=== PATIENT | male | born 1980 | race Caucasian/White ===

== ENCOUNTER 2019-05-03 17:52 | Inpatient (IN) | payer MEDICAID, SELFPAY ==
[2019-05-03 17:54] VITALS: BP 134/101; PULSE 107; RESP 18; TEMP 36.4; O2SAT 100; BMI 22.7
--- NOTE | 2019-05-03 17:55 | NURSING ---
NO OLD EKGS
[2019-05-03 18:05] LABS: Bedside Glucose > 500 mg/dL (70-110)
--- NOTE | 2019-05-03 18:16 | RAD_ITS ---
STUDY: X-RAY CHEST REASON FOR EXAM: Male, 38 years old. Nausea and vomiting TECHNIQUE: Frontal view COMPARISON: None. FINDINGS: The lungs are clear and expanded. There is no demonstrated pleural abnormality. Normal size heart. Normal mediastinum and pranav. Normal visualized pulmonary arteries. Normal visualized aortic arch and descending thoracic aorta. Normal visualized thoracic spine. Normal visualized ribs, clavicles, and shoulders. There is no demonstrated abnormality of the visualized soft tissue structures of the upper abdomen. RAD/Chest 1 View (Portable) IMPRESSION: Normal x-ray examination of the chest. Electronically Signed: Aaron Adame MD at 18:35 EDT , Service support ,
--- NOTE | 2019-05-03 18:17 | EKG12_ITS ---
Test Reason : Blood Pressure : / mmHG Vent. Rate : 104 BPM Atrial Rate : 104 BPM P-R Int : 130 ms QRS Dur : 068 ms QT Int : 354 ms P-R-T Axes : 074 077 069 degrees QTc Int : 465 ms Sinus tachycardia Otherwise normal ECG Confirmed by KOBY PACHECO, CHAVO ([id number]), assistant editor RADU ELLSWORTH ([id number]) on 05/06/2019 10:20:32 AM Referred By: Luis Enrique Cevallos Confirmed By:CHAVO WHALEN MD
[2019-05-03 18:32] LABS: Prothrombin Time (Protime)PT. 12.9 SECONDS (11.7-14.9)
[2019-05-03] MEDS: 0.9% Normal Saline 1,000 ML 1000 ML IV ×2 (18:32)
[2019-05-03] MEDS: Ondansetron 4 MG/2 ML Vial IV ×2 (18:32→20:27)
[2019-05-03] MEDS: Morphine 4 MG/ML Syringe IV ×2 (18:32→20:27)
[2019-05-03 18:33] LABS: Partial Thromboplast Time 22.7 Seconds (24.1-36.2)
[2019-05-03 18:50] LABS: Blood Gas Specimen Type VEN; O2 Delivery Device Room Air; Time Given 1842; VBG BASE EXCESS 0 mmol/L (-1.0-3.5); VBG Bicarbonate 25 mmol/L (22-26); VBG Oxygen Content 26 mmol/L (23-33); VBG PO2 43 mmHg (25-40); VBG SO2 80 % (50-70); VBG pCO2 38.1 mmHg (41-51); VBG pH 7.42 (7.32-7.42)
[2019-05-03 18:56] LABS: Lactic Acid 2.3 mmol/L (0.4-2.0)
[2019-05-03 19:02] VITALS: BP 143/108; PULSE 97; RESP 14; O2SAT 98
[2019-05-03 19:05] LABS: ALB/GLOB Ratio 0.7 RATIO (0.9-2.4); AST(SGOT) 19 U/L (15-37); Alanine Aminotransfer ALT/SGPT 31 U/L (16-61); Albumin, Serum 2.7 g/dL (3.2-5.0); Alkaline Phosphatase 83 U/L (45-117); Anion Gap 11 (5-15); BUN 34 mg/dL (7-18); BUN/Creat Ratio 32.7 RATIO (10-20); Chloride 87 mmol/L (98-107); Creatinine, Serum 1.04 mg/dL (0.70-1.30); EST Glomerular Filtration Rate 85 mL/min (>60); Est Glom Filt Rate - Afr Amer 102 mL/min (>60); Globulin 3.9 g/dL (2.2-4.2); Glucose 624 mg/dL (74-106); Lipase 289 U/L (73-393); Protein, Total 6.6 g/dL (6.4-8.2); Sodium Level 125 mmol/L (136-145)
[2019-05-03 19:10] LABS: Bedside Glucose > 500 mg/dL (70-110)
[2019-05-03 19:15] VITALS: BP 148/105; PULSE 89; RESP 17; TEMP 36.6; O2SAT 100
[2019-05-03 19:15] LABS: Absolute Lymphocyte Count 1.82 X10^3/uL (0.83-4.51); Absolute Neutrophil Count 9.9 X10^3/uL (2.0-7.7); Basophil# 0.03 X10^3/uL; Basophil% 0.2 % (0-1); Hematocrit 44.2 % (40-54); Hemoglobin 16.5 g/dL (13.0-16.5); Lymphocyte # 1.82 X10^3/ul (4.0); Lymphocyte % 13.9 % (19-41); Mean Corp Hgb Conc 37.3 g/dL (32-36); Mean Corpuscular Hgb 33.6 pg (27.0-32.0); Mean Platelet Vol. 10.8 fl (6.2-12.0); Monocyte# 1.38 X10^3/uL; Monocyte% 10.5 % (0-10); NRBC Flagged by Analyzer 0 % (0-5); Neutrophil # 9.87 X10^3/uL (2.7-7.7); Neutrophil % 75.1 % (47-70); POSITIVE MORPHOLOGY YES; Platelet Count 283 K/mm3 (150-450); RBC Distribution Width CV 11.1 % (11.6-14.6); RBC Distribution Width SD 36.3 fl (35.1-43.9); Red Blood Count 4.91 M/mm3 (4.6-6.2); White Blood Count 13.1 K/mm3 (4.4-11.0)
[2019-05-03 19:19] LABS: Differential Indicated SCAN CRITERIA MET
[2019-05-03 19:22] LABS: Anisocytosis RARE; Platelet Estimate ADEQUATE (ADEQ)
[2019-05-03 20:00] VITALS: BP 145/104; PULSE 103; PULSE 104; RESP 15; RESP 17; TEMP 36.9; O2SAT 98
--- NOTE | 2019-05-03 20:06 | ED.DCSUM_ITS ---
- ER Visit Summary Date of Service: 05/03/19 Chief Complaint: Not feeling well History of Present Illness: The patient is a 38 M who is not feeling well for 3 days. He feels weak, he is having chest pain. He is having high blood sugars. He has a history of diabetes and is not taking his insulin because he feels unwell. He denies any history of heart disease, PE, or aortic disease. Denies fevers, cough, or sputum. Denies any other associated symptoms. Physical Examination: Afebrile and vital signs unremarkable except for heart rate of 107. Patient appears dry. Skin otherwise unremarkable. Alert and oriented. Heart tachycardic regular. Lungs clear. Abdomen soft and nontender. Extremities nontender. Test Results: EKG showed sinus rhythm at a rate of 104. No sign of acute ischemia or infarction pattern. Chest x-ray was normal. Troponin was normal. White count 13.1 otherwise CBC normal. Sodium 125 and glucose 624. Anion gap and CO2 unremarkable. Lipase and coags unremarkable. Lactate 2.3. Small ketones. Troponin normal. Urinalysis pending. Emergency Department Course and Treatment: Patient treated with IV fluids, morphine, and Zofran while awaiting results. He was monitored. Patient is hyperglycemic without evidence of DKA. He was treated with IV fluids. After discussion with the hospitalist. He was treated with 10 units of insulin subcutaneous and 10 units IV. He does have chest pain however his work-up is unremarkable. He does have a white count of 13.1 and is tachycardic. I did order a lactate and it was 2.3. Thus far he has no signs of or symptoms of infection. I am waiting for his urinalysis. Hospitalist was contacted for further care. Treatment Plan: As above Disposition: Admission Impression: 1. Hyperglycemia 2. Chest pain This note was generated with [employer] dictation software. It may contain incorrect words, spelling, and punctuation that were not noted in review of the chart p rior to signing ED Disposition - Plan for ED Patient: Referrals: Care Physician,No Primary [Primary Care Provider] -
[2019-05-03 20:27] LABS: Bacteria 0 SEEN /hpf (None Seen); Mucous, Urine 0 SEEN /hpf (<or=2+); Squamous Epithelial Cells - UA 0 SEEN /hpf (0-5)
[2019-05-03] MEDS: Insulin Lispro 100 UNIT/ML INSULN.PEN 10 UNIT SC (20:27)
[2019-05-03 20:28] LABS: Color, Urine Straw (Yellow); Glucose, Dipstick 1000 mg/dl (Normal); Ketone-Dipstick 50 mg/dl (Negative); Leukocyte Esterase-Dipstick Negative /ul (Negative); Nitrite-Dipstick Negative (Negative); Occult Blood-Urine 25 /ul (Negative); Protein-Dipstick 30 mg/dl (Negative); Urine Bilirubin Dipstick Negative (Negative); Urine Clarity Clear (Clear); Urine Urobilinogen Normal (Normal)
[2019-05-03 20:36] LABS: Red Blood Cells-Urine 0-5 SEEN /hpf (0-5); White Blood Cells 0-5 SEEN /hpf (0-5)
[2019-05-03 21:16] VITALS: PULSE 100
[2019-05-03 21:17] VITALS: BMI 22.0
--- NOTE | 2019-05-03 21:18 | HP.PCM_ITS ---
Problem List (1) Severe hyperglycemia due to diabetes mellitus Status: Acute (2) Chest pain Status: Acute History of Present Illness Date of Admission: 05/03/19 Chief Complaint: Weakness and fatigue and malaise The patient is a 38 year old M with type 1 diabetes. Three Days ago ingested 3 caffeine energy pills and since then has been feeling unwell with chest pain, heartburn and nausea and some vomiting and has been unable to eat or drink fluids. As a result has not been taking his insulin. Presented to the emergency room due to severe fatigue and malaise and blood sugar noted to be markedly elevated at greater than 600 mg per DL. Still complaining of chest pain. Denies any fever or chills. [] Past Medical History Allergies No Known Allergies Allergy (Verified 05/03/19 17:57) Home Medications: Ambulatory Orders Medication Instructions Recorded Insulin NPH/Reg 70/30 [Novolin 25 units SUBCUT BIDAC 05/03/19 70/30] Lisinopril [Zestril] 10 mg PO DAILY 05/03/19 Omeprazole [Prilosec] 30 mg PO BID 05/03/19 Smoking Status: Current every day smoker Review of Systems Constitutional: Reports: Anorexia, Malaise, Weakness, Fatigue Cardiovascular: Reports: Chest Pain Comment: All other systems reviewed and essentially negative. VTE Information - Inpt Only VTE Present on Admission: Yes VTE Mechan Device Prophylaxis: None VTE Pharm Prophylaxis ordered?: Yes Patient Problems: Active and Suspected Problems Severe hyperglycemia due to diabetes mellitus (Acute) Chest pain (Acute) - Physical Exam General: Alert, Oriented x3, Cooperative, - - In distress and restless HEENT: Atraumatic, PERRLA Oral: Dry Mucosa Neck: Supple, No JVD Lungs: Clear to auscultation, Normal air movement, No rhonchi, No wheeze Cardiovascular: Regular rate, Regular Rhythm, Normal S1, Normal S2 Abdomen: Bowel Sounds Present, Soft, Non Tender Extremities: No clubbing, No cyanosis Skin: No rashes Musculoskeletal: No Tenderness to Palpation of Joints or Extremities Lymphatic: No Cervical, Supraclavicular, or Inguinal Adenopathy Neurological: Cranial nerves II-XII grossly intact, Neuro grossly intact Psych/Mental Status: Normal Affect, Appropriate, Agitated Vital Signs Temp Pulse Resp BP Pulse Ox 98.4 F 104 H 17 145/104 H 98 05/03/19 20:00 05/03/19 20:00 05/03/19 20:00 05/03/19 20:00 05/03/19 20:00 Oxygen Delivery Method Room Air Weight: 71.8 kg Body Mass Index (BMI) 22.7 Finger Stick Blood Glucose 522 Laboratory Tests Past 24 Hrs 05/03/19 05/03/19 05/03/19 18:10 18:10 18:10 WBC 13.1 H RBC 4.91 Hgb 16.5 Hct 44.2 MCV 90.0 MCH 33.6 H MCHC 37.3 H RDW Std Deviation 36.3 RDW Coeff of Gentry 11.1 L Plt Count 283 MPV 10.8 Immature Gran % (Auto) 0.300 Neut % (Auto) 75.1 H Lymph % (Auto) 13.9 L [place] % (Auto) 10.5 H Eos % (Auto) 0.0 Baso % (Auto) 0.2 Absolute Neuts (auto) 9.9 H Absolute Lymphs (auto) 1.82 Nucleated RBC % 0 Platelet Estimate ADEQUATE Anisocytosis RARE PT 12.9 INR 1.0 APTT 22.7 L Specimen Type VBG pH VBG pO2 VBG O2 Sat (Calc) VBG O2 Content VBG Base Excess POC Mix VBG pCO2 Pt Tmp O2 Delivery Device Blood Gas Notified Whom Blood Gas Notified Time Sodium 125 L Potassium 5.0 Chloride 87 L Carbon Dioxide 27.0 Anion Gap 11 BUN 34 H Creatinine 1.04 Estim Creat Clear Calc 97.80 Est GFR (MDRD) Af Amer 102 Est GFR (MDRD) Non-Af 85 BUN/Creatinine Ratio 32.7 H Glucose 624 H* Hemoglobin A1c Lactic Acid Calcium 8.0 L Total Bilirubin 0.50 AST 19 ALT 31 Alkaline Phosphatase 83 Troponin I < 0.015 Total Protein 6.6 Albumin 2.7 L Globulin 3.9 Albumin/Globulin Ratio 0.7 L Lipase 289 Urine Color Urine Clarity Urine pH Ur Specific [place] Urine Protein Urine Glucose (UA) Urine Ketones Urine Occult Blood Urine Nitrite Urine Bilirubin Urine Urobilinogen Ur Leukocyte Esterase Urine RBC Urine WBC Ur Squamous Epith Cells Urine Bacteria Urine Mucus Acetone Level 05/03/19 05/03/19 05/03/19 18:10 18:10 18:10 WBC RBC Hgb Hct MCV MCH MCHC RDW Std Deviation RDW Coeff of G[place] Plt Count MPV Immature Gran % (Auto) Neut % (Auto) Lymph % (Auto) [place] % (Auto) Eos % (Auto) Baso % (Auto) Absolute Neuts (auto) Absolute Lymphs (auto) Nucleated RBC % Platelet Estimate Anisocytosis PT INR APTT Specimen Type VBG pH VBG pO2 VBG O2 Sat (Calc) VBG O2 Content VBG Base Excess POC Mix VBG pCO2 Pt Tmp O2 Delivery Device Blood Gas Notified Whom Blood Gas Notified Time Sodium Potassium Chloride Carbon Dioxide Anion Gap BUN Creatinine Estim Creat Clear Calc Est GFR (MDRD) Af Amer Est GFR (MDRD) Non-Af BUN/Creatinine Ratio Glucose Hemoglobin A1c Pending Lactic Acid 2.3 H Calcium Total Bilirubin AST ALT Alkaline Phosphatase Troponin I Total Protein Albumin Globulin Albumin/Globulin Ratio Lipase Urine Color Urine Clarity Urine pH Ur Specific [place] Urine Protein Urine Glucose (UA) Urine Ketones Urine Occult Blood Urine Nitrite Urine Bilirubin Urine Urobilinogen Ur Leukocyte Esterase Urine RBC Urine WBC Ur Squamous Epith Cells Urine Bacteria Urine Mucus Acetone Level SMALL H 05/03/19 05/03/19 18:43 20:21 WBC RBC Hgb Hct MCV MCH MCHC RDW Std Deviation RDW Coeff of [place]entry Plt Count MPV Immature Gran % (Auto) Neut % (Auto) Lymph % (Auto) [place] % (Auto) Eos % (Auto) Baso % (Auto) Absolute Neuts (auto) Absolute Lymphs (auto) Nucleated RBC % Platelet Estimate Anisocytosis PT INR APTT Specimen Type JENNIFER VBG pH 7.42 VBG pO2 43 H VBG O2 Sat (Calc) 80 H VBG O2 Content 26 VBG Base Excess 0 POC Mix VBG pCO2 Pt Tmp 38.1 L O2 Delivery Device Room Air Blood Gas Notified Whom ED Blood Gas Notified Time 184 Sodium Potassium Chloride Carbon Dioxide Anion Gap BUN Creatinine Estim Creat Clear Calc Est GFR (MDRD) Af Amer Est GFR (MDRD) Non-Af BUN/Creatinine Ratio Glucose Hemoglobin A1c Lactic Acid Calcium Total Bilirubin AST ALT Alkaline Phosphatase Troponin I Total Protein Albumin Globulin Albumin/Globulin Ratio Lipase Urine Color Straw Urine Clarity Clear Urine pH 7.0 Ur Specific [place] 1.010 Urine Protein 30 H Urine Glucose (UA) 1000 H Urine Ketones 50 H Urine Occult Blood 25 H Urine Nitrite Negative Urine Bilirubin Negative Urine Urobilinogen Normal Ur Leukocyte Esterase Negative Urine RBC 0-5 SEEN Urine WBC 0-5 SEEN Ur Squamous Epith Cells 0 SEEN Urine Bacteria 0 SEEN Urine Mucus 0 SEEN Acetone Level POC Glucose 05/03/19 05/03/19 19:06 18:03 POC Glucose > 500 H* > 500 H* Assessment/Plan All Active Problems Severe hyperglycemia due to diabetes mellitus (Acute) Chest pain (Acute) 1. Severe Hyperglycemia. Secondary to inability to use insulin in the setting of acute illness and nausea. Patient not in DKA. Will start on NPH and mealtime insulin. Accu-Cheks before meals and at bedtime. Monitor electrolytes. Next 2. Chest Pain. Appears to be noncardiac. No significant risk factors. Symptomatically with analgesics. May be related to caffeine energy pills. Code Visit Inpatient E&M: 21942 Init Hosp L3
[2019-05-03 21:26] VITALS: BMI 22.0
[2019-05-03 21:40] VITALS: BP 177/110; PULSE 98; RESP 16; TEMP 36.8; O2SAT 92
[2019-05-03] MEDS: Morphine 2 MG/ML Syringe IV (21:58)
[2019-05-03] MEDS: Insulin Lispro 100 UNIT/ML INSULN.PEN 10 UNIT IV (21:59)
[2019-05-03] MEDS: Insulin NPH Human 100 UNITS/ML PEN 20 UNITS SC (22:04)
[2019-05-03] MEDS: Ondansetron 4 MG/2 ML Vial 8 MG IV (22:10)
[2019-05-03 22:21] LABS: Hemoglobin A1c 11.9 % (4.2-6.3)
[2019-05-03 22:23] LABS: Reflex Lactate? Y
[2019-05-03 23:48] LABS: Anion Gap 6 (5-15); BUN 26 mg/dL (7-18); BUN/Creat Ratio 38.5 RATIO (10-20); Calcium,Total 7.5 mg/dL (8.5-10.1); Chloride 100 mmol/L (98-107); Creatinine, Serum 0.68 mg/dL (0.70-1.30); EST Glomerular Filtration Rate 139 mL/min (>60); Est Glom Filt Rate - Afr Amer 169 mL/min (>60); Estimated Creatinine Clearance 145.21 ml/min; Glucose 319 mg/dL (74-106); Lactic Acid 1.2 mmol/L (0.4-2.0); Potassium 4.5 mmol/L (3.5-5.1); Sodium Level 132 mmol/L (136-145)
[2019-05-04] VITALS (11 sets, daily range): BP systolic 135–161; BP diastolic 87–110; PULSE 86–102; RESP 16–20; TEMP 36.4–37; O2SAT 96–100
[2019-05-04 00:01] LABS: Magnesium 1.9 mg/dL (1.6-2.6)
[2019-05-04 00:10] LABS: Bedside Glucose 343 mg/dL (70-110)
[2019-05-04] MEDS: Insulin Lispro 100 UNIT/ML INSULN.PEN SC ×2 (00:14→21:25)
[2019-05-04 00:21] LABS: Bedside Glucose 261 mg/dL (70-110)
[2019-05-04] MEDS: Pantoprazole Sodium 40 MG Tablet PO ×2 (00:32→09:37)
[2019-05-04] MEDS: hydrALAZINE 20 MG/ML Vial 10 MG IV (00:42)
[2019-05-04] MEDS: Morphine 2 MG/ML Syringe IV ×3 (02:40→12:53)
[2019-05-04] MEDS: Mag Hydrox/Al Hydrox/Simeth 30 ML UDC PO ×4 (02:42→21:46)
[2019-05-04 04:19] LABS: Anion Gap 7 (5-15); BUN 26 mg/dL (7-18); BUN/Creat Ratio 28.8 RATIO (10-20); Calcium,Total 7.7 mg/dL (8.5-10.1); Chloride 105 mmol/L (98-107); EST Glomerular Filtration Rate 100 mL/min (>60); Est Glom Filt Rate - Afr Amer 121 mL/min (>60); Estimated Creatinine Clearance 109.71 ml/min; Glucose 321 mg/dL (74-106); Magnesium 1.8 mg/dL (1.6-2.6); Potassium 4.7 mmol/L (3.5-5.1); Sodium Level 134 mmol/L (136-145)
[2019-05-04] MEDS: Ondansetron 4 MG/2 ML Vial 8 MG IV ×3 (05:12→21:37)
[2019-05-04 05:20] LABS: Absolute Lymphocyte Count 4.61 X10^3/uL (0.83-4.51); Absolute Neutrophil Count 10.1 X10^3/uL (2.0-7.7); Basophil# 0.06 X10^3/uL; Basophil% 0.4 % (0-1); Eosinophil# 0.05 X10^3/uL; Eosinophils% 0.3 % (0-5); Hematocrit 41.8 % (40-54); Hemoglobin 15.2 g/dL (13.0-16.5); Lymphocyte # 4.61 X10^3/ul (4.0); Lymphocyte % 27.3 % (19-41); Mean Corp Hgb Conc 36.4 g/dL (32-36); Mean Corpuscular Hgb 33.3 pg (27.0-32.0); Mean Corpuscular Volume 91.5 fL (80-94); Mean Platelet Vol. 10.9 fl (6.2-12.0); Monocyte# 1.98 X10^3/uL; Monocyte% 11.7 % (0-10); NRBC Flagged by Analyzer 0 % (0-5); Neutrophil # 10.14 X10^3/uL (2.7-7.7); Neutrophil % 59.9 % (47-70); POSITIVE COUNT YES; POSITIVE DIFFERENTIAL YES; Platelet Count 125 K/mm3 (150-450); RBC Distribution Width CV 11.2 % (11.6-14.6); RBC Distribution Width SD 37.7 fl (35.1-43.9); Red Blood Count 4.57 M/mm3 (4.6-6.2); White Blood Count 16.9 K/mm3 (4.4-11.0)
[2019-05-04 05:22] LABS: Differential Indicated SCAN CRITERIA MET
[2019-05-04 07:13] LABS: Differential Comment SCANNED
[2019-05-04 09:24] LABS: Anion Gap 5 (5-15); BUN 21 mg/dL (7-18); BUN/Creat Ratio 31.6 RATIO (10-20); Calcium,Total 7.4 mg/dL (8.5-10.1); Chloride 105 mmol/L (98-107); Creatinine, Serum 0.66 mg/dL (0.70-1.30); EST Glomerular Filtration Rate 142 mL/min (>60); Est Glom Filt Rate - Afr Amer 172 mL/min (>60); Estimated Creatinine Clearance 152.83 ml/min; Glucose 252 mg/dL (74-106); Potassium 4.8 mmol/L (3.5-5.1); Sodium Level 137 mmol/L (136-145)
--- NOTE | 2019-05-04 09:25 | NURSING ---
Attempted to restart IV without success. MARILEE Enrique charge nurse and Dr. Rome attempted IV start as well without success.
[2019-05-04] MEDS: Lisinopril 10 MG Tablet PO (09:37)
[2019-05-04] MEDS: Enoxaparin 40 MG/0.4 ML Syringe SC (09:39)
--- NOTE | 2019-05-04 09:54 | CASEMGMT ---
RN CM Assessment: attempted x 2 to see pt, sleeping and not feeling well. Alessandro RAMIREZN RN ACM
[2019-05-04 10:35] LABS: Bedside Glucose 261 mg/dL (70-110)
--- NOTE | 2019-05-04 11:04 | CASEMGMT ---
RN CM Assessment Presentation: Hyperglycemia, Type 1 Diabetes. BS 624 Intro role of CM and purpose of RN CM assessment to patient in room. Pt is withdrawn, not forthcoming with information. Not consistent with answers. Demographics, PCP and Pharmacy verified. Pt states he goes to Emergency room when I need medicine and does not have PCP or stream control officer. -[employer] consult ordered. PCP: none. List given and benefits of establishing with PCP discussed. Pt may benefit from going to [facility] as he would not need appt to see physician there. Specialists: none. RN CM discussed seeing stream control officer for diabetes management and pt states I probably won't go. [facility] [place] Insurance: [employer]. Prescription Benefit: yes LNOK: Dutch Holman Living Arrangements: Pt lives independently. States no care needs. Transportation: states he drives DME: none. States he checks his blood sugar at times, but then stated he does not have machine. States he uses his friends. Update physician that pt would need script for blood glucose monitoring machine, equipment and medications on dc. Would be covered under [employer]. HHC: none Patient DC goals: Home DC PLAN: Home, diabetic teaching, script for BS monitoring machine and supplies. Alessandro SCHULTE RN ACM
[2019-05-04] MEDS: Ondansetron ODT 4 MG Tablet 6 MG PO (11:21)
[2019-05-04 11:29] LABS: Pathologist Review Reviewed
[2019-05-04] MEDS: 0.9% NaCl Peripheral Flush Adult/Peds IV ×2 (12:53→21:38)
--- NOTE | 2019-05-04 13:36 | PCM.PROGNOTE ---
<Leyda Munroe - Last Filed: 05/04/19 13:45> Patient Problems: Active and Suspected Problems Severe hyperglycemia due to diabetes mellitus (Acute) Chest pain (Acute) Subjective: Patient seen and examined. Reports he feels unwell. Continues to have nausea. States antiemetic regimen is helping. Denies diarrhea. - Physical Exam General: Alert, Oriented x3, Cooperative HEENT: Atraumatic, PERRLA, EOMI, Normocephalic Neck: Supple, No JVD, Negative Carotid Bruits Lungs: Clear to auscultation, Normal air movement Cardiovascular: Regular rate, Regular Rhythm, Normal S1, Normal S2, No murmurs Abdomen: Bowel Sounds Present, Soft, Non Tender, Non-Distended Extremities: No clubbing, No cyanosis, No edema Skin: No rashes, No breakdown Musculoskeletal: No Tenderness to Palpation of Joints or Extremities Neurological: Cranial nerves II-XII grossly intact, Neuro grossly intact Psych/Mental Status: Flat Affect Vital Signs Temp Pulse Resp BP Pulse Ox 98.6 F 92 20 H 161/110 H 100 05/04/19 08:54 05/04/19 08:54 05/04/19 08:54 05/04/19 08:54 05/04/19 08:54 Oxygen Delivery Method Room Air Weight: 156 lb 15.506 oz Body Mass Index (BMI) 22.0 Finger Stick Blood Glucose 522 Intake and Output for Last 24 Hours 05/02/19 05/03/19 05/04/19 23:59 23:59 23:59 Intake Total 2391 / 2391 Output Total 500 / 500 Balance 1891 / 1891 Laboratory Tests Past 24 Hrs 05/03/19 05/03/19 05/03/19 18:10 18:10 18:10 WBC 13.1 H RBC 4.91 Hgb 16.5 Hct 44.2 MCV 90.0 MCH 33.6 H MCHC 37.3 H RDW Std Deviation 36.3 RDW Coeff of Gentry 11.1 L Plt Count 283 MPV 10.8 Immature Gran % (Auto) 0.300 Neut % (Auto) 75.1 H Lymph % (Auto) 13.9 L [place] % (Auto) 10.5 H Eos % (Auto) 0.0 Baso % (Auto) 0.2 Absolute Neuts (auto) 9.9 H Absolute Lymphs (auto) 1.82 Nucleated RBC % 0 Differential Comment Diff Path Review Platelet Estimate ADEQUATE Anisocytosis RARE PT 12.9 INR 1.0 APTT 22.7 L Specimen Type VBG pH VBG pO2 VBG O2 Sat (Calc) VBG O2 Content VBG Base Excess POC Mix VBG pCO2 Pt Tmp O2 Delivery Device Blood Gas Notified Whom Blood Gas Notified Time Sodium 125 L Potassium 5.0 Chloride 87 L Carbon Dioxide 27.0 Anion Gap 11 BUN 34 H Creatinine 1.04 Estim Creat Clear Calc 97.80 Est GFR (MDRD) Af Amer 102 Est GFR (MDRD) Non-Af 85 BUN/Creatinine Ratio 32.7 H Glucose 624 H* Hemoglobin A1c Lactic Acid Calcium 8.0 L Magnesium Total Bilirubin 0.50 AST 19 ALT 31 Alkaline Phosphatase 83 Troponin I < 0.015 Total Protein 6.6 Albumin 2.7 L Globulin 3.9 Albumin/Globulin Ratio 0.7 L Lipase 289 Urine Color Urine Clarity Urine pH Ur Specific [place] Urine Protein Urine Glucose (UA) Urine Ketones Urine Occult Blood Urine Nitrite Urine Bilirubin Urine Urobilinogen Ur Leukocyte Esterase Urine RBC Urine WBC Ur Squamous Epith Cells Urine Bacteria Urine Mucus Acetone Level 05/03/19 05/03/19 05/03/19 18:10 18:10 18:10 WBC RBC Hgb Hct MCV MCH MCHC RDW Std Deviation RDW Coeff of Gentry Plt Count MPV Immature Gran % (Auto) Neut % (Auto) Lymph % (Auto) [place] % (Auto) Eos % (Auto) Baso % (Auto) Absolute Neuts (auto) Absolute Lymphs (auto) Nucleated RBC % Differential Comment Diff Path Review Platelet Estimate Anisocytosis PT INR APTT Specimen Type VBG pH VBG pO2 VBG O2 Sat (Calc) VBG O2 Content VBG Base Excess POC Mix VBG pCO2 Pt Tmp O2 Delivery Device Blood Gas Notified Whom Blood Gas Notified Time Sodium Potassium Chloride Carbon Dioxide Anion Gap BUN Creatinine Estim Creat Clear Calc Est GFR (MDRD) Af Amer Est GFR (MDRD) Non-Af BUN/Creatinine Ratio Glucose Hemoglobin A1c 11.9 H Lactic Acid 2.3 H Calcium Magnesium Total Bilirubin AST ALT Alkaline Phosphatase Troponin I Total Protein Albumin Globulin Albumin/Globulin Ratio Lipase Urine Color Urine Clarity Urine pH Ur Specific [place] Urine Protein Urine Glucose (UA) Urine Ketones Urine Occult Blood Urine Nitrite Urine Bilirubin Urine Urobilinogen Ur Leukocyte Esterase Urine RBC Urine WBC Ur Squamous Epith Cells Urine Bacteria Urine Mucus Acetone Level SMALL H 05/03/19 05/03/19 05/03/19 18:43 20:21 23:15 WBC RBC Hgb Hct MCV MCH MCHC RDW Std Deviation RDW Coeff of Gentry Plt Count MPV Immature Gran % (Auto) Neut % (Auto) Lymph % (Auto) [place] % (Auto) Eos % (Auto) Baso % (Auto) Absolute Neuts (auto) Absolute Lymphs (auto) Nucleated RBC % Differential Comment Diff Path Review Platelet Estimate Anisocytosis PT INR APTT Specimen Type JENNIFER VBG pH 7.42 VBG pO2 43 H VBG O2 Sat (Calc) 80 H VBG O2 Content 26 VBG Base Excess 0 POC Mix VBG pCO2 Pt Tmp 38.1 L O2 Delivery Device Room Air Blood Gas Notified Whom ED Blood Gas Notified Time 1842 Sodium 132 L Potassium 4.5 Chloride 100 Carbon Dioxide 26.0 Anion Gap 6 BUN 26 H Creatinine 0.68 L Estim Creat Clear Calc 145.21 Est GFR (MDRD) Af Amer 169 Est GFR (MDRD) Non-Af 139 BUN/Creatinine Ratio 38.5 H Glucose 319 H Hemoglobin A1c Lactic Acid Calcium 7.5 L Magnesium Total Bilirubin AST ALT Alkaline Phosphatase Troponin I Total Protein Albumin Globulin Albumin/Globulin Ratio Lipase Urine Color Straw Urine Clarity Clear Urine pH 7.0 Ur Specific [place] 1.010 Urine Protein 30 H Urine Glucose (UA) 1000 H Urine Ketones 50 H Urine Occult Blood 25 H Urine Nitrite Negative Urine Bilirubin Negative Urine Urobilinogen Normal Ur Leukocyte Esterase Negative Urine RBC 0-5 SEEN Urine WBC 0-5 SEEN Ur Squamous Epith Cells 0 SEEN Urine Bacteria 0 SEEN Urine Mucus 0 SEEN Acetone Level 05/03/19 05/03/19 05/04/19 23:15 23:15 03:24 WBC RBC Hgb Hct MCV MCH MCHC RDW Std Deviation RDW Coeff of Gentry Plt Count MPV Immature Gran % (Auto) Neut % (Auto) Lymph % (Auto) [place] % (Auto) Eos % (Auto) Baso % (Auto) Absolute Neuts (auto) Absolute Lymphs (auto) Nucleated RBC % Differential Comment Diff Path Review Platelet Estimate Anisocytosis PT INR APTT Specimen Type VBG pH VBG pO2 VBG O2 Sat (Calc) VBG O2 Content VBG Base Excess POC Mix VBG pCO2 Pt Tmp O2 Delivery Device Blood Gas Notified Whom Blood Gas Notified Time Sodium 134 L Potassium 4.7 Chloride 105 Carbon Dioxide 22.0 Anion Gap 7 BUN 26 H Creatinine 0.90 Estim Creat Clear Calc 109.71 Est GFR (MDRD) Af Amer 121 Est GFR (MDRD) Non-Af 100 BUN/Creatinine Ratio 28.8 H Glucose 321 H Hemoglobin A1c Lactic Acid 1.2 Calcium 7.7 L Magnesium 1.9 1.8 Total Bilirubin AST ALT Alkaline Phosphatase Troponin I Total Protein Albumin Globulin Albumin/Globulin Ratio Lipase Urine Color Urine Clarity Urine pH Ur Specific [place] Urine Protein Urine Glucose (UA) Urine Ketones Urine Occult Blood Urine Nitrite Urine Bilirubin Urine Urobilinogen Ur Leukocyte Esterase Urine RBC Urine WBC Ur Squamous Epith Cells Urine Bacteria Urine Mucus Acetone Level 05/04/19 05/04/19 03:24 09:00 WBC 16.9 H RBC 4.57 L Hgb 15.2 Hct 41.8 MCV 91.5 MCH 33.3 H MCHC 36.4 H RDW Std Deviation 37.7 RDW Coeff of Gentry 11.2 L Plt Count 125 L MPV 10.9 Immature Gran % (Auto) 0.400 Neut % (Auto) 59.9 Lymph % (Auto) 27.3 [place] % (Auto) 11.7 H Eos % (Auto) 0.3 Baso % (Auto) 0.4 Absolute Neuts (auto) 10.1 H Absolute Lymphs (auto) 4.61 H Nucleated RBC % 0 Differential Comment SCANNED Diff Path Review Reviewed Platelet Estimate Anisocytosis PT INR APTT Specimen Type VBG pH VBG pO2 VBG O2 Sat (Calc) VBG O2 Content VBG Base Excess POC Mix VBG pCO2 Pt Tmp O2 Delivery Device Blood Gas Notified Whom Blood Gas Notified Time Sodium 137 Potassium 4.8 Chloride 105 Carbon Dioxide 27.0 Anion Gap 5 BUN 21 H Creatinine 0.66 L Estim Creat Clear Calc 152.83 Est GFR (MDRD) Af Amer 172 Est GFR (MDRD) Non-Af 142 BUN/Creatinine Ratio 31.6 H Glucose 252 H Hemoglobin A1c Lactic Acid Calcium 7.4 L Magnesium Total Bilirubin AST ALT Alkaline Phosphatase Troponin I Total Protein Albumin Globulin Albumin/Globulin Ratio Lipase Urine Color Urine Clarity Urine pH Ur Specific [place] Urine Protein Urine Glucose (UA) Urine Ketones Urine Occult Blood Urine Nitrite Urine Bilirubin Urine Urobilinogen Ur Leukocyte Esterase Urine RBC Urine WBC Ur Squamous Epith Cells Urine Bacteria Urine Mucus Acetone Level POC Glucose 05/04/19 05/04/19 05/03/19 08:33 00:11 22:03 POC Glucose 261 H 261 H 343 H 05/03/19 05/03/19 19:06 18:03 POC Glucose > 500 H* > 500 H* Medical Necessity - Tobacco Use Smoking Status: Current every day smoker Assessment/Plan All Active Problems Severe hyperglycemia due to diabetes mellitus (Acute) Chest pain (Acute) 1. Severe hyperglycemia in the context of type 1 diabetes mellitus- No DKA. Patient reports he does not check his blood sugar at home. Hemoglobin A1c 11.9%. Accu-Cheks before meals at bedtime with sliding scale insulin. Continue NPH 25 units subcu twice daily. Sliding scale insulin. Nutrition consult. Patient will need glucose monitor and testing supplies prescription at discharge. Recommend follow-up with endocrinology as well. 2. Nausea, vomiting-suspect viral gastroenteritis. Patient continues to have nausea. PRN antiemetic regimen. IV fluids. 3. Hypertension-stable, continue home lisinopril regimen. Intermittently elevated, PRN hydralazine for systolic blood pressure is 160. 4. GERD-continue PPI regimen. 5. Leukocytosis-suspect reactive. 6. Hyponatremia-secondary to #1. Resolved. DVT prophylaxis- Lovenox sc This patient was seen by MAGDI Bird under the supervision of Dr. Rome. <Jessica Rome - Last Filed: 05/04/19 14:55> - Physical Exam Vital Signs Temp Pulse Resp BP Pulse Ox 98.6 F 92 20 H 161/110 H 100 05/04/19 08:54 05/04/19 08:54 05/04/19 08:54 05/04/19 08:54 05/04/19 08:54 Oxygen Delivery Method Room Air Weight: 71.2 kg Body Mass Index (BMI) 22.0 Finger Stick Blood Glucose 522 Intake and Output for Last 24 Hours 05/02/19 05/03/19 05/04/19 23:59 23:59 23:59 Intake Total 2391 / 2391 Output Total 500 / 500 Balance 1891 / 1891 Laboratory Tests Past 24 Hrs 05/03/19 05/03/19 05/03/19 18:10 18:10 18:10 WBC 13.1 H RBC 4.91 Hgb 16.5 Hct 44.2 MCV 90.0 MCH 33.6 H MCHC 37.3 H RDW Std Deviation 36.3 RDW Coeff of Gentry 11.1 L Plt Count 283 MPV 10.8 Immature Gran % (Auto) 0.300 Neut % (Auto) 75.1 H Lymph % (Auto) 13.9 L [place] % (Auto) 10.5 H Eos % (Auto) 0.0 Baso % (Auto) 0.2 Absolute Neuts (auto) 9.9 H Absolute Lymphs (auto) 1.82 Nucleated RBC % 0 Differential Comment Diff Path Review Platelet Estimate ADEQUATE Anisocytosis RARE PT 12.9 INR 1.0 APTT 22.7 L Specimen Type VBG pH VBG pO2 VBG O2 Sat (Calc) VBG O2 Content VBG Base Excess POC Mix VBG pCO2 Pt Tmp O2 Delivery Device Blood Gas Notified Whom Blood Gas Notified Time Sodium 125 L Potassium 5.0 Chloride 87 L Carbon Dioxide 27.0 Anion Gap 11 BUN 34 H Creatinine 1.04 Estim Creat Clear Calc 97.80 Est GFR (MDRD) Af Amer 102 Est GFR (MDRD) Non-Af 85 BUN/Creatinine Ratio 32.7 H Glucose 624 H* Hemoglobin A1c Lactic Acid Calcium 8.0 L Magnesium Total Bilirubin 0.50 AST 19 ALT 31 Alkaline Phosphatase 83 Troponin I < 0.015 Total Protein 6.6 Albumin 2.7 L Globulin 3.9 Albumin/Globulin Ratio 0.7 L Lipase 289 Urine Color Urine Clarity Urine pH Ur Specific [place] Urine Protein Urine Glucose (UA) Urine Ketones Urine Occult Blood Urine Nitrite Urine Bilirubin Urine Urobilinogen Ur Leukocyte Esterase Urine RBC Urine WBC Ur Squamous Epith Cells Urine Bacteria Urine Mucus Acetone Level 05/03/19 05/03/19 05/03/19 18:10 18:10 18:10 WBC RBC Hgb Hct MCV MCH MCHC RDW Std Deviation RDW Coeff of Gentry Plt Count MPV Immature Gran % (Auto) Neut % (Auto) Lymph % (Auto) [place] % (Auto) Eos % (Auto) Baso % (Auto) Absolute Neuts (auto) Absolute Lymphs (auto) Nucleated RBC % Differential Comment Diff Path Review Platelet Estimate Anisocytosis PT INR APTT Specimen Type VBG pH VBG pO2 VBG O2 Sat (Calc) VBG O2 Content VBG Base Excess POC Mix VBG pCO2 Pt Tmp O2 Delivery Device Blood Gas Notified Whom Blood Gas Notified Time Sodium Potassium Chloride Carbon Dioxide Anion Gap BUN Creatinine Estim Creat Clear Calc Est GFR (MDRD) Af Amer Est GFR (MDRD) Non-Af BUN/Creatinine Ratio Glucose Hemoglobin A1c 11.9 H Lactic Acid 2.3 H Calcium Magnesium Total Bilirubin AST ALT Alkaline Phosphatase Troponin I Total Protein Albumin Globulin Albumin/Globulin Ratio Lipase Urine Color Urine Clarity Urine pH Ur Specific [place] Urine Protein Urine Glucose (UA) Urine Ketones Urine Occult Blood Urine Nitrite Urine Bilirubin Urine Urobilinogen Ur Leukocyte Esterase Urine RBC Urine WBC Ur Squamous Epith Cells Urine Bacteria Urine Mucus Acetone Level SMALL H 05/03/19 05/03/19 05/03/19 18:43 20:21 23:15 WBC RBC Hgb Hct MCV MCH MCHC RDW Std Deviation RDW Coeff of Gentry Plt Count MPV Immature Gran % (Auto) Neut % (Auto) Lymph % (Auto) [place] % (Auto) Eos % (Auto) Baso % (Auto) Absolute Neuts (auto) Absolute Lymphs (auto) Nucleated RBC % Differential Comment Diff Path Review Platelet Estimate Anisocytosis PT INR APTT Specimen Type JENNIFER VBG pH 7.42 VBG pO2 43 H VBG O2 Sat (Calc) 80 H VBG O2 Content 26 VBG Base Excess 0 POC Mix VBG pCO2 Pt Tmp 38.1 L O2 Delivery Device Room Air Blood Gas Notified Whom ED Blood Gas Notified Time 1842 Sodium 132 L Potassium 4.5 Chloride 100 Carbon Dioxide 26.0 Anion Gap 6 BUN 26 H Creatinine 0.68 L Estim Creat Clear Calc 145.21 Est GFR (MDRD) Af Amer 169 Est GFR (MDRD) Non-Af 139 BUN/Creatinine Ratio 38.5 H Glucose 319 H Hemoglobin A1c Lactic Acid Calcium 7.5 L Magnesium Total Bilirubin AST ALT Alkaline Phosphatase Troponin I Total Protein Albumin Globulin Albumin/Globulin Ratio Lipase Urine Color Straw Urine Clarity Clear Urine pH 7.0 Ur Specific [place] 1.010 Urine Protein 30 H Urine Glucose (UA) 1000 H Urine Ketones 50 H Urine Occult Blood 25 H Urine Nitrite Negative Urine Bilirubin Negative Urine Urobilinogen Normal Ur Leukocyte Esterase Negative Urine RBC 0-5 SEEN Urine WBC 0-5 SEEN Ur Squamous Epith Cells 0 SEEN Urine Bacteria 0 SEEN Urine Mucus 0 SEEN Acetone Level 05/03/19 05/03/19 05/04/19 23:15 23:15 03:24 WBC RBC Hgb Hct MCV MCH MCHC RDW Std Deviation RDW Coeff of Gentry Plt Count MPV Immature Gran % (Auto) Neut % (Auto) Lymph % (Auto) [place] % (Auto) Eos % (Auto) Baso % (Auto) Absolute Neuts (auto) Absolute Lymphs (auto) Nucleated RBC % Differential Comment Diff Path Review Platelet Estimate Anisocytosis PT INR APTT Specimen Type VBG pH VBG pO2 VBG O2 Sat (Calc) VBG O2 Content VBG Base Excess POC Mix VBG pCO2 Pt Tmp O2 Delivery Device Blood Gas Notified Whom Blood Gas Notified Time Sodium 134 L Potassium 4.7 Chloride 105 Carbon Dioxide 22.0 Anion Gap 7 BUN 26 H Creatinine 0.90 Estim Creat Clear Calc 109.71 Est GFR (MDRD) Af Amer 121 Est GFR (MDRD) Non-Af 100 BUN/Creatinine Ratio 28.8 H Glucose 321 H Hemoglobin A1c Lactic Acid 1.2 Calcium 7.7 L Magnesium 1.9 1.8 Total Bilirubin AST ALT Alkaline Phosphatase Troponin I Total Protein Albumin Globulin Albumin/Globulin Ratio Lipase Urine Color Urine Clarity Urine pH Ur Specific [place] Urine Protein Urine Glucose (UA) Urine Ketones Urine Occult Blood Urine Nitrite Urine Bilirubin Urine Urobilinogen Ur Leukocyte Esterase Urine RBC Urine WBC Ur Squamous Epith Cells Urine Bacteria Urine Mucus Acetone Level 05/04/19 05/04/19 03:24 09:00 WBC 16.9 H RBC 4.57 L Hgb 15.2 Hct 41.8 MCV 91.5 MCH 33.3 H MCHC 36.4 H RDW Std Deviation 37.7 RDW Coeff of G[place] 11.2 L Plt Count 125 L MPV 10.9 Immature Gran % (Auto) 0.400 Neut % (Auto) 59.9 Lymph % (Auto) 27.3 [place] % (Auto) 11.7 H Eos % (Auto) 0.3 Baso % (Auto) 0.4 Absolute Neuts (auto) 10.1 H Absolute Lymphs (auto) 4.61 H Nucleated RBC % 0 Differential Comment SCANNED Diff Path Review Reviewed Platelet Estimate Anisocytosis PT INR APTT Specimen Type VBG pH VBG pO2 VBG O2 Sat (Calc) VBG O2 Content VBG Base Excess POC Mix VBG pCO2 Pt Tmp O2 Delivery Device Blood Gas Notified Whom Blood Gas Notified Time Sodium 137 Potassium 4.8 Chloride 105 Carbon Dioxide 27.0 Anion Gap 5 BUN 21 H Creatinine 0.66 L Estim Creat Clear Calc 152.83 Est GFR (MDRD) Af Amer 172 Est GFR (MDRD) Non-Af 142 BUN/Creatinine Ratio 31.6 H Glucose 252 H Hemoglobin A1c Lactic Acid Calcium 7.4 L Magnesium Total Bilirubin AST ALT Alkaline Phosphatase Troponin I Total Protein Albumin Globulin Albumin/Globulin Ratio Lipase Urine Color Urine Clarity Urine pH Ur Specific [place] Urine Protein Urine Glucose (UA) Urine Ketones Urine Occult Blood Urine Nitrite Urine Bilirubin Urine Urobilinogen Ur Leukocyte Esterase Urine RBC Urine WBC Ur Squamous Epith Cells Urine Bacteria Urine Mucus Acetone Level POC Glucose 05/04/19 05/04/19 05/04/19 12:41 08:33 00:11 POC Glucose 241 H 261 H 261 H 05/03/19 05/03/19 05/03/19 22:03 19:06 18:03 POC Glucose 343 H > 500 H* > 500 H* Assessment/Plan This patient was seen in conjunction with Leyda Munroe NP. I have independently interviewed and examined the patient and reviewed pertinent historical, laboratory, and other data. Please refer to her note for patient's presentation, findings, and recommendations. Patient was seen and examined. No acute events overnight. He complains of feeling nauseous and having severe upper chest pain. Denies any fever or chills. Vitals were reviewed -stable Physical Exam General: Alert, Oriented x3, Cooperative HEENT: Atraumatic, PERRLA, EOMI, Normocephalic Neck: Supple, No JVD, Negative Carotid Bruits Lungs: Clear to auscultation, Normal air movement Cardiovascular: Regular rate, Regular Rhythm, Normal S1, Normal S2, No murmurs Abdomen: Bowel Sounds Present, Soft, Non Tender, Non-Distended Extremities: No clubbing, No cyanosis, No edema Skin: No rashes, No breakdown Musculoskeletal: No Tenderness to Palpation of Joints or Extremities Neurological: Cranial nerves II-XII grossly intact, Neuro grossly intact Psych/Mental Status: Flat Affect Labs reviewed. ASSESSMENT: 1. Severe hyperglycemia due to missed medications 2. Type I DM 3. Hypertension 4. GERD 5. FROYLAN secondary to dehydration 6. Hyponatremia secondary to #1 Meds reviewed Plan: Continue on IV fluids, continue to monitor blood sugars, resume home NPH doses, monitor, repeat blood work in a.m. Code Visit Inpatient E&M: 54022 Subs Hosp L2
[2019-05-04 13:45] LABS: Bedside Glucose 241 mg/dL (70-110)
[2019-05-04] MEDS: Ensure Clear 120 ML Liquid PO ×2 (14:53→21:37)
[2019-05-04] MEDS: 0.9% Normal Saline 1,000 ML 150 ML IV ×2 (15:11→21:38)
[2019-05-04 15:56] LABS: Anion Gap 8 (5-15); BUN 17 mg/dL (7-18); BUN/Creat Ratio 29.8 RATIO (10-20); Calcium,Total 7.5 mg/dL (8.5-10.1); Chloride 104 mmol/L (98-107); Creatinine, Serum 0.57 mg/dL (0.70-1.30); EST Glomerular Filtration Rate 169 mL/min (>60); Est Glom Filt Rate - Afr Amer 205 mL/min (>60); Estimated Creatinine Clearance 176.96 ml/min; Glucose 264 mg/dL (74-106); Potassium 4.8 mmol/L (3.5-5.1); Sodium Level 132 mmol/L (136-145)
[2019-05-04 16:31] LABS: Bedside Glucose 337 mg/dL (70-110)
[2019-05-04] MEDS: Acetaminophen 325 MG Tablet 650 MG PO (18:48)
[2019-05-04] MEDS: Insulin NPH Human 100 UNITS/ML PEN 25 UNITS SC (21:25)
[2019-05-04 22:45] LABS: Bedside Glucose 309 mg/dL (70-110)
[2019-05-05] VITALS (7 sets, daily range): BP systolic 129–133; BP diastolic 86–93; PULSE 83–89; RESP 14–18; TEMP 36.7–37.2; O2SAT 97–99
--- NOTE | 2019-05-05 02:30 | NURSING ---
Handed over care to Lucero HUNT at this time, report given.
[2019-05-05] MEDS: Mag Hydrox/Al Hydrox/Simeth 30 ML UDC PO ×2 (03:06→08:04)
[2019-05-05] MEDS: 0.9% Normal Saline 1,000 ML 150 ML IV ×2 (04:30→10:29)
[2019-05-05] MEDS: 0.9% NaCl Midline IV Flush IV ×2 (04:47→13:06)
[2019-05-05 05:05] LABS: Hematocrit 37.1 % (40-54); Hemoglobin 13.5 g/dL (13.0-16.5); Mean Corp Hgb Conc 36.4 g/dL (32-36); Mean Corpuscular Hgb 33.6 pg (27.0-32.0); Mean Corpuscular Volume 92.3 fL (80-94); Platelet Count 220 K/mm3 (150-450); RBC Distribution Width CV 11.1 % (11.6-14.6); RBC Distribution Width SD 37.8 fl (35.1-43.9); Red Blood Count 4.02 M/mm3 (4.6-6.2)
[2019-05-05] MEDS: Ondansetron 4 MG/2 ML Vial 8 MG IV ×2 (06:29→13:06)
[2019-05-05 08:01] LABS: Bedside Glucose 174 mg/dL (70-110)
[2019-05-05] MEDS: Insulin Lispro 100 UNIT/ML INSULN.PEN SC ×3 (08:15→16:22)
[2019-05-05] MEDS: Acetaminophen 325 MG Tablet 650 MG PO (08:18)
[2019-05-05 08:22] LABS: Anion Gap 6 (5-15); BUN 13 mg/dL (7-18); BUN/Creat Ratio 20.9 RATIO (10-20); Calcium,Total 7.4 mg/dL (8.5-10.1); Chloride 107 mmol/L (98-107); Creatinine, Serum 0.62 mg/dL (0.70-1.30); EST Glomerular Filtration Rate 153 mL/min (>60); Est Glom Filt Rate - Afr Amer 186 mL/min (>60); Estimated Creatinine Clearance 165.89 ml/min; Glucose 236 mg/dL (74-106); Magnesium 2.2 mg/dL (1.6-2.6); Potassium 4.1 mmol/L (3.5-5.1); Sodium Level 140 mmol/L (136-145)
[2019-05-05] MEDS: Enoxaparin 40 MG/0.4 ML Syringe SC (08:52)
[2019-05-05] MEDS: Lisinopril 10 MG Tablet PO (08:52)
[2019-05-05] MEDS: Pantoprazole Sodium 40 MG Tablet PO (08:52)
[2019-05-05] MEDS: Insulin NPH Human 100 UNITS/ML PEN 25 UNITS SC (08:53)
--- NOTE | 2019-05-05 10:55 | DCINST_ITS ---
- Discharge Diagnoses Current Active Problems: Current Active and Chronic Problems Severe hyperglycemia due to diabetes mellitus (Acute) Chest pain (Acute) You will use the following diet at home:: Other - Carb control Discharge Activity: Return to Normal Activity Call your doctor if you observe: Shortness of breath, Dizziness, Fainting spells, Chest pain Additional Instructions: You will need to establish with PCP as soon as possible. Once established, recommend referral to packing machine feeder for further diabetes management. Check your blood glucose levels at least twice daily, morning and night. Allergies/Adverse Reactions: Allergies No Known Allergies Allergy (Verified 05/03/19 17:57) Medications to take at Discharge Lisinopril [Zestril] 10 mg PO DAILY 05/03/19 Insulin NPH/Reg 70/30 [Novolin 70/30] 25 units SUBCUT BIDAC #5 vial 05/05/19 Ondansetron HCl [Zofran] 4 mg PO Q8H PRN PRN #20 tab 05/05/19 Pantoprazole Sodium [Protonix] 40 mg PO BID #90 tab 05/05/19 The following prescriptions were given: Insulin NPH/Reg 70/30 [Novolin 70/30] 25 units SUBCUT BIDAC #5 vial Transmission Status: Pending to [facility] [address] Pantoprazole Sodium [Protonix] 40 mg PO BID #90 tab Transmission Status: Received by [facility] Ondansetron HCl [Zofran] 4 mg PO Q8H PRN PRN #20 tab PRN Reason: Nausea Transmission Status: Pending to [facility] Orders to be completed after discharge: Glucometer Location: None Selected Primary Care Physician: Care Physician,No Primary [Primary Care Provider] - Please follow up with your Primary Care Physician in: 1 Week Test Results: Test results from this visit will be discussed in further detail at your follow- up appointment, if applicable. Proposed Discharge Date: 05/05/19
--- NOTE | 2019-05-05 10:57 | PCM.DC.SUM ---
<Leyda Munroe - Last Filed: 05/05/19 11:04> Discharge Date and Diagnosis Date of Admission: 05/03/19 Date of Discharge: 05/05/19 - Primary Discharge Diagnosis Active and Suspected Problems 1. Severe hyperglycemia in the context of type 1 diabetes mellitus, secondary to missed medications 2. Nausea, vomiting-suspect viral gastroenteritis. 3. Hypertension 4. GERD 5. Leukocytosis-suspect reactive. Resolved. 6. Hyponatremia-secondary to #1. Resolved. Hospital Course and Treatment Imaging Results: Diagnostic Data Chest X-Ray 05/03/19 18:16 IMPRESSION: Normal x-ray examination of the chest. Electronically Signed: Aaron Adame MD at 18:35 EDT , Service support , Operations: None Procedures: None Summary of Care Provided: The patient is a 38 year old M admitted 05/03/2019 due to weakness, fatigue and malaise. 1. Severe hyperglycemia in the context of type 1 diabetes mellitus- No DKA. Patient reports he does not check his blood sugar at home. Hemoglobin A1c 11.9%. Continue NPH 25 units subcu twice daily. Blood sugar improved. Given prescription for glucometer and testing supplies at home and instructed to check blood sugar at least twice daily. Home insulin regimen continued and patient will need further follow-up with PCP for adjustment of medications as necessary. Recommend referral to endocrinology for routine follow-up as well. 2. Nausea, vomiting-suspect viral gastroenteritis. Improved. No further emesis. PRN Zofran at discharge. 3. Hypertension-stable, continue home lisinopril regimen. 4. GERD-continue PPI regimen. 5. Leukocytosis-suspect reactive. Resolved. 6. Hyponatremia-secondary to #1. Resolved. General: Alert, Oriented x3, Cooperative HEENT: Atraumatic, PERRLA, EOMI, Normocephalic Neck: Supple, No JVD, Negative Carotid Bruits Lungs: Clear to auscultation, Normal air movement Cardiovascular: Regular rate, Regular Rhythm, Normal S1, Normal S2, No murmurs Abdomen: Bowel Sounds Present, Soft, Non Tender, Non-Distended Extremities: No clubbing, No cyanosis, No edema Skin: No rashes, No breakdown Musculoskeletal: No Tenderness to Palpation of Joints or Extremities Neurological: Cranial nerves II-XII grossly intact, Neuro grossly intact Psych/Mental Status: Flat Affect Patient seen and examined prior to discharge. Physical assessment as noted above. Patient is stable for discharge with follow up recommendations as noted above. This patient was seen by MAGDI Bird under the supervision of Dr. Rome. - Physical Exam Vital Signs Temp Pulse Resp BP Pulse Ox 98.9 F 89 14 133/93 H 98 05/05/19 08:39 05/05/19 10:46 05/05/19 09:40 05/05/19 08:39 05/05/19 09:40 Oxygen Delivery Method Room Air Weight: 160 lb 0.889 oz Body Mass Index (BMI) 22.0 Finger Stick Blood Glucose 522 Intake and Output for Last 24 Hours 05/03/19 05/04/19 05/05/19 23:59 23:59 23:59 Intake Total 2391 / 2391 3152 / 3152 Output Total 500 / 500 2300 / 2300 Balance 1891 / 1891 852 / 852 Laboratory Tests Past 24 Hrs 05/04/19 05/04/19 05/05/19 03:24 14:53 04:45 WBC 10.0 RBC 4.02 L Hgb 13.5 Hct 37.1 L MCV 92.3 MCH 33.6 H MCHC 36.4 H RDW Std Deviation 37.8 RDW Coeff of Gentry 11.1 L Plt Count 220 MPV 10.0 Diff Path Review Reviewed Sodium 132 L Potassium 4.8 Chloride 104 Carbon Dioxide 20.0 L Anion Gap 8 BUN 17 Creatinine 0.57 L Estim Creat Clear Calc 176.96 Est GFR (MDRD) Af Amer 205 Est GFR (MDRD) Non-Af 169 BUN/Creatinine Ratio 29.8 H Glucose 264 H Calcium 7.5 L Magnesium 05/05/19 04:45 WBC RBC Hgb Hct MCV MCH MCHC RDW Std Deviation RDW Coeff of Gentry Plt Count MPV Diff Path Review Sodium 140 Potassium 4.1 Chloride 107 Carbon Dioxide 27.0 Anion Gap 6 BUN 13 Creatinine 0.62 L Estim Creat Clear Calc 165.89 Est GFR (MDRD) Af Amer 186 Est GFR (MDRD) Non-Af 153 BUN/Creatinine Ratio 20.9 H Glucose 236 H Calcium 7.4 L Magnesium 2.2 POC Glucose 05/05/19 05/04/19 05/04/19 07:55 21:18 16:23 POC Glucose 174 H 309 H 337 H 05/04/19 12:41 POC Glucose 241 H Discharge Diet: Carb Control Diet Discharge Activity: Return to Normal Activity Call your doctor if you observe: Shortness of breath, Dizziness, Fainting spells, Chest pain Home Medications: Medications to take at Discharge Lisinopril [Zestril] 10 mg PO DAILY 05/03/19 Insulin NPH/Reg 70/30 [Novolin 70/30] 25 units SUBCUT BIDAC #5 vial 05/05/19 Ondansetron HCl [Zofran] 4 mg PO Q8H PRN PRN #20 tab 05/05/19 Pantoprazole Sodium [Protonix] 40 mg PO BID #90 tab 05/05/19 Following Prescrptions Were Given to Patient: Insulin NPH/Reg 70/30 [Novolin 70/30] 25 units SUBCUT BIDAC #5 vial Transmission Status: Received by VICTORIA CHOUDHURY RD Pantoprazole Sodium [Protonix] 40 mg PO BID #90 tab Transmission Status: Received by VICTORIA CHOUDHURY RD Ondansetron HCl [Zofran] 4 mg PO Q8H PRN PRN #20 tab PRN Reason: Nausea Transmission Status: Received by VICTORIA CHOUDHURY RD Other Amb Orders: Glucometer Location: None Selected Primary Care Physician: Care Physician,No Primary [Primary Care Provider] - Please follow up with your Primary Care Physician in: 1 Week Disposition: Home Minutes spent on discharge:: 35 Patient Condition:: Stable Medical Necessity - Tobacco Use Smoking Status: Current every day smoker Meaningful Use Info Meaningful Use Diagnoses (Choose all that apply): None applicable <Paintsil,Dubberly - Last Filed: 05/05/19 13:36> Hospital Course and Treatment Summary of Care Provided: This patient was seen in conjunction with Leyda Munroe NP. I have independently interviewed and examined the patient and reviewed pertinent historical, laboratory, and other data. Please refer to her note for patient's presentation, findings, and recommendations. 38 y/o male with Type 1 DM, on insulin who comes in feeling unwell and having chest pain. His admitting blood sugar was 624. He reports taking high energy pills and felt nauseous and was not able to take his insulin. Patient was found not to be in DKA. His admitting chest x-ray was normal. Troponins were normal. EKG showed no acute ST-T changes. He was managed on IV fluids with improvement in his blood sugars. He was resumed on his home insulins. On the day of discharge, patient was seen and examined. No acute events overnight. He felt better and was able to tolerate his diabetic diet. Denies any fever or chills. Vitals were reviewed -stable Physical Exam General: Alert, Oriented x3, Cooperative HEENT: Atraumatic, PERRLA, EOMI, Normocephalic Neck: Supple, No JVD, Negative Carotid Bruits Lungs: Clear to auscultation, Normal air movement Cardiovascular: Regular rate, Regular Rhythm, Normal S1, Normal S2, No murmurs Abdomen: Bowel Sounds Present, Soft, Non Tender, Non-Distended Extremities: No clubbing, No cyanosis, No edema Skin: No rashes, No breakdown Musculoskeletal: No Tenderness to Palpation of Joints or Extremities Neurological: Cranial nerves II-XII grossly intact, Neuro grossly intact Psych/Mental Status: Flat Affect Labs reviewed. ASSESSMENT: 1. Severe hyperglycemia due to missed medications 2. Type I DM 3. Hypertension 4. GERD 5. FROYLAN secondary to dehydration 6. Hyponatremia secondary to #1 - Physical Exam Vital Signs Temp Pulse Resp BP Pulse Ox 98.9 F 89 14 133/93 H 98 05/05/19 08:39 05/05/19 10:46 05/05/19 09:40 05/05/19 08:39 05/05/19 09:40 Oxygen Delivery Method Room Air Weight: 72.6 kg Body Mass Index (BMI) 22.0 Finger Stick Blood Glucose 522 Intake and Output for Last 24 Hours 05/03/19 05/04/19 05/05/19 23:59 23:59 23:59 Intake Total 2391 / 2391 3752 / 3752 Output Total 500 / 500 2850 / 2850 Balance 1891 / 1891 902 / 902 Laboratory Tests Past 24 Hrs 05/04/19 05/05/19 05/05/19 14:53 04:45 04:45 WBC 10.0 RBC 4.02 L Hgb 13.5 Hct 37.1 L MCV 92.3 MCH 33.6 H MCHC 36.4 H RDW Std Deviation 37.8 RDW Coeff of Gentry 11.1 L Plt Count 220 MPV 10.0 Sodium 132 L 140 Potassium 4.8 4.1 Chloride 104 107 Carbon Dioxide 20.0 L 27.0 Anion Gap 8 6 BUN 17 13 Creatinine 0.57 L 0.62 L Estim Creat Clear Calc 176.96 165.89 Est GFR (MDRD) Af Amer 205 186 Est GFR (MDRD) Non-Af 169 153 BUN/Creatinine Ratio 29.8 H 20.9 H Glucose 264 H 236 H Calcium 7.5 L 7.4 L Magnesium 2.2 POC Glucose 05/05/19 05/05/19 05/04/19 11:05 07:55 21:18 POC Glucose 276 H 174 H 309 H 05/04/19 05/04/19 16:23 12:41 POC Glucose 337 H 241 H
[2019-05-05 11:21] LABS: Bedside Glucose 276 mg/dL (70-110)
--- NOTE | 2019-05-05 11:24 | CASEMGMT ---
Script for glucometer faxed to [facility] at this time and pt provided with information regarding [facility] and in-network PCP's at this time, voices understanding. Pt states should have no concerns getting glucometer and all DM meds/supplies. Pt states that he will work on getting PCP and this MARILEE SLAUGHTER did make him aware that there is an endocrinology physician who will be joining [facility] in the fall, voices understanding. Pt voices no further questions/concerns/needs at this time. [place] MARILEE SLAUGHTER
--- NOTE | 2019-05-05 12:30 | PHA.DC.MC ---
Pharmacy Service has performed discharge medication reconciliation and counseling for this patient. The patient's discharge medication list was reviewed for discrepancies and discrepancies were resolved. The patient was counseled on the following discharge medications and changes in medications for homegoing were reviewed. 1. Pantoprazole 40mT PO BID 2. Zofran 4mT PO Q8H PRN 3. Novolin 70/30: 25 units SC BIDAC The Reason for Use, instructions for use, and potential side effects were reviewed for all new medications. The patient's questions regarding all of their medications were answered. The patient demonstrated some understanding but would benefit from further education and reinforcement. Home Medications Lisinopril [Zestril] 10 mg PO DAILY 05/03/19 Insulin NPH/Reg 70/30 [Novolin 70/30] 25 units SUBCUT BIDAC #5 vial 05/05/19 Ondansetron HCl [Zofran] 4 mg PO Q8H PRN PRN #20 tab 05/05/19 Pantoprazole Sodium [Protonix] 40 mg PO BID #90 tab 05/05/19
[2019-05-05 17:05] LABS: Bedside Glucose 292 mg/dL (70-110)
== END 2019-05-05 18:05 | disposition home or self-care (01) | DRG 420 ==
LOC: ED 18:39 → PCU 21:35
PROVIDERS: Nurse Practitioner Family; Admitting Provider Internal Medicine; Emergency Provider Emergency Medicine; Referring Provider Internal Medicine; Visit Provider Internal Medicine
DX: E10.65 Type 1 diabetes mellitus with hyperglycemia (principal); R11.2 Nausea with vomiting, unspecified; I10 Essential (primary) hypertension; K21.9 Gastro-esophageal reflux disease without esophagitis; D72.829 Elevated white blood cell count, unspecified; E87.1 Hypo-osmolality and hyponatremia; F17.200 Nicotine dependence, unspecified, uncomplicated; R07.89 Other chest pain; N17.9 Acute kidney failure, unspecified; E86.0 Dehydration; Z79.4 Long term (current) use of insulin; Z79.899 Other long term (current) drug therapy
CPT/HCPCS: 36415; 71045; 80048; 80053; 81001; 82009; 82803; 82962; 83036; 83605; 83690; 83735; 84484; 85025; 85027; 85610; 85730; 93005; 97802; 97803; 99285; 99406; J7030; A4216; J2405

== ENCOUNTER 2019-05-22 02:29 | Emergency (ER) | payer MEDICAID, SELFPAY ==
[2019-05-22 02:31] VITALS: PULSE 85; RESP 15; TEMP 36.8; O2SAT 100; BMI 23.1
--- NOTE | 2019-05-22 02:38 | EKG12_ITS ---
Test Reason : CP Blood Pressure : / mmHG Vent. Rate : 097 BPM Atrial Rate : 097 BPM P-R Int : 144 ms QRS Dur : 070 ms QT Int : 372 ms P-R-T Axes : 076 084 075 degrees QTc Int : 472 ms Normal sinus rhythm with sinus arrhythmia Normal ECG Confirmed by MARIANO PACHECO, RIGO ([id number]), school photograph editor [employer] ELLSWORTH ([id number]) on 05/25/2019 11:50:40 AM Referred By: LAITH Confirmed By:RIGO QUINTANA MD
--- NOTE | 2019-05-22 02:39 | ED.DCSUM_ITS ---
History of Present Illness Chief Complaint: Nausea/Vomiting Informant: Patient Narrative: Presents with nausea and vomiting. He woke up yesterday morning felt nauseous. He had multiple episodes of emesis. No diarrhea. He is having acid burning. He is using Protonix. He feels some discomfort in his chest from the vomiting. He has some abdominal cramping as well. He does have diabetes mellitus. He takes NPH. He was recently admitted to the hospital for similar complaints 3 weeks ago. His blood sugars were much higher at this time. Blood sugar was just over 300 for paramedics tonight. Patient stated they have been that throughout the day today on his fingersticks. No sick contacts. He was unable to get his Zofran filled secondary to prescription coverage causing too much. - Past Medical History (1) Chest pain Status: Acute (2) Severe hyperglycemia due to diabetes mellitus Status: Acute Past Medical History - Allergies and Home Meds Allergies/Adverse Reactions: Allergies No Known Allergies Allergy (Verified 05/22/19 02:36) Primary Care Physician: Care Physician,No Primary [Primary Care Provider] - Prior records reviewed: Yes Past Medical History: - - See problem list Surgical History: noncontributory Smoking Status: Current every day smoker Alcohol: None Drugs: None Review of Systems General: Denies: Chills, Fever, Sweats Eyes: Denies: Visual changes - bilaterally, Diplopia ENT: Denies: Rhinorrhea, Sore throat Cardiovascular: Reports: Chest pain. Denies: Palpitations Respiratory: Denies: Dyspnea, Cough, Dyspnea on exertion Gastrointestinal: Reports: Abdominal pain, Nausea, Vomiting. Denies: Diarrhea, Melena, Hematochezia Genitourinary: Denies: Dysuria, Hematuria, Frequency Musculoskeletal: Denies: Back pain, Extremity Pain Skin: Denies: Rash, Wounds Neurological: Denies: Headache, Weakness, Numbness Physical Exam Vital Signs/Narrative: Vital Signs Temp Pulse Resp Pulse Ox 05/22/19 02:31 98.3 F 85 15 100 General: Well nourished, Well developed, No Acute Distress Head: Normocephalic, Atraumatic Eyes: Perrl, EOMI ENT: Moist mucous membranes, No rhinorrhea Neck: Supple, Nontender Cardiovascular: Regular rate, Regular rhythm, No murmurs Respiratory: No distress, CTA bilaterally, Chest nontender Abdomen: Soft, Nondistended, Normal bowel sounds, Tender - Mild diffuse tenderness. Negative for: Nontender Back: Nontender, Normal Inspection Extremities: Nontender, No edema Skin: Normal color, No rash Neurological: Alert, Oriented x3, Cranial nerves II-XII grossly intact, Normal Strength, Normal Sensation Psychological: Normal affect, Normal Mood Diagnostic/Tx/Re-eval - Medical Decision Making Patient given IV fluids Zofran and pain medicine. Lab work obtained lab work shows a mild leukocytosis which I suspect this from nausea vomiting and dehydration at 12.2. Glucose 397. Patient given a dose of short acting insulin 25 units. He felt much better after treatment. Given a second dose of Zofran. At this time I think he likely had nausea vomiting from uncontrolled hyperglyce bebe and dehydration. He will be discharged with Phenergan. This is much cheaper than Zofran option. Do not feel he needs to be admitted. As an outpatient return if he worsens. Lipase was negative. ED Disposition - Plan for ED Patient: Diagnosis: Diabetes mellitus with hyperglycemia, Vomiting Instructions: Resources for People with Diabetes Prescriptions: proMETHazine tablet [Phenergan] 25 mg PO Q6H PRN PRN #10 tab PRN Reason: Nausea Prescription Printed Referrals: Brandan Mckeon DO [NON CLINICAL AFFILIATE] -
[2019-05-22] MEDS: Morphine 4 MG/ML Syringe IV (02:56)
[2019-05-22] MEDS: Ondansetron 4 MG/2 ML Vial IV ×2 (02:57→03:38)
[2019-05-22] MEDS: 0.9% Normal Saline 1,000 ML 1000 ML IV ×2 (02:57→04:43)
[2019-05-22 03:16] LABS: Absolute Lymphocyte Count 1.33 X10^3/uL (0.83-4.51); Basophil# 0.04 X10^3/uL; Basophil% 0.3 % (0-1); Hematocrit 43.5 % (40-54); Hemoglobin 15.6 g/dL (13.0-16.5); Lymphocyte # 1.33 X10^3/ul (4.0); Lymphocyte % 10.9 % (19-41); Mean Corp Hgb Conc 35.9 g/dL (32-36); Mean Corpuscular Hgb 34.2 pg (27.0-32.0); Mean Corpuscular Volume 95.4 fL (80-94); Mean Platelet Vol. 9.8 fl (6.2-12.0); Monocyte# 0.81 X10^3/uL; Monocyte% 6.6 % (0-10); NRBC Flagged by Analyzer 0 % (0-5); Neutrophil % 81.7 % (47-70); Platelet Count 247 K/mm3 (150-450); RBC Distribution Width CV 12.4 % (11.6-14.6); RBC Distribution Width SD 43.8 fl (35.1-43.9); Red Blood Count 4.56 M/mm3 (4.6-6.2); White Blood Count 12.2 K/mm3 (4.4-11.0)
[2019-05-22 03:24] LABS: Anion Gap 8 (5-15); BUN 10 mg/dL (7-18); BUN/Creat Ratio 13.9 RATIO (10-20); Calcium,Total 8.5 mg/dL (8.5-10.1); Chloride 105 mmol/L (98-107); Creatinine, Serum 0.72 mg/dL (0.70-1.30); EST Glomerular Filtration Rate 130 mL/min (>60); Est Glom Filt Rate - Afr Amer 157 mL/min (>60); Estimated Creatinine Clearance 143.63 ml/min; Glucose 397 mg/dL (74-106); Lipase 115 U/L (73-393); Potassium 4.2 mmol/L (3.5-5.1); Sodium Level 139 mmol/L (136-145)
[2019-05-22] MEDS: Insulin Lispro 100 UNIT/ML INSULN.PEN 25 UNIT SC (03:34)
[2019-05-22 04:26] LABS: Bedside Glucose 326 mg/dL (70-110)
[2019-05-22 04:30] VITALS: BP 166/120; PULSE 97; RESP 15; O2SAT 100
[2019-05-22] MEDS: proMETHazine 25 MG/ML Syringe 12.5 MG IV (04:46)
--- NOTE | 2019-05-22 04:46 | ED.RN ---
pt requested pain and nausea medicine, made aware, ordered phenergan.
--- NOTE | 2019-05-22 04:51 | ED.RN ---
PT BP IS RUNNING HIGH 180'S OVER 120'S FROM ARRIVAL, DR. OZUNA MADE AWARE. PT HAS NO FURTHER NEEDS AT THIS TIME. WILL CONTINUE TO MONITOR THE PT.
[2019-05-22] MEDS: Ketorolac 15 MG/ML Vial IV (04:54)
[2019-05-22 04:57] VITALS: BP 166/120; PULSE 95; RESP 17; O2SAT 100
[2019-05-22 06:00] VITALS: RESP 15
== END 2019-05-22 07:10 | disposition home or self-care (01) ==
PROVIDERS: Emergency Provider Emergency Medicine
DX: E11.65 Type 2 diabetes mellitus with hyperglycemia (principal); R11.2 Nausea with vomiting, unspecified; Z79.4 Long term (current) use of insulin; F17.200 Nicotine dependence, unspecified, uncomplicated
CPT/HCPCS: 36415; 80048; 82962; 83690; 85025; 93005; 96361; 96374; 96375; 96376; 99285; J7030; A4216; J2405

== ENCOUNTER 2020-11-23 08:30 | Inpatient (IN) | payer MEDICAID, SELFPAY ==
[2020-11-23] VITALS (9 sets, daily range): BP systolic 146–178; BP diastolic 97–123; PULSE 100–117; RESP 16–18; TEMP 36.6–36.9; O2SAT 96–100; BMI 22.4
--- NOTE | 2020-11-23 08:36 | ED.RN ---
PT STATES THAT HE HAS NOT TAKEN INSULIN IN 2 DAYS. NORMALLY PT STATES BGL ARE IN THE 200-300'S.
[2020-11-23 08:41] LABS: Bedside Glucose 440 mg/dL (70-110)
--- NOTE | 2020-11-23 08:47 | EKG12_ITS ---
Test Reason : CP Blood Pressure : / mmHG Vent. Rate : 104 BPM Atrial Rate : 104 BPM P-R Int : 138 ms QRS Dur : 068 ms QT Int : 362 ms P-R-T Axes : 076 082 073 degrees QTc Int : 476 ms Sinus tachycardia Otherwise normal ECG Confirmed by MELISSA PACHECO, BAKARI ([id number]), manager editorial [employer] ELLSWORTH ([id number]) on 11/28/2020 7:55:01 AM Referred By: SAUL Confirmed By:BIJU TORRES MD
--- NOTE | 2020-11-23 08:50 | ED.VIS.GEN ---
History of Present Illness Chief Complaint: Chest Pain Informant: Patient Narrative: This is a 40-year-old male presenting with chest pain and vomiting. Patient states that 2 days ago he began to have sharp chest pains in the front of his chest. He states it is worse with touch and with movement. He has been using a pillow to hold against his chest. Because he has had this pain he has been trying to sleep it off. He tells me that therefore he was not taking his insulin. He states that last night he developed nausea and vomiting. He does not know if he is a type I or type II diabetic. He is not know if he has ever had DKA. He does not know who prescribes his insulin. He does states that he saw 3 months ago in [place] and that is who wrote the insulin. No fevers. No diarrhea. No cough. When asked if he is able to open his eyes and converse with me tells me that he just wants to sleep here. I informed him that since he is in the emergency department it might be good to speak with the doctor that is going to be caring for him. He then is able to sit up in bed open his eyes and converse. Past Medical History - Allergies and Home Meds Allergies/Adverse Reactions: Allergies No Known Allergies Allergy (Verified 11/23/20 08:31) Primary Care Physician: Care Physician,No Primary [Primary Care Provider] - Past Medical History: - - Diabetes mellitus Surgical History: noncontributory Smoking Status: Current every day smoker Drugs: None Review of Systems General: Reports: Malaise. Denies: Chills, Fever, Sweats Eyes: Denies: Visual changes - bilaterally, Diplopia ENT: Denies: Rhinorrhea, Sore throat Cardiovascular: Reports: Chest pain. Denies: Palpitations Respiratory: Denies: Dyspnea, Cough, Dyspnea on exertion Gastrointestinal: Reports: Abdominal pain, Nausea, Vomiting. Denies: Diarrhea, Melena, Hematochezia Genitourinary: Denies: Dysuria, Hematuria, Frequency Musculoskeletal: Denies: Back pain, Extremity Pain Skin: Denies: Rash, Wounds Neurological: Denies: Headache, Weakness, Numbness Physical Exam Vital Signs/Narrative: Vital Signs Temp Pulse Resp BP Pulse Ox 11/23/20 08:38 100 11/23/20 08:32 98 F 108 H 17 159/123 H Inital Vital Signs reviewed: Yes General: Well nourished, Well developed, No Acute Distress Head: Normocephalic, Atraumatic Eyes: Perrl, EOMI ENT: Moist mucous membranes, No rhinorrhea Neck: Supple, Nontender Cardiovascular: Regular rate, No murmurs, Tachycardia Respiratory: No distress, CTA bilaterally, Chest tenderness - Chest tenderness to palpation worse with movement. Reproducible on exam. Abdomen: Soft, Nondistended, Normal bowel sounds, Tender. Negative for: Guarding, Rebound tenderness Back: Nontender, Normal Inspection Extremities: Nontender, No edema Skin: Normal color, No rash Neurological: Alert, Oriented x3, Cranial nerves II-XII grossly intact, Normal Strength, Normal Sensation Psychological: Normal affect, Normal Mood Diagnostic/Tx/Re-eval Laboratory Last Values WBC 17.4 K/mm3 (4.4-11.0) H 11/23/20 10:20 Corrected WBC Cancelled 11/23/20 09:05 RBC 5.22 M/mm3 (4.6-6.2) 11/23/20 10:20 Hgb 17.9 g/dL (13.0-16.5) H 11/23/20 10:20 Hct 49.6 % (40-54) 11/23/20 10:20 MCV 95.0 fL (80-94) H 11/23/20 10:20 MCH 34.3 pg (27.0-32.0) H 11/23/20 10:20 MCHC 36.1 g/dL (32-36) H 11/23/20 10:20 RDW Std Deviation 38.7 fl (35.1-43.9) 11/23/20 10:20 RDW Coeff of Gentry 11.1 % (11.6-14.6) L 11/23/20 10:20 Plt Count 225 K/mm3 (150-450) 11/23/20 10:20 MPV 10.2 fl (6.2-12.0) 11/23/20 10:20 Immature Gran % (Auto) 0.700 % (0.0-0.9) 11/23/20 10:20 Neut % (Auto) 88.0 % (47-70) H 11/23/20 10:20 Lymph % (Auto) 8.4 % (19-41) L 11/23/20 10:20 [place] % (Auto) 2.3 % (0-10) 11/23/20 10:20 Eos % (Auto) 0.1 % (0-5) 11/23/20 10:20 Baso % (Auto) 0.5 % (0-1) 11/23/20 10:20 Absolute Neuts (auto) 15.3 X10^3/uL (2.0-7.7) H 11/23/20 10:20 Absolute Lymphs (auto) 1.46 X10^3/uL (0.83-4.51) 11/23/20 10:20 Total Counted Cancelled 11/23/20 09:05 Neutrophils % (Manual) Cancelled 11/23/20 09:05 Band Neutrophils % Cancelled 11/23/20 09:05 Lymphocytes % (Manual) Cancelled 11/23/20 09:05 Monocytes % (Manual) Cancelled 11/23/20 09:05 Eosinophils % (Manual) Cancelled 11/23/20 09:05 Basophils % (Manual) Cancelled 11/23/20 09:05 Metamyelocytes % Cancelled 11/23/20 09:05 Myelocytes % Cancelled 11/23/20 09:05 Promyelocytes % Cancelled 11/23/20 09:05 Blast Cells % Cancelled 11/23/20 09:05 Plasma Cell % (Manual) Cancelled 11/23/20 09:05 Other Cells % Cancelled 11/23/20 09:05 Nucleated RBC % 0 % (0-5) 11/23/20 10:20 Nucleated RBCs/100 WBC Cancelled 11/23/20 09:05 Differential Comment Cancelled 11/23/20 09:05 Diff Path Review Cancelled 11/23/20 09:05 Hypersegmented Neuts Cancelled 11/23/20 09:05 Atypical Lymphocytes Cancelled 11/23/20 09:05 Reactive Lymphocytes Cancelled 11/23/20 09:05 Smudge Cells Cancelled 11/23/20 09:05 Toxic Granulation Cancelled 11/23/20 09:05 Toxic Vacuolation Cancelled 11/23/20 09:05 Dohle Bodies Cancelled 11/23/20 09:05 Leticia Rods Cancelled 11/23/20 09:05 Platelet Estimate Cancelled 11/23/20 09:05 Plt Morphology Comment Cancelled 11/23/20 09:05 RBC Morphology Cancelled 11/23/20 09:05 RBC Morphology Cancelled 11/23/20 09:05 Polychromasia Cancelled 11/23/20 09:05 Hypochromasia Cancelled 11/23/20 09:05 Poikilocytosis Cancelled 11/23/20 09:05 Basophilic Stippling Cancelled 11/23/20 09:05 Anisocytosis Cancelled 11/23/20 09:05 Microcytosis Cancelled 11/23/20 09:05 Macrocytosis Cancelled 11/23/20 09:05 Spherocytes Cancelled 11/23/20 09:05 Sickle Cells Cancelled 11/23/20 09:05 Target Cells Cancelled 11/23/20 09:05 Tear Drop Cells Cancelled 11/23/20 09:05 Ovalocytes Cancelled 11/23/20 09:05 Stomatocytes Cancelled 11/23/20 09:05 [employer] Bodies Cancelled 11/23/20 09:05 Andres Cells Cancelled 11/23/20 09:05 Bite Cells Cancelled 11/23/20 09:05 Crenated Cell Cancelled 11/23/20 09:05 Acanthocytes (Spur) Cancelled 11/23/20 09:05 Rouleaux Cancelled 11/23/20 09:05 Schistocytes Cancelled 11/23/20 09:05 PT 12.5 SECONDS (11.7-14.9) 11/23/20 10:20 INR 1.0 11/23/20 10:20 APTT 23.6 Seconds (24.1-36.2) L 11/23/20 10:20 Sodium 134 mmol/L (136-145) L 11/23/20 10:20 Potassium 5.5 mmol/L (3.5-5.1) H 11/23/20 10:20 Chloride 98 mmol/L (98-107) 11/23/20 10:20 Carbon Dioxide 24.0 mmol/L (21.0-32.0) 11/23/20 10:20 Anion Gap 12 (5-15) 11/23/20 10:20 BUN 20 mg/dL (7-18) H 11/23/20 10:20 Creatinine 0.96 mg/dL (0.70-1.30) 11/23/20 10:20 Estim Creat Clear Calc 105.61 ml/min 11/23/20 10:20 Est GFR (MDRD) Af Amer 111 mL/min (>60) 11/23/20 10:20 Est GFR (MDRD) Non-Af 92 mL/min (>60) 11/23/20 10:20 BUN/Creatinine Ratio 20.8 RATIO (10-20) H 11/23/20 10:20 Glucose 461 mg/dL (74-106) H* 11/23/20 10:20 Hemoglobin A1c 11.2 % (3.8-5.6) H 11/23/20 10:20 Lactic Acid Cancelled 11/23/20 09:10 Calcium 8.4 mg/dL (8.5-10.1) L 11/23/20 10:20 Total Bilirubin 0.80 mg/dL (0.20-1.00) 11/23/20 10:20 AST 38 U/L (15-37) H 11/23/20 10:20 ALT 70 U/L (16-61) H 11/23/20 10:20 Alkaline Phosphatase 128 U/L (45-117) H 11/23/20 10:20 Troponin I < 0.015 ng/mL (<0.045) 11/23/20 10:20 Total Protein 6.5 g/dL (6.4-8.2) 11/23/20 10:20 Albumin 3.0 g/dL (3.2-5.0) L 11/23/20 10:20 Globulin 3.5 g/dL (2.2-4.2) 11/23/20 10:20 Albumin/Globulin Ratio 0.9 RATIO (0.9-2.4) 11/23/20 10:20 Amylase 30 U/L (25-115) 11/23/20 10:20 Lipase 89 U/L (73-393) 11/23/20 10:20 Acetone Level SMALL (NEG) H 11/23/20 10:20 POC Glucose 440 mg/dL (70-110) H 11/23/20 08:34 - EKG Initial EKG Interpretation: Sinus Tachycardia - EKG demonstrates a sinus tachycardia at a rate of 104. No concerning features of ACS or ectopy. - Medical Decision Making Interpretation of the single view portable chest x-ray is no acute disease. Patient received IV fluids Toradol and Zofran. He also received IV insulin. He has some mild ketones in the blood. There is no significant elevation in his gap or decreased CO2 level. Given his tachycardia and his elevated hemoglobin this most likely represents presents a degree of dehydration. Chest pain is sharp and reproducible with movement and touch. This is most likely chest wall related. Troponin negative. ED Disposition - Plan for ED Patient: Disposition: Acute Care [facility] Diagnosis: DKA (diabetic ketoacidoses), Vomiting, Chest wall pain, Dehydration Referrals: Care Physician,No Primary [Primary Care Provider] -
[2020-11-23] MEDS: Ondansetron 4 MG/2 ML Vial IV ×2 (09:14→14:07)
[2020-11-23] MEDS: 0.9% Normal Saline 1,000 ML 1000 ML IV ×2 (09:14→10:33)
[2020-11-23] MEDS: Ketorolac 30 MG/ML Syringe IV (09:14)
[2020-11-23 10:31] LABS: Absolute Lymphocyte Count 1.46 X10^3/uL (0.83-4.51); Absolute Neutrophil Count 15.3 X10^3/uL (2.0-7.7); Basophil# 0.08 X10^3/uL; Basophil% 0.5 % (0-1); Eosinophil# 0.02 X10^3/uL; Eosinophils% 0.1 % (0-5); Hematocrit 49.6 % (40-54); Hemoglobin 17.9 g/dL (13.0-16.5); Lymphocyte # 1.46 X10^3/ul (4.0); Lymphocyte % 8.4 % (19-41); Mean Corp Hgb Conc 36.1 g/dL (32-36); Mean Corpuscular Hgb 34.3 pg (27.0-32.0); Mean Platelet Vol. 10.2 fl (6.2-12.0); Monocyte% 2.3 % (0-10); NRBC Flagged by Analyzer 0 % (0-5); Neutrophil # 15.33 X10^3/uL (2.7-7.7); Platelet Count 225 K/mm3 (150-450); RBC Distribution Width CV 11.1 % (11.6-14.6); RBC Distribution Width SD 38.7 fl (35.1-43.9); Red Blood Count 5.22 M/mm3 (4.6-6.2); White Blood Count 17.4 K/mm3 (4.4-11.0)
[2020-11-23 10:48] LABS: Hemoglobin A1c 11.2 % (3.8-5.6)
[2020-11-23 10:53] LABS: Partial Thromboplast Time 23.6 Seconds (24.1-36.2); Prothrombin Time (Protime)PT. 12.5 SECONDS (11.7-14.9)
[2020-11-23 10:58] LABS: ALB/GLOB Ratio 0.9 RATIO (0.9-2.4); AST(SGOT) 38 U/L (15-37); Alanine Aminotransfer ALT/SGPT 70 U/L (16-61); Alkaline Phosphatase 128 U/L (45-117); Amylase 30 U/L (25-115); Anion Gap 12 (5-15); BUN 20 mg/dL (7-18); BUN/Creat Ratio 20.8 RATIO (10-20); Calcium,Total 8.4 mg/dL (8.5-10.1); Chloride 98 mmol/L (98-107); Creatinine, Serum 0.96 mg/dL (0.70-1.30); EST Glomerular Filtration Rate 92 mL/min (>60); Est Glom Filt Rate - Afr Amer 111 mL/min (>60); Estimated Creatinine Clearance 105.61 ml/min; Globulin 3.5 g/dL (2.2-4.2); Glucose 461 mg/dL (74-106); Lipase 89 U/L (73-393); Potassium 5.5 mmol/L (3.5-5.1); Protein, Total 6.5 g/dL (6.4-8.2); Sodium Level 134 mmol/L (136-145)
--- NOTE | 2020-11-23 11:09 | NURSING ---
DR YOLIS HUGHES
--- NOTE | 2020-11-23 11:14 | HP.PCM_ITS ---
History of Present Illness Date of Admission: 11/23/20 Chief Complaint: chest pain, vomiting The patient is a 40 year old M with a past medical history of diabetes mellitus and nicotine dependence. He was admitted through the ED on 11/23/2020 with a complaint of chest pain was started 2 days ago as well as nausea vomiting started 1 day ago. He says chest pain started 2 days ago and was pressure-like, relieved by sitting up and forwards. There were no aggravating factors he denied any lightheadedness or dizziness, palpitations or any shortness of breath. The next day, he started having nausea and vomiting. He states he vomited about 6 times. Patient had not been taking his insulin since his chest pain started as he was not feeling well. His symptoms persisted so he decided to come into the ED today. Patient states he has been a diabetic for about 13 to 14 years but does not know whether he is type I or type II. He claims compliance with his insulin. In the ED, temperature was 98 Fahrenheit with pulse rate of 104, respiratory rate of 17 and blood pressure of 178/120. He was saturating 100% on room air. Chemistry showed sodium of 134 with potassium of 5.5 and BUN of 20. Creatinine was 0.96. Glucose was 461 and A1c was 11.2. Initial troponin was less than 0.015. CBC showed hemoglobin of 17.9 with WBC of 17.4 and platelets of 225. Bicarb was 24 and anion gap was 12. Acetone level was small. He has been admitted to be managed for chest pain rule out ACS as well as elevated blood sugar due to noncompliance with insulin. No evidence of DKA. [] Past Medical History Allergies No Known Allergies Allergy (Verified 11/23/20 08:31) Home Medications: Ambulatory Orders Medication Instructions Recorded Insulin NPH/Reg 70/30 [Novolin 35 units SC BIDAC 11/23/20 70/30] Surgical History: noncontributory Lives: Alone Smoking Status: Heavy Smoker (>10/day) Alcohol: Occasional Drugs: None Review of Systems Constitutional: Reports: Malaise, Weakness, Fatigue. Denies: Anorexia, Chills, Fever Eyes: Denies: Blurred vision HEENT: Denies: Head Aches, Sinus Congestion, Sinus Drainage Cardiovascular: Reports: Chest Pain, Chest Pressure. Denies: Chest Tightness, Heaviness, Light Headedness, Orthopnea, Palpitations, Paroxysmal Noc. Dyspnea Respiratory: Denies: Cough, Shortness of breath at rest, Sputum production Gastrointestinal: Reports: Nausea, Vomiting. Denies: Abdominal Pain, Diarrhea Genitourinary: Denies: Dysuria Musculoskeletal: Denies: Joint Pain, Joint Tenderness Skin: Denies: Rash, Wounds Neurological: Denies: Numbness, Tingling, Focal weakness Psychiatric: Denies: Anxiety, Depression, Homicidal Ideations, Suicidal Ideations Hematologic/ Lymphatic: Denies: Easy Bruising, Easy Bleeding VTE Information - Inpt Only VTE Present on Admission: No VTE Pharm Prophylaxis ordered?: Yes Patient Problems: Active and Suspected Problems DKA (diabetic ketoacidoses) (Acute) Vomiting (Acute) Chest wall pain (Acute) Dehydration (Acute) - Physical Exam Vitals/I&O's: Vital Signs Temp Pulse Resp BP Pulse Ox 98 F 104 H 17 178/120 H 100 11/23/20 08:32 11/23/20 10:31 11/23/20 10:31 11/23/20 10:31 11/23/20 08:38 Oxygen Delivery Method Room Air Weight: 160 lb 14.999 oz Body Mass Index (BMI) 22.4 Finger Stick Blood Glucose 461 Intake and Output for Last 24 Hours 11/21/20 11/22/20 11/23/20 23:59 23:59 23:59 Intake Total 1000 / 1000 Balance 1000 / 1000 General: Alert, Oriented x3, Cooperative, Lethargic HEENT: Atraumatic, PERRLA, EOMI, Normocephalic Oral: Dry Mucosa Neck: Supple, No JVD, Negative Carotid Bruits Lungs: Clear to auscultation, Normal air movement Cardiovascular: Regular rate, Regular Rhythm, Normal S1, Normal S2, No murmurs Abdomen: Bowel Sounds Present, Soft, Non Tender Extremities: No edema, Capillary Refill Less than 3 Seconds Skin: No rashes, No breakdown Musculoskeletal: No Tenderness to Palpation of Joints or Extremities Neurological: Cranial nerves II-XII grossly intact, Neuro grossly intact, Motor Exam 5/5 strength throughout Psych/Mental Status: Normal Affect, Appropriate, Alert and oriented to time, place, person, mood and affect Laboratory Results 11/23/20 08:34: POC Glucose 440 H 11/23/20 09:05: WBC Cancelled, Corrected WBC Cancelled, RBC Cancelled, Hgb Cancelled, Hct Cancelled, MCV Cancelled, MCH Cancelled, MCHC Cancelled, RDW Std Deviation Cancelled, RDW Coeff of Gentry Cancelled, Plt Count Cancelled, MPV Cancelled, Immature Gran % (Auto) Cancelled, Neut % (Auto) Cancelled, Lymph % (Auto) Cancelled, [place] % (Auto) Cancelled, Eos % (Auto) Cancelled, Baso % (Auto) Cancelled, Absolute Neuts (auto) Cancelled, Absolute Lymphs (auto) Cancelled, Total Counted Cancelled, Neutrophils % (Manual) Cancelled, Band Neutrophils % Cancelled, Lymphocytes % (Manual) Cancelled, Monocytes % (Manual) Cancelled, Eosinophils % (Manual) Cancelled, Basophils % (Manual) Cancelled, Metamyelocytes % Cancelled, Myelocytes % Cancelled, Promyelocytes % Cancelled, Blast Cells % Cancelled, Plasma Cell % (Manual) Cancelled, Other Cells % Cancelled, Nucleated RBC % Cancelled, Nucleated RBCs/100 WBC Cancelled, Differential Comment Cancelled, Diff Path Review Cancelled, Hypersegmented Neuts Cancelled, Atypical Lymphocytes Cancelled, Reactive Lymphocytes Cancelled, Smudge Cells Cancelled, Toxic Granulation Cancelled, Toxic Vacuolation Cancelled, Dohle Bodies Cancelled, Leticia Rods Cancelled, Platelet Estimate Cancelled, Plt Morphology Comment Cancelled, RBC Morphology Cancelled, Polychromasia Cancelled, Hypochromasia Cancelled, Poikilocytosis Cancelled, Basophilic Stippling Cancelled, Anisocytosis Cancelled, Microcytosis Cancelled, Macrocytosis Cancelled, Spherocytes Cancelled, Sickle Cells Cancelled, Target Cells Cancelled, Tear Drop Cells Cancelled, Ovalocytes Cancelled, Stomatocytes Cancelled, [place] Bodies Cancelled, Andres Cells Cancelled, Bite Cells Cancelled, Crenated Cell Cancelled, Acanthocytes (Spur) Cancelled, Rouleaux Cancelled, Schistocytes Cancelled 11/23/20 09:05: PT Cancelled, INR Cancelled, APTT Cancelled 11/23/20 09:05: Sodium Cancelled, Potassium Cancelled, Chloride Cancelled, Carbon Dioxide Cancelled, Anion Gap Cancelled, BUN Cancelled, Creatinine Cancelled, Estim Creat Clear Calc Cancelled, Est GFR (MDRD) Af Amer Cancelled, Est GFR (MDRD) Non-Af Cancelled, BUN/Creatinine Ratio Cancelled, Glucose Cancelled, Calcium Cancelled, Total Bilirubin Cancelled, AST Cancelled, ALT Cancelled, Alkaline Phosphatase Cancelled, Troponin I Cancelled, Total Protein Cancelled, Albumin Cancelled, Globulin Cancelled, Albumin/Globulin Ratio Cancelled, Amylase Cancelled, Lipase Cancelled 11/23/20 09:05: Acetone Level Cancelled 11/23/20 09:10: Lactic Acid Cancelled 11/23/20 10:20: Hemoglobin A1c 11.2 H 11/23/20 10:20: Acetone Level SMALL H 11/23/20 10:20: PT 12.5, INR 1.0, APTT 23.6 L 11/23/20 10:20: WBC 17.4 H, RBC 5.22, Hgb 17.9 H, Hct 49.6, MCV 95.0 H, MCH 34.3 H, MCHC 36.1 H, RDW Std Deviation 38.7, RDW Coeff of Gentry 11.1 L, Plt Count 225, MPV 10.2, Immature Gran % (Auto) 0.700, Neut % (Auto) 88.0 H, Lymph % (Auto) 8.4 L, [place] % (Auto) 2.3, Eos % (Auto) 0.1, Baso % (Auto) 0.5, Absolute Neuts (auto) 15.3 H, Absolute Lymphs (auto) 1.46, Nucleated RBC % 0 11/23/20 10:20: Sodium 134 L, Potassium 5.5 H, Chloride 98, Carbon Dioxide 24.0, Anion Gap 12, BUN 20 H, Creatinine 0.96, Estim Creat Clear Calc 105.61, Est GFR (MDRD) Af Amer 111, Est GFR (MDRD) Non-Af 92, BUN/Creatinine Ratio 20.8 H, Glucose 461 H*, Calcium 8.4 L, Total Bilirubin 0.80, AST 38 H, ALT 70 H, Alkaline Phosphatase 128 H, Troponin I < 0.015, Total Protein 6.5, Albumin 3.0 L , Globulin 3.5, Albumin/Globulin Ratio 0.9, Amylase 30, Lipase 89 Current Medications Sodium Chloride () 1,000 mls @ 250 mls/hr IV .Q4H HALLEY Last Admin: 11/23/20 10:52 Dose: Not Given Documented by: Assessment/Plan All Active Problems DKA (diabetic ketoacidoses) (Acute) Vomiting (Acute) Chest wall pain (Acute) Dehydration (Acute) Severe hyperglycemia due to diabetes mellitus (Acute) Chest pain (Acute) 40-year-old male admitted with a complaint of chest pain and nausea and vomiting and found to have elevated blood sugars but no anion gap or acidosis. #Chest pain to r/o ACS * admit to PCU with telemetry * Initial troponin is negative. We will cycle troponins. * Sublingual nitroglycerin as needed. P.o. aspirin 81 mg daily. Will get 2D echo. * If Troponins are negative, to a stress test. * #Elevated blood sugar due to noncompliance * blood sugar is 467; has not been compliant with his insulin * resume patient ;s insulin * hydrate with IVF * Elevated BP * no history of hypertension * give IV hydralazine prn. * start BP meds if BP remains elevated * DVT prophylaxis: lovenox Code status: DNRCCA no intubation * Patient counseled extensively about different types of CODE STATUS including full code, DNR CCA and DNR CCA. Patient elects to be DNRCCA no intubation. * Total [id number] time 17 minutes. Inpatient E&M: 73269 Init Hosp L3 Procedures: 87160 Advncd Care Plan 30 Min
--- NOTE | 2020-11-23 11:14 | RAD_ITS ---
STUDY: X-RAY CHEST REASON FOR EXAM: Male, 40 years old. CP X 2 DAYS, N/V STARTED YESTERDAY TECHNIQUE: Single AP portable view of the chest. COMPARISON: Comparison is made with prior study dated 05/03/2019. FINDINGS: EKG electrodes are seen. The lungs are clear and expanded. There is no demonstrated pleural abnormality. Normal size heart. Normal mediastinum and pranav. Normal visualized pulmonary arteries. Normal visualized aortic arch and descending thoracic aorta. Normal visualized thoracic spine. Normal visualized ribs, clavicles, and shoulders. There is no demonstrated abnormality of the visualized soft tissue structures of the upper abdomen. RAD/Chest 1 View (Portable) IMPRESSION: Normal x-ray examination of the chest. Electronically Signed: Artem Hernandez MD at 11:53 EST , Service support ,
--- NOTE | 2020-11-23 11:23 | NURSING ---
PCU KORAM HYPERGLYCEMIA, CP
[2020-11-23 12:35] LABS: Bacteria 0 SEEN /hpf (None Seen); Mucous, Urine 0 SEEN /hpf (<or=2+); Squamous Epithelial Cells - UA 0 SEEN /hpf (0-5); White Blood Cells 0 SEEN /hpf (0-5)
[2020-11-23 12:41] LABS: Color, Urine Yellow (Yellow); Glucose, Dipstick 1000 mg/dl (Normal); Leukocyte Esterase-Dipstick Negative /ul (Negative); Nitrite-Dipstick Negative (Negative); Occult Blood-Urine 150 /ul (Negative); Protein-Dipstick 500 mg/dl (Negative); Urine Bilirubin Dipstick Negative (Negative); Urine Clarity Clear (Clear); Urine Urobilinogen Normal (Normal)
[2020-11-23] MEDS: Mag Hydrox/Al Hydrox/Simeth 30 ML UDC PO ×3 (12:45→21:20)
[2020-11-23 12:46] LABS: Ketone-Dipstick 150 mg/dl (Negative)
[2020-11-23 12:52] LABS: Red Blood Cells-Urine 0-5 SEEN /hpf (0-5)
--- NOTE | 2020-11-23 13:33 | ECHOCS_ITS ---
Reason For Study: CP Procedure This was a 2D Doppler, Color Flow transthoracic echocardiogram. The study was technically difficult. Contrast injection was performed. Exam performed portable in patient room. Left Ventricle Normal LV size. The estimated ejection fraction is 60 %. No evidence for diastolic dysfunction. No regional wall motion abnormalities noted. Right Ventricle Normal RV size. Normal systolic function. Atria Normal left atrium. Normal right atrium. No doppler evidence for ASD. Mitral Valve There is no mitral valve stenosis. No mitral valve insufficiency. Tricuspid Valve There is no tricuspid stenosis. No tricuspid valve insufficiency. Unable to estimate RV systolic pressure due to insufficient tricuspid regurgitant envelope. Aortic Valve Trisinus/trileaflet aortic valve. There is no aortic stenosis. No aortic valve insufficiency. Pulmonic Valve There is no pulmonic valvular stenosis. No pulmonic valve insufficiency. Great Vessels Normal aortic root. Pericardium/Pleural No pericardial effusion. Medication Diluted definity 2ml given slow IV push to enhance endocardial definition. MMode/2D Measurements & Calculations LVIDd: 3.8 cm IVSd: 1.2 cm LA dimension: 3.5 cm LVIDs: 2.7 cm LVPWd: 1.3 cm FS: 29.1 % LAV(MOD-bp): 40.9 ml LA A4 area: 13.4 cm2 RA A4 area: 11.3 cm2 LAV(MOD-bp) Indexed: 21.3 ml/m2 LAV(MOD-sp2): 40.1 ml LAV(MOD-sp4): 34.7 ml Time Measurements MV dec time: 0.17 sec Doppler Measurements & Calculations MV E max josh: 61.0 cm/sec Lat Peak E' Josh: 10.6 cm/sec Med Peak E' Josh: 10.5 cm/sec MV A max josh: 103.9 cm/sec E/E' lat: 5.8 E/E' med: 5.8 MV E/A: 0.59 Ao V2 max: 109.1 cm/sec LV V1 max: 103.8 cm/sec PA V2 max: 101.7 cm/sec Ao max P.8 mmHg LV V1 max P.3 mmHg Interpretation Summary The estimated ejection fraction is 60 %. No evidence for diastolic dysfunction. The study was technically difficult. Contrast injection was performed. Ordering Physician: Hawa Poe Referring Physician: no PCP noted Performed By: Ariel Brock RCS
[2020-11-23 13:51] LABS: Bedside Glucose 394 mg/dL (70-110)
--- NOTE | 2020-11-23 14:08 | EKG12_ITS ---
Test Reason : CP ADMISSION Blood Pressure : / mmHG Vent. Rate : 113 BPM Atrial Rate : 113 BPM P-R Int : 144 ms QRS Dur : 066 ms QT Int : 358 ms P-R-T Axes : 067 076 068 degrees QTc Int : 491 ms Sinus tachycardia Otherwise normal ECG When compared with ECG of 23-NOV-2020 08:34, MANUAL COMPARISON REQUIRED, DATA IS UNCONFIRMED Confirmed by MARIANO PACHECO, RIGO ([id number]), research editor RADU ELLSWORTH ([id number]) on 11/29/2020 1:12:02 PM Referred By: YOLIS Confirmed By:RIGO QUINTANA MD
[2020-11-23] MEDS: Insulin Lispro 100 UNIT/ML INSULN.PEN SC ×2 (14:13→17:19)
[2020-11-23 14:43] LABS: Lactic Acid 2.8 mmol/L (0.4-1.9)
[2020-11-23] MEDS: 0.9% Normal Saline 1,000 ML 250 ML IV ×3 (15:30→22:51)
[2020-11-23] MEDS: Sodium Polystyrene Sulfonate 15 GM/60 ML UDC 30 GM PO (15:30)
[2020-11-23] MEDS: Insulin Human 75/25 Kwickpen 35 UNIT SC (17:20)
[2020-11-23 17:31] LABS: Bedside Glucose 361 mg/dL (70-110)
[2020-11-23 18:01] LABS: Reflex Lactate? Y
[2020-11-23 18:32] LABS: Lactic Acid 2.5 mmol/L (0.4-1.9)
[2020-11-23] MEDS: Pantoprazole Sodium 40 MG Tablet PO (21:22)
[2020-11-23 21:36] LABS: Bedside Glucose 134 mg/dL (70-110)
[2020-11-24] VITALS (8 sets, daily range): BP systolic 137–150; BP diastolic 87–112; PULSE 89–104; RESP 14–18; TEMP 36.8–37.2; O2SAT 96–100
[2020-11-24] MEDS: Ondansetron 4 MG/2 ML Vial IV ×3 (01:35→21:12)
[2020-11-24] MEDS: Acetaminophen 325 MG Tablet 650 MG PO ×2 (03:00→12:02)
[2020-11-24] MEDS: 0.9% Normal Saline 1,000 ML 250 ML IV ×2 (03:02→07:37)
[2020-11-24 06:10] LABS: Absolute Lymphocyte Count 3.61 X10^3/uL (0.83-4.51); Absolute Neutrophil Count 15.3 X10^3/uL (2.0-7.7); Basophil# 0.06 X10^3/uL; Basophil% 0.3 % (0-1); Differential Indicated SCAN CRITERIA MET; Eosinophil# 0.03 X10^3/uL; Eosinophils% 0.1 % (0-5); Hematocrit 38.3 % (40-54); Hemoglobin 13.7 g/dL (13.0-16.5); Lymphocyte # 3.61 X10^3/ul (4.0); Lymphocyte % 17.3 % (19-41); Mean Corp Hgb Conc 35.8 g/dL (32-36); Mean Corpuscular Hgb 33.9 pg (27.0-32.0); Mean Corpuscular Volume 94.8 fL (80-94); Mean Platelet Vol. 9.9 fl (6.2-12.0); Monocyte% 8.2 % (0-10); NRBC Flagged by Analyzer 0 % (0-5); Neutrophil # 15.31 X10^3/uL (2.7-7.7); Neutrophil % 73.5 % (47-70); POSITIVE DIFFERENTIAL YES; Platelet Count 206 K/mm3 (150-450); RBC Distribution Width CV 11.4 % (11.6-14.6); RBC Distribution Width SD 39.4 fl (35.1-43.9); Red Blood Count 4.04 M/mm3 (4.6-6.2); White Blood Count 20.8 K/mm3 (4.4-11.0)
[2020-11-24 06:46] LABS: Bedside Glucose 140 mg/dL (70-110)
[2020-11-24 06:48] LABS: Anion Gap 4 (5-15); BUN 18 mg/dL (7-18); BUN/Creat Ratio 27.9 RATIO (10-20); Chloride 110 mmol/L (98-107); Creatinine, Serum 0.64 mg/dL (0.70-1.30); EST Glomerular Filtration Rate 146 mL/min (>60); Est Glom Filt Rate - Afr Amer 176 mL/min (>60); Estimated Creatinine Clearance 158.38 ml/min; Glucose 159 mg/dL (74-106); Potassium 3.8 mmol/L (3.5-5.1); Sodium Level 140 mmol/L (136-145)
[2020-11-24 08:16] LABS: Bedside Glucose 164 mg/dL (70-110)
[2020-11-24] MEDS: Insulin Human 75/25 Kwickpen 35 UNIT SC ×2 (11:00→16:35)
[2020-11-24] MEDS: Pantoprazole Sodium 40 MG Tablet PO ×2 (11:02→21:07)
--- NOTE | 2020-11-24 11:24 | CASEMGMT ---
MARILEE SLAUGHTER assessment: Face to Face with patient for initial transition planning/care coordination assessment. MARILEE SLAUGHTER introduced self and role at [facility], pt voices understanding and consents to assessment. Pt is lying in bed in no distress at this time. Pt is A/Ox4 and answers all questions appropriately. Care providers, pharmacy, and demographics verified/updated. Presentation: CP x2 days, N/V started yesterday Admitting dx: Hyperglycemia, CP PCP: Pt states none currently and list of local PCP's/endocrinology provided. Specialists: Pt states current specialists. [facility]erred [facility]acy: [facility] Insurance: [employer] Prescription Benefit: [employer] Living Will/HPOA: Pt states does not have LW/HPOA and declines AD info at this time. LNOK: Pati Smith, mother; Dutch Holman, father Living Arrangements: Pt states is currently living with his mother in 1 story apartment with not steps and states no concerns at home. Pt states is independent with ADL's. Transportation: Pt states mother drives and states no transportation concerns. DME/HHC: Pt states no current DME but does need a glucometer at this time. Dr. Deepika newell, voices understanding. Pt states no hx of HHC or SNF in the past. Pt states no concerns with going home at time of discharge. 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 Pt states smokes 1/2pack cigarettes daily and does not drink ETOH or do recreational drugs. Pt states no further concerns/needs at this time. CM to follow for any further discharge planning/needs. Advised pt to ask for CM if any further questions/concerns/needs arise, voices understanding. Pt Goal: Home Plan: [place] MARILEE SLAUGHTER
[2020-11-24 11:31] LABS: Bedside Glucose 183 mg/dL (70-110)
[2020-11-24] MEDS: Insulin Lispro 100 UNIT/ML INSULN.PEN SC ×3 (12:10→21:07)
[2020-11-24] MEDS: Mag Hydrox/Al Hydrox/Simeth 30 ML UDC PO ×3 (12:25→21:07)
[2020-11-24 13:06] LABS: Pathologist Review Reviewed
--- NOTE | 2020-11-24 14:50 | STRESSREP ---
Stress Test Report Date: 11/24/2020 Procedure: Pharmacologic stress nuclear imaging study Indications: Chest pain Consent: Per the patient Procedure: The patient underwent pharmacologic (Regadenoson) evaluation with a peak heart rate of 110 beats per minute (61%predicted maximal heart rate) and a peak blood pressure of 144/110 mmHg. The baseline ECG demonstrated normal sinus rhythm. EKG during lexiscan infusion revealed no significant ischemic changes. EKG post infusion revealed no significant ischemic changes [There were no cardiac dysrhythmias pretest, during pharmacologic infusion, or recovery]. [There was no complaint of chest discomfort during pharmacologic infusion or recovery]. The examination was discontinued secondary to completion of protocol. Impression: 1. Lexiscan stress test test is negative for Lexiscan infusion induced EKG changes of ischemia. 2. Lexiscan stress test test is negative for Lexiscan infusion induced chest pain. 3. Results of the nuclear portion of the test is as below Myocardial perfusion imaging study: Technique: The patient was injected with 12 millicuries of technetium 99m Cardiolite and subsequently rest SPECT Cardiolite nuclear imaging was obtained in the horizontal long, vertical long, and short axis views. The patient underwent pharmacologic [Regadenoson 0.4mg] evaluation. Please see above for details. The patient was injected with 34.1 millicuries of technetium 99m Cardiolite and subsequently stress SPECT Cardiolite nuclear imaging was obtained in the horizontal long, vertical long, and short axis views. A gated Cardiolite study at peak stress was obtained. Interpretation: Rest and stress SPECT Cardiolite nuclear imaging status post realignment, normalization, and attenuation correction demonstrate no evidence of significant ischemia or infarction after attenuation correction. Gated images reveal significant regional wall motion abnormalities. The reported LVEF is 58%. Impression: 1. There is no evidence of significant ischemia or infarction. 2. Estimated ejection fraction is 58%. This note was generated with GOGETMi / ?.??ation software. It may contain incorrect words, spelling, and punctuation that were not noted in checking the note before signing.
--- NOTE | 2020-11-24 15:30 | PCM.PN.HOSP ---
Patient Problems: Active and Suspected Problems DKA (diabetic ketoacidoses) (Acute) Vomiting (Acute) Chest wall pain (Acute) Dehydration (Acute) Subjective: Patient seen and examined. He complained of headache which started this morning. He had assisted nausea and also complained of some photophobia. Blood sugars have trended down. Luis came down to 159. A1c was 11.2. Was also a bit tachycardic today. There is no clear focus of infection as urinalysis was negative.CXR also showed no acute cardiopulmonary process. Vitals/I&O's: Vital Signs Temp Pulse Resp BP Pulse Ox 98.2 F 104 H 14 149/112 H 99 11/24/20 13:34 11/24/20 14:57 11/24/20 13:34 11/24/20 13:34 11/24/20 13:34 Oxygen Delivery Method Room Air Weight: 160 lb 14.399 oz Body Mass Index (BMI) 22.4 Finger Stick Blood Glucose 461 Intake and Output for Last 24 Hours 11/22/20 11/23/20 11/24/20 23:59 23:59 23:59 Intake Total 4019.17 / 4379.17 2876.67 / 2876.67 Balance 4019.17 / 4379.17 2876.67 / 2876.67 General: Alert, Oriented x3, Cooperative, Lethargic HEENT: Atraumatic, PERRLA, EOMI, Normocephalic Oral: Dry Mucosa Neck: Supple, No JVD, Negative Carotid Bruits Lungs: Clear to auscultation, Normal air movement, No rhonchi, No wheeze, No rales Cardiovascular: Regular rate, Regular Rhythm, Normal S1, Normal S2, No murmurs Abdomen: Bowel Sounds Present, Soft, Non Tender, Non-Distended, No Hepato-splenomegaly Extremities: No clubbing, No cyanosis, No edema, Capillary Refill Less than 3 Seconds Skin: No rashes, No breakdown Musculoskeletal: No Tenderness to Palpation of Joints or Extremities Lymphatic: No Cervical, Supraclavicular, or Inguinal Adenopathy Neurological: Cranial nerves II-XII grossly intact, Neuro grossly intact, Motor Exam 5/5 strength throughout Psych/Mental Status: Normal Affect, Anxious, - - looks uncomfortable Laboratory Results 11/23/20 17:18: POC Glucose 361 H 11/23/20 17:50: Troponin I 0.016 11/23/20 17:50: Lactic Acid 2.5 H* 11/23/20 21:24: POC Glucose 134 H 11/24/20 05:38: WBC 20.8 H, RBC 4.04 L, Hgb 13.7, Hct 38.3 L, MCV 94.8 H, MCH 33.9 H, MCHC 35.8, RDW Std Deviation 39.4, RDW Coeff of Gentry 11.4 L, Plt Count 206, MPV 9.9, Immature Gran % (Auto) 0.600, Neut % (Auto) 73.5 H, Lymph % (Auto) 17.3 L, [place] % (Auto) 8.2, Eos % (Auto) 0.1, Baso % (Auto) 0.3, Absolute Neuts (auto) 15.3 H, Absolute Lymphs (auto) 3.61, Nucleated RBC % 0, Diff Path Review Reviewed 11/24/20 05:38: Sodium 140, Potassium 3.8, Chloride 110 H, Carbon Dioxide 26.0, Anion Gap 4 L, BUN 18, Creatinine 0.64 L, Estim Creat Clear Calc 158.38, Est GFR (MDRD) Af Amer 176, Est GFR (MDRD) Non-Af 146, BUN/Creatinine Ratio 27.9 H, Glucose 159 H, Calcium 7.0 L 11/24/20 06:29: POC Glucose 140 H 11/24/20 08:10: POC Glucose 164 H 11/24/20 10:58: POC Glucose 183 H Diagnostic Data Chest X-Ray 11/23/20 11:14 IMPRESSION: Normal x-ray examination of the chest. Electronically Signed: Artem Hernandez MD at 11:53 EST , Service support , Current Medications Acetaminophen/Butalbital/Caffeine (Acetaminophen/Butalbital/Caffe 1 Tablet) 1 tablet PO Q4H PRN PRN PRN Reason: HEADACHE Al Hydroxide/Mg Hydroxide (Mag Hydrox/Al Hydrox/Simeth 30 Ml Udc) 30 ml PO Q4H PRN PRN PRN Reason: DYSPEPSIA Last Admin: 11/24/20 12:25 Dose: 30 ml Documented by: Albuterol Sulfate (Albuterol 2.5 Mg/3 Ml Vial.Neb.) 2.5 mg INHALATION Q2H PRN PRN PRN Reason: SOB/Wheezing Enoxaparin Sodium (Enoxaparin 40 Mg/0.4 Ml Syringe) 40 mg SC DAILY [facility] Last Admin: 11/24/20 13:47 Dose: Not Given Documented by: Insulin Human Lispro (Insulin Lispro 100 Unit/Ml Insuln.Pen) 0 unit SC [facility]; Protocol Last Admin: 11/24/20 12:10 Dose: 3 units Documented by: Insulin Lispro Protam/Lispro Human (Insulin Human 75/25 [place]) [facility] Last Admin: 11/24/20 11:00 Dose: 35 u Documented by: Ondansetron HCl (Ondansetron 4 Mg/2 Ml Vial) 4 mg IV Q8H PRN PRN PRN Reason: NAUSEA/VOMITING Last Admin: 11/24/20 12:03 Dose: 4 mg Documented by: Pantoprazole Sodium (Pantoprazole Sodium 40 Mg Tablet) 40 mg PO BID [facility] Last Admin: 11/24/20 11:02 Dose: 40 mg Documented by: STROKE Vital Signs/Narrative: Vital Signs Temp Pulse Resp BP Pulse Ox 11/24/20 14:57 104 H 11/24/20 13:34 98.2 F 89 14 149/112 H 99 Medical Necessity - Tobacco Use Smoking Status: Heavy Smoker (>10/day) Assessment/Plan All Active Problems DKA (diabetic ketoacidoses) (Acute) Vomiting (Acute) Chest wall pain (Acute) Dehydration (Acute) Severe hyperglycemia due to diabetes mellitus (Acute) Chest pain (Acute) 40-year-old male admitted with a complaint of chest pain and nausea and vomiting and found to have elevated blood sugars but no anion gap or acidosis. #Chest pain to r/o ACS troponins x 3 were negative. stress test done today was negative 2D echo showed EF of 60%, with no evidence of diastolic dysfunction. #Elevated blood sugar due to noncompliance blood sugars have trended down. Not in DKA as he did not have an anion gap and only had small ketones. A1C is 11.2 resumed home insulin dose ISS. Accuchecks ACHS Elevated BP on IV hydralazine. BP has improved if it remains elevated, will start medication for hypertension #SIRS criteria He had elevated lactic acid which could have been explained by dehydration from the elevated blood sugar. He also has some tachycardia and white cell count was elevated. There is no clear focus of infection as urinalysis is negative and chest x-ray showed no acute cardiopulmonary process. He now complains of a headache. Will obtain blood cultures and get CT of the head with contrast to evaluate. will give an empiric dose of antibiotics #Headache: Mild photophobia in association. Will give Fioricet as well as one dose of sumatriptan and monitor. #Lactic acidosis: likely due to dehydration from hyperglycemia> will monitor. DVT prophylaxis: lovenox Code status: DNRCCA no intubation Inpatient E&M: 11248 Subs Hosp L2
--- NOTE | 2020-11-24 15:39 | CT_ITS ---
STUDY: CT BRAIN WITH AND WITHOUT CONTRAST REASON FOR EXAM: Male, 40 years old. Headache, leucocytosis RADIATION DOSAGE (If Supplied By Facility): CTDIvol = ( 44.99 ) mGy, DLP = ( 1614.72 ) mGycm TECHNIQUE: Transaxial CT imaging of the brain was performed pre and post contrast administration. The examination was performed with intravenous administration of IV 50mL Isovue-370. Individualized dose optimization techniques were used for this CT. COMPARISON: None. FINDINGS: Normal soft tissue structures. Normal calvarium. Normal size ventricles and extra-axial spaces for the patient''s age. Normal white matter tracts of the cerebral hemispheres. Normal basal ganglia and thalami. Normal brainstem. Normal cerebellum. No suspicious enhancing lesion There is no intracranial hemorrhage. There are no findings of an acute ischemic infarction. Normal visualized paranasal sinuses. CT/Brain/Head W/WO Contrast IMPRESSION: Normal unenhanced and enhanced CT scan of the brain. Electronically Signed: Dusty Mcdonald MD at 16:28 EST , Service support ,
[2020-11-24] MEDS: SUMAtriptan 6 MG/0.5 ML Vial SC (16:18)
[2020-11-24] MEDS: Acetaminophen/Butalbital/Caffe 1 Tablet PO (16:18)
[2020-11-24 16:41] LABS: Bedside Glucose 268 mg/dL (70-110)
[2020-11-24 22:20] LABS: Bedside Glucose 292 mg/dL (70-110)
[2020-11-25] VITALS (15 sets, daily range): BP systolic 121–144; BP diastolic 79–100; PULSE 78–91; RESP 16–20; TEMP 36.4–37; O2SAT 97–100; BMI 22.4
--- NOTE | 2020-11-25 | GASB_PTH ---
PATIENT: LORI PETER LOC: [facility] U#:[id number] AGE/SX: 40/M ROOM: [facility] RE11/23/[address]: Dr. Jessica Rome MD : 1980 BED: 1 DIS: 11/29/2020 SPEC #: [id number] RECD: 11/25/20 14:18 STATUS: HAYDER REGenaro #: [id number] CULLEN: 11/25/20 00:[address]: Lucero Dior DEPT: SURGICAL PATHOLOGY RECD BY: Stoney Olsen ENTERED: 11/28/20 08:25 SP TYPE: Gastric Bx OTHR DR: MD Dr. Lucero Turner MD Dr. Nana Yaa Koram, MD No Primary Care Phys Tissues: A - Gastric mucous membrane B - Gastric mucous membrane Procedures: Special Stain Group II Surgery Specimen Level IV Alcian Blue/PAS (control) Comments: @ Ordering doctor for SUIV edited from to DR.LWANG Helder KAM at 11/28/20 1500 @ Submitting doctor edited from to @ by EDDY at 11/28/20 1500 HEADER OPERATION: EGD ([facility]) PRE-OP DIAGNOSIS: Nausea and vomiting TISSUE SUBMITTED: A - Antrum of stomach for H. pylori and path, B - GE junction biopsy MICROSCOPIC DIAGNOSIS A. Antrum, biopsy: Mild gastritis. See microscopic description and comment. B. GE junction, biopsy: Fragments of gastroesophageal mucosa with acute and chronic inflammation. Intestinal metaplasia (goblet cell metaplasia) is not identified. See comment. SJ:rg 11/29/2020 COMMENT A. The results of immunohistochemistry for Helicobacter pylori will be reported separately ([id number]). B. Alcian blue/PAS stain with matched control is used in the evaluation of the specimen. MICROSCOPIC DESCRIPTION Slides are reviewed. A. The specimen shows fragments of gastric mucosa with chronic inflammatory cell infiltrates in the lamina propria consisting of lymphocytes and plasma cells, consistent with mild chronic gastritis. GROSS DESCRIPTION A - Received in fixative is one container labeled with the patient's name and designated antrum of stomach. The specimen consists of two irregular fragments of light maddox soft tissue that in aggregate measure 0.4 x 0.2 x 0.1 cm. The specimen is totally submitted in one cassette. B - Received in fixative is one container labeled with the patient's name and designated GE junction biopsy. The specimen consists of multiple irregular fragments of light maddox soft tissue that in aggregate measure 0.3 x 0.3 x 0.1 cm. The specimen is totally submitted in one cassette. / SJ:adriel 11/28/20 TC:3 CPT: 90191 x2, 39508
[2020-11-25] MEDS: Mag Hydrox/Al Hydrox/Simeth 30 ML UDC PO ×2 (03:00→07:48)
[2020-11-25 06:13] LABS: Absolute Lymphocyte Count 3.38 X10^3/uL (0.83-4.51); Basophil# 0.05 X10^3/uL; Basophil% 0.5 % (0-1); Eosinophil# 0.06 X10^3/uL; Eosinophils% 0.6 % (0-5); Hematocrit 37.9 % (40-54); Hemoglobin 13.5 g/dL (13.0-16.5); Lymphocyte # 3.38 X10^3/ul (4.0); Lymphocyte % 32.4 % (19-41); Mean Corp Hgb Conc 35.6 g/dL (32-36); Mean Corpuscular Volume 95.5 fL (80-94); Monocyte# 0.92 X10^3/uL; Monocyte% 8.8 % (0-10); NRBC Flagged by Analyzer 0 % (0-5); Neutrophil # 5.98 X10^3/uL (2.7-7.7); Neutrophil % 57.3 % (47-70); Platelet Count 186 K/mm3 (150-450); RBC Distribution Width CV 11.3 % (11.6-14.6); RBC Distribution Width SD 39.6 fl (35.1-43.9); Red Blood Count 3.97 M/mm3 (4.6-6.2); White Blood Count 10.4 K/mm3 (4.4-11.0)
[2020-11-25 06:43] LABS: Anion Gap 5 (5-15); BUN 12 mg/dL (7-18); BUN/Creat Ratio 20.3 RATIO (10-20); Calcium,Total 7.4 mg/dL (8.5-10.1); Chloride 106 mmol/L (98-107); Creatinine, Serum 0.59 mg/dL (0.70-1.30); EST Glomerular Filtration Rate 161 mL/min (>60); Est Glom Filt Rate - Afr Amer 195 mL/min (>60); Estimated Creatinine Clearance 171.81 ml/min; Glucose 230 mg/dL (74-106); Sodium Level 138 mmol/L (136-145)
[2020-11-25] MEDS: Pantoprazole Sodium 40 MG Tablet PO ×2 (07:47→21:04)
[2020-11-25] MEDS: Acetaminophen/Butalbital/Caffe 1 Tablet PO ×2 (07:47→15:08)
[2020-11-25] MEDS: Insulin Lispro 100 UNIT/ML INSULN.PEN SC ×3 (07:47→21:04)
[2020-11-25] MEDS: Enoxaparin 40 MG/0.4 ML Syringe SC (07:47)
[2020-11-25] MEDS: Insulin Human 75/25 Kwickpen 35 UNIT SC ×2 (07:48→16:32)
[2020-11-25 07:56] LABS: Bedside Glucose 217 mg/dL (70-110)
--- NOTE | 2020-11-25 08:17 | RAD_ITS ---
STUDY: X-RAY - RIGHT HAND REASON FOR EXAM: Male, 40 years old. Pain and swelling TECHNIQUE: 3 view(s) of the hand. COMPARISON: None. FINDINGS: Normal radiocarpal articulation. Normal distal radioulnar joint. Normal visualized carpal bones. Normal carpal articulations Normal carpometacarpal articulation of the thumb. Normal second through fifth carpometacarpal joints. Normal metacarpi. Normal metacarpophalangeal joint of the thumb. Normal interphalangeal joint of the thumb. Normal proximal and distal phalanges of the thumb. Normal metacarpophalangeal joints of the second through fifth fingers. Normal proximal and distal interphalangeal joints of the second through fifth fingers. Normal phalanges of the second through fifth fingers. There is nonspecific soft tissue swelling, but when compared to the left and there is less swelling in the right hand. RAD/Hand Min 3 Views IMPRESSION: No demonstrated fracture or suspicious osseous lesion Nonspecific soft tissue swelling, slightly less than noted on the left hand study Electronically Signed: Dusty Mcdonald MD at 8:47 EST , Service support ,
--- NOTE | 2020-11-25 08:22 | RAD_ITS ---
STUDY: X-RAY - LEFT HAND REASON FOR EXAM: Male, 40 years old. PAIN AND SWELLING TECHNIQUE: 3 view(s) of the hand. COMPARISON: None. FINDINGS: Normal radiocarpal articulation. Normal distal radioulnar joint. Normal visualized carpal bones. Normal carpal articulations Normal carpometacarpal articulation of the thumb. Normal second through fifth carpometacarpal joints. Normal metacarpi. Normal metacarpophalangeal joint of the thumb. Normal interphalangeal joint of the thumb. Normal proximal and distal phalanges of the thumb. Normal metacarpophalangeal joints of the second through fifth fingers. Normal proximal and distal interphalangeal joints of the second through fifth fingers. Normal phalanges of the second through fifth fingers. There is nonspecific soft tissue swelling, most notably in the dorsal aspect of the hand RAD/Hand Min 3 Views IMPRESSION: No demonstrated fracture or joint space abnormality Nonspecific soft tissue swelling Electronically Signed: Dusty Mcdonald MD at 8:46 EST , Service support ,
[2020-11-25 08:52] LABS: Erythrocyte Sedimentation Rate 16 mm/hr (0-20)
[2020-11-25 08:57] LABS: CRP 4.08 mg/L (0.0-3.0)
[2020-11-25 12:00] LABS: Bedside Glucose 133 mg/dL (70-110)
[2020-11-25] MEDS: 0.9% Saline Lock 10 ML Syringe IV ×2 (12:30→21:11)
--- NOTE | 2020-11-25 12:54 | PN_ITS ---
Patient Problems: Active and Suspected Problems DKA (diabetic ketoacidoses) (Acute) Vomiting (Acute) Chest wall pain (Acute) Dehydration (Acute) Subjective: Patient seen and examined. His headache has resolved. Patient has a myriad of complaints. He now complains of burning in his throat and esophagus when he eats. He states that he was previously told he may have an ulcer and was told he needed an EGD but that was never scheduled according to him. He also complains of swelling in both hands. He says he has pain with to make a fist in both hands. He denies any history of arthritis. NSAIDs he does not see a PCP or stull hewer for his diabetes and does not take his insulin for months at a time. He only gets insulin when he comes into the hospital when his sugars get out of control and says that he is not able to take care of himself well because he does not have a car and this has been going on since his partner 7 years ago. Vitals/I&O's: Vital Signs Temp Pulse Resp BP Pulse Ox 98.0 F 85 18 131/98 H 100 11/25/20 12:30 11/25/20 12:30 11/25/20 12:30 11/25/20 12:30 11/25/20 12:30 Oxygen Delivery Method Room Air Weight: 160 lb 14.399 oz Body Mass Index (BMI) 22.4 Finger Stick Blood Glucose 461 Intake and Output for Last 24 Hours 11/23/20 11/24/20 11/25/20 23:59 23:59 23:59 Intake Total 4019.17 / 4379.17 3236.67 / 3456.67 440 / 440 Balance 4019.17 / 4379.17 3236.67 / 3456.67 440 / 440 General: Alert, Oriented x3, Cooperative HEENT: Atraumatic, PERRLA, EOMI, Normocephalic Oral: Dry Mucosa Neck: Supple, No JVD, Negative Carotid Bruits Lungs: Clear to auscultation, Normal air movement, No rhonchi, No wheeze, No rales Cardiovascular: Regular rate, Regular Rhythm, Normal S1, Normal S2, No murmurs Abdomen: Bowel Sounds Present, Soft, Non Tender, Non-Distended, No Hepato- splenomegaly Extremities: No clubbing, No cyanosis, No edema, Capillary Refill Less than 3 Seconds Skin: No rashes, No breakdown Musculoskeletal: No Tenderness to Palpation of Joints or Extremities; both hands mildly diffusely swollen, minimal tenderness, mild erythema. has resolving superficial abrasion on lateral aspect of left middle finger which is healing. Lymphatic: No Cervical, Supraclavicular, or Inguinal Adenopathy Neurological: Cranial nerves II-XII grossly intact, Neuro grossly intact, Motor Exam 5/5 strength throughout Psych/Mental Status: flat affect Microbiology Past 72 Hours 11/25/20 10:25 Mucosa - Nose SARS-CoV-2 Antigen (Rapid) - Final Laboratory Results 11/24/20 05:38: Diff Path Review Reviewed 11/24/20 16:24: POC Glucose 268 H 11/24/20 21:06: POC Glucose 292 H 11/25/20 05:55: WBC 10.4, RBC 3.97 L, Hgb 13.5, Hct 37.9 L, MCV 95.5 H, MCH 34.0 H, MCHC 35.6, RDW Std Deviation 39.6, RDW Coeff of Gentry 11.3 L, Plt Count 186, MPV 10.0, Immature Gran % (Auto) 0.400, Neut % (Auto) 57.3, Lymph % (Auto) 32.4, [place] % (Auto) 8.8, Eos % (Auto) 0.6, Baso % (Auto) 0.5, Absolute Neuts (auto) 6. 0, Absolute Lymphs (auto) 3.38, Nucleated RBC % 0 11/25/20 05:55: Sodium 138, Potassium 4.0, Chloride 106, Carbon Dioxide 27.0, Anion Gap 5, BUN 12, Creatinine 0.59 L, Estim Creat Clear Calc 171.81, Est GFR (MDRD) Af Amer 195, Est GFR (MDRD) Non-Af 161, BUN/Creatinine Ratio 20.3 H, Glucose 230 H, Calcium 7.4 L 11/25/20 05:55: ESR 16 11/25/20 05:55: C-React Prot Ext Range 4.08 H 11/25/20 07:41: POC Glucose 217 H 11/25/20 11:29: POC Glucose 133 H Current Medications Acetaminophen/Butalbital/Caffeine (Acetaminophen/Butalbital/Caffe 1 Tablet) 1 tablet PO Q4H PRN PRN PRN Reason: HEADACHE Last Admin: 11/25/20 07:47 Dose: 1 tablet Documented by: Al Hydroxide/Mg Hydroxide (Mag Hydrox/Al Hydrox/Simeth 30 Ml Udc) 30 ml PO Q4H PRN PRN PRN Reason: DYSPEPSIA Last Admin: 11/25/20 07:48 Dose: 30 ml Documented by: Albuterol Sulfate (Albuterol 2.5 Mg/3 Ml Vial.Neb.) 2.5 mg INHALATION Q2H PRN PRN PRN Reason: SOB/Wheezing Enoxaparin Sodium (Enoxaparin 40 Mg/0.4 Ml Syringe) 40 mg SC DAILY [facility] Last Admin: 11/25/20 07:47 Dose: 40 mg Documented by: Insulin Human Lispro (Insulin Lispro 100 Unit/Ml Insuln.Pen) 0 unit SC [facility]; Protocol Last Admin: 11/25/20 11:41 Dose: Not Given Documented by: Insulin Lispro Protam/Lispro Human (Insulin Human 75/25 [place]) 35 unit SC BIDCM [facility] Last Admin: 11/25/20 07:48 Dose: 35 u Documented by: Ondansetron HCl (Ondansetron 4 Mg/2 Ml Vial) 4 mg IV Q8H PRN PRN PRN Reason: NAUSEA/VOMITING Last Admin: 11/24/20 21:12 Dose: 4 mg Documented by: Pantoprazole Sodium (Pantoprazole Sodium 40 Mg Tablet) 40 mg PO BID [facility] Last Admin: 11/25/20 07:47 Dose: 40 mg Documented by: STROKE Vital Signs/Narrative: Vital Signs Temp Pulse Resp BP Pulse Ox 11/25/20 12:30 98.0 F 85 18 131/98 H 100 Medical Necessity - Tobacco Use Smoking Status: Heavy Smoker (>10/day) Assessment/Plan All Active Problems DKA (diabetic ketoacidoses) (Acute) Vomiting (Acute) Chest wall pain (Acute) Dehydration (Acute) Severe hyperglycemia due to diabetes mellitus (Acute) Chest pain (Acute) 40-year-old male admitted with a complaint of chest pain and nausea and vomiting and found to have elevated blood sugars but no anion gap or acidosis. #Chest pain to r/o ACS * troponins x 3 were negative. * stress test done was negative * 2D echo showed EF of 60%, with no evidence of diastolic dysfunction. * #Poorly controlled diabetes mellitus * blood sugars have trended down. Not in DKA as he did not have an anion gap and only had small ketones. * A1C is 11.2 * Is not taking his insulin and does not follow-up with PCP or stull hewer and only gets insulin when he comes into the hospital when his blood sugars are out of control. * Patient admits to not been able to take care of himself and not want to go to a group home. * NPH insulin 70/30 35 units twice daily. * ISS. Accuchecks ACHS * Elevated BP * on IV hydralazine. BP still marginally elevated. Will start on PO lisinopril * IV hydralazine prn * #SIRS criteria: Resolved. White cell count is down to 10.4 and tachycardia and tachypnea resolved. * #Headache: reSolved. CT of the brain done was negative. #Bilateral hand pain and swelling: * has mild swelling of both hands. Xray done showed mild soft tissue swelling. * Will stop IVF and give pO tylenol. ESR not elevated and CRP only mildly elevated. #Dysphagia * Days of pain with swallowing. General surgery consulted as he states he has a history of probable peptic ulcer disease and GERD. For upper GI endoscopy today. * keep NPO for now * #Lactic acidosis: likely due to dehydration from hyperglycemia> will monitor. DVT prophylaxis: lovenox Code status: DNRCCA no intubation Disposition: * Patient now states he wants to go to a group home because he does not think he can take care of himself. * I did remind patient that he is a 40-year-old male with no debilitating problems that would preclude him from taking good care of himself and that I was not sure if insurance would approve group home stay. * Patient however insisted that he did not think he would be able to go home and he needed to figure out how he could take care of his diabetes and felt that it was in his best interest to go to the group home positive figure out how to take care of his diabetes. * Case management on board. Inpatient E&M: [id number] [facility] L3
--- NOTE | 2020-11-25 12:59 | NURSING ---
called report to AC
--- NOTE | 2020-11-25 13:45 | IMM_PTH ---
PATIENT: LORI PETER LOC: [facility] U#:[id number] AGE/SX: 40/M ROOM: [facility] RE11/23/[address]: Dr. Jessica Rome MD : 1980 BED: 1 DIS: 11/29/2020 SPEC #: [id number] RECD: 11/28/20 09:53 STATUS: SOUKory REQ #: [id number] CULLEN: 11/25/20 13:[address]: Lucero Dior DEPT: IMMUNOHISTOCHEMISTRY RECD BY: Lori Amos ENTERED: 11/28/20 09:53 SP TYPE: IMMUNO OTHR DR: MD Dr. Hawa Turner MD No Primary Care Phys Tissues: A - Stomach, NOS Procedures: H Pylori (initial) PHYSICIAN & INSTITUTION [place] [address] SPECIMEN INFORMATION: Tissue Source: A - Antrum of stomach Clinical Info: Nausea and vomiting Specimen Number: [id number] CPT code: 04821 METHODOLOGY: Deparaffinized sections of prefer/formalin-fixed tissue or PAP/DQ stained slides are incubated with monoclonal/polyclonal antibodies/oligonucleotide probes. Localization is made via biotin free immunoperoxidase method. Appropriate controls are performed and reacted as expected. Results on target cell population are indicated in the following table: RESULTS: ANTIBODY / CLONE RESULT Block A H Pylori (polyclonal) negative These tests were developed and their performance characteristics determined by [facility]. They may not have been cleared or approved by the [place]. Food and Drug Administration. The FDA has determined that such clearance or approval is not necessary. INTERPRETATION: A. Antrum of stomach, biopsy: Negative for Helicobacter pylori organisms. SJ:adriel 11/29/2020
--- NOTE | 2020-11-25 14:14 | OP.EGD_ITS ---
Patient Name: Asher Holman Procedure Date: 11/25/2020 1:40 PM Date of : 1980 Age: 40 Procedure: Upper GI endoscopy Indications: Heartburn, Nausea with vomiting Providers: Lucero Dior MD Medicines: See the Anesthesia note for documentation of the administered medications Patient Profile: Refer to note in patient chart for documentation of history and physical. Complications: No immediate complications. Procedure: Pre-Anesthesia Assessment: - see anesthesia note After obtaining informed consent, the endoscope was passed under direct vision. Throughout the procedure, the patient's blood pressure, pulse, and oxygen saturations were monitored continuously. The gastroscope was introduced through the mouth, and advanced to the second part of duodenum. The upper GI endoscopy was accomplished without difficulty. The patient tolerated the procedure well. Scope In: 1:55:13 PM Scope Out: 2:03:50 PM Total Procedure Duration Time 0 hours 8 minutes 37 seconds Findings: The first portion of the duodenum and second portion of the duodenum were normal. Striped radially mildly erythematous mucosa without bleeding was found in the gastric antrum. Biopsies were taken with a cold forceps for histology. Estimated blood loss was minimal. LA Grade A (one or more mucosal breaks less than 5 mm, not extending between tops of 2 mucosal folds) esophagitis with no bleeding was found. Biopsies were taken with a cold forceps for histology. Verification of patient identification for the specimen was done by the nurse. Estimated blood loss was minimal. No gastric ulcers seen. No masses noted Small to medium sized hiatal hernia noted Impression: - Normal first portion of the duodenum and second portion of the duodenum. - Erythematous mucosa in the antrum. Biopsied. - LA Grade A reflux esophagitis. Rule out Cast's esophagus. Biopsied. Recommendation: - Return patient to hospital [facility] for ongoing care. Continue protonix. - Resume regular diet. - Continue present medications. Procedure Code(s): --- Professional --- 39117, Esophagogastroduodenoscopy, flexible, transoral; with biopsy, single or multiple Diagnosis Code(s): --- Professional --- K31.89, Other diseases of stomach and duodenum K21.0, Gastro-esophageal reflux disease with esophagitis R12, Heartburn R11.2, Nausea with vomiting, unspecified CPT copyright 2017 [employer]. All rights reserved. The codes documented in this report are preliminary and upon wax coating machine tender review may be revised to meet current compliance requirements. MD Lucero Sun MD 11/25/2020 2:14:25 PM This report has been signed electronically. Number of Addenda: 0 Note Initiated On: 11/25/2020 1:40 PM
--- NOTE | 2020-11-25 14:14 | OP.CCLET_ITS ---
11/25/2020 No Primary Care Physician Re : Upper GI endoscopy procedure for Asher Holman Dear Care Physician This procedure was performed on Wednesday, November 25, 2020. My impressions and recommendations are as follows: Impressions : - Normal first portion of the duodenum and second portion of the duodenum. - Erythematous mucosa in the antrum. Biopsied. - LA Grade A reflux esophagitis. Rule out Cast's esophagus. Biopsied. Recommendations : - Return patient to hospital [facility] for ongoing care. Continue protonix. - Resume regular diet. - Continue present medications. My findings are described in the full procedure note, which is enclosed. If I can be of further assistance, please feel free to contact me at Doctor phone number(s): , Work: . Sincerely, MD Lucero Sun MD 11/25/2020 2:14:25 PM This report has been signed electronically.
--- NOTE | 2020-11-25 14:14 | PCM.PN.BLA ---
Progress Note Patient seen and evaluated. EGD with biopsies done. Findings of esophagitis probably due to reflux (patient with hiatal hernia) continue protonix, no ulcers/masses seen Regular diet. STROKE Vital Signs/Narrative: Vital Signs Temp Pulse Resp BP Pulse Ox 11/25/20 12:57 98.0 F 85 16 131/98 H 100 11/25/20 12:30 98.0 F 85 18 131/98 H 100
--- NOTE | 2020-11-25 16:18 | CASEMGMT ---
Social Work Referral: depression, requesting SNF placement Met with patient. Introduced self and role. Discussed patients needs. Pt states he was laid off work two weeks ago and has been living with his mom, but does own apartment - [address], [address], [place] [address]. Pt states I'm just depressed because of what's happening to me, and I need to go someplace to get better. Discussed counseling - pt denied resources. Pt does not have PCP. SW encouraged pt to get established with PCP so they can assist with depression recommendations and continued medical care. Provided SNF list of in network, desired area, can meet medical needs with quality and resource data. That list has [facility] and [facility]. Pt has no preference and agreeable to referral to both facilities. Explained SNF will need to accept, have bed availability, and insurance will need to approve SNF. If insurance does not approve, inquired of plan. Pt stated he will go back with his mom, he cannot pay privately, and denies any services at home. Referral made to [facility] and [facility]. Both to contact SW with acceptance/denial, and pt will choose [facility] and then precert to be started. SW to continue to follow. Sayda Arora, RECEIVABLE MANAGER SIGNAL INTELLIGENCE ANALYST
[2020-11-25 16:50] LABS: Bedside Glucose 279 mg/dL (70-110)
[2020-11-25] MEDS: Ondansetron 4 MG/2 ML Vial IV (21:09)
[2020-11-25 21:20] LABS: Bedside Glucose 187 mg/dL (70-110)
[2020-11-26] VITALS (8 sets, daily range): BP systolic 127–154; BP diastolic 84–98; PULSE 76–97; RESP 16–18; TEMP 36.6–37.3; O2SAT 97–99
[2020-11-26 07:18] LABS: Absolute Lymphocyte Count 2.74 X10^3/uL (0.83-4.51); Absolute Neutrophil Count 4.4 X10^3/uL (2.0-7.7); Basophil# 0.04 X10^3/uL; Basophil% 0.5 % (0-1); Eosinophil# 0.06 X10^3/uL; Eosinophils% 0.7 % (0-5); Hematocrit 38.8 % (40-54); Hemoglobin 14.2 g/dL (13.0-16.5); Lymphocyte # 2.74 X10^3/ul (4.0); Lymphocyte % 33.8 % (19-41); Mean Corp Hgb Conc 36.6 g/dL (32-36); Mean Corpuscular Hgb 34.4 pg (27.0-32.0); Mean Corpuscular Volume 93.9 fL (80-94); Mean Platelet Vol. 9.9 fl (6.2-12.0); Monocyte# 0.83 X10^3/uL; Monocyte% 10.2 % (0-10); NRBC Flagged by Analyzer 0 % (0-5); Neutrophil # 4.41 X10^3/uL (2.7-7.7); Neutrophil % 54.4 % (47-70); Platelet Count 203 K/mm3 (150-450); RBC Distribution Width CV 11.1 % (11.6-14.6); RBC Distribution Width SD 37.7 fl (35.1-43.9); Red Blood Count 4.13 M/mm3 (4.6-6.2); White Blood Count 8.1 K/mm3 (4.4-11.0)
[2020-11-26] MEDS: Insulin Human 75/25 Kwickpen 35 UNIT SC ×2 (08:17→18:18)
[2020-11-26] MEDS: Insulin Lispro 100 UNIT/ML INSULN.PEN SC ×4 (08:18→21:33)
[2020-11-26 08:26] LABS: Bedside Glucose 170 mg/dL (70-110)
[2020-11-26] MEDS: Furosemide 40 MG/4 ML Vial IV (08:28)
[2020-11-26] MEDS: 0.9% Saline Lock 10 ML Syringe IV ×2 (08:28→14:45)
[2020-11-26 08:39] LABS: BUN 13 mg/dL (7-18); Creatinine, Serum 0.66 mg/dL (0.70-1.30); EST Glomerular Filtration Rate 143 mL/min (>60); Estimated Creatinine Clearance 153.58 ml/min; Glucose 170 mg/dL (74-106)
[2020-11-26 08:40] LABS: Anion Gap 5 (5-15); BUN/Creat Ratio 19.8 RATIO (10-20); Calcium,Total 7.4 mg/dL (8.5-10.1); Chloride 107 mmol/L (98-107); Est Glom Filt Rate - Afr Amer 173 mL/min (>60); Potassium 4.2 mmol/L (3.5-5.1); Sodium Level 138 mmol/L (136-145)
[2020-11-26] MEDS: Enoxaparin 40 MG/0.4 ML Syringe SC (10:42)
[2020-11-26] MEDS: Pantoprazole Sodium 40 MG Tablet PO ×2 (10:42→21:33)
[2020-11-26 12:06] LABS: Bedside Glucose 207 mg/dL (70-110)
--- NOTE | 2020-11-26 12:30 | PN_ITS ---
Patient Problems: Active and Suspected Problems DKA (diabetic ketoacidoses) (Acute) Vomiting (Acute) Chest wall pain (Acute) Dehydration (Acute) Subjective: Patient seen and examined. He was able to tolerate a diet today. He did have EGD yesterday which showed mildly erythematous mucosa without bleeding in the gastric antrum and esophagitis with no bleeding as well. He has remained hemodynamically stable. He does complain of swelling in both hands still. He has remained hemodynamically stable. Vitals/I&O's: Vital Signs Temp Pulse Resp BP Pulse Ox 97.9 F 79 16 132/90 H 98 11/26/20 08:25 11/26/20 08:25 11/26/20 08:25 11/26/20 08:25 11/26/20 08:25 Oxygen Delivery Method Room Air Weight: 160 lb 14.399 oz Body Mass Index (BMI) 22.4 Finger Stick Blood Glucose 461 Intake and Output for Last 24 Hours 11/24/20 11/25/20 11/26/20 23:59 23:59 23:59 Intake Total 3236.67 / 3456.67 810 / 810 920 / 920 Balance 3236.67 / 3456.67 810 / 810 920 / 920 General: Alert, Oriented x3, Cooperative HEENT: Atraumatic, PERRLA, EOMI, Normocephalic Oral: Dry Mucosa Neck: Supple, No JVD, Negative Carotid Bruits Lungs: Clear to auscultation, Normal air movement, No rhonchi, No wheeze, No rales Cardiovascular: Regular rate, Regular Rhythm, Normal S1, Normal S2, No murmurs Abdomen: Bowel Sounds Present, Soft, Non Tender, Non-Distended, No Hepato- splenomegaly Extremities: No clubbing, No cyanosis, No edema, Capillary Refill Less than 3 Seconds Skin: No rashes, No breakdown Musculoskeletal: No Tenderness to Palpation of Joints or Extremities; both hands still has mild diffusely swollen,no tenderness or erythema. Able to make a fist without any pain Lymphatic: No Cervical, Supraclavicular, or Inguinal Adenopathy Neurological: Cranial nerves II-XII grossly intact, Neuro grossly intact, Motor Exam 5/5 strength throughout Psych/Mental Status: flat affect Microbiology Past 72 Hours 11/25/20 10:25 Mucosa - Nose SARS-CoV-2 Antigen (Rapid) - Final Laboratory Results 11/25/20 16:31: POC Glucose 279 H 11/25/20 21:01: POC Glucose 187 H 11/26/20 05:49: Sodium Cancelled, Potassium Cancelled, Chloride Cancelled, Carbon Dioxide Cancelled, Anion Gap Cancelled, BUN Cancelled, Creatinine Cancelled, Estim Creat Clear Calc Cancelled, Est GFR (MDRD) Af Amer Cancelled, Est GFR (MDRD) Non-Af Cancelled, BUN/Creatinine Ratio Cancelled, Glucose Cancelled, Calcium Cancelled 11/26/20 07:11: WBC 8.1, RBC 4.13 L, Hgb 14.2, Hct 38.8 L, MCV 93.9, MCH 34.4 H, MCHC 36.6 H, RDW Std Deviation 37.7, RDW Coeff of Gentry 11.1 L, Plt Count 203, MPV 9.9, Immature Gran % (Auto) 0.400, Neut % (Auto) 54.4, Lymph % (Auto) 33.8, [place] % (Auto) 10.2 H, Eos % (Auto) 0.7, Baso % (Auto) 0.5, Absolute Neuts (auto) 4.4, Absolute Lymphs (auto) 2.74, Nucleated RBC % 0 11/26/20 08:13: Sodium 138, Potassium 4.2, Chloride 107, Carbon Dioxide 26.0, Anion Gap 5, BUN 13, Creatinine 0.66 L, Estim Creat Clear Calc 153.58, Est GFR (MDRD) Af Amer 173, Est GFR (MDRD) Non-Af 143, BUN/Creatinine Ratio 19.8, Glucose 170 H, Calcium 7.4 L 11/26/20 08:15: POC Glucose 170 H 11/26/20 11:57: POC Glucose 207 H Current Medications Acetaminophen/Butalbital/Caffeine (Acetaminophen/Butalbital/Caffe 1 Tablet) 1 tablet PO Q4H PRN PRN PRN Reason: HEADACHE Last Admin: 11/25/20 15:08 Dose: 1 tablet Documented by: Al Hydroxide/Mg Hydroxide (Mag Hydrox/Al Hydrox/Simeth 30 Ml Udc) 30 ml PO Q4H PRN PRN PRN Reason: DYSPEPSIA Last Admin: 11/25/20 07:48 Dose: 30 ml Documented by: Albuterol Sulfate (Albuterol 2.5 Mg/3 Ml Vial.Neb.) 2.5 mg INHALATION Q2H PRN PRN PRN Reason: SOB/Wheezing Enoxaparin Sodium (Enoxaparin 40 Mg/0.4 Ml Syringe) 40 mg SC DAILY [facility] Last Admin: 11/26/20 10:42 Dose: 40 mg Documented by: Insulin Human Lispro (Insulin Lispro 100 Unit/Ml Insuln.Pen) 0 unit SC [facility]; Protocol Last Admin: 11/26/20 11:58 Dose: 3 units Documented by: Insulin Lispro Protam/Lispro Human (Insulin Human 75/25 [place]wick[place]) [facility] Last Admin: 11/26/20 08:17 Dose: 35 u Documented by: Ondansetron HCl (Ondansetron 4 Mg/2 Ml Vial) 4 mg IV Q8H PRN PRN PRN Reason: NAUSEA/VOMITING Last Admin: 11/25/20 21:09 Dose: 4 mg Documented by: Pantoprazole Sodium (Pantoprazole Sodium 40 Mg Tablet) 40 mg PO BID [facility] Last Admin: 11/26/20 10:42 Dose: 40 mg Documented by: Polyethylene Glycol (Polyethylene Glycol 3350 17 Gm Packet) 17 gm PO DAILY PRN PRN PRN Reason: Constipation Sodium Chloride (0.9% Saline Lock 10 Ml Syringe) 10 - 40 ml IV UD PRN PRN Reason: SALINE FLUSH Last Admin: 11/26/20 08:28 Dose: 10 ml Documented by: Medical Necessity - Tobacco Use Smoking Status: Heavy Smoker (>10/day) Assessment/Plan All Active Problems DKA (diabetic ketoacidoses) (Acute) Vomiting (Acute) Chest wall pain (Acute) Dehydration (Acute) Severe hyperglycemia due to diabetes mellitus (Acute) Chest pain (Acute) #Chest pain to r/o ACS * troponins x 3 were negative. * stress test done was negative * 2D echo showed EF of 60%, with no evidence of diastolic dysfunction. * #Poorly controlled diabetes mellitus * A1C is 11.2 * Is not taking his insulin and does not follow-up with PCP or information coder and only gets insulin when he comes into the hospital when his blood sugars are out of control. * Patient admits to not been able to take care of himself and not want to go to a group home. * NPH insulin 70/30 35 units twice daily. * ISS. Accuchecks ACHS * #Benign essential hypertension * started on PO lisinopril * IV hydralazine prn * #SIRS criteria: Resolved. #Headache: resolved. CT of the brain done was negative. #Bilateral hand pain and swelling: * has mild swelling of both hands. Xray done showed mild soft tissue swelling. * IVF stopped. I think it is likely due to fluid overload. * will give IV lasix. #Dysphagia * EGD done showed some mild gastritis and esophagitis. * on IV pantoprazole * now tolerating diet * #Lactic acidosis: resolved. #Hypocalcemia: calcium is 7.4 today. Will replace. DVT prophylaxis: lovenox Code status: DNRCCA no intubation Disposition: * Patient now states he wants to go to a group home because he does not think he can take care of himself. Case management on board * Inpatient E&M: 38401 Subs Hosp L2
[2020-11-26 17:06] LABS: Bedside Glucose 345 mg/dL (70-110)
[2020-11-26 18:25] LABS: Bedside Glucose 267 mg/dL (70-110)
[2020-11-26 22:30] LABS: Bedside Glucose 216 mg/dL (70-110)
[2020-11-27] VITALS (8 sets, daily range): BP systolic 123–141; BP diastolic 82–90; PULSE 74–95; RESP 15–16; TEMP 36.4–36.6; O2SAT 93–100
[2020-11-27] MEDS: Insulin Human 75/25 Kwickpen 35 UNIT SC ×2 (08:07→16:56)
[2020-11-27] MEDS: Insulin Lispro 100 UNIT/ML INSULN.PEN SC ×4 (08:08→21:36)
[2020-11-27] MEDS: Enoxaparin 40 MG/0.4 ML Syringe SC (08:10)
[2020-11-27] MEDS: Pantoprazole Sodium 40 MG Tablet PO ×2 (08:10→21:36)
[2020-11-27 10:01] LABS: Bedside Glucose 196 mg/dL (70-110)
[2020-11-27] MEDS: Lisinopril 10 MG Tablet PO (10:05)
[2020-11-27 11:40] LABS: Bedside Glucose 190 mg/dL (70-110)
--- NOTE | 2020-11-27 12:03 | PN_ITS ---
Patient Problems: Active and Suspected Problems DKA (diabetic ketoacidoses) (Acute) Vomiting (Acute) Chest wall pain (Acute) Dehydration (Acute) Subjective: Patient seen and examined. He complains of insomnia overnight.. Review of symptoms otherwise negative. Swelling in his hands has gone down. He has remained hemodynamically stable. Patient refused blood draw today. Vitals/I&O's: Vital Signs Temp Pulse Resp BP Pulse Ox 97.6 F L 93 16 130/82 H 93 11/27/20 10:05 11/27/20 10:05 11/27/20 10:05 11/27/20 10:05 11/27/20 10:05 Oxygen Delivery Method Room Air Weight: 160 lb 14.399 oz Body Mass Index (BMI) 22.4 Finger Stick Blood Glucose 461 Intake and Output for Last 24 Hours 11/25/20 11/26/20 11/27/20 23:59 23:59 23:59 Intake Total 810 / 810 1520 / 1760 240 / 240 Output Total 0 / 0 Balance 810 / 810 1520 / 1760 240 / 240 General: Alert, Oriented x3, Cooperative HEENT: Atraumatic, PERRLA, EOMI, Normocephalic Oral: Dry Mucosa Neck: Supple, No JVD, Negative Carotid Bruits Lungs: Clear to auscultation, Normal air movement, No rhonchi, No wheeze, No rales Cardiovascular: Regular rate, Regular Rhythm, Normal S1, Normal S2, No murmurs Abdomen: Bowel Sounds Present, Soft, Non Tender, Non-Distended, No Hepato- splenomegaly Extremities: No clubbing, No cyanosis, No edema, Capillary Refill Less than 3 Seconds Skin: No rashes, No breakdown Musculoskeletal: No Tenderness to Palpation of Joints or Extremities; both hands still has mild diffusely swollen,no tenderness or erythema. Able to make a fist without any pain Lymphatic: No Cervical, Supraclavicular, or Inguinal Adenopathy Neurological: Cranial nerves II-XII grossly intact, Neuro grossly intact, Motor Exam 5/5 strength throughout Psych/Mental Status: flat affect Microbiology Past 72 Hours 11/25/20 10:25 Mucosa - Nose SARS-CoV-2 Antigen (Rapid) - Final Laboratory Results 11/26/20 11:57: POC Glucose 207 H 11/26/20 16:37: POC Glucose 345 H 11/26/20 18:17: POC Glucose 267 H 11/26/20 21:32: POC Glucose 216 H 11/27/20 08:03: POC Glucose 196 H 11/27/20 11:32: POC Glucose 190 H Current Medications Acetaminophen/Butalbital/Caffeine (Acetaminophen/Butalbital/Caffe 1 Tablet) 1 tablet PO Q4H PRN PRN PRN Reason: HEADACHE Last Admin: 11/25/20 15:08 Dose: 1 tablet Documented by: Al Hydroxide/Mg Hydroxide (Mag Hydrox/Al Hydrox/Simeth 30 Ml Udc) 30 ml PO Q4H PRN PRN PRN Reason: DYSPEPSIA Last Admin: 11/25/20 07:48 Dose: 30 ml Documented by: Albuterol Sulfate (Albuterol 2.5 Mg/3 Ml Vial.Neb.) 2.5 mg INHALATION Q2H PRN PRN PRN Reason: SOB/Wheezing Enoxaparin Sodium (Enoxaparin 40 Mg/0.4 Ml Syringe) 40 mg SC DAILY [facility] Last Admin: 11/27/20 08:10 Dose: 40 mg Documented by: Insulin Human Lispro (Insulin Lispro 100 Unit/Ml Insuln.Pen) 0 unit SC [facility]; Protocol Last Admin: 11/27/20 11:33 Dose: 3 units Documented by: Insulin Lispro Protam/Lispro Human (Insulin Human 75/25 [place]wick[place]) [facility] Last Admin: 11/27/20 08:07 Dose: 35 u Documented by: Lisinopril (Lisinopril 10 Mg Tablet) 10 mg PO DAILY [facility] Last Admin: 11/27/20 10:05 Dose: 10 mg Documented by: Ondansetron HCl (Ondansetron 4 Mg/2 Ml Vial) 4 mg IV Q8H PRN PRN PRN Reason: NAUSEA/VOMITING Last Admin: 11/25/20 21:09 Dose: 4 mg Documented by: Pantoprazole Sodium (Pantoprazole Sodium 40 Mg Tablet) 40 mg PO BID [facility] Last Admin: 11/27/20 08:10 Dose: 40 mg Documented by: Polyethylene Glycol (Polyethylene Glycol 3350 17 Gm Packet) 17 gm PO DAILY PRN PRN PRN Reason: Constipation Sodium Chloride (0.9% Saline Lock 10 Ml Syringe) 10 - 40 ml IV UD PRN PRN Reason: SALINE FLUSH Last Admin: 11/26/20 14:45 Dose: 10 ml Documented by: STROKE Vital Signs/Narrative: Vital Signs Temp Pulse Resp BP Pulse Ox 11/27/20 10:05 97.6 F L 93 16 130/82 H 93 Medical Necessity - Tobacco Use Smoking Status: Heavy Smoker (>10/day) Assessment/Plan All Active Problems DKA (diabetic ketoacidoses) (Acute) Vomiting (Acute) Chest wall pain (Acute) Dehydration (Acute) Severe hyperglycemia due to diabetes mellitus (Acute) Chest pain (Acute) #Chest pain to r/o ACS * troponins x 3 were negative. * stress test done was negative * 2D echo showed EF of 60%, with no evidence of diastolic dysfunction. * #Poorly controlled diabetes mellitus * A1C is 11.2 * Is not taking his insulin and does not follow-up with PCP or blood typer and only gets insulin when he comes into the hospital when his blood sugars are out of control. * NPH insulin 70/30 35 units twice daily. * ISS. Accuchecks ACHS * #Benign essential hypertension * on PO lisinopril * IV hydralazine prn * #SIRS criteria: Resolved. #Headache: resolved. CT of the brain done was negative. #Bilateral hand swelling. * improved significantly with IV lasix. Likely due to fluid overload. #Dysphagia * EGD done showed some mild gastritis and esophagitis. * on IV pantoprazole * now tolerating diet * will switch to PO pantoprazole * #Lactic acidosis: resolved. #Hypocalcemia: replaced. Was 7.4 yesterday; patient now refusing blood draws DVT prophylaxis: lovenox Code status: DNRCCA no intubation Disposition: * Patient now states he wants to go to a detention because he does not think he can take care of himself. Case management on board. Patient counseled that in light of his young age and no clear comorbidities that preclude him from taking care of himself, he may not get placement. However he insists he cannot take care of himself and wants to go to detention. * Inpatient E&M: 54399 Subs Hosp L2
[2020-11-27 13:18] LABS: Absolute Lymphocyte Count 1.91 X10^3/uL (0.83-4.51); Absolute Neutrophil Count 4.4 X10^3/uL (2.0-7.7); Basophil# 0.05 X10^3/uL; Basophil% 0.7 % (0-1); Eosinophil# 0.09 X10^3/uL; Eosinophils% 1.3 % (0-5); Hematocrit 45.6 % (40-54); Hemoglobin 16.3 g/dL (13.0-16.5); Lymphocyte # 1.91 X10^3/ul (4.0); Lymphocyte % 26.8 % (19-41); Mean Corp Hgb Conc 35.7 g/dL (32-36); Mean Platelet Vol. 10.4 fl (6.2-12.0); Monocyte% 9.8 % (0-10); NRBC Flagged by Analyzer 0 % (0-5); Neutrophil # 4.36 X10^3/uL (2.7-7.7); Platelet Count 234 K/mm3 (150-450); RBC Distribution Width CV 11.2 % (11.6-14.6); RBC Distribution Width SD 39.3 fl (35.1-43.9); White Blood Count 7.1 K/mm3 (4.4-11.0)
[2020-11-27 13:33] LABS: Anion Gap 5 (5-15); BUN 20 mg/dL (7-18); BUN/Creat Ratio 24.5 RATIO (10-20); Calcium,Total 8.2 mg/dL (8.5-10.1); Chloride 103 mmol/L (98-107); Creatinine, Serum 0.82 mg/dL (0.70-1.30); EST Glomerular Filtration Rate 111 mL/min (>60); Est Glom Filt Rate - Afr Amer 134 mL/min (>60); Estimated Creatinine Clearance 123.62 ml/min; Glucose 189 mg/dL (74-106); Potassium 4.6 mmol/L (3.5-5.1); Sodium Level 137 mmol/L (136-145)
[2020-11-27 16:11] LABS: Bedside Glucose 222 mg/dL (70-110)
[2020-11-27 21:45] LABS: Bedside Glucose 198 mg/dL (70-110)
[2020-11-27] MEDS: Temazepam 15 MG Capsule 30 MG PO (22:44)
[2020-11-28] VITALS (9 sets, daily range): BP systolic 116–155; BP diastolic 70–98; PULSE 74–98; RESP 16–18; TEMP 36.3–36.9; O2SAT 94–100
[2020-11-28 05:26] LABS: Absolute Lymphocyte Count 3.02 X10^3/uL (0.83-4.51); Absolute Neutrophil Count 3.9 X10^3/uL (2.0-7.7); Basophil# 0.06 X10^3/uL; Basophil% 0.7 % (0-1); Eosinophil# 0.13 X10^3/uL; Eosinophils% 1.6 % (0-5); Hematocrit 42.4 % (40-54); Lymphocyte # 3.02 X10^3/ul (4.0); Lymphocyte % 37.5 % (19-41); Mean Corp Hgb Conc 35.4 g/dL (32-36); Mean Corpuscular Hgb 33.6 pg (27.0-32.0); Mean Corpuscular Volume 95.1 fL (80-94); Mean Platelet Vol. 10.2 fl (6.2-12.0); Monocyte# 0.83 X10^3/uL; Monocyte% 10.3 % (0-10); NRBC Flagged by Analyzer 0 % (0-5); Neutrophil # 3.94 X10^3/uL (2.7-7.7); Neutrophil % 48.9 % (47-70); Platelet Count 191 K/mm3 (150-450); RBC Distribution Width CV 11.3 % (11.6-14.6); RBC Distribution Width SD 39.3 fl (35.1-43.9); Red Blood Count 4.46 M/mm3 (4.6-6.2); White Blood Count 8.1 K/mm3 (4.4-11.0)
[2020-11-28 05:40] LABS: Anion Gap 7 (5-15); BUN 21 mg/dL (7-18); BUN/Creat Ratio 36.7 RATIO (10-20); Calcium,Total 7.6 mg/dL (8.5-10.1); Chloride 107 mmol/L (98-107); Creatinine, Serum 0.57 mg/dL (0.70-1.30); EST Glomerular Filtration Rate 167 mL/min (>60); Est Glom Filt Rate - Afr Amer 203 mL/min (>60); Estimated Creatinine Clearance 177.83 ml/min; Glucose 161 mg/dL (74-106); Potassium 4.1 mmol/L (3.5-5.1); Sodium Level 138 mmol/L (136-145)
--- NOTE | 2020-11-28 07:46 | PCM.PN.HOSP ---
Patient Problems: Active and Suspected Problems DKA (diabetic ketoacidoses) (Acute) Vomiting (Acute) Chest wall pain (Acute) Dehydration (Acute) Reason for Visit: Follow-up on debility/chest pain Subjective: Patient was seen and examined. He denied any new complaints. No acute events overnight. Objective: Physical exam: General: Alert, Oriented x3, Cooperative HEENT: Atraumatic, PERRLA, EOMI, Normocephalic Oral: Dry Mucosa Neck: Supple, No JVD, Negative Carotid Bruits Lungs: Clear to auscultation, Normal air movement, No rhonchi, No wheeze, No rales Cardiovascular: Regular rate, Regular Rhythm, Normal S1, Normal S2, No murmurs Abdomen: Bowel Sounds Present, Soft, Non Tender, Non-Distended, No Hepato-splenomegaly Extremities: No clubbing, No cyanosis, No edema, Capillary Refill Less than 3 Seconds Skin: No rashes, No breakdown Musculoskeletal: No Tenderness to Palpation of Joints or Extremities; both hands still has mild diffusely swollen,no tenderness or erythema. Able to make a fist without any pain Lymphatic: No Cervical, Supraclavicular, or Inguinal Adenopathy Neurological: Cranial nerves II-XII grossly intact, Neuro grossly intact, Motor Exam 5/5 strength throughout Psych/Mental Status: flat affect Vitals/I&O's: Vital Signs Temp Pulse Resp BP Pulse Ox 97.3 F L 76 16 139/98 H 97 11/28/20 05:40 11/28/20 07:01 11/28/20 05:40 11/28/20 05:40 11/28/20 05:40 Oxygen Delivery Method Room Air Weight: 72.983 kg Body Mass Index (BMI) 22.4 Finger Stick Blood Glucose 461 Intake and Output for Last 24 Hours 11/26/20 11/27/20 11/28/20 23:59 23:59 23:59 Intake Total 1520 / 1760 1200 / 1440 360 / 360 Output Total 0 / 0 Balance 1520 / 1760 1200 / 1440 360 / 360 Microbiology Past 72 Hours 11/25/20 10:25 Mucosa - Nose SARS-CoV-2 Antigen (Rapid) - Final Laboratory Results 11/27/20 08:03: POC Glucose 196 H 11/27/20 11:32: POC Glucose 190 H 11/27/20 13:00: WBC 7.1, RBC 4.80, Hgb 16.3, Hct 45.6, MCV 95.0 H, MCH 34.0 H, MCHC 35.7, RDW Std Deviation 39.3, RDW Coeff of Gentry 11.2 L, Plt Count 234, MPV 10.4, Immature Gran % (Auto) 0.400, Neut % (Auto) 61.0, Lymph % (Auto) 26.8, [place] % (Auto) 9.8, Eos % (Auto) 1.3, Baso % (Auto) 0.7, Absolute Neuts (auto) 4.4, Absolute Lymphs (auto) 1.91, Nucleated RBC % 0 11/27/20 13:00: Sodium 137, Potassium 4.6, Chloride 103, Carbon Dioxide 29.0, Anion Gap 5, BUN 20 H, Creatinine 0.82, Estim Creat Clear Calc 123.62, Est GFR (MDRD) Af Amer 134, Est GFR (MDRD) Non-Af 111, BUN/Creatinine Ratio 24.5 H, Glucose 189 H, Calcium 8.2 L 11/27/20 15:42: POC Glucose 222 H 11/27/20 21:35: POC Glucose 198 H 11/28/20 05:02: WBC 8.1, RBC 4.46 L, Hgb 15.0, Hct 42.4, MCV 95.1 H, MCH 33.6 H, MCHC 35.4, RDW Std Deviation 39.3, RDW Coeff of Gentry 11.3 L, Plt Count 191, MPV 10.2, Immature Gran % (Auto) 1.000 H, Neut % (Auto) 48.9, Lymph % (Auto) 37.5, [place] % (Auto) 10.3 H, Eos % (Auto) 1.6, Baso % (Auto) 0.7, Absolute Neuts (auto) 3.9, Absolute Lymphs (auto) 3.02, Nucleated RBC % 0 11/28/20 05:02: Sodium 138, Potassium 4.1, Chloride 107, Carbon Dioxide 24.0, Anion Gap 7, BUN 21 H, Creatinine 0.57 L, Estim Creat Clear Calc 177.83, Est GFR (MDRD) Af Amer 203, Est GFR (MDRD) Non-Af 167, BUN/Creatinine Ratio 36.7 H, Glucose 161 H, Calcium 7.6 L Current Medications Acetaminophen/Butalbital/Caffeine (Acetaminophen/Butalbital/Caffe 1 Tablet) 1 tablet PO Q4H PRN PRN PRN Reason: HEADACHE Last Admin: 11/25/20 15:08 Dose: 1 tablet Documented by: Al Hydroxide/Mg Hydroxide (Mag Hydrox/Al Hydrox/Simeth 30 Ml Udc) 30 ml PO Q4H PRN PRN PRN Reason: DYSPEPSIA Last Admin: 11/25/20 07:48 Dose: 30 ml Documented by: Albuterol Sulfate (Albuterol 2.5 Mg/3 Ml Vial.Neb.) 2.5 mg INHALATION Q2H PRN PRN PRN Reason: SOB/Wheezing Enoxaparin Sodium (Enoxaparin 40 Mg/0.4 Ml Syringe) 40 mg SC DAILY [facility] Last Admin: 11/27/20 08:10 Dose: 40 mg Documented by: Insulin Human Lispro (Insulin Lispro 100 Unit/Ml Insuln.Pen) 0 unit SC [facility]; Protocol Last Admin: 11/27/20 21:36 Dose: 3 units Documented by: Insulin Lispro Protam/Lispro Human (Insulin Human 75/25 Kwickpen) [facility] Last Admin: 11/27/20 16:56 Dose: 35 u Documented by: Lisinopril (Lisinopril 10 Mg Tablet) 10 mg PO DAILY [facility] Last Admin: 11/27/20 10:05 Dose: 10 mg Documented by: Ondansetron HCl (Ondansetron 4 Mg/2 Ml Vial) 4 mg IV Q8H PRN PRN PRN Reason: NAUSEA/VOMITING Last Admin: 11/25/20 21:09 Dose: 4 mg Documented by: Pantoprazole Sodium (Pantoprazole Sodium 40 Mg Tablet) 40 mg PO BID [facility] Last Admin: 11/27/20 21:36 Dose: 40 mg Documented by: Polyethylene Glycol (Polyethylene Glycol 3350 17 Gm Packet) 17 gm PO DAILY PRN PRN PRN Reason: Constipation Sodium Chloride (0.9% Saline Lock 10 Ml Syringe) 10 - 40 ml IV UD PRN PRN Reason: SALINE FLUSH Last Admin: 11/26/20 14:45 Dose: 10 ml Documented by: Temazepam (Temazepam 15 Mg Capsule) 30 mg PO QHS [facility] Last Admin: 11/27/20 22:44 Dose: 30 mg Documented by: STROKE Vital Signs/Narrative: Vital Signs Temp Pulse Resp BP Pulse Ox 11/28/20 07:01 76 11/28/20 05:40 97.3 F L 74 16 139/98 H 97 Medical Necessity - Tobacco Use Smoking Status: Heavy Smoker (>10/day) Assessment/Plan All Active Problems DKA (diabetic ketoacidoses) (Acute) Vomiting (Acute) Chest wall pain (Acute) Dehydration (Acute) Severe hyperglycemia due to diabetes mellitus (Acute) Chest pain (Acute) 1. Type I DM, noncompliant, blood sugar better controlled now Continue on home NPH with insulin sliding scale 2. Hypertension, controlled, continue lisinopril 3. Chest pain, ACS ruled out, stress test negative 4. Dysphagia secondary to esophagitis/Cast's esophagus and gastritis, Continue on PPI PO 5. Debility, and is unable to care for himself, wants discharge to prison facility, Discharge planning ongoing 6. DVT Prophylaxis with Lovenox subcu Inpatient E&M: 47136 Subs Hosp L2
[2020-11-28 08:15] LABS: Bedside Glucose 218 mg/dL (70-110)
[2020-11-28] MEDS: Acetaminophen/Butalbital/Caffe 1 Tablet PO (08:16)
[2020-11-28] MEDS: Pantoprazole Sodium 40 MG Tablet PO ×2 (08:16→22:36)
[2020-11-28] MEDS: Enoxaparin 40 MG/0.4 ML Syringe SC (08:16)
[2020-11-28] MEDS: Insulin Human 75/25 Kwickpen 35 UNIT SC ×2 (08:17→16:20)
[2020-11-28] MEDS: Insulin Lispro 100 UNIT/ML INSULN.PEN SC ×4 (08:17→22:37)
--- NOTE | 2020-11-28 09:34 | CASEMGMT ---
KARON received a voice mail from Leesa with [facility]. She needed patient's demographics sheet. KARON also received a voice mail from [facility]. They are reluctant to accept patient due to him being a smoker and they do not allow smoking. KARON faxed updated information to [facility]. Shannon TUCKER MSW
[2020-11-28] MEDS: Lisinopril 10 MG Tablet PO (09:47)
[2020-11-28 11:31] LABS: Bedside Glucose 217 mg/dL (70-110)
--- NOTE | 2020-11-28 12:44 | CASEMGMT ---
KARON spoke with Leesa at [facility]. She will start the pre-cert, but she is not sure if patient is going to get approved. She will let SW know as soon as she hears from insurance. Plan: [facility] pending pre-cert. Shannon BYRNE
[2020-11-28 16:25] LABS: Bedside Glucose 268 mg/dL (70-110)
--- NOTE | 2020-11-28 16:29 | PCM.TXEXTCAR ---
- Diet 11/25/20 14:08 Diet: Regular - General Is pt able to select menu?: Yes - Routine Orders/Code Status Routine Lab Work: CBC - within 3 days, BMP - within 3 days - Wound(s) Rt ring finger Wound Type: Abrasion Left middle finger Wound Type: Abrasion - Therapies Physical Therapy: Eval and Treat Occupational Therapy: Eval and Treat - Allergies/Procedures Done in Hospital Allergies/Adverse Reactions: Allergies No Known Allergies Allergy (Verified 11/23/20 08:31) Procedures: EGD - Type of Care/Length of Stay Estimated LOS: Convalescent Care Less Than 30 days Type of Care Needed: Skilled Rehab Potential: Good Prognosis: Good - Additional Orders/Day of Discharge Day of Discharge: 11/29/20 - Dietary and Speech Recommendations Dietitian Recommendations/Changes: as adequate intake/tolerance of regular diet is further established, recommend diet change to CHO controlled diet. - Follow Up Care Primary Care Physician: Care Physician,No Primary [Primary Care Provider] - Please follow up with your Primary Care Physician in: within 1-2 weeks of discharge
[2020-11-28 16:57] LABS: AST(SGOT) 60 U/L (15-37); Alanine Aminotransfer ALT/SGPT 55 U/L (16-61); Albumin, Serum 1.8 g/dL (3.2-5.0); Alkaline Phosphatase 108 U/L (45-117); Bilirubin, Direct < 0.05 mg/dL (0.00-0.30); Globulin 3.3 g/dL (2.2-4.2); Protein, Total 5.1 g/dL (6.4-8.2)
[2020-11-28] MEDS: Temazepam 15 MG Capsule 30 MG PO (22:43)
[2020-11-28 22:46] LABS: Bedside Glucose 263 mg/dL (70-110)
[2020-11-29 03:45] VITALS: BP 119/75; PULSE 80; RESP 16; TEMP 36.6; O2SAT 97
[2020-11-29 07:01] LABS: Bedside Glucose 141 mg/dL (70-110)
[2020-11-29 09:05] VITALS: BP 134/78; PULSE 91; RESP 18; TEMP 36.7; O2SAT 100
[2020-11-29] MEDS: Insulin Human 75/25 Kwickpen 35 UNIT SC (09:05)
[2020-11-29] MEDS: 0.9% Saline Lock 10 ML Syringe IV (09:06)
[2020-11-29] MEDS: Acetaminophen/Butalbital/Caffe 1 Tablet PO (09:06)
[2020-11-29] MEDS: Enoxaparin 40 MG/0.4 ML Syringe SC (09:06)
[2020-11-29] MEDS: Lisinopril 10 MG Tablet PO (09:06)
[2020-11-29] MEDS: Pantoprazole Sodium 40 MG Tablet PO (09:06)
[2020-11-29] MEDS: Insulin Lispro 100 UNIT/ML INSULN.PEN SC (11:15)
[2020-11-29 11:20] LABS: Bedside Glucose 167 mg/dL (70-110)
--- NOTE | 2020-11-29 12:14 | DS.PCM_ITS ---
Discharge Date and Diagnosis - Problem List Patient Problems: Active and Suspected Problems Chest wall pain (Acute) Dehydration (Acute) Date of Admission: 11/23/20 Date of Discharge: 11/29/20 - Primary Discharge Diagnosis Acute Problems: Active Problems Chest pain, ACS ruled out Uncontrolled type I DM secondary to noncompliance Uncontrolled hypertension Dysphagia Hospital Course and Treatment Imaging Results: Clinical Impression(s) from Imaging Studies Chest X-Ray 11/23/20 11:14 IMPRESSION: Normal x-ray examination of the chest. Electronically Signed: Artem Hernandez MD at 11:53 EST , Service support , Brain CT 11/24/20 15:39 IMPRESSION: Normal unenhanced and enhanced CT scan of the brain. Electronically Signed: Dusty Mcdonald MD at 16:28 EST , Service support , Hand X-Ray 11/25/20 08:17 IMPRESSION: No demonstrated fracture or suspicious osseous lesion Nonspecific soft tissue swelling, slightly less than noted on the left hand study Electronically Signed: Dusty Mcdonald MD at 8:47 EST , Service support , Hand X-Ray 11/25/20 08:22 IMPRESSION: No demonstrated fracture or joint space abnormality Nonspecific soft tissue swelling Electronically Signed: Dusty Mcdonald MD at 8:46 EST , Service support , General surgery Operations: None Procedures: 2-D Echocardiogram, EGD, Stress test Summary of Care Provided: The patient is a 40 year old M past medical history of type I DM, hypertension, nicotine dependence who comes into the emergency department with a 2-day history of chest pain, nausea and vomiting. Chest pain was described as pressure-like, relieved by sitting up and forward. Associated with nausea and vomiting and has vomited about 6 times. Patient admits to not taking any of his medications. Hi s blood sugar on admission was 461. HbA1c 11.2, anion gap was 12. He was admitted to the telemetry floor and acute kidney injury rule out with negative troponin, EKG and stress test. Also had lactic acidosis secondary to dehydration that resolved. Because of his hospital stay, patient complained of burning in his throat and esophagus when he eats. General surgery was consulted and he underwent an EGD on that showed reflux esophagitis, Cast's esophagus, that was biopsied. Patient was kept on IV PPI. He was evaluated by PT and OT and he stated that he could not take care of himse lf at home. Social work and case management were involved. He was discharged to a senior care facility. Patient Problems: Active and Suspected Problems Chest wall pain (Acute) Dehydration (Acute) Subjective: On the day of discharge, patient was seen and examined. He denied any new complains. Objective: Physical exam: General: Alert, Oriented x3, Cooperative HEENT: Atraumatic, PERRLA, EOMI, Normocephalic Oral: Dry Mucosa Neck: Supple, No JVD, Negative Carotid Bruits Lungs: Clear to auscultation, Normal air movement, No rhonchi, No wheeze, No rales Cardiovascular: Regular rate, Regular Rhythm, Normal S1, Normal S2, No murmurs Abdomen: Bowel Sounds Present, Soft, Non Tender, Non-Distended, No Hepato- splenomegaly Extremities: No clubbing, No cyanosis, No edema, Capillary Refill Less than 3 Seconds Skin: No rashes, No breakdown Musculoskeletal: No Tenderness to Palpation of Joints or Extremities Lymphatic: No Cervical, Supraclavicular, or Inguinal Adenopathy Neurological: Cranial nerves II-XII grossly intact, Neuro grossly intact, Motor Exam 5/5 strength throughout Psych/Mental Status: flat affect - Physical Exam Vitals/I&O's: Vital Signs Temp Pulse Resp BP Pulse Ox 98.1 F 91 18 134/78 H 100 11/29/20 09:05 11/29/20 09:05 11/29/20 09:05 11/29/20 09:05 11/29/20 09:05 Oxygen Delivery Method Room Air Weight: 72.983 kg Body Mass Index (BMI) 22.4 Finger Stick Blood Glucose 461 Intake and Output for Last 24 Hours 11/27/20 11/28/20 11/29/20 23:59 23:59 23:59 Intake Total 1200 / 1440 1200 / 1600 400 / 400 Output Total 0 / 0 Balance 1200 / 1440 1200 / 1600 400 / 400 Microbiology Past 72 Hours 11/25/20 05:55 Blood Culture (Wb) - Left Forearm Blood Culture - Preliminary No growth in 48 hours. 11/24/20 16:55 Blood Culture (Wb) - Anticubital Right Blood Culture - Preliminary No growth in 48 hours. Laboratory Results 11/28/20 05:02: Total Bilirubin 0.20, Direct Bilirubin < 0.05, AST 60 H, ALT 55, Alkaline Phosphatase 108, Total Protein 5.1 L, Albumin 1.8 L, Globulin 3.3 11/28/20 16:18: POC Glucose 268 H 11/28/20 22:34: POC Glucose 263 H 11/29/20 06:54: POC Glucose 141 H 11/29/20 11:13: POC Glucose 167 H Current Medications Acetaminophen/Butalbital/Caffeine (Acetaminophen/Butalbital/Caffe 1 Tablet) 1 tablet PO Q4H PRN PRN PRN Reason: HEADACHE Last Admin: 11/29/20 09:06 Dose: 1 tablet Documented by: Al Hydroxide/Mg Hydroxide (Mag Hydrox/Al Hydrox/Simeth 30 Ml Udc) 30 ml PO Q4H PRN PRN PRN Reason: DYSPEPSIA Last Admin: 11/25/20 07:48 Dose: 30 ml Documented by: Albuterol Sulfate (Albuterol 2.5 Mg/3 Ml Vial.Neb.) 2.5 mg INHALATION Q2H PRN PRN PRN Reason: SOB/Wheezing Enoxaparin Sodium (Enoxaparin 40 Mg/0.4 Ml Syringe) 40 mg SC DAILY [facility] Last Admin: 11/29/20 09:06 Dose: 40 mg Documented by: Insulin Human Lispro (Insulin Lispro 100 Unit/Ml Insuln.Pen) 0 unit SC [facility]; Protocol Last Admin: 11/29/20 11:15 Dose: 3 units Documented by: Insulin Lispro Protam/Lispro Human (Insulin Human 75/25 [place]) [facility] Last Admin: 11/29/20 09:05 Dose: 35 u Documented by: Lisinopril (Lisinopril 10 Mg Tablet) 10 mg PO DAILY [facility] Last Admin: 11/29/20 09:06 Dose: 10 mg Documented by: Ondansetron HCl (Ondansetron 4 Mg/2 Ml Vial) 4 mg IV Q8H PRN PRN PRN Reason: NAUSEA/VOMITING Last Admin: 11/25/20 21:09 Dose: 4 mg Documented by: Pantoprazole Sodium (Pantoprazole Sodium 40 Mg Tablet) 40 mg PO BID [facility] Last Admin: 11/29/20 09:06 Dose: 40 mg Documented by: Polyethylene Glycol (Polyethylene Glycol 3350 17 Gm Packet) 17 gm PO DAILY PRN PRN PRN Reason: Constipation Sodium Chloride (0.9% Saline Lock 10 Ml Syringe) 10 - 40 ml IV UD PRN PRN Reason: SALINE FLUSH Last Admin: 11/29/20 09:06 Dose: 10 ml Documented by: Temazepam (Temazepam 15 Mg Capsule) 30 mg PO QHS [facility] Last Admin: 11/28/20 22:43 Dose: 30 mg Documented by: Discharge Diet: Low fat/ Low Cholesterol, 2000 mg Sodium Diet Discharge Activity: Return to Normal Activity Home Medications: Medications to take at Discharge Insulin NPH/Reg 70/30 [Novolin 70/30] 35 units SC BIDAC 11/23/20 Acetaminophen/Butalbital/Caffe [Fioricet] 1 tab PO Q4H PRN PRN tab 11/29/20 Insulin Lispro [Humalog KwikPen] See Protocol CO ACHS insuln.pen 11/29/20 Mag Hydrox/Al Hydrox/Simeth [Mylanta II] 30 ml PO Q4H PRN PRN udc 11/29/20 Pantoprazole Sodium [Protonix] 40 mg PO BID tab 11/29/20 Polyethylene Glycol 3350 [Miralax] 17 gm PO DAILY PRN PRN packet 11/29/20 Primary Care Physician: Care Physician,No Primary [Primary Care Provider] - Please follow up with your Primary Care Physician in: within 1-2 weeks of discharge Disposition: Long Term facility Minutes spent on discharge:: 40 Patient Condition:: Stable Medical Necessity - Tobacco Use Smoking Status: Heavy Smoker (>10/day) Tobacco Use: Cigarettes Meaningful Use Info Meaningful Use Diagnoses (Choose all that apply): None applicable Inpatient E&M: 25671 Disch Hosp
--- NOTE | 2020-11-29 12:24 | PHA.DC.MR ---
Pharmacy Service has performed discharge medication reconciliation for this patient. The patient's discharge medication list was reviewed for discrepancies and discrepancies were resolved. Home Medications Insulin NPH/Reg 70/30 [Novolin 70/30] 35 units SC BIDAC 11/23/20 Acetaminophen/Butalbital/Caffe [Fioricet] 1 tab PO Q4H PRN PRN tab 11/29/20 Insulin Lispro [Humalog KwikPen] See Protocol SC ACHS insuln.pen 11/29/20 Mag Hydrox/Al Hydrox/Simeth [Mylanta II] 30 ml PO Q4H PRN PRN udc 11/29/20 Pantoprazole Sodium [Protonix] 40 mg PO BID tab 11/29/20 Polyethylene Glycol 3350 [Miralax] 17 gm PO DAILY PRN PRN packet 11/29/20
--- NOTE | 2020-11-29 13:10 | CASEMGMT ---
Addendum entered by Shannon Horta 11/29/20 13:38: KARON called Leesa with [facility] and left her a voice mail letting her know orders were faxed and patient will be picked up at 2p. Plan: d/c to [facility] under skilled level of care on a convalescent stay. [facility] transported him via wc van. Shannon BYRNE Original Note: Patient was approved to go to [facility]. KARON notified physician, patient, RN, and workers compensation legal secretary. Await orders. KARON arranged transport for 2p via wc van. Convalescent completed on [facility]. Shannon BYRNE
--- NOTE | 2020-11-29 13:49 | NURSING ---
Tried to call report to [facility] x3 times. No answer. Left voicemail with this RN's phone number to get report
== END 2020-11-29 14:09 | disposition skilled nursing facility (03) | DRG 420 ==
LOC: ED 11:17 → PCU 11:25
PROVIDERS: Surgery; Admitting Provider Student in an Organized Health Care Education/Training Program; Emergency Provider Emergency Medicine; Visit Provider Internal Medicine
PROC: 0DJ08ZZ Inspection of Upper Intestinal Tract, Via Natural or Artificial Opening Endoscopic (ICD-10-PCS; CPT 43235; principal; 2020-11-25 13:40)
DX: E10.10 Type 1 diabetes mellitus with ketoacidosis without coma (principal); R07.89 Other chest pain; E86.0 Dehydration; F17.200 Nicotine dependence, unspecified, uncomplicated; Z91.14 Patient's other noncompliance with medication regimen; Z79.4 Long term (current) use of insulin; Z66 Do not resuscitate; K21.00 Gastro-esophageal reflux disease with esophagitis, without bleeding; Z87.11 Personal history of peptic ulcer disease; K44.9 Diaphragmatic hernia without obstruction or gangrene; I10 Essential (primary) hypertension; E83.51 Hypocalcemia; E87.70 Fluid overload, unspecified; K22.70 Barrett's esophagus without dysplasia; K29.70 Gastritis, unspecified, without bleeding
CPT/HCPCS: 36415; 70470; 71045; 73130; 78452; 80048; 80053; 80076; 81001; 82009; 82150; 82962; 83036; 83605; 83690; 84484; 85025; 85610; 85652; 85730; 86140; 87040; 87426; 88305; 88313; 88342; 93005; 93017; 93306; 97110; 97162; 97166; 97530; 97535; 99285; 99406; A9500; J7030; J7120; Q9957; Q9967; A4216; C8929; J0610; J1940; J2405; J2785; J3030

== ENCOUNTER → 2021-01-19 14:47 | Outpatient (CLI) | payer MEDICAID, SELFPAY ==
[2021-01-19 13:07] VITALS: BMI 26.2
== END ==
PROVIDERS: PCP Internal Medicine; Referring Provider Internal Medicine; Visit Provider Internal Medicine
DX: E11.9 Type 2 diabetes mellitus without complications (principal)
CPT/HCPCS: 36415

== ENCOUNTER 2021-06-24 13:11 | Inpatient (IN) | payer MEDICAID, SELFPAY ==
[2021-06-24] VITALS (16 sets, daily range): BP systolic 123–175; BP diastolic 81–112; PULSE 94–113; RESP 14–20; TEMP 36.4–37.4; O2SAT 96–100; BMI 24.5
[2021-06-24 14:00] LABS: Absolute Lymphocyte Count 2.55 X10^3/uL (0.83-4.51); Absolute Neutrophil Count 14.8 X10^3/uL (2.0-7.7); Basophil# 0.07 X10^3/uL; Basophil% 0.4 % (0-1); Eosinophil# 0.02 X10^3/uL; Eosinophils% 0.1 % (0-5); Hematocrit 42.7 % (40-54); Hemoglobin 15.3 g/dL (13.0-16.5); Lymphocyte # 2.55 X10^3/ul (0.83-4.51); Lymphocyte % 13.4 % (19-41); Mean Corp Hgb Conc 35.8 g/dL (32-36); Mean Corpuscular Hgb 33.4 pg (27.0-32.0); Mean Corpuscular Volume 93.2 fL (80-94); Mean Platelet Vol. 10.1 fl (6.2-12.0); Monocyte# 1.56 X10^3/uL; Monocyte% 8.2 % (0-10); NRBC Flagged by Analyzer 0 % (0-5); Neutrophil # 14.75 X10^3/uL (2.7-7.7); Neutrophil % 77.3 % (47-70); POSITIVE DIFFERENTIAL YES; Platelet Count 276 K/mm3 (150-450); RBC Distribution Width CV 11.4 % (11.6-14.6); RBC Distribution Width SD 38.9 fl (35.1-43.9); Red Blood Count 4.58 M/mm3 (4.6-6.2); White Blood Count 19.1 K/mm3 (4.4-11.0)
[2021-06-24 14:01] LABS: Differential Indicated SCAN CRITERIA MET
[2021-06-24 14:19] LABS: Anion Gap 6 (5-15); BUN 19 mg/dL (7-18); BUN/Creat Ratio 20.8 RATIO (10-20); Calcium,Total 8.1 mg/dL (8.5-10.1); Chloride 100 mmol/L (98-107); Creatinine, Serum 0.91 mg/dL (0.70-1.30); EST Glomerular Filtration Rate 97 mL/min (>60); Est Glom Filt Rate - Afr Amer 118 mL/min (>60); Estimated Creatinine Clearance 114.93 ml/min; Glucose 561 mg/dL (74-106); Potassium 4.2 mmol/L (3.5-5.1); Sodium Level 131 mmol/L (136-145)
[2021-06-24 14:22] LABS: Lactic Acid 1.7 mmol/L (0.4-1.9)
--- NOTE | 2021-06-24 15:10 | RAD_ITS ---
STUDY: X-RAY CHEST REASON FOR EXAM: Male, 40 years old. tachycardia TECHNIQUE: AP COMPARISON: 11/23/2020 FINDINGS: EKG leads project over the chest. Dense nodule overlying the left lung base is stable, likely chest wall artifact/nipple shadow versus granuloma. There is no demonstrated pleural abnormality. Normal size heart. Normal mediastinum and pranav. Normal visualized pulmonary arteries. Normal visualized aortic arch and descending thoracic aorta. Normal visualized thoracic spine. Normal visualized ribs, clavicles, and shoulders. There is no demonstrated abnormality of the visualized soft tissue structures of the upper abdomen. RAD/Chest 1 View (Portable) IMPRESSION: Stable, nonacute portable x-ray examination of the chest. Electronically Signed: Sourav Fernández MD (Brooks) at 17:09 EDT , Service support ,
--- NOTE | 2021-06-24 15:23 | EKG12_ITS ---
Test Reason : ABCESS Blood Pressure : / mmHG Vent. Rate : 100 BPM Atrial Rate : 100 BPM P-R Int : 138 ms QRS Dur : 070 ms QT Int : 346 ms P-R-T Axes : 079 084 072 degrees QTc Int : 446 ms Normal sinus rhythm Normal ECG Confirmed by KOBY PACHECO, CHAVO ([id number]), general expeditor RADU ELLSWORTH ([id number]) on 06/26/2021 1:26:13 PM Referred By: Brigitte Fitzpatrick Confirmed By:CHAVO WHALEN MD
[2021-06-24 15:50] LABS: AST(SGOT) 24 U/L (15-37); Alanine Aminotransfer ALT/SGPT 33 U/L (16-61); Albumin, Serum 1.7 g/dL (3.2-5.0); Alkaline Phosphatase 91 U/L (45-117); Globulin 4.4 g/dL (2.2-4.2); Protein, Total 6.1 g/dL (6.4-8.2); Troponin-I HS 10 pg/mL (3.0-78.0)
[2021-06-24] MEDS: Ondansetron 4 MG/2 ML Vial IV (15:54)
[2021-06-24] MEDS: 0.9% Normal Saline 1,000 ML 999 ML IV ×2 (15:54→17:11)
[2021-06-24] MEDS: Morphine 4 MG/ML Syringe IV ×2 (15:54→18:43)
[2021-06-24] MEDS: Lidocaine 1% /Epi 1:100 (20ml) 20 ML Vial INFILT (15:54)
--- NOTE | 2021-06-24 16:00 | ED.RN ---
REDNESS NEAR IV SITE AFTER GIVING ZOFRAN IV. IV SITE DRAWING BLOOD AT THIS SITE AND FLUSHING WITH NO PROBLEMS. ICE GIVEN. FLUIDS RUNNING, NO BURNING AT THIS TIME. WILL CONTINUE TO MONITOR.
[2021-06-24 16:21] LABS: International Normalized Ratio 1.1; Prothrombin Time (Protime)PT. 13.1 SECONDS (11.7-14.9)
[2021-06-24 16:22] LABS: Partial Thromboplast Time 26.1 Seconds (24.1-36.2)
[2021-06-24 16:35] LABS: Bacteria 0 SEEN /hpf (None Seen); Mucous, Urine 0 SEEN /hpf (<or=2+); Squamous Epithelial Cells - UA 0 SEEN /hpf (0-5); White Blood Cells 0 SEEN /hpf (0-5)
[2021-06-24 16:43] LABS: Color, Urine Yellow (Yellow); Glucose, Dipstick 1000 mg/dl (Normal); Ketone-Dipstick 15 mg/dl (Negative); Leukocyte Esterase-Dipstick Negative /ul (Negative); Nitrite-Dipstick Negative (Negative); Occult Blood-Urine 150 /ul (Negative); Protein-Dipstick 500 mg/dl (Negative); Specific Gravity, Urine 1.015 (1.002-1.030); Urine Bilirubin Dipstick Negative (Negative); Urine Clarity Clear (Clear); Urine Urobilinogen Normal (Normal)
[2021-06-24 16:52] LABS: Red Blood Cells-Urine 5-10 SEEN /hpf (0-5)
--- NOTE | 2021-06-24 19:15 | CON.PCM.HO_ITS ---
HPI Consult Data Date of Consult: 06/24/21 HPI Narrative HPI Narrative: LORI PETER, is a 40 M who presents [facility] Medical History Type 2 diabetes mellitus without complications Home Medications alcohol swabs 1 pad TOPICAL 6XD #100 each 01/19/21 [Rx Last Taken Unknown] blood sugar diagnostic #100 each 01/19/21 [Rx Last Taken Unknown] blood-glucose meter #1 each 01/19/21 [Rx Last Taken Unknown] insulin lispro 100 unit/mL subcutaneous pen See Rx Instructions SC DAILY #15 ml 01/19/21 [Rx Last Taken Unknown] lancets 17 gauge #100 each 01/19/21 [Rx Last Taken Unknown] lisinopril 10 mg tablet 10 mg PO DAILY #30 tablet 01/19/21 [Rx Last Taken Unknown] melatonin 1 mg tablet 1 mg PO HS PRN 01/19/21 [History Last Taken Unknown] omeprazole 20 mg capsule,delayed release 20 mg PO BID 01/19/21 [History Last Taken Unknown] insulin NPH-regular 70-30 U-100 insulin 100 unit/mL subcutaneous pen 35 unit SC BID #15 ml 01/20/21 [Rx Last Taken Unknown] pen needle, diabetic 30 gauge x 5/16 #100 each 01/20/21 [Rx Last Taken Unknown] Allergy/AdvReac Type Severity Reaction Status Date / Time No Known Allergies Allergy Verified 06/24/21 13:11 Family History (Updated 01/19/21 @ 12:59 by Letha Martin) Other Asthma Diabetes Heart disease Myocardial infarction Social History (Updated 01/19/21 @ 14:[address] Summer Padilla MD) Smoking Status: Heavy Smoker (>10/day) alcohol intake: never substance use type: does not use Lab / Micro Data Result Diagrams: 06/24/21 13:51 06/24/21 13:51 Labs: Laboratory Results - last 24 hr 06/24/21 13:51: WBC 19.1 H, RBC 4.58 L, Hgb 15.3, Hct 42.7, MCV 93.2, MCH 33.4 H , MCHC 35.8, RDW Std Deviation 38.9, RDW Coeff of Gentry 11.4 L, Plt Count 276, MPV 10.1, Immature Gran % (Auto) 0.600, Neut % (Auto) 77.3 H, Lymph % (Auto) 13.4 L, [place] % (Auto) 8.2, Eos % (Auto) 0.1, Baso % (Auto) 0.4, Absolute Neuts (auto) 14.8 H, Absolute Lymphs (auto) 2.55, Nucleated RBC % 0, Diff Path Review January06/24/21 13:51: Sodium 131 L, Potassium 4.2, Chloride 100, Carbon Dioxide 25.0, Anion Gap 6, BUN 19 H, Creatinine 0.91, Estim Creat Clear Calc 114.93, Est GFR (MDRD) Af Amer 118, Est GFR (MDRD) Non-Af 97, BUN/Creatinine Ratio 20.8 H, Glucose 561 H*, Calcium 8.1 L 06/24/21 13:51: Lactic Acid 1.7 06/24/21 13:51: Total Bilirubin 0.30, Direct Bilirubin 0.10, AST 24, ALT 33, Alkaline Phosphatase 91, Troponin I High Sens 10, Total Protein 6.1 L, Albumin 1.7 L, Globulin 4.4 H 06/24/21 16:00: PT 13.1, INR 1.1, APTT 26.1 06/24/21 16:29: Urine Color Yellow, Urine Clarity Clear, Urine pH 6.0, Ur Specific [place] 1.015, Urine Protein 500 H, Urine Glucose (UA) 1000 H, Urine Ketones 15 H, Urine Occult Blood 150 H, Urine Nitrite Negative, Urine Bilirubin Negative, Urine Urobilinogen Normal, Ur Leukocyte Esterase Negative, Urine RBC 5-10 SEEN, Urine WBC 0 SEEN, Ur Squamous Epith Cells 0 SEEN, Urine Bacteria 0 SEEN, Urine Mucus 0 SEEN Radiology Impression Chest X-Ray 06/24/21 15:10 IMPRESSION: Stable, nonacute portable x-ray examination of the chest. Electronically Signed: Sourav Fernández MD (Brooks) at 17:09 EDT , Service support ,
--- NOTE | 2021-06-24 19:16 | ED.RN ---
THIS RN NOTICED REDNESS AND SWELLING TO IV SITE. FLUIDS STOPPED, IV REMOVED AT THIS TIME. ICE GIVEN.
[2021-06-24 19:21] LABS: Bedside Glucose 350 mg/dL (70-110)
--- NOTE | 2021-06-24 19:24 | CON.PCM.SX_ITS ---
Assessment & Plan Assessment/Plan (1) Abscess of back: PLAN: This is a 40-year-old gentleman with a history of poorly controlled type 2 diabetes who presents with a 2-day history of back pain and now a moderately large subcutaneous abscess. Surgery was consulted because patient was unable to tolerate a bedside I&D and there is concern for residual abscess loculations. Based on the above, is my recommendation to take the patient for I&D under anesthesia. We will obtain wound cultures and plan to open the site as necessary to drain any untapped loculations. I have asked that the hospitalist service be involved in the patient's care for assistance with patient's diabetes and blood sugar management, specifically, during the perioperative period. HPI Consult Data Date of Consult: 06/24/21 HPI Narrative HPI Narrative: LORI PETER, is a 40 M who presents to [facility] ER with a 2-day complaint of back pain and abscess formation. Patient states that he is been severely lethargic the last 2 days and has been primarily sleeping. He has had nothing to eat since last evening due to his feeling so puny. In the ER his laboratories are notable for profound leukocytosis of 19,000 with left shift as well as severe hyperglycemia with a blood glucose level of over 560 mg/dL and evidence of protein/glucose spillage into the urine. A bedside I&D was undertaken in the ER by emergency medicine however patient did not tolerate a complete I&D and surgery was thus consulted for additional evaluation. For the patient's hyperglycemia, he was initially bolused saline and a recheck of his blood sugar will be done momentarily before administration of sliding scale insulin. Patient has no prior history of subcutaneous abscess or staph infections. He does have a history of poorly controlled diabetes with his last 2 hemoglobin A1c's (representing the last 2 years) over 11. [facility] Medical History (Updated 06/24/21 @ 19:[address] Saroj Evangelista MD) Type 2 diabetes mellitus without complications Home Medications alcohol swabs 1 pad TOPICAL 6XD #100 each 01/19/21 [Rx Last Taken Unknown] blood sugar diagnostic #100 each 01/19/21 [Rx Last Taken Unknown] blood-glucose meter #1 each 01/19/21 [Rx Last Taken Unknown] insulin lispro 100 unit/mL subcutaneous pen See Rx Instructions SC DAILY #15 ml 01/19/21 [Rx Last Taken Unknown] lancets 17 gauge #100 each 01/19/21 [Rx Last Taken Unknown] lisinopril 10 mg tablet 10 mg PO DAILY #30 tablet 01/19/21 [Rx Last Taken Unknown] melatonin 1 mg tablet 1 mg PO HS PRN 01/19/21 [History Last Taken Unknown] omeprazole 20 mg capsule,delayed release 20 mg PO BID 01/19/21 [History Last Taken Unknown] insulin NPH-regular 70-30 U-100 insulin 100 unit/mL subcutaneous pen 35 unit SC BID #15 ml 01/20/21 [Rx Last Taken Unknown] pen needle, diabetic 30 gauge x 5/16 #100 each 01/20/21 [Rx Last Taken Unknown] Allergy/AdvReac Type Severity Reaction Status Date / Time No Known Allergies Allergy Verified 06/24/21 13:11 Family History (Updated 01/19/21 @ 12:59 by Letha Martin) Other Asthma Diabetes Heart disease Myocardial infarction Social History (Updated 01/19/21 @ 14:[address] Summer Padilla MD) Smoking Status: Heavy Smoker (>10/day) alcohol intake: never substance use type: does not use Physical Exam Const General Appearance: cooperative and other Uncomfortable and edgy Orientation / Consciousness: awake, oriented to person, oriented to place and oriented to time Resp normal respiratory effort Effort and Inspection: able to speak in complete sentences Back/Spine Back/Spine Narrative: The patient has a significant area of induration, fluctuance, and erythema across his thoracolumbar back. A cruciate incision, approximately 4 cm, has been made in the center of the swelling with packing in place. However, all along the circumference of this wound the patient remains exquisitely tender to even light palpation. General Back: erythema and warmth Lab / Micro Data Result Diagrams: 06/24/21 13:51 06/24/21 13:51 Labs: Laboratory Results - last 24 hr 06/24/21 13:51: WBC 19.1 H, RBC 4.58 L, Hgb 15.3, Hct 42.7, MCV 93.2, MCH 33.4 H , MCHC 35.8, RDW Std Deviation 38.9, RDW Coeff of Gentry 11.4 L, Plt Count 276, MPV 10.1, Immature Gran % (Auto) 0.600, Neut % (Auto) 77.3 H, Lymph % (Auto) 13.4 L, [place] % (Auto) 8.2, Eos % (Auto) 0.1, Baso % (Auto) 0.4, Absolute Neuts (auto) 14.8 H, Absolute Lymphs (auto) 2.55, Nucleated RBC % 0, Diff Path Review May foll 06/24/21 13:51: Sodium 131 L, Potassium 4.2, Chloride 100, Carbon Dioxide 25.0, Anion Gap 6, BUN 19 H, Creatinine 0.91, Estim Creat Clear Calc 114.93, Est GFR (MDRD) Af Amer 118, Est GFR (MDRD) Non-Af 97, BUN/Creatinine Ratio 20.8 H, Glucose 561 H*, Calcium 8.1 L 06/24/21 13:51: Lactic Acid 1.7 06/24/21 13:51: Total Bilirubin 0.30, Direct Bilirubin 0.10, AST 24, ALT 33, Alkaline Phosphatase 91, Troponin I High Sens 10, Total Protein 6.1 L, Albumin 1.7 L, Globulin 4.4 H 06/24/21 16:00: PT 13.1, INR 1.1, APTT 26.1 06/24/21 16:29: Urine Color Yellow, Urine Clarity Clear, Urine pH 6.0, Ur Specific [place] 1.015, Urine Protein 500 H, Urine Glucose (UA) 1000 H, Urine Ketones 15 H, Urine Occult Blood 150 H, Urine Nitrite Negative, Urine Bilirubin Negative, Urine Urobilinogen Normal, Ur Leukocyte Esterase Negative, Urine RBC 5-10 SEEN, Urine WBC 0 SEEN, Ur Squamous Epith Cells 0 SEEN, Urine Bacteria 0 SEEN, Urine Mucus 0 SEEN 06/24/21 19:17: POC Glucose 350 H Radiology Impression Chest X-Ray 06/24/21 15:10 IMPRESSION: Stable, nonacute portable x-ray examination of the chest. Electronically Signed: Sourav Fernández MD (Brooks) at 17:09 EDT , Service support , Charges/Coding Visit Charges Inpatient E&M: 95714 Init Hosp L2
--- NOTE | 2021-06-24 19:26 | HP.PCM.HOS_ITS ---
HPI - General General Date of Admission: 06/24/21 Date of Service: 06/24/21 Chief Complaint: Chills, back pain with abscess HPI Narrative LORI PETER, is a 40 M who presents 2 days fatigue, malaise, chills, back pain with noted abscess, redness, fluctuance [facility] Medical History Type 2 diabetes mellitus without complications Home Medications alcohol swabs 1 pad TOPICAL 6XD #100 each 01/19/21 [Rx Last Taken Unknown] blood sugar diagnostic #100 each 01/19/21 [Rx Last Taken Unknown] blood-glucose meter #1 each 01/19/21 [Rx Last Taken Unknown] insulin lispro 100 unit/mL subcutaneous pen See Rx Instructions SC DAILY #15 ml 01/19/21 [Rx Last Taken Unknown] lancets 17 gauge #100 each 01/19/21 [Rx Last Taken Unknown] lisinopril 10 mg tablet 10 mg PO DAILY #30 tablet 01/19/21 [Rx Last Taken Unknown] melatonin 1 mg tablet 1 mg PO HS PRN 01/19/21 [History Last Taken Unknown] omeprazole 20 mg capsule,delayed release 20 mg PO BID 01/19/21 [History Last Taken Unknown] insulin NPH-regular 70-30 U-100 insulin 100 unit/mL subcutaneous pen 35 unit SC BID #15 ml 01/20/21 [Rx Last Taken Unknown] pen needle, diabetic 30 gauge x 5/16 #100 each 01/20/21 [Rx Last Taken Unknown] Allergy/AdvReac Type Severity Reaction Status Date / Time No Known Allergies Allergy Verified 06/24/21 13:11 Family History (Updated 01/19/21 @ 12:59 by Letha Martin) Other Asthma Diabetes Heart disease Myocardial infarction Social History (Updated 01/19/21 @ 14:[address] Summer Padilla MD) Smoking Status: Heavy Smoker (>10/day) alcohol intake: never substance use type: does not use Vital Signs Vital Signs Vital Signs: 06/24/21 13:12 06/24/21 14:14 06/24/21 15:39 Temperature 97.6 F L 97.6 F L Temperature Source Temporal Temporal Pulse Rate 113 H 113 H Respiratory Rate 18 18 Blood Pressure 133/112 H 133/112 H Blood Pressure Mean 119 119 Pulse Ox 98 98 Oxygen Delivery Method Room Air Room Air Room Air 06/24/21 15:55 06/24/21 16:00 06/24/21 17:00 Temperature 99.1 F 99.1 F Temperature Source Oral Oral Pulse Rate 94 94 95 Respiratory Rate 16 16 20 H Blood Pressure 131/88 H 131/88 H 145/95 H Blood Pressure Mean 102 102 111 Pulse Ox 100 100 98 Oxygen Delivery Method Room Air Room Air Room Air 06/24/21 18:14 06/24/21 19:21 06/24/21 19:23 Temperature 99.3 F H 99.3 F H 99.3 F H Temperature Source Oral Temporal Temporal Pulse Rate 99 104 H Respiratory Rate 18 14 Blood Pressure 175/109 H 175/109 H Blood Pressure Mean 131 131 Pulse Ox 98 98 Oxygen Delivery Method Room Air Room Air Weight Weight: 176 lb Body Mass Index (BMI) 24.5 Results Lab / Micro Data Result Diagrams: 06/24/21 13:51 06/24/21 13:51 Labs: Laboratory Results - last 24 hr 06/24/21 13:51: WBC 19.1 H, RBC 4.58 L, Hgb 15.3, Hct 42.7, MCV 93.2, MCH 33.4 H , MCHC 35.8, RDW Std Deviation 38.9, RDW Coeff of Gentry 11.4 L, Plt Count 276, MPV 10.1, Immature Gran % (Auto) 0.600, Neut % (Auto) 77.3 H, Lymph % (Auto) 13.4 L, [place] % (Auto) 8.2, Eos % (Auto) 0.1, Baso % (Auto) 0.4, Absolute Neuts (auto) 14.8 H, Absolute Lymphs (auto) 2.55, Nucleated RBC % 0, Diff Path Review January06/24/21 13:51: Sodium 131 L, Potassium 4.2, Chloride 100, Carbon Dioxide 25.0, Anion Gap 6, BUN 19 H, Creatinine 0.91, Estim Creat Clear Calc 114.93, Est GFR (MDRD) Af Amer 118, Est GFR (MDRD) Non-Af 97, BUN/Creatinine Ratio 20.8 H, Glucose 561 H*, Calcium 8.1 L 06/24/21 13:51: Lactic Acid 1.7 06/24/21 13:51: Total Bilirubin 0.30, Direct Bilirubin 0.10, AST 24, ALT 33, Alkaline Phosphatase 91, Troponin I High Sens 10, Total Protein 6.1 L, Albumin 1.7 L, Globulin 4.4 H 06/24/21 16:00: PT 13.1, INR 1.1, APTT 26.1 06/24/21 16:29: Urine Color Yellow, Urine Clarity Clear, Urine pH 6.0, Ur Specific [place] 1.015, Urine Protein 500 H, Urine Glucose (UA) 1000 H, Urine Ketones 15 H, Urine Occult Blood 150 H, Urine Nitrite Negative, Urine Bilirubin Negative, Urine Urobilinogen Normal, Ur Leukocyte Esterase Negative, Urine RBC 5-10 SEEN, Urine WBC 0 SEEN, Ur Squamous Epith Cells 0 SEEN, Urine Bacteria 0 SEEN, Urine Mucus 0 SEEN 06/24/21 19:17: POC Glucose 350 H Radiology Impression Chest X-Ray 06/24/21 15:10 IMPRESSION: Stable, nonacute portable x-ray examination of the chest. Electronically Signed: Sourav Fernández MD (Brooks) at 17:09 EDT , Service support ,
[2021-06-24] MEDS: Insulin Lispro 100 UNIT/ML INSULN.PEN 20 UNIT SC (19:28)
--- NOTE | 2021-06-24 19:43 | EDS_ITS ---
HPI History of Present Illness Chief Complaint: Abscess Narrative Narrative: 40-year-old male with history of insulin-dependent diabetes presenting with abscess on the back which has been present for a couple of days. He does have chills and body aches but denies a fever. He states he has not been checking his blood sugars and has just been sleeping. Patient does complain of pain where the abscess is. He denies a cough or shortness of breath. He denies urinary symptoms. He denies abdominal pain. [facility] Medical History Tobacco use Type 2 diabetes mellitus without complications Home Medications alcohol swabs 1 pad TOPICAL 6XD #100 each 01/19/21 [Rx Last Taken Unknown] blood sugar diagnostic #100 each 01/19/21 [Rx Last Taken Unknown] blood-glucose meter #1 each 01/19/21 [Rx Last Taken Unknown] insulin lispro 100 unit/mL subcutaneous pen See Rx Instructions SC DAILY #15 ml 01/19/21 [Rx Last Taken Unknown] lancets 17 gauge #100 each 01/19/21 [Rx Last Taken Unknown] lisinopril 10 mg tablet 10 mg PO DAILY #30 tablet 01/19/21 [Rx Last Taken Unknown] melatonin 1 mg tablet 1 mg PO HS PRN 01/19/21 [History Last Taken Unknown] omeprazole 20 mg capsule,delayed release 20 mg PO BID 01/19/21 [History Last Taken Unknown] insulin NPH-regular 70-30 U-100 insulin 100 unit/mL subcutaneous pen 35 unit SC BID #15 ml 01/20/21 [Rx Last Taken Unknown] pen needle, diabetic 30 gauge x 5/16 #100 each 01/20/21 [Rx Last Taken Unknown] Allergy/AdvReac Type Severity Reaction Status Date / Time No Known Allergies Allergy Verified 06/24/21 13:11 Family History Mother Diabetes Heart disease Myocardial infarction Hypertension Father Diabetes Heart disease Myocardial infarction Hypertension Other Asthma Surgical History No significant past surgical history Social History household members: family Smoking Status: Current every day smoker tobacco type: cigarettes Smoking packs per day: 0.5 Smoking cigarettes per day: 10.0 Years smoked: 29 Smoking pack- years: 14.50 how long ago did patient quit smoking: Patient started smoking when he was 11 years old. alcohol intake: never substance use type: does not use ROS ROS ED Constitutional Constitutional ED: Reports chills; Denies fever(s) or sweats Eyes Eyes: Denies blurry vision or diplopia ENT ENT ED: Denies rhinorrhea or sore throat Cardiovascular Cardiovascular: Denies chest pain or palpitations Respiratory/Chest Respiratory/Chest: Denies cough or dyspnea Gastrointestinal Gastrointestinal: Denies abdominal pain, nausea or vomiting Genitourinary Genitourinary ED: Denies dysuria or hematuria Musculoskeletal Musculoskeletal: Reports back pain; Denies neck pain Integumentary Reports abscess Neurologic Neurologic: Reports headache(s); Denies paresthesias EXAM Physical Exam Const Vital Signs: 06/24/21 13:12 06/24/21 14:14 06/24/21 15:39 Temperature 97.6 F L 97.6 F L Temperature Source Temporal Temporal Pulse Rate 113 H 113 H Respiratory Rate 18 18 Blood Pressure 133/112 H 133/112 H Blood Pressure Mean 119 119 Blood Pressure Source Blood Pressure Position Blood Pressure Location Pulse Ox 98 98 Oxygen Delivery Method Room Air Room Air Room Air 06/24/21 15:55 06/24/21 16:00 06/24/21 17:00 Temperature 99.1 F 99.1 F Temperature Source Oral Oral Pulse Rate 94 94 95 Respiratory Rate 16 16 20 H Blood Pressure 131/88 H 131/88 H 145/95 H Blood Pressure Mean 102 102 111 Blood Pressure Source Blood Pressure Position Blood Pressure Location Pulse Ox 100 100 98 Oxygen Delivery Method Room Air Room Air Room Air 06/24/21 18:14 06/24/21 19:21 06/24/21 19:23 Temperature 99.3 F H 99.3 F H 99.3 F H Temperature Source Oral Temporal Temporal Pulse Rate 99 104 H Respiratory Rate 18 14 Blood Pressure 175/109 H 175/109 H Blood Pressure Mean 131 131 Blood Pressure Source Blood Pressure Position Blood Pressure Location Pulse Ox 98 98 Oxygen Delivery Method Room Air Room Air 06/24/21 19:59 06/24/21 20:08 Temperature 99.3 F H 99.3 F H Temperature Source Temporal Oral Pulse Rate 102 H 110 H Respiratory Rate 15 18 Blood Pressure 136/96 H 130/91 H Blood Pressure Mean 109 104 Blood Pressure Source Monitor Blood Pressure Position Right Lateral Blood Pressure Location Left Arm Pulse Ox 98 96 Oxygen Delivery Method Room Air Room Air Positive well nourished General Appearance ED: NAD HEENT Reports moist mucous membranes Negative for trauma Neck no lymphadenopathy and supple Resp normal respiratory effort and clear to auscultation bilaterally Cardio regular rate Rate: tachycardic GI normal to inspection, nondistended, normoactive bowel sounds Extremity normal to inspection General Extremety ED: Negative for tenderness Neuro oriented x3 and CN's II-XII intact bilaterally Sensorium / Orientation: alert Psych mental status grossly normal Skin Skin Narrative: 4 cm fluctuant mass just right of center of the lower back without drainage. There is exquisite tenderness surrounding this area which is larger than the fluctuance. Erythema and warmth overlying the central portion of this and there is a large eschar in the center. MDM MDM MDM Narrative Medical decision making narrative: Patient presenting with tachycardia. He is found to have a leukocytosis of 19.1. At this point blood cultures, lactic acid, urine, urine cultures, chest x-ray is ordered. Patient's glucose is found to be 561. He is given 2 L of IV fluids. Renal function is normal. Lactic acid returned at 1.7. LFTs unremarkable. Coagulation studies are normal. Urinalysis is negative for infection. Chest x-ray on my interpretation shows no acute cardiopulmonary process and the radiologist does agree. EKG on my interpretation shows a normal sinus rhythm at 100 bpm without sign of ischemic change. Troponin is 10. Given patient meet SIRS criteria and has a source of his back he was given vancomycin and Zosyn. It is unknown if he has a history of MRSA. Patient's abscess was cleaned with ChloraPrep. This was then anesthetized with approximately 8 cc of lidocaine with epinephrine. Cruciate incision made over the central portion of the fluctuance and partially loculated however the patient was not tolerating the pain. It does not appear to be painful at the site of the loculation however he is having pain a few centimeters higher than his abscess and when palpating around the area he is painful all the way around the abscess in a 4 few centimeters wider than the abscess. I did attempt to reanesthetize the patient with 5 cc of lidocaine with epinephrine and the loculated area however the patient was not tolerating this secondary to pain. At this point I consulted Dr. Evangelista because I felt that the abscess was too deep and extensive circumferentially to successfully drain in the ED especially since the patient is not tolerating the procedure. He did come down and evaluate the patient personally and felt it would be best range in the OR. Patient's blood glucose was rechecked and is 350. I discussed the jere bright with hospitalist for admission and she recommended 20 units of insulin which was ordered. Patient does not appear to have an anion gap and is not in ketoacidosis. Patient is medically stable on transfer to the OR and will be admitted medically for management of his hyperglycemia. Impression: 1. Hyperglycemia 2. Abscess 4 cm 3. Sepsis Lab Data Labs: Laboratory Results - last 24 hr 06/24/21 06/24/21 06/24/21 13:51 13:51 13:51 WBC 19.1 H RBC 4.58 L Hgb 15.3 Hct 42.7 MCV 93.2 MCH 33.4 H MCHC 35.8 RDW Std Deviation 38.9 RDW Coeff of [place] 11.4 L Plt Count 276 MPV 10.1 Immature Gran % (Auto) 0.600 Neut % (Auto) 77.3 H Lymph % (Auto) 13.4 L [place] % (Auto) 8.2 Eos % (Auto) 0.1 Baso % (Auto) 0.4 Absolute Neuts (auto) 14.8 H Absolute Lymphs (auto) 2.55 Nucleated RBC % 0 Diff Path Review May foll PT INR APTT Sodium 131 L Potassium 4.2 Chloride 100 Carbon Dioxide 25.0 Anion Gap 6 BUN 19 H Creatinine 0.91 Estim Creat Clear Calc 114.93 Est GFR (MDRD) Af Amer 118 Est GFR (MDRD) Non-Af 97 BUN/Creatinine Ratio 20.8 H Glucose 561 H* Serum Osmolality Lactic Acid 1.7 Calcium 8.1 L Phosphorus Magnesium Total Bilirubin Direct Bilirubin AST ALT Alkaline Phosphatase Troponin I High Sens Total Protein Albumin Globulin Urine Color Urine Clarity Urine pH Ur Specific [place] Urine Protein Urine Glucose (UA) Urine Ketones Urine Occult Blood Urine Nitrite Urine Bilirubin Urine Urobilinogen Ur Leukocyte Esterase Urine RBC Urine WBC Ur Squamous Epith Cells Urine Bacteria Urine Mucus S.aureus Protein A PCR MRSA (PCR) POC Glucose 06/24/21 06/24/21 06/24/21 13:51 13:51 13:51 WBC RBC Hgb Hct MCV MCH MCHC RDW Std Deviation RDW Coeff of [place]entry Plt Count MPV Immature Gran % (Auto) Neut % (Auto) Lymph % (Auto) [place] % (Auto) Eos % (Auto) Baso % (Auto) Absolute Neuts (auto) Absolute Lymphs (auto) Nucleated RBC % Diff Path Review PT INR APTT Sodium Potassium Chloride Carbon Dioxide Anion Gap BUN Creatinine Estim Creat Clear Calc Est GFR (MDRD) Af Amer Est GFR (MDRD) Non-Af BUN/Creatinine Ratio Glucose Serum Osmolality Lactic Acid Calcium Phosphorus 3.6 Magnesium 1.6 Total Bilirubin 0.30 Direct Bilirubin 0.10 AST 24 ALT 33 Alkaline Phosphatase 91 Troponin I High Sens 10 Total Protein 6.1 L Albumin 1.7 L Globulin 4.4 H Urine Color Urine Clarity Urine pH Ur Specific [place] Urine Protein Urine Glucose (UA) Urine Ketones Urine Occult Blood Urine Nitrite Urine Bilirubin Urine Urobilinogen Ur Leukocyte Esterase Urine RBC Urine WBC Ur Squamous Epith Cells Urine Bacteria Urine Mucus S.aureus Protein A PCR MRSA (PCR) POC Glucose 06/24/21 06/24/21 06/24/21 16:00 16:29 19:17 WBC RBC Hgb Hct MCV MCH MCHC RDW Std Deviation RDW Coeff of [place] Plt Count MPV Immature Gran % (Auto) Neut % (Auto) Lymph % (Auto) [place] % (Auto) Eos % (Auto) Baso % (Auto) Absolute Neuts (auto) Absolute Lymphs (auto) Nucleated RBC % Diff Path Review PT 13.1 INR 1.1 APTT 26.1 Sodium Potassium Chloride Carbon Dioxide Anion Gap BUN Creatinine Estim Creat Clear Calc Est GFR (MDRD) Af Amer Est GFR (MDRD) Non-Af BUN/Creatinine Ratio Glucose Serum Osmolality Lactic Acid Calcium Phosphorus Magnesium Total Bilirubin Direct Bilirubin AST ALT Alkaline Phosphatase Troponin I High Sens Total Protein Albumin Globulin Urine Color Yellow Urine Clarity Clear Urine pH 6.0 Ur Specific [place] 1.015 Urine Protein 500 H Urine Glucose (UA) 1000 H Urine Ketones 15 H Urine Occult Blood 150 H Urine Nitrite Negative Urine Bilirubin Negative Urine Urobilinogen Normal Ur Leukocyte Esterase Negative Urine RBC 5-10 SEEN Urine WBC 0 SEEN Ur Squamous Epith Cells 0 SEEN Urine Bacteria 0 SEEN Urine Mucus 0 SEEN S.aureus Protein A PCR MRSA (PCR) POC Glucose 350 H 06/24/21 06/24/21 19:40 19:55 WBC RBC Hgb Hct MCV MCH MCHC RDW Std Deviation RDW Coeff of [place] Plt Count MPV Immature Gran % (Auto) Neut % (Auto) Lymph % (Auto) [place] % (Auto) Eos % (Auto) Baso % (Auto) Absolute Neuts (auto) Absolute Lymphs (auto) Nucleated RBC % Diff Path Review PT INR APTT Sodium Potassium Chloride Carbon Dioxide Anion Gap BUN Creatinine Estim Creat Clear Calc Est GFR (MDRD) Af Amer Est GFR (MDRD) Non-Af BUN/Creatinine Ratio Glucose Serum Osmolality 297 H Lactic Acid Calcium Phosphorus Magnesium Total Bilirubin Direct Bilirubin AST ALT Alkaline Phosphatase Troponin I High Sens Total Protein Albumin Globulin Urine Color Urine Clarity Urine pH Ur Specific [place] Urine Protein Urine Glucose (UA) Urine Ketones Urine Occult Blood Urine Nitrite Urine Bilirubin Urine Urobilinogen Ur Leukocyte Esterase Urine RBC Urine WBC Ur Squamous Epith Cells Urine Bacteria Urine Mucus S.aureus Protein A PCR POSITIVE H MRSA (PCR) POSITIVE H POC Glucose Radiography Diagnostic Testing: Radiology Impression Chest X-Ray 06/24/21 15:10 IMPRESSION: Stable, nonacute portable x-ray examination of the chest. Electronically Signed: Sourav Fernández MD ([place]) at 17:09 EDT , Service support , Discharge Plan Disposition Disposition: Acute Care Hospital [facility] Discharge Date/Time: 06/24/21 20:36
[2021-06-24 20:33] LABS: Osmolality, Serum 297 mOsm/KG (275-295)
--- NOTE | 2021-06-24 20:55 | PCM.HP.STD ---
HPI - General General Date of Service: 06/24/21 Chief Complaint: Chills, back pain with abscess HPI Narrative The patient is a 40 y/o M w/ PMHx: Tobacco use, Diabetes mellitus type II who presents to the [facility] ED on 06/24/21 with history of onset fatigue, malaise, fever and chills in addition to R lower back discomfort with erythema, fluctuant region over the last 4 days with significantly worsening hyperglycemia prompting ED evaluation. Patient reports right lower back discomfort at the site of abscess 10 out of 10 in pain especially with any manipulation. Work-up in the ED included T 99.3, heart rate 104, BP 175/109, respiratory rate 14, 98% on room air, CBC with WBC 19.1, hemoglobin 15.3, platelet 276 with left shift, unremarkable coags, CMP with sodium 131, BUN/creatinine 19/0.91, anion gap 6, glucose 561, serum osmolality 2 was 97, lactic acid 1.7, unremarkable [place] profile, urinalysis with specific [place] 1.015, urine protein 500, urine glucose 1000, urine ketones 15, urine occult blood 150, no evidence of acute UTI, chest x-ray with no acute cardiopulmonary findings with a dense nodule overlying the left lung base which is stable in appearance possibly granulomatous disease. In the ED requested wound culture and MRSA wound to be obtained. Discussed case with general surgeon, Dr. Evangelista who will plan on I&D in the OR on day of presentation. In the ED patient administered vancomycin, Zosyn, morphine, Zofran as well as insulin lispro 20 units x 1 with repeat blood sugar prior to OR transition 350. REPLACED BY [facility] Medical History (Updated 06/24/21 @ 20:[address] Brigitte Fitzpatrick MD) Tobacco use Type 2 diabetes mellitus without complications Home Medications alcohol swabs 1 pad TOPICAL 6XD #100 each 01/19/21 [Rx Last Taken Unknown] blood sugar diagnostic #100 each 01/19/21 [Rx Last Taken Unknown] blood-glucose meter #1 each 01/19/21 [Rx Last Taken Unknown] insulin lispro 100 unit/mL subcutaneous pen See Rx Instructions SC DAILY #15 ml 01/19/21 [Rx Last Taken Unknown] lancets 17 gauge #100 each 01/19/21 [Rx Last Taken Unknown] lisinopril 10 mg tablet 10 mg PO DAILY #30 tablet 01/19/21 [Rx Last Taken Unknown] melatonin 1 mg tablet 1 mg PO HS PRN 01/19/21 [History Last Taken Unknown] omeprazole 20 mg capsule,delayed release 20 mg PO BID 01/19/21 [History Last Taken Unknown] insulin NPH-regular 70-30 U-100 insulin 100 unit/mL subcutaneous pen 35 unit SC BID #15 ml 01/20/21 [Rx Last Taken Unknown] pen needle, diabetic 30 gauge x 5/16 #100 each 01/20/21 [Rx Last Taken Unknown] Allergy/AdvReac Type Severity Reaction Status Date / Time No Known Allergies Allergy Verified 06/24/21 13:11 Family History (Updated 06/24/21 @ 21:[address] Brigitte Fitzpatrick MD) Mother Diabetes Heart disease Myocardial infarction Hypertension Father Diabetes Heart disease Myocardial infarction Hypertension Other Asthma Surgical History (Updated 06/24/21 @ 20:[address] Brigitte Fitzpatrick MD) No significant past surgical history Social History (Updated 06/24/21 @ 21:[address] Brigitte Fitzpatrick MD) household members: family Smoking Status: Current every day smoker tobacco type: cigarettes Smoking packs per day: 0.5 Smoking cigarettes per day: 10.0 Years smoked: 29 Smoking pack-years: 14.50 how long ago did patient quit smoking: Patient started smoking when he was 11 years old. alcohol intake: never substance use type: does not use ROS ROS Narrative Admission Review of Systems: CONSTITUTIONAL: No weight loss, + fever, chills, weakness or fatigue. HEENT: Eyes: No visual loss, blurred vision, double vision or yellow sclerae. Ears, Nose, Throat: No hearing loss, sneezing, congestion, runny nose or sore throat. SKIN: + Right lower back abscess, cellulitis. CARDIOVASCULAR: No chest pain, chest pressure or chest discomfort, palpitations, edema, orthopnea, syncopal events. RESPIRATORY: No shortness of breath, cough or sputum, wheezing, hemoptysis. GASTROINTESTINAL: + anorexia, No nausea, vomiting or diarrhea, abdominal pain, melena, BRBPR. GENITOURINARY: No dysuria, frequency, urgency or retention. NEUROLOGICAL: No headache, dizziness, syncope, paralysis, ataxia, numbness or tingling in the extremities, focal weakness, change in bowel or bladder control, seizure. MUSCULOSKELETAL: + muscle, back pain, joint pain or stiffness. HEMATOLOGIC: No anemia, bleeding or bruising. LYMPHATICS: No enlarged nodes. No history of splenectomy. PSYCHIATRIC: No history of depression or anxiety. ENDOCRINOLOGIC: + reports of sweating, cold or heat intolerance, polyuria or polydipsia. ALLERGIES: No history of asthma, hives, eczema or rhinitis. Vital Signs Vital Signs Vital Signs: 06/24/21 13:12 06/24/21 14:14 06/24/21 15:39 Temperature 97.6 F L 97.6 F L Temperature Source Temporal Temporal Pulse Rate 113 H 113 H Respiratory Rate 18 18 Blood Pressure 133/112 H 133/112 H Blood Pressure Mean 119 119 Blood Pressure Source Blood Pressure Position Blood Pressure Location Pulse Ox 98 98 Oxygen Delivery Method Room Air Room Air Room Air 06/24/21 15:55 06/24/21 16:00 06/24/21 17:00 Temperature 99.1 F 99.1 F Temperature Source Oral Oral Pulse Rate 94 94 95 Respiratory Rate 16 16 20 H Blood Pressure 131/88 H 131/88 H 145/95 H Blood Pressure Mean 102 102 111 Blood Pressure Source Blood Pressure Position Blood Pressure Location Pulse Ox 100 100 98 Oxygen Delivery Method Room Air Room Air Room Air 06/24/21 18:14 06/24/21 19:21 06/24/21 19:23 Temperature 99.3 F H 99.3 F H 99.3 F H Temperature Source Oral Temporal Temporal Pulse Rate 99 104 H Respiratory Rate 18 14 Blood Pressure 175/109 H 175/109 H Blood Pressure Mean 131 131 Blood Pressure Source Blood Pressure Position Blood Pressure Location Pulse Ox 98 98 Oxygen Delivery Method Room Air Room Air 06/24/21 19:59 06/24/21 20:08 Temperature 99.3 F H 99.3 F H Temperature Source Temporal Oral Pulse Rate 102 H 110 H Respiratory Rate 15 18 Blood Pressure 136/96 H 130/91 H Blood Pressure Mean 109 104 Blood Pressure Source Monitor Blood Pressure Position Right Lateral Blood Pressure Location Left Arm Pulse Ox 98 96 Oxygen Delivery Method Room Air Room Air Weight Weight: 176 lb Body Mass Index (BMI) 24.5 Physical Exam Narrative Physical Examination: General: Awake, alert, oriented x 3 and cooperative, seated upright at the ED bedside, fatigued, ill-appearing, uncomfortable. Skin: Normal color, normal turgor, no icterus, no cyanosis except notable right lateral lumbar back abscess status post bedside I&D, erythematous surrounding, serosanguineous drainage currently noted, no foul odor, significantly tender to palpation. HEENT: AT/NC, EOMI, PERRLA, dry MM, no carotid bruits or JVD noted. Lungs: Diminished, greater bases, moderate effort, no rales, ronchi or wheezing. Heart: Mildly tachycardic with regular rhythm; no gallop, rub audible. Abdomen: Soft, NTTP, ND, distant mildly hyperactive BS, no obvious evidence of HSM. Extremities: No cyanosis, clubbing, or edema. Neurological: Patient awake, alert, oriented as noted, cognitive function intact; pupils equally reactive to light and accommodation, cranial nerves II-XII grossly normal, moving all 4 extremities, no focal deficits, strength severely global decrease secondary to acute presentation. Psychiatric: Affect appears fatigued, ill-appearing, uncomfortable, no acute evidence of depressive or anxiety feelings. Results Lab / Micro Data Result Diagrams: 06/24/21 13:51 06/24/21 13:51 Labs: Laboratory Results - last 24 hr 06/24/21 13:51: WBC 19.1 H, RBC 4.58 L, Hgb 15.3, Hct 42.7, MCV 93.2, MCH 33.4 H, MCHC 35.8, RDW Std Deviation 38.9, RDW Coeff of [place] 11.4 L, Plt Count 276, MPV 10.1, Immature Gran % (Auto) 0.600, Neut % (Auto) 77.3 H, Lymph % (Auto) 13.4 L, [place] % (Auto) 8.2, Eos % (Auto) 0.1, Baso % (Auto) 0.4, Absolute Neuts (auto) 14.8 H, Absolute Lymphs (auto) 2.55, Nucleated RBC % 0, Diff Path Review January foll 06/24/21 13:51: Sodium 131 L, Potassium 4.2, Chloride 100, Carbon Dioxide 25.0, Anion Gap 6, BUN 19 H, Creatinine 0.91, Estim Creat Clear Calc 114.93, Est GFR (MDRD) Af Amer 118, Est GFR (MDRD) Non-Af 97, BUN/Creatinine Ratio 20.8 H, Glucose 561 H*, Calcium 8.1 L 06/24/21 13:51: Lactic Acid 1.7 06/24/21 13:51: Total Bilirubin 0.30, Direct Bilirubin 0.10, AST 24, ALT 33, Alkaline Phosphatase 91, Troponin I High Sens 10, Total Protein 6.1 L, Albumin 1.7 L, Globulin 4.4 H 06/24/21 16:00: PT 13.1, INR 1.1, APTT 26.1 06/24/21 16:29: Urine Color Yellow, Urine Clarity Clear, Urine pH 6.0, Ur Specific [place] 1.015, Urine Protein 500 H, Urine Glucose (UA) 1000 H, Urine Ketones 15 H, Urine Occult Blood 150 H, Urine Nitrite Negative, Urine Bilirubin Negative, Urine Urobilinogen Normal, Ur Leukocyte Esterase Negative, Urine RBC 5-10 SEEN, Urine WBC 0 SEEN, Ur Squamous Epith Cells 0 SEEN, Urine Bacteria 0 SEEN, Urine Mucus 0 SEEN 06/24/21 19:17: POC Glucose 350 H 06/24/21 19:40: Serum Osmolality 297 H Radiology Impression Chest X-Ray 06/24/21 15:10 IMPRESSION: Stable, nonacute portable x-ray examination of the chest. Electronically Signed: Sourav Fernández MD ([facility]) at 17:09 EDT , Service support , Assessment & Plan Assessment/Plan (1) Abscess of back: (2) Hyperosmolar hyperglycemic state (HHS): PLAN: The patient is a 40 y/o M w/ PMHx: Tobacco use, Diabetes mellitus type II who presents to the [facility] ED on 06/24/21 with history of onset fatigue, malaise, fever and chills in addition to R lower back discomfort with erythema, fluctuant region over the last 4 days with significantly worsening hyperglycemia prompting ED evaluation. 1. R Lateral Lumbar Back Cellulitis and Abscess: Will admit to MedSurg telemetry, maintain on IV vancomycin and Zosyn pending ED and possibly OR wound Cx and wound MRSA PCR, plan repeat CBC in AM, wound RN consulted, dressing changes, monitor erythema outline with VS checks, as needed pain and antiemetic regimen, plan transition from ED to OR. 2. Hyperosmolar hyperglycemic state with diabetes mellitus type II, suspect uncontrolled: Admission glucose 561, administered insulin lispro 20x1 with improvement of blood sugar to 350, requested serum osmolality which was elevated to 97, urinalysis with notable glucose and mild ketones in the urine, anion gap normal range, currently n.p.o. given planned OR as noted above, will continue to aggressively hydrate, obtain mag and Phos levels with repletion as needed, will continue aggressive every 4 hour Accu-Cheks with insulin sliding scales to attempt to improve blood sugar control pending I&D as noted, will continue home longer acting insulin regimen pending hemoglobin A1c, request nutrition consultation for education and teaching additionally. If patient worsens low threshold to initiate insulin drip. 3. Tobacco Abuse: Encouraged cessation, inpatient consultation per RT, NR if desired. 4. GERD: We will continue patient on PPI. 5. DVT prophylaxis: SCDs, hold on any chemoprophylaxis given planned OR as noted. Charges/Coding Visit Charges Inpatient E&M: 38740 Init Hosp L3
[2021-06-24 21:01] LABS: Magnesium 1.6 mg/dL (1.6-2.6)
[2021-06-24 21:36] LABS: Phosphorus 3.6 mg/dL (2.5-4.9)
[2021-06-24 21:37] LABS: M R Staph aureus DNA By PCR POSITIVE (Negative); Probe Check PASS; Staph aureus DNA By PCR POSITIVE (Negative)
--- NOTE | 2021-06-24 22:05 | OP.PCM_ITS ---
Problems Associated Problem List Diagnoses (1) Abscess of back: Report of Operation Date of Procedure: 06/24/21 Pre-Operative Diagnosis: 1. Abscess of mid back 2. Hyperglycemia associated with diabetes mellitus type 2 Post-Operative Diagnosis: Same Surgery/Procedure Performed:: Incision and drainage of mid back abscess Description of Surgical Findings:: ?Additional loculations and purulent drainage in the 1 o'clock position on the patient's wound. ?Final wound measurements 2.5 cm long x 2.0 cm wide x 2.5 cm deep (with 3.5 cm undermining at the 1 o'clock position) Surgeon: Saroj Evangelista finishing room supervisor: None Type of Anesthesia: MAC/Supplemental/Local Anesthesiologist: Jim Valiente Specimen's removed: Wound cultures Drains: None Estimated Blood Loss (mL): 20 Description of Procedure: Patient was brought directly from the emergency room to the operating room. He was positioned in the left lateral decubitus position on the operating room table and a beanbag was set to help maintain this position. Local MAC was begun by anesthesia. However, due to difficult IV access the patient's IV vancomycin was suspended until after the anesthetic. The patient's dressing and packing from the prior incision and drainage procedure were removed and the back was prepped and draped in the usual sterile fashion. A formal timeout was conducted to confirm both patient and procedure. The wound was then probed bluntly to disrupt any loculations. There was drainage of some purulent fluid with this dissection. Wound cultures were obtained of the wound base taking care to avoid the skin edges and potential contamination. The corners of the prior cruciate incision were sharply removed as they appeared largely nonviable and this produced a circular defect. The final dimensions of this defect were given in the findings section above. The wound was copiously irrigated with warmed, sterile saline. Hemostasis was obtained with the use of electrocautery and application of manual pressure. A local block was made on the lateral aspects of the surgical defect with injection of 20 mL half percent bupivacaine. The wound was packed with moistened Kerlix gauze cut to size. Additional dry Kerlix gauze was applied atop the wound to collect any ongoing drainage. An abdominal pad was used as a topping dressing and this was taped in place. Sedation was lifted and the patient was transferred to PACU for ongoing recovery. Complications None Admit VTE Documentation VTE Present on Admission: No Procedures Integumentary 10xxx: [id number] Drainage of skin abscess
[2021-06-24 22:35] LABS: Bedside Glucose 142 mg/dL (70-110)
[2021-06-25] VITALS (8 sets, daily range): BP systolic 96–122; BP diastolic 65–84; PULSE 80–85; RESP 16–20; TEMP 36.6–37.3; O2SAT 94–100
--- NOTE | 2021-06-25 01:05 | PCM.RX.CS ---
Consult Pharmacy has been consulted to manage selected antiobiotic: Vancomycin Type of Consult: New start Labs: Sodium 131 mmol/L (136-145) L 06/24/21 13:51 Potassium 4.2 mmol/L (3.5-5.1) 06/24/21 13:51 Chloride 100 mmol/L (98-107) 06/24/21 13:51 Carbon Dioxide 25.0 mmol/L (21.0-32.0) 06/24/21 13:51 Anion Gap 6 (5-15) 06/24/21 13:51 BUN 19 mg/dL (7-18) H 06/24/21 13:51 Creatinine 0.91 mg/dL (0.70-1.30) 06/24/21 13:51 Est GFR (MDRD) Af Amer 118 mL/min (>60) 06/24/21 13:51 Est GFR (MDRD) Non-Af 97 mL/min (>60) 06/24/21 13:51 BUN/Creatinine Ratio 20.8 RATIO (10-20) H 06/24/21 13:51 Glucose 561 mg/dL (74-106) H* 06/24/21 13:51 Goal Trough: 15-20 mcg/mL Pharmacy Plan for Drug Dosing: Pharmacy Service will continue to monitor and adjust dosing as required. Medications Vancomycin IV-PHARMACY TO DOSE (1 each/ Sodium Chloride) 500 mls @ 250 mls/hr IV X1 PRN; Protocol PRN Reason: Rx to Dose Discontinued Medications Vancomycin HCl 1,250 mg/ (Sodium Chloride) 275 mls @ 167 mls/hr IV X1 ONE Stop: 06/24/21 19:56 Last Admin: 06/24/21 20:24 Dose: 167 mls/hr Documented by: Follow-Up Labs: Trough Vancomycin Labs to be done on [date and time ordered]: 06/25 @ 1930
[2021-06-25] MEDS: Lisinopril 10 MG Tablet PO (01:13)
[2021-06-25] MEDS: Famotidine 20 MG Tablet PO ×3 (01:13→22:54)
[2021-06-25] MEDS: oxyCODONE 5 MG Tablet PO ×3 (01:13→20:16)
[2021-06-25] MEDS: Insulin Lispro 100 UNIT/ML INSULN.PEN SC ×5 (01:16→22:55)
[2021-06-25] MEDS: 0.9% Normal Saline 1,000 ML 150 ML IV ×4 (01:18→23:41)
[2021-06-25] MEDS: Acetaminophen 325 MG Tablet 650 MG PO ×3 (01:21→11:12)
[2021-06-25 01:26] LABS: Bedside Glucose 212 mg/dL (70-110)
[2021-06-25 06:25] LABS: Bedside Glucose 196 mg/dL (70-110)
[2021-06-25 07:19] LABS: Absolute Lymphocyte Count 2.44 X10^3/uL (0.83-4.51); Absolute Neutrophil Count 11.3 X10^3/uL (2.0-7.7); Basophil# 0.04 X10^3/uL; Basophil% 0.3 % (0-1); Eosinophil# 0.02 X10^3/uL; Eosinophils% 0.1 % (0-5); Hematocrit 38.7 % (40-54); Hemoglobin 13.3 g/dL (13.0-16.5); Lymphocyte # 2.44 X10^3/ul (0.83-4.51); Lymphocyte % 15.7 % (19-41); Mean Corp Hgb Conc 34.4 g/dL (32-36); Mean Corpuscular Hgb 32.9 pg (27.0-32.0); Mean Corpuscular Volume 95.8 fL (80-94); Mean Platelet Vol. 10.4 fl (6.2-12.0); Monocyte# 1.71 X10^3/uL; NRBC Flagged by Analyzer 0 % (0-5); Neutrophil # 11.27 X10^3/uL (2.7-7.7); Neutrophil % 72.4 % (47-70); POSITIVE DIFFERENTIAL YES; Platelet Count 232 K/mm3 (150-450); RBC Distribution Width CV 11.6 % (11.6-14.6); RBC Distribution Width SD 40.6 fl (35.1-43.9); Red Blood Count 4.04 M/mm3 (4.6-6.2); White Blood Count 15.6 K/mm3 (4.4-11.0)
[2021-06-25 07:24] LABS: Differential Indicated SCAN CRITERIA MET
--- NOTE | 2021-06-25 08:01 | NURSING ---
PCU charge Nurse Vel- able to get interrogation reading on pacer check via [employer] machine.
--- NOTE | 2021-06-25 08:09 | NURSING ---
phoned septic tank service technician IV team and informed of order for PICC line. Answering service states will call back with approximate time of staff arriving.
[2021-06-25 08:16] LABS: ALB/GLOB Ratio 0.3 RATIO (0.9-2.4); AST(SGOT) 21 U/L (15-37); Alanine Aminotransfer ALT/SGPT 21 U/L (16-61); Albumin, Serum 1.1 g/dL (3.2-5.0); Alkaline Phosphatase 83 U/L (45-117); Anion Gap 10 (5-15); BUN 12 mg/dL (7-18); BUN/Creat Ratio 18.9 RATIO (10-20); Calcium,Total 5.8 mg/dL (8.5-10.1); Chloride 105 mmol/L (98-107); Creatinine, Serum 0.64 mg/dL (0.70-1.30); EST Glomerular Filtration Rate 148 mL/min (>60); Est Glom Filt Rate - Afr Amer 179 mL/min (>60); Estimated Creatinine Clearance 163.41 ml/min; Globulin 3.7 g/dL (2.2-4.2); Glucose 176 mg/dL (74-106); Potassium 4.1 mmol/L (3.5-5.1); Protein, Total 4.8 g/dL (6.4-8.2); Sodium Level 137 mmol/L (136-145)
--- NOTE | 2021-06-25 08:55 | PCS.PANDOC ---
PANDEMIC DOCUMENTATION INITIATED: Date: 05/15/2021 Time: 190
[2021-06-25] MEDS: Insulin Human 75/25 Kwickpen 35 UNIT SC ×2 (09:38→22:54)
[2021-06-25] MEDS: HYDROmorphone 0.5 MG/0.5 ML SYRINGE IV ×3 (12:16→23:11)
[2021-06-25] MEDS: 0.9% Saline Lock 10 ML Syringe IV (12:16)
[2021-06-25] MEDS: Vancomycin IV 1,000 MG/200 ML BAG 200 MG IV ×2 (13:15→19:53)
--- NOTE | 2021-06-25 13:18 | PN.SURG_ITS ---
Subjective Subjective Patient seen and examined during AM rounds. He reports improvement in his pain. He specifically notes a decrease in the pressure?type pain. He did his best to stay off his back overnight and was able to get some rest. Objective Data Objective Data Vital Signs: Vital Signs Temp Pulse Resp BP Pulse Ox 98.8 F 80 20 H 96/65 94 06/25/21 08:22 06/25/21 09:48 06/25/21 09:48 06/25/21 08:22 06/25/21 09:48 Oxygen Delivery Method Room Air Weight: 175 lb 14.862 oz Body Mass Index (BMI) 24.5 Intake & Output: Intake and Output for Last 24 Hours 06/23/21 06/24/21 06/25/21 23:59 23:59 23:59 Intake Total 2049 1703.33 / 1703.33 Output Total 400 / 400 Balance 2049 1303.33 / 1303.33 Lab / Micro Data Result Diagrams: 06/25/21 05:34 06/25/21 05:42 Labs: Laboratory Results - last 24 hr 06/24/21 13:51: WBC 19.1 H, RBC 4.58 L, Hgb 15.3, Hct 42.7, MCV 93.2, MCH 33.4 H , MCHC 35.8, RDW Std Deviation 38.9, RDW Coeff of Gentry 11.4 L, Plt Count 276, MPV 10.1, Immature Gran % (Auto) 0.600, Neut % (Auto) 77.3 H, Lymph % (Auto) 13.4 L, [place] % (Auto) 8.2, Eos % (Auto) 0.1, Baso % (Auto) 0.4, Absolute Neuts (auto) 14.8 H, Absolute Lymphs (auto) 2.55, Nucleated RBC % 0, Diff Path Review January06/24/21 13:51: Sodium 131 L, Potassium 4.2, Chloride 100, Carbon Dioxide 25.0, Anion Gap 6, BUN 19 H, Creatinine 0.91, Estim Creat Clear Calc 114.93, Est GFR (MDRD) Af Amer 118, Est GFR (MDRD) Non-Af 97, BUN/Creatinine Ratio 20.8 H, Glucose 561 H*, Calcium 8.1 L 06/24/21 13:51: Lactic Acid 1.7 06/24/21 13:51: Total Bilirubin 0.30, Direct Bilirubin 0.10, AST 24, ALT 33, Alkaline Phosphatase 91, Troponin I High Sens 10, Total Protein 6.1 L, Albumin 1.7 L, Globulin 4.4 H 06/24/21 13:51: Magnesium 1.6 06/24/21 13:51: Phosphorus 3.6 06/24/21 16:00: PT 13.1, INR 1.1, APTT 26.1 06/24/21 16:29: Urine Color Yellow, Urine Clarity Clear, Urine pH 6.0, Ur Specific [place] 1.015, Urine Protein 500 H, Urine Glucose (UA) 1000 H, Urine Ketones 15 H, Urine Occult Blood 150 H, Urine Nitrite Negative, Urine Bilirubin Negative, Urine Urobilinogen Normal, Ur Leukocyte Esterase Negative, Urine RBC 5-10 SEEN, Urine WBC 0 SEEN, Ur Squamous Epith Cells 0 SEEN, Urine Bacteria 0 SEEN, Urine Mucus 0 SEEN 06/24/21 19:17: POC Glucose 350 H 06/24/21 19:40: Serum Osmolality 297 H 06/24/21 19:55: S.aureus Protein A PCR POSITIVE H, MRSA (PCR) POSITIVE H 06/24/21 22:28: POC Glucose 142 H 06/25/21 01:16: POC Glucose 212 H 06/25/21 05:34: WBC 15.6 H, RBC 4.04 L, Hgb 13.3, Hct 38.7 L, MCV 95.8 H, MCH 32.9 H, MCHC 34.4, RDW Std Deviation 40.6, RDW Coeff of Gentry 11.6, Plt Count 232, MPV 10.4, Immature Gran % (Auto) 0.500, Neut % (Auto) 72.4 H, Lymph % (Auto) 15.7 L, [place] % (Auto) 11.0 H, Eos % (Auto) 0.1, Baso % (Auto) 0.3, Absolute Neuts (auto) 11.3 H, Absolute Lymphs (auto) 2.44, Nucleated RBC % 0, Diff Path Review January06/25/21 05:42: Sodium 137, Potassium 4.1, Chloride 105, Carbon Dioxide 22.0, Anion Gap 10, BUN 12, Creatinine 0.64 L, Estim Creat Clear Calc 163.41, Est GFR (MDRD) Af Amer 179, Est GFR (MDRD) Non-Af 148, BUN/Creatinine Ratio 18.9, Glucose 176 H, Calcium 5.8 L*, Total Bilirubin 0.30, AST 21, ALT 21, Alkaline Phosphatase 83, Total Protein 4.8 L, Albumin 1.1 L, Globulin 3.7, Albumi n/Globulin Ratio 0.3 L 06/25/21 05:42: Hemoglobin A1c 11.0 H 06/25/21 06:15: POC Glucose 196 H Micro: Microbiology 06/24/21 Unknown Wound - Back Gram Stain - Final 06/24/21 19:55 Wound - Back Gram Stain - Final 06/24/21 13:51 Blood Culture (Wb) - Right Forearm Blood Culture - Preliminary Radiography Diagnostic Testing: Radiology Impression Chest X-Ray 06/24/21 15:10 IMPRESSION: Stable, nonacute portable x-ray examination of the chest. Electronically Signed: Sourav Fernández MD ([place]) at 17:09 EDT , Service support , Physical Exam Const oriented x3 and no apparent distress Back/Spine Back/Spine Narrative: Patient's lower back abscess site is assessed. There is spontaneous drainage of some serosanguineous fluid to the outer operative dressings. A dressing change was conducted at bedside after provision of IV pain medications. The site remains densely indurated but the erythema margin has improved. There is no purulent fluid noted on today's exam. Assessment & Plan Assessment/Plan (1) Abscess of back: PLAN: This is a 40-year-old gentleman with a history of poorly controlled type 2 diabetes who presents with a 2-day history of back pain and now a moderately large subcutaneous abscess. Is now postoperative day 1 from I&D under anesthesia. Cultures were obtained during that OR and are now pending. He reports symptomatic improvement. First dressing change was performed at bedside and there appears to be no further pockets of infection. Blood sugars are also noted to be under better control. Recommend: ?Dietary consult for diabetic education ?Follow-up cultures and transition to appropriate oral antibiotic based on sensitivities ?Surgery to continue daily wound changes. On discharge patient conveys minimal social support so I would plan to see him in the outpatient setting to follow his wound. Charges/Coding Visit Charges Inpatient E&M: 76442 Subs Hosp L2
[2021-06-25 13:31] LABS: Bedside Glucose 170 mg/dL (70-110)
[2021-06-25 16:55] LABS: Bedside Glucose 247 mg/dL (70-110)
--- NOTE | 2021-06-25 17:30 | PCM.PN.HOSP ---
Subjective Subjective Patient was seen and examined today, I talked briefly with Dr. Evangelista today, late today his culture results came back positive for staph aureus, sensitivities are to follow. I talked briefly with the patient today concerning his blood sugar-it is obvious that his type 2 diabetes is under poor control, he states he feels he does a good job of following his diet-looking back at his old hemoglobin A1c results, they have been elevated the last 3 times they were checked here at this hospital. Nutritional services will go over dietary restrictions with the patient, he will need to follow-up closely with an outpatient physician and may benefit from referral to an manager delivery. I get the opinion talking from the patient that he is noncompliant-he states that he has never had diabetic teaching which I doubt. He told me at 1 time he was off of insulin altogether because he did not take it. Objective Data Objective Data Vital Signs: Vital Signs Temp Pulse Resp BP Pulse Ox 98 F 85 20 H 114/80 99 06/25/21 14:20 06/25/21 14:20 06/25/21 14:20 06/25/21 14:20 06/25/21 14:20 Oxygen Delivery Method Room Air Weight: 79.8 kg Body Mass Index (BMI) 24.5 Intake & Output: Intake and Output for Last 24 Hours 06/23/21 06/24/21 06/25/21 23:59 23:59 23:59 Intake Total 2049 2403.33 / 2403.33 Output Total 400 / 400 Balance 2049 2003.33 / 2003.33 Lab / Micro Data Result Diagrams: 06/25/21 05:34 06/25/21 05:42 Labs: Laboratory Results - last 24 hr 06/24/21 13:51: Magnesium 1.6 06/24/21 13:51: Phosphorus 3.6 06/24/21 19:17: POC Glucose 350 H 06/24/21 19:40: Serum Osmolality 297 H 06/24/21 19:55: S.aureus Protein A PCR POSITIVE H, MRSA (PCR) POSITIVE H 06/24/21 22:28: POC Glucose 142 H 06/25/21 01:16: POC Glucose 212 H 06/25/21 05:34: WBC 15.6 H, RBC 4.04 L, Hgb 13.3, Hct 38.7 L, MCV 95.8 H, MCH 32.9 H, MCHC 34.4, RDW Std Deviation 40.6, RDW Coeff of Gentry 11.6, Plt Count 232, MPV 10.4, Immature Gran % (Auto) 0.500, Neut % (Auto) 72.4 H, Lymph % (Auto) 15.7 L, [place] % (Auto) 11.0 H, Eos % (Auto) 0.1, Baso % (Auto) 0.3, Absolute Neuts (auto) 11.3 H, Absolute Lymphs (auto) 2.44, Nucleated RBC % 0, Diff Path Review January06/25/21 05:42: Sodium 137, Potassium 4.1, Chloride 105, Carbon Dioxide 22.0, Anion Gap 10, BUN 12, Creatinine 0.64 L, Estim Creat Clear Calc 163.41, Est GFR (MDRD) Af Amer 179, Est GFR (MDRD) Non-Af 148, BUN/Creatinine Ratio 18.9, Glucose 176 H, Calcium 5.8 L*, Total Bilirubin 0.30, AST 21, ALT 21, Alkaline Phosphatase 83, Total Protein 4.8 L, Albumin 1.1 L, Globulin 3.7, Albumin/Globulin Ratio 0.3 L 06/25/21 05:42: Hemoglobin A1c 11.0 H 06/25/21 06:15: POC Glucose 196 H 06/25/21 13:19: POC Glucose 170 H 06/25/21 16:46: POC Glucose 247 H Micro: Microbiology 06/24/21 Unknown Wound - Back Gram Stain - Final 06/24/21 Unknown Wound - Back Wound Culture - Preliminary Staphylococcus aureus 06/24/21 19:55 Wound - Back Gram Stain - Final 06/24/21 19:55 Wound - Back Wound Culture - Preliminary Staphylococcus aureus 06/24/21 16:29 Urine, Clean Catch Urine Culture - Preliminary Culture exhibits no growth. 06/24/21 13:51 Blood Culture (Wb) - Right Forearm Blood Culture - Preliminary Physical Exam Const alert, oriented x3, no apparent distress and healthy appearing General Appearance: cooperative, well kempt and well developed Orientation / Consciousness: awake, oriented to person, oriented to place and oriented to time HEENT normocephalic, head/scalp atraumatic and moist oral mucous membranes Head and Scalp: normocephalic Eyes PERRL, EOMs intact bilaterally and conjunctivae normal Neck nuchal rigidity, supple, no JVD, thyroid normal and no carotid bruits General: trachea midline Resp normal respiratory effort, no retractions, no use of accessory muscles and clear to auscultation bilaterally Auscultation: Negative for rales, rhonchi or wheezes Cardio regular rate, regular rhythm, no murmurs, no rub and no gallops GI normal to inspection, nondistended, normoactive bowel sounds, soft to palpation, non-tender and non-distended Extremity no clubbing, cyanosis or edema Skin General Skin Exam: no breakdown Neuro oriented x3, CN's II-XII intact bilaterally, no focal motor deficits and no sensory deficits noted Sensorium / Orientation: awake and alert Speech: speech normal Psych thought process normal and affect normal Assessment & Plan Assessment/Plan (1) Abscess of back: PLAN: 1. Staph aureus abscess of mid back-patient will remain on vancomycin and Zosyn for now, depending on the sensitivity of the organism, patient may be able to go home either on doxycycline or Augmentin. #2 uncontrolled type 2 diabetes-secondary to poor compliance with medical regimen, nutritional services will talk with patient, I think it is strickland to make a referral to Dr. Kiran Rob to see the patient as an outpatient. #3 hypocalcemia-patient's calcium will be repeated tomorrow Charges/Coding Visit Charges Inpatient E&M: 91251 Subs Hosp L2
[2021-06-25] MEDS: Glucerna Shake 120 ML LIQUID PO (23:04)
[2021-06-25 23:05] LABS: Bedside Glucose 244 mg/dL (70-110)
[2021-06-26] VITALS (7 sets, daily range): BP systolic 113–137; BP diastolic 60–96; PULSE 70–82; RESP 16–18; TEMP 36.7–37.3; O2SAT 96–100
[2021-06-26] MEDS: oxyCODONE 5 MG Tablet PO ×4 (02:32→19:52)
[2021-06-26] MEDS: Vancomycin IV 1,000 MG/200 ML BAG 200 MG IV ×2 (03:50→13:12)
[2021-06-26] MEDS: HYDROmorphone 0.5 MG/0.5 ML SYRINGE IV ×4 (06:02→22:52)
[2021-06-26 06:55] LABS: Bedside Glucose 68 mg/dL (70-110)
[2021-06-26 07:31] LABS: Bedside Glucose 90 mg/dL (70-110)
[2021-06-26] MEDS: 0.9% Normal Saline 1,000 ML 150 ML IV (07:56)
--- NOTE | 2021-06-26 08:10 | PCM.PN.SRG ---
Subjective Subjective Patient seen and examined during AM rounds. He reports resting well overnight. He continues to have significant back tenderness. Objective Data Objective Data Vital Signs: Vital Signs Temp Pulse Resp BP Pulse Ox 98.3 F 80 18 129/96 H 100 06/26/21 07:59 06/26/21 07:59 06/26/21 07:59 06/26/21 07:59 06/26/21 07:59 Oxygen Delivery Method Room Air Weight: 175 lb 4.28 oz Body Mass Index (BMI) 24.5 Intake & Output: Intake and Output for Last 24 Hours 06/24/21 06/25/21 06/26/21 23:59 23:59 23:59 Intake Total 2049 3768.33 / 3768.33 872.5 / 872.5 Output Total 400 / 400 Balance 2049 3368.33 / 3368.33 872.5 / 872.5 Lab / Micro Data Result Diagrams: 06/25/21 05:34 06/25/21 05:42 Labs: Laboratory Results - last 24 hr 06/24/21 19:55: S.aureus Protein A PCR POSITIVE H, MRSA (PCR) POSITIVE H 06/25/21 05:42: Sodium 137, Potassium 4.1, Chloride 105, Carbon Dioxide 22.0, Anion Gap 10, BUN 12, Creatinine 0.64 L, Estim Creat Clear Calc 163.41, Est GFR (MDRD) Af Amer 179, Est GFR (MDRD) Non-Af 148, BUN/Creatinine Ratio 18.9, Glucose 176 H, Calcium 5.8 L*, Total Bilirubin 0.30, AST 21, ALT 21, Alkaline Phosphatase 83, Total Protein 4.8 L, Albumin 1.1 L, Globulin 3.7, Albumin/Globulin Ratio 0.3 L 06/25/21 05:42: Hemoglobin A1c 11.0 H 06/25/21 13:19: POC Glucose 170 H 06/25/21 16:46: POC Glucose 247 H 06/25/21 22:50: POC Glucose 244 H 06/26/21 06:51: POC Glucose 68 L 06/26/21 07:28: POC Glucose 90 Micro: Microbiology 06/24/21 Unknown Wound - Back Gram Stain - Final 06/24/21 Unknown Wound - Back Wound Culture - Preliminary Staphylococcus aureus 06/24/21 19:55 Wound - Back Gram Stain - Final 06/24/21 19:55 Wound - Back Wound Culture - Preliminary Staphylococcus aureus 06/24/21 16:29 Urine, Clean Catch Urine Culture - Preliminary Culture exhibits no growth. 06/24/21 13:51 Blood Culture (Wb) - Right Forearm Blood Culture - Preliminary Physical Exam Back/Spine Back/Spine Narrative: Patient's mid to lower back abscess cavity was unpacked at bedside today. There is a thin rim of necrotic/fibrinous tissue along the inner lining of the I&D site. The margin of erythema circumscribing the wound is somewhat wider today than yesterday. The drainage to the patient's dressings is a thin lowe/serosanguineous character. Patient's back remains exquisitely tender. Assessment & Plan Assessment/Plan (1) Abscess of back: PLAN: This is a 40-year-old gentleman with a history of poorly controlled type 2 diabetes who presents with a 2-day history of back pain and now a moderately large subcutaneous abscess. Is now postoperative day 2 from I&D under anesthesia. Cultures were obtained during that OR and are now pending final read but consistent with staph aureus. We are awaiting final sensitivities before transitioning patient to appropriate oral antibiotic. He reports symptomatic further improvement. Patient's dressing was then unpacked at bedside and replaced temporarily as patient plans to shower later today. I have advised him to remove all packing prior to showering and allow the shower water to irrigate this wound cavity well before the wound is redressed. Recommend: ?Dietary consult for diabetic education ?Follow-up cultures and transition to appropriate oral antibiotic based on sensitivities ?Surgery to continue daily wound changes. Patient okay to shower today?recommend unpacking wound prior to showering then patting dry before repacking after shower. On discharge patient conveys minimal social support so I would plan to see him in the outpatient setting to follow his wound. Charges/Coding Visit Charges Inpatient E&M: 99501 Subs Hosp L2
[2021-06-26] MEDS: 0.9% Saline Lock 10 ML Syringe IV ×5 (09:20→22:54)
[2021-06-26 09:28] LABS: Absolute Neutrophil Count 6.2 X10^3/uL (2.0-7.7); Basophil# 0.04 X10^3/uL; Basophil% 0.4 % (0-1); Eosinophil# 0.07 X10^3/uL; Eosinophils% 0.7 % (0-5); Hematocrit 34.6 % (40-54); Hemoglobin 12.3 g/dL (13.0-16.5); Lymphocyte % 20.3 % (19-41); Mean Corp Hgb Conc 35.5 g/dL (32-36); Mean Corpuscular Hgb 33.4 pg (27.0-32.0); Mean Platelet Vol. 9.5 fl (6.2-12.0); Monocyte# 1.05 X10^3/uL; Monocyte% 11.2 % (0-10); NRBC Flagged by Analyzer 0 % (0-5); Neutrophil # 6.24 X10^3/uL (2.7-7.7); Neutrophil % 66.9 % (47-70); Platelet Count 230 K/mm3 (150-450); RBC Distribution Width CV 11.6 % (11.6-14.6); RBC Distribution Width SD 39.8 fl (35.1-43.9); Red Blood Count 3.68 M/mm3 (4.6-6.2); White Blood Count 9.4 K/mm3 (4.4-11.0)
[2021-06-26] MEDS: Glucerna Shake 120 ML LIQUID PO ×3 (10:12→21:28)
[2021-06-26] MEDS: Famotidine 20 MG Tablet PO ×2 (10:12→21:24)
[2021-06-26] MEDS: Lisinopril 10 MG Tablet PO (10:12)
[2021-06-26] MEDS: Insulin Human 75/25 Kwickpen 35 UNIT SC ×2 (10:13→21:24)
--- NOTE | 2021-06-26 11:02 | CASEMGMT ---
Addendum entered by Priyanka Stubbs 06/26/21 15:47: MARILEE SLAUGHTER in to pt room, pt states he cannot call his family until later to determine who will be coming to learn the dressing changes. He will notify his nurse Lori when he calls. Pt denies alcohol, street drug or illegal drug use. Pt smokes a half a pack of cigarettes a day. Addendum entered by Priyanka Stubbs 06/26/21 13:19: MARILEE SLAUGHTER back into pt room to provide pamphlet for Dr. Rob hide measuring machine operator, as well as pamphlet for the [facility] and the hospital van for transportation. Pt is agreeable to appts with these services but would like for the RN CM to set up. TC to Dr. Rob's office, left message for a returned call to schedule the appt. TC to [facility], spoke with Naila. She states she will set up the appt and the hospital van for transportation once order is received. She will notify this CM of appt time and date when completed. Obtained order for this and faxed to her. Discussed with patient that he will need to identify the person to perform dressing changes so a time can be set up for teaching. Pt states he needs to call his family later. Notified Lori nurse of this and she will add to handoff. Original Note: RN SUKHJINDER Assessment: Face to Face with pt for initial transition planning/care coordination assessment. MARILEE SLAUGHTER introduced self and role at [facility], pt voices understanding and consents to assessment. Pt is A/O x4 and answers all questions appropriately at this time. Pt sitting up in bed in no distress. Care providers, pharmacy, and demographics verified/updated. Admitting Dx: back abscess, hyperglycemia PCP: [facility] Specialists: Pt denies. He states he needs an hide measuring machine operator. Made aware this RN CM could provide him with a pamphlet for the local hide measuring machine operator. He is agreeable to this. Preferred Pharmacy: [facility] Retail Insurance: [employer] Prescription Benefit: yes LW/HPOA: Pt denies having a LW/DPOA and need for info regarding AD. LNOK: Dutch Holman, father; Pati Smith, mother Living Arrangements: Pt states he lives with his mother and niece in a house that is divided into apartments. He states it has two floors and two steps to enter. Pt reports being I in ADL's and denies concerns at home. [facility] Transportation: Pt states he does not have a license and can only drive for emergencies. DME/HHC/SNF: Pt has a BGM but states he needs lancets and strips for it. The brand is [employer]. Pt states that his mother has been using his. Pt has access to a BSC but no other DME. Pt denies hx of HHC and has been at [facility]. Pt states he checks his blood sugar twice daily but is supposed to check it 3-5x/daily. Pt reports he also needs new insulin pens and needles. Pt currently has a wound to his back. Discussed the option of having HHC. Pt denies need for this. He states that his mother can learn and do this. Asked if he could verify this with his mother as the nurse could instruct on the dressing change prior to dc. Pt then called his brother and discussed with him. Pt brother states that someone in the home could perform. Contacted who is fine with the patient family performing dressing changes and following up in his office for the wound. Pt states no concerns with going home at time of dc. Pt states no further concerns/needs. CM to follow. Advised pt to ask CM if any further question/concerns/needs arise, voices understanding. Pt Goal: Home with family completing dressing changes. Plan: Home with family completing dressing changes and follow up with Dr. Evangelista. Lori nurse in pt room and performed dressing change during RN CM assessment.
--- NOTE | 2021-06-26 11:15 | PN.HOSP_ITS ---
Subjective Subjective Resting, no new issues overnight. Still with some back pain around the site of the abscess. Objective Data Objective Data Vital Signs: Vital Signs Temp Pulse Resp BP Pulse Ox 98.3 F 80 18 129/96 H 100 06/26/21 07:59 06/26/21 07:59 06/26/21 10:36 06/26/21 07:59 06/26/21 07:59 Oxygen Delivery Method Room Air Weight: 175 lb 4.28 oz Body Mass Index (BMI) 24.5 Intake & Output: Intake and Output for Last 24 Hours 06/25/21 06/26/21 06/27/21 03:59 03:59 03:59 Intake Total 2325 / 2325 4165.83 / 4165.83 250 / 250 Output Total 400 / 400 Balance 2325 / 2325 3765.83 / 3765.83 250 / 250 Lab / Micro Data Result Diagrams: 06/26/21 09:20 06/25/21 05:42 Labs: Laboratory Results - last 24 hr 06/24/21 19:55: S.aureus Protein A PCR POSITIVE H, MRSA (PCR) POSITIVE H 06/25/21 13:19: POC Glucose 170 H 06/25/21 16:46: POC Glucose 247 H 06/25/21 22:50: POC Glucose 244 H 06/26/21 06:51: POC Glucose 68 L 06/26/21 07:28: POC Glucose 90 06/26/21 09:20: WBC 9.4, RBC 3.68 L, Hgb 12.3 L, Hct 34.6 L, MCV 94.0, MCH 33.4 H, MCHC 35.5, RDW Std Deviation 39.8, RDW Coeff of Gentry 11.6, Plt Count 230, MPV 9.5, Immature Gran % (Auto) 0.500, Neut % (Auto) 66.9, Lymph % (Auto) 20.3, [place] % (Auto) 11.2 H, Eos % (Auto) 0.7, Baso % (Auto) 0.4, Absolute Neuts (auto) 6.2, Absolute Lymphs (auto) 1.90, Nucleated RBC % 0 Micro: Microbiology 06/24/21 19:55 Wound - Back Gram Stain - Final 06/24/21 19:55 Wound - Back Wound Culture - Final Meth. resistant Staph. aureus 06/24/21 Unknown Wound - Back Gram Stain - Final 06/24/21 Unknown Wound - Back Wound Culture - Final Meth. resistant Staph. aureus 06/24/21 13:51 Blood Culture (Wb) - Right Forearm Blood Culture - Preliminary Staphylococcus aureus 06/24/21 16:29 Urine, Clean Catch Urine Culture - Preliminary Culture exhibits no growth. Physical Exam Const alert, oriented x3 and no apparent distress General Appearance: cooperative HEENT normocephalic and moist oral mucous membranes Eyes PERRL, EOMs intact bilaterally and conjunctivae normal Neck supple and no JVD Resp normal respiratory effort, no retractions, no use of accessory muscles and clear to auscultation bilaterally Auscultation: Negative for crackles, rales, rhonchi or wheezes Cardio regular rate, regular rhythm, S1 normal heart sound, S2 normal heart sound and no murmurs GI soft to palpation, non-tender and non-distended; Negative for hepatosplenomegaly Extremity no clubbing, cyanosis or edema Skin Skin Narrative: Mid back wound dressing is intact Neuro no focal motor deficits and no sensory deficits noted Psych affect normal Appearance: appropriate Assessment & Plan Assessment/Plan (1) Abscess of back: PLAN: 1. MRSA abscess of the mid back -We will discontinue Zosyn, continue with packing as he has no support at home -We will continue with IV Vanco and plan for discharge on doxycycline -He will need to follow-up with general surgery on discharge 2. Uncontrolled DM2 -We will have nutrition discuss his situation with him -A1c on admission is 11, will continue with his insulin but also add Metformin on discharge to provide a little more consistency and may be easier for him to take a pill then to do the insulin -Accu-Cheks AC at bedtime and will adjust his insulin as necessary DVT: SCDs Charges/Coding Visit Charges Inpatient E&M: 73368 Subs Hosp L2
[2021-06-26 11:46] LABS: Bedside Glucose 102 mg/dL (70-110)
[2021-06-26 12:40] LABS: Anion Gap 7 (5-15); BUN 16 mg/dL (7-18); BUN/Creat Ratio 23.1 RATIO (10-20); Calcium,Total 7.1 mg/dL (8.5-10.1); Chloride 106 mmol/L (98-107); Creatinine, Serum 0.69 mg/dL (0.70-1.30); EST Glomerular Filtration Rate 134 mL/min (>60); Est Glom Filt Rate - Afr Amer 162 mL/min (>60); Estimated Creatinine Clearance 151.57 ml/min; Glucose 196 mg/dL (74-106); Potassium 4.1 mmol/L (3.5-5.1); Sodium Level 140 mmol/L (136-145)
[2021-06-26 12:56] LABS: Vancomycin, Trough Level 12.1 ug/mL (5.0-15.0)
[2021-06-26] MEDS: Acetaminophen 325 MG Tablet 650 MG PO ×2 (13:22→20:04)
--- NOTE | 2021-06-26 13:40 | PCM.RX.CS ---
Consult Pharmacy has been consulted to manage selected antiobiotic: Vancomycin Type of Consult: Follow-up Suspected Infection: Skin/Soft tissue Labs: Sodium 140 mmol/L (136-145) 06/26/21 09:20 Potassium 4.1 mmol/L (3.5-5.1) 06/26/21 09:20 Chloride 106 mmol/L (98-107) 06/26/21 09:20 Carbon Dioxide 27.0 mmol/L (21.0-32.0) 06/26/21 09:20 Anion Gap 7 (5-15) 06/26/21 09:20 BUN 16 mg/dL (7-18) 06/26/21 09:20 Creatinine 0.69 mg/dL (0.70-1.30) L 06/26/21 09:20 Est GFR (MDRD) Af Amer 162 mL/min (>60) 06/26/21 09:20 Est GFR (MDRD) Non-Af 134 mL/min (>60) 06/26/21 09:20 BUN/Creatinine Ratio 23.1 RATIO (10-20) H 06/26/21 09:20 Glucose 196 mg/dL (74-106) H 06/26/21 09:20 Vancomycin Trough 12.1 ug/mL (5.0-15.0) 06/26/21 11:50 Microbiology: Microbiology 06/24/21 19:55 Wound - Back Gram Stain - Final 06/24/21 19:55 Wound - Back Wound Culture - Final Meth. resistant Staph. aureus 06/24/21 Unknown Wound - Back Gram Stain - Final 06/24/21 Unknown Wound - Back Wound Culture - Final Meth. resistant Staph. aureus 06/24/21 13:51 Blood Culture (Wb) - Right Forearm Blood Culture - Preliminary Staphylococcus aureus 06/24/21 16:29 Urine, Clean Catch Urine Culture - Preliminary Culture exhibits no growth. Goal Trough: 15-20 mcg/mL Pharmacy Plan for Drug Dosing: VANCOMYCIN LEVEL RECEIVED Current Vancomycin Dose: 1000mg IV Q8h Number of Doses Received: 4 (3 prior to trough draw) Vancomycin Level: 12.1 Hours Since Last Dose: 8hr Renal Function: 0.69 Renal Function Trend: stable Lab/Micro: WCx x2 growing MRSA, BCx 1/2 growing staph (no sens at this time) Vancomycin Plan/Comments: Patient's trough slightly under goal with a value of 12.1 (goal 15-20). Will increase the patient's dose just slightly to 1250mg IV Q8h to start at time next dose is due. Will start new dose 06/26 @1999. Pending Level: 06/27/21 @1930, prior to 4th dose of new regimen. Pharmacy Service will continue to monitor and adjust dosing as required.
[2021-06-26 14:12] LABS: Pathologist Review Reviewed
[2021-06-26 14:17] LABS: Pathologist Review Reviewed
[2021-06-26 16:50] LABS: Bedside Glucose 98 mg/dL (70-110)
[2021-06-26 21:35] LABS: Bedside Glucose 114 mg/dL (70-110)
[2021-06-27] MEDS: oxyCODONE 5 MG Tablet PO ×4 (02:10→20:23)
[2021-06-27] MEDS: 0.9% Saline Lock 10 ML Syringe IV ×4 (04:41→20:24)
[2021-06-27 05:00] VITALS: BP 132/91; PULSE 81; RESP 18; TEMP 36.7; O2SAT 98
[2021-06-27 06:20] LABS: Bedside Glucose 147 mg/dL (70-110)
[2021-06-27 06:21] LABS: Absolute Lymphocyte Count 2.19 X10^3/uL (0.83-4.51); Absolute Neutrophil Count 3.3 X10^3/uL (2.0-7.7); Basophil# 0.04 X10^3/uL; Basophil% 0.6 % (0-1); Eosinophil# 0.18 X10^3/uL; Eosinophils% 2.8 % (0-5); Hematocrit 36.2 % (40-54); Hemoglobin 12.5 g/dL (13.0-16.5); Lymphocyte # 2.19 X10^3/ul (0.83-4.51); Lymphocyte % 33.6 % (19-41); Mean Corp Hgb Conc 34.5 g/dL (32-36); Mean Corpuscular Hgb 33.4 pg (27.0-32.0); Mean Corpuscular Volume 96.8 fL (80-94); Mean Platelet Vol. 9.7 fl (6.2-12.0); Monocyte% 12.3 % (0-10); NRBC Flagged by Analyzer 0 % (0-5); Neutrophil # 3.25 X10^3/uL (2.7-7.7); Neutrophil % 49.9 % (47-70); Platelet Count 244 K/mm3 (150-450); RBC Distribution Width CV 11.6 % (11.6-14.6); RBC Distribution Width SD 41.3 fl (35.1-43.9); Red Blood Count 3.74 M/mm3 (4.6-6.2); White Blood Count 6.5 K/mm3 (4.4-11.0)
[2021-06-27 06:35] LABS: Anion Gap 5 (5-15); BUN 18 mg/dL (7-18); BUN/Creat Ratio 25.6 RATIO (10-20); Calcium,Total 7.5 mg/dL (8.5-10.1); Chloride 109 mmol/L (98-107); EST Glomerular Filtration Rate 132 mL/min (>60); Est Glom Filt Rate - Afr Amer 159 mL/min (>60); Glucose 141 mg/dL (74-106); Potassium 4.2 mmol/L (3.5-5.1); Sodium Level 142 mmol/L (136-145)
[2021-06-27 07:57] VITALS: BP 144/100; PULSE 78; RESP 14; TEMP 36.9; O2SAT 99
[2021-06-27] MEDS: Lisinopril 10 MG Tablet PO (08:00)
[2021-06-27] MEDS: Famotidine 20 MG Tablet PO ×2 (08:00→23:03)
[2021-06-27] MEDS: Insulin Human 75/25 Kwickpen 35 UNIT SC (08:05)
--- NOTE | 2021-06-27 09:11 | ECHOD_ITS ---
Reason For Study: BACTEREMIA Procedure This was a 2D Doppler, Color Flow transthoracic echocardiogram. Limited views were obtained. Exam performed portable in patient room. Left Ventricle Normal LV size. Apical false tendon noted. Left ventricular systolic function is normal. The estimated ejection fraction is 65 %. Unable to assess diastolic dysfunction. No regional wall motion abnormalities noted. Right Ventricle Normal RV size. Normal systolic function. Atria Normal left atrium. Normal right atrium. Mitral Valve There is no mitral annular calcification. Normal mitral valve. Mild (1+) mitral valve insufficiency. Tricuspid Valve Normal tricuspid valve. Trivial tricuspid valve insufficiency. Right ventricular systolic pressure estimated to be 23 mmHg. Aortic Valve Trisinus/trileaflet aortic valve. Normal aortic valve. Pulmonic Valve The pulmonic valve is not well visualized. Great Vessels The aortic root is not well visualized. Pericardium/Pleural No pericardial effusion. MMode/2D Measurements & Calculations LVIDd: 4.4 cm IVSd: 0.95 cm LAV(MOD-sp4): 60.2 ml LVIDs: 3.1 cm LVPWd: 0.96 cm FS: 29.4 % LVAd ap4: 30.7 cm2 LVAd ap2: 33.5 cm2 SV(MOD-sp4): 50.9 ml LVLd ap4: 8.6 cm LVLd ap2: 8.5 cm EDV(MOD-sp4): 92.3 ml EDV(MOD-sp2): 109.9 ml EDV(sp4-el): 93.2 ml EDV(sp2-el): 112.2 ml LVAs ap4: 18.2 cm2 LVAs ap2: 17.0 cm2 LVLs ap4: 6.5 cm LVLs ap2: 7.2 cm ESV(MOD-sp4): 41.4 ml ESV(MOD-sp2): 34.0 ml ESV(sp4-el): 43.4 ml ESV(sp2-el): 34.2 ml EF(MOD-sp4): 55.1 % EF(MOD-sp2): 69.0 % EF(sp4-el): 53.4 % SV(MOD-sp2): 75.8 ml SV(sp4-el): 49.8 ml LA A4 area: 19.7 cm2 RA A4 area: 15.4 cm2 Doppler Measurements & Calculations TR max wilfred: 225.2 cm/sec TR max P.3 mmHg ECHO/Echo Complete Interpretation Summary Left ventricular systolic function is normal. The estimated ejection fraction is 65 %. Apical false tendon noted. Mild (1+) mitral valve insufficiency. Trivial tricuspid valve insufficiency. Right ventricular systolic pressure estimated to be 23 mmHg. Unable to assess diastolic dysfunction. Ordering Physician: Joseph Plasencia Referring Physician: ISABELLE ALBRECHT Performed By: Ginna Cartwright, EMPERATRIZCS, RVT
--- NOTE | 2021-06-27 09:45 | PN.SURG_ITS ---
Subjective Subjective Patient seen and examined during AM rounds. He reports some improvement in the pain from his back abscess I&D site. He reports resting well overnight. Objective Data Objective Data Vital Signs: Vital Signs Temp Pulse Resp BP Pulse Ox 98.5 F 78 14 144/100 H 99 06/27/21 07:57 06/27/21 07:57 06/27/21 07:57 06/27/21 07:57 06/27/21 07:57 Oxygen Delivery Method Room Air Weight: 175 lb 4.28 oz Body Mass Index (BMI) 24.5 Intake & Output: Intake and Output for Last 24 Hours 06/25/21 06/26/21 06/27/21 23:59 23:59 23:59 Intake Total 3768.33 / 3768.33 1707.5 / 1707.5 275 / 275 Output Total 400 / 400 Balance 3368.33 / 3368.33 1707.5 / 1707.5 275 / 275 Lab / Micro Data Result Diagrams: 06/27/21 05:50 06/27/21 05:50 Labs: Laboratory Results - last 24 hr 06/24/21 13:51: Diff Path Review Reviewed 06/25/21 05:34: Diff Path Review Reviewed 06/26/21 09:20: Sodium 140, Potassium 4.1, Chloride 106, Carbon Dioxide 27.0, Anion Gap 7, BUN 16, Creatinine 0.69 L, Estim Creat Clear Calc 151.57, Est GFR (MDRD) Af Amer 162, Est GFR (MDRD) Non-Af 134, BUN/Creatinine Ratio 23.1 H, Glucose 196 H, Calcium 7.1 L 06/26/21 11:29: POC Glucose 102 06/26/21 11:50: Vancomycin Trough 12.1 06/26/21 16:41: POC Glucose 98 06/26/21 21:22: POC Glucose 114 H 06/27/21 05:50: WBC 6.5, RBC 3.74 L, Hgb 12.5 L, Hct 36.2 L, MCV 96.8 H, MCH 33.4 H, MCHC 34.5, RDW Std Deviation 41.3, RDW Coeff of Gentry 11.6, Plt Count 244, MPV 9.7, Immature Gran % (Auto) 0.800, Neut % (Auto) 49.9, Lymph % (Auto) 33.6, [place] % (Auto) 12.3 H, Eos % (Auto) 2.8, Baso % (Auto) 0.6, Absolute Neuts (auto) 3.3, Absolute Lymphs (auto) 2.19, Nucleated RBC % 0 06/27/21 05:50: Sodium 142, Potassium 4.2, Chloride 109 H, Carbon Dioxide 28.0, Anion Gap 5, BUN 18, Creatinine 0.70, Estim Creat Clear Calc 149.40, Est GFR ( MDRD) Af Amer 159, Est GFR (MDRD) Non-Af 132, BUN/Creatinine Ratio 25.6 H, Glucose 141 H, Calcium 7.5 L 06/27/21 06:17: POC Glucose 147 H Micro: Microbiology 06/24/21 13:51 Blood Culture (Wb) - Right Forearm Blood Culture - Preliminary Meth. resistant Staph. aureus 06/24/21 Unknown Wound - Back Gram Stain - Final 06/24/21 Unknown Wound - Back Wound Culture - Final Meth. resistant Staph. aureus 06/24/21 Unknown Wound - Back Anaerobic Culture - Final 06/24/21 16:00 Blood Culture (Wb) - Right Forearm Blood Culture - Preliminary No growth in 48 hours. 06/24/21 19:55 Wound - Back Gram Stain - Final 06/24/21 19:55 Wound - Back Wound Culture - Final Meth. resistant Staph. aureus 06/24/21 16:29 Urine, Clean Catch Urine Culture - Preliminary Culture exhibits no growth. Physical Exam Const oriented x3 and no apparent distress Resp normal respiratory effort Back/Spine Back/Spine Narrative: Patient's I&D site remains erythematous circumferentially and is blanchable with palpation. Patient is tender with this palpation as well. Drainage to the packing is serosanguineous. Do not appear to be any other fluctuant areas but the skin is still quite indurated. Assessment & Plan Assessment/Plan (1) Abscess of back: PLAN: This is a 40-year-old gentleman with a history of poorly controlled type 2 diabetes who presents with a 2-day history of back pain and now a moderately large subcutaneous abscess. Is now postoperative day 3 from I&D under anesthesia. Cultures were obtained during that OR and are finalized as MRSA. Patient reporting further symptomatic improvement. Would like him to rem ove dressing, shower and repack this afternoon. Given that we have final sensitivities he would be eligible for discharge to home later today and wound care instructions have been reviewed. Recommend: ?Doxycycline on discharge for MRSA ?Patient should have packing removed, shower, and then have wound repacked. I have encouraged him to seek additional familial help with this wound care on discharge. I have also reiterated the need to abstain from smoking and improve blood sugar control in order to improve his chances of healing the current wound and avoiding future issues. I would like to see him in follow-up in 1 week in my outpatient clinic should he discharged home today. Charges/Coding Visit Charges Inpatient E&M: 21399 Subs Hosp L2
[2021-06-27] MEDS: HYDROmorphone 0.5 MG/0.5 ML SYRINGE IV (10:19)
[2021-06-27 10:32] VITALS: BP 149/99
--- NOTE | 2021-06-27 10:47 | WOUNDNOTE ---
wound photo: right lower back
--- NOTE | 2021-06-27 11:06 | PCM.PN.HOSP ---
Subjective Subjective Doing well, back pain is only an issue when he lays on it. Otherwise he is doing okay Objective Data Objective Data Vital Signs: Vital Signs Temp Pulse Resp BP Pulse Ox 98.5 F 78 14 149/99 H 99 06/27/21 07:57 06/27/21 07:57 06/27/21 07:57 06/27/21 10:32 06/27/21 07:57 Oxygen Delivery Method Room Air Weight: 175 lb 4.28 oz Body Mass Index (BMI) 24.5 Intake & Output: Intake and Output for Last 24 Hours 06/26/21 06/27/21 06/28/21 03:59 03:59 03:59 Intake Total 4165.83 / 4165.83 1035 / 1035 275 / 275 Output Total 400 / 400 Balance 3765.83 / 3765.83 1035 / 1035 275 / 275 Lab / Micro Data Result Diagrams: 06/27/21 05:50 06/27/21 05:50 Labs: Laboratory Results - last 24 hr 06/24/21 13:51: Diff Path Review Reviewed 06/25/21 05:34: Diff Path Review Reviewed 06/26/21 09:20: Sodium 140, Potassium 4.1, Chloride 106, Carbon Dioxide 27.0, Anion Gap 7, BUN 16, Creatinine 0.69 L, Estim Creat Clear Calc 151.57, Est GFR (MDRD) Af Amer 162, Est GFR (MDRD) Non-Af 134, BUN/Creatinine Ratio 23.1 H, Glucose 196 H, Calcium 7.1 L 06/26/21 11:29: POC Glucose 102 06/26/21 11:50: Vancomycin Trough 12.1 06/26/21 16:41: POC Glucose 98 06/26/21 21:22: POC Glucose 114 H 06/27/21 05:50: WBC 6.5, RBC 3.74 L, Hgb 12.5 L, Hct 36.2 L, MCV 96.8 H, MCH 33.4 H, MCHC 34.5, RDW Std Deviation 41.3, RDW Coeff of Gentry 11.6, Plt Count 244, MPV 9.7, Immature Gran % (Auto) 0.800, Neut % (Auto) 49.9, Lymph % (Auto) 33.6, [place] % (Auto) 12.3 H, Eos % (Auto) 2.8, Baso % (Auto) 0.6, Absolute Neuts (auto) 3.3, Absolute Lymphs (auto) 2.19, Nucleated RBC % 0 06/27/21 05:50: Sodium 142, Potassium 4.2, Chloride 109 H, Carbon Dioxide 28.0, Anion Gap 5, BUN 18, Creatinine 0.70, Estim Creat Clear Calc 149.40, Est GFR (MDRD) Af Amer 159, Est GFR (MDRD) Non-Af 132, BUN/Creatinine Ratio 25.6 H, Glucose 141 H, Calcium 7.5 L 06/27/21 06:17: POC Glucose 147 H Micro: Microbiology 06/24/21 16:29 Urine, Clean Catch Urine Culture - Final Culture exhibits no growth. 06/24/21 13:51 Blood Culture (Wb) - Right Forearm Blood Culture - Preliminary Meth. resistant Staph. aureus 06/24/21 Unknown Wound - Back Gram Stain - Final 06/24/21 Unknown Wound - Back Wound Culture - Final Meth. resistant Staph. aureus 06/24/21 Unknown Wound - Back Anaerobic Culture - Final 06/24/21 16:00 Blood Culture (Wb) - Right Forearm Blood Culture - Preliminary No growth in 48 hours. 06/24/21 19:55 Wound - Back Gram Stain - Final 06/24/21 19:55 Wound - Back Wound Culture - Final Meth. resistant Staph. aureus Physical Exam Const alert, oriented x3, no apparent distress and healthy appearing General Appearance: cooperative HEENT normocephalic and moist oral mucous membranes Eyes PERRL, EOMs intact bilaterally and conjunctivae normal Neck supple and no JVD Resp normal respiratory effort, no retractions, no use of accessory muscles and clear to auscultation bilaterally Auscultation: Negative for crackles, rales, rhonchi or wheezes Cardio regular rate, regular rhythm, S1 normal heart sound, S2 normal heart sound and no murmurs GI soft to palpation, non-tender and non-distended; Negative for hepatosplenomegaly Extremity no clubbing, cyanosis or edema Skin Skin Narrative: Mid back wound dressing is intact Neuro no focal motor deficits and no sensory deficits noted Psych affect normal Appearance: appropriate Assessment & Plan Assessment/Plan (1) Abscess of back: PLAN: 1. MRSA abscess of the mid back -We will discontinue Zosyn, continue with packing as he has no support at home -We will continue with IV Vanco -We will consult ID, he had MRSA growing in 1 out of 4 blood culture bottles -He will need to follow-up with general surgery on discharge 2. Uncontrolled DM2 -We will have nutrition discuss his situation with him -A1c on admission is 11, will continue with his insulin but also add Metformin on discharge to provide a little more consistency and may be easier for him to take a pill then to do the insulin -Accu-Cheks AC at bedtime and will adjust his insulin as necessary DVT: SCDs Charges/Coding Visit Charges Inpatient E&M: 16934 Subs Hosp L2
[2021-06-27 12:15] LABS: Bedside Glucose 117 mg/dL (70-110)
[2021-06-27] MEDS: COVID-19 VACC, MRNA(PFIZER)/PF 30 MCG/0.3 ML SYRINGE IM (12:17)
--- NOTE | 2021-06-27 12:28 | CASEMGMT ---
Social Work Note SW updated that pt mentioned going to SNF. If pt needs IV antibiotics then SNF would be appropriate, however if pt can discharge on Oral Antibiotics, pt will likely not be able to admit to SNF as there would be nothing to skill pt on. SW in to speak with pt. SW introduced self and role at [facility].Pt is alert and orientated. Pt states he really doesn't want to go to a SNF but if he needs IV antibiotics he would be willing to go to one. SW explained that it just depends on if pt will need IV or Oral if pt would be able to discharge to SNF or not. Pt states understanding, prefers to return home. Patient was provided a list of SNF providers including quality and resource use data and consistent with the patient?s preferred geographic region, medical needs, and insurance network. Pt states if SNF is needed his preferred provider is [facility] has he has been there before. SW waiting for confirmation of Antibiotics. Plan: TBD pending antibiotics. If pt is on IV antibiotics pt will need to go to a SNF. If pt can discharge on Oral Antibiotics, pt can discharge home. Francia Lord SAFE TECHNICIAN, [employer]IAL WORKER
[2021-06-27 13:44] VITALS: BP 134/82; PULSE 81; RESP 18; TEMP 37.2; O2SAT 100
[2021-06-27] MEDS: Acetaminophen 325 MG Tablet 650 MG PO ×2 (13:48→22:58)
[2021-06-27] MEDS: Glucerna Shake 120 ML LIQUID PO ×2 (13:51→17:10)
--- NOTE | 2021-06-27 16:01 | PCM.CONS.GEN ---
Assessment & Plan Assessment/Plan (1) Bacteremia: PLAN: Wound cx with MRSA. Bcx with staph aureus. Repeat bcx, check echo. He agrees to covid shot. Will consult wound care. Cont vanc. May be candidate for po linezolid at discharge with source control and rapid clearance of bcx. Will follow, thank you, d/w Dr. Plasencia HPI Consult Data Date of Consult: 06/27/21 HPI Narrative HPI Narrative: LORI PETER, is a 40 M who presented with several days lower back pain, redness, swelling. No prior h/o skin abscess. No fever or chills. Has not had covid shot. Came to ED, admitted, I&D done, on vanc. Feeling better, no other new joint pain. [facility] Medical History Asthma Diabetes GERD (gastroesophageal reflux disease) Hypertension Smoker Tobacco use Type 2 diabetes mellitus without complications Home Medications alcohol swabs 1 pad TOPICAL 6XD #100 each 01/19/21 [Rx Last Taken Unknown] blood sugar diagnostic #100 each 01/19/21 [Rx Last Taken Unknown] blood-glucose meter #1 each 01/19/21 [Rx Last Taken Unknown] insulin lispro 100 unit/mL subcutaneous pen See Rx Instructions SC DAILY #15 ml 01/19/21 [Rx Last Taken Unknown] lancets 17 gauge #100 each 01/19/21 [Rx Last Taken Unknown] lisinopril 10 mg tablet 10 mg PO DAILY #30 tablet 01/19/21 [Rx Last Taken Unknown] melatonin 1 mg tablet 1 mg PO HS PRN 01/19/21 [History Last Taken Unknown] omeprazole 20 mg capsule,delayed release 20 mg PO BID 01/19/21 [History Last Taken Unknown] insulin NPH-regular 70-30 U-100 insulin 100 unit/mL subcutaneous pen 35 unit SC BID #15 ml 01/20/21 [Rx Last Taken Unknown] pen needle, diabetic 30 gauge x 5/16 #100 each 01/20/21 [Rx Last Taken Unknown] Allergy/AdvReac Type Severity Reaction Status Date / Time No Known Allergies Allergy Verified 06/24/21 13:11 Family History Mother Diabetes Heart disease Myocardial infarction Hypertension Father Diabetes Heart disease Myocardial infarction Hypertension Other Asthma Surgical History No significant past surgical history Social History household members: family Smoking Status: Current every day smoker tobacco type: cigarettes how long ago did patient quit smoking: Patient started smoking when he was 11 years old. alcohol intake: never substance use type: does not use Physical Exam Const alert, oriented x3 and no apparent distress General Appearance: cooperative HEENT normocephalic and head/scalp atraumatic Eyes EOMs intact bilaterally Neck supple and No nodes Resp normal air movement and clear to auscultation bilaterally Cardio regular rate and regular rhythm GI normal to inspection, nondistended, normoactive bowel sounds Extremity no clubbing, cyanosis or edema Skin Skin Narrative: lumbar back abscess, s/p I&D. No splinter hemorrhages on hands or feet Neuro CN's II-XII intact bilaterally Lab / Micro Data Result Diagrams: 06/27/21 05:50 06/27/21 05:50 Labs: Laboratory Results - last 24 hr 06/26/21 16:41: POC Glucose 98 06/26/21 21:22: POC Glucose 114 H 06/27/21 05:50: WBC 6.5, RBC 3.74 L, Hgb 12.5 L, Hct 36.2 L, MCV 96.8 H, MCH 33.4 H, MCHC 34.5, RDW Std Deviation 41.3, RDW Coeff of Gentry 11.6, Plt Count 244, MPV 9.7, Immature Gran % (Auto) 0.800, Neut % (Auto) 49.9, Lymph % (Auto) 33.6, [place] % (Auto) 12.3 H, Eos % (Auto) 2.8, Baso % (Auto) 0.6, Absolute Neuts (auto) 3.3, Absolute Lymphs (auto) 2.19, Nucleated RBC % 0 06/27/21 05:50: Sodium 142, Potassium 4.2, Chloride 109 H, Carbon Dioxide 28.0, Anion Gap 5, BUN 18, Creatinine 0.70, Estim Creat Clear Calc 149.40, Est GFR (MDRD) Af Amer 159, Est GFR (MDRD) Non-Af 132, BUN/Creatinine Ratio 25.6 H, Glucose 141 H, Calcium 7.5 L 06/27/21 06:17: POC Glucose 147 H 06/27/21 12:03: POC Glucose 117 H Micro: Microbiology 06/24/21 13:51 Blood Culture (Wb) - Right Forearm Blood Culture - Preliminary Meth. resistant Staph. aureus 06/24/21 16:29 Urine, Clean Catch Urine Culture - Final Culture exhibits no growth. 06/24/21 Unknown Wound - Back Gram Stain - Final 06/24/21 Unknown Wound - Back Wound Culture - Final Meth. resistant Staph. aureus 06/24/21 Unknown Wound - Back Anaerobic Culture - Final 06/24/21 16:00 Blood Culture (Wb) - Right Forearm Blood Culture - Preliminary No growth in 48 hours. Radiology Impression Echocardiogram 06/27/21 09:11 Interpretation Summary Left ventricular systolic function is normal. The estimated ejection fraction is 65 %. Apical false tendon noted. Mild (1+) mitral valve insufficiency. Trivial tricuspid valve insufficiency. Right ventricular systolic pressure estimated to be 23 mmHg. Unable to assess diastolic dysfunction. Ordering Physician: Joseph Plasencia Referring Physician: ISABELLE ALBRECHT Performed By: Ginna Cartwright, EMPERATRIZCS, RVT
[2021-06-27] MEDS: Insulin Lispro 100 UNIT/ML INSULN.PEN SC (17:04)
[2021-06-27 17:11] LABS: Bedside Glucose 154 mg/dL (70-110)
[2021-06-27 20:01] VITALS: BP 166/99; PULSE 91; RESP 20; TEMP 37.3; O2SAT 100
[2021-06-27 20:10] VITALS: PULSE 88
[2021-06-27 20:24] LABS: Vancomycin, Trough Level 19.9 ug/mL (5.0-15.0)
--- NOTE | 2021-06-27 20:32 | PCM.RX.CS ---
Consult Pharmacy has been consulted to manage selected antiobiotic: Vancomycin Type of Consult: Follow-up Prior Doses of Antibiotics Received/Current Regimen: currently on 1250mg q8h Labs: Sodium 142 mmol/L (136-145) 06/27/21 05:50 Potassium 4.2 mmol/L (3.5-5.1) 06/27/21 05:50 Chloride 109 mmol/L (98-107) H 06/27/21 05:50 Carbon Dioxide 28.0 mmol/L (21.0-32.0) 06/27/21 05:50 Anion Gap 5 (5-15) 06/27/21 05:50 BUN 18 mg/dL (7-18) 06/27/21 05:50 Creatinine 0.70 mg/dL (0.70-1.30) 06/27/21 05:50 Est GFR (MDRD) Af Amer 159 mL/min (>60) 06/27/21 05:50 Est GFR (MDRD) Non-Af 132 mL/min (>60) 06/27/21 05:50 BUN/Creatinine Ratio 25.6 RATIO (10-20) H 06/27/21 05:50 Glucose 141 mg/dL (74-106) H 06/27/21 05:50 Vancomycin Trough 19.9 ug/mL (5.0-15.0) H 06/27/21 19:30 Microbiology: Microbiology 06/24/21 13:51 Blood Culture (Wb) - Right Forearm Blood Culture - Preliminary Meth. resistant Staph. aureus 06/24/21 16:29 Urine, Clean Catch Urine Culture - Final Culture exhibits no growth. 06/24/21 Unknown Wound - Back Gram Stain - Final 06/24/21 Unknown Wound - Back Wound Culture - Final Meth. resistant Staph. aureus 06/24/21 Unknown Wound - Back Anaerobic Culture - Final 06/24/21 16:00 Blood Culture (Wb) - Right Forearm Blood Culture - Preliminary No growth in 48 hours. 06/24/21 19:55 Wound - Back Gram Stain - Final 06/24/21 19:55 Wound - Back Wound Culture - Final Meth. resistant Staph. aureus Weight used for dosin.5 kg Estimated Creatinine Clearance: >100ml/min Goal Trough: 15-20 mcg/mL Pharmacy Plan for Drug Dosing: The vanc trough level drawn at 19:30 tonight (7.5 hours after the previous dose) came back as 19.9. This is within goal so will keep same dosing. Will repeat a trough check in 24 hours since it has risen to the higher end of the goal range. Pharmacy Service will continue to monitor and adjust dosing as required. Follow-Up Labs: Trough Vancomycin Labs to be done on [date and time ordered]: 06/28/21 19:30
[2021-06-27 23:00] LABS: Bedside Glucose 144 mg/dL (70-110)
[2021-06-28] VITALS (7 sets, daily range): BP systolic 138–163; BP diastolic 83–99; PULSE 60–93; RESP 16–20; TEMP 36.8–37.1; O2SAT 99–100
[2021-06-28] MEDS: oxyCODONE 5 MG Tablet PO ×4 (02:07→19:51)
[2021-06-28 06:45] LABS: Bedside Glucose 146 mg/dL (70-110)
[2021-06-28] MEDS: Acetaminophen 325 MG Tablet 650 MG PO ×2 (07:45→17:11)
--- NOTE | 2021-06-28 07:57 | PN.SURG_ITS ---
Subjective Subjective Patient seen and examined during AM rounds. He reports a difficult night sleep due to frequent interruptions. However, he states his back pain continues to improve. He confirms that he has requested assistance from his brother to help with wound care once he is discharged home. Objective Data Objective Data Vital Signs: Vital Signs Temp Pulse Resp BP Pulse Ox 98.2 F 76 16 143/85 H 99 06/28/21 02:00 06/28/21 02:11 06/28/21 02:00 06/28/21 02:00 06/28/21 07:08 Oxygen Delivery Method Room Air Weight: 180 lb 1.883 oz Body Mass Index (BMI) 24.5 Intake & Output: Intake and Output for Last 24 Hours 06/26/21 06/27/21 06/28/21 23:59 23:59 23:59 Intake Total 1707.5 / 1707.5 825 / 825 275 / 275 Balance 1707.5 / 1707.5 825 / 825 275 / 275 Lab / Micro Data Result Diagrams: 06/27/21 05:50 06/27/21 05:50 Labs: Laboratory Results - last 24 hr 06/27/21 12:03: POC Glucose 117 H 06/27/21 17:02: POC Glucose 154 H 06/27/21 19:30: Vancomycin Trough 19.9 H 06/27/21 22:54: POC Glucose 144 H 06/28/21 06:39: POC Glucose 146 H Micro: Microbiology 06/24/21 13:51 Blood Culture (Wb) - Right Forearm Blood Culture - Preliminary Meth. resistant Staph. aureus 06/24/21 16:29 Urine, Clean Catch Urine Culture - Final Culture exhibits no growth. 06/24/21 Unknown Wound - Back Gram Stain - Final 06/24/21 Unknown Wound - Back Wound Culture - Final Meth. resistant Staph. aureus 06/24/21 Unknown Wound - Back Anaerobic Culture - Final 06/24/21 16:00 Blood Culture (Wb) - Right Forearm Blood Culture - Preliminary No growth in 48 hours. 06/24/21 19:55 Wound - Back Gram Stain - Final 06/24/21 19:55 Wound - Back Wound Culture - Final Meth. resistant Staph. aureus Radiography Diagnostic Testing: Radiology Impression Echocardiogram 06/27/21 09:11 Interpretation Summary Left ventricular systolic function is normal. The estimated ejection fraction is 65 %. Apical false tendon noted. Mild (1+) mitral valve insufficiency. Trivial tricuspid valve insufficiency. Right ventricular systolic pressure estimated to be 23 mmHg. Unable to assess diastolic dysfunction. Ordering Physician: Joseph Plasencia Referring Physician: ISABELLE ALBRECHT Performed By: Ginna Cartwright, ADRYAN, RVT Physical Exam Const oriented x3 Resp normal respiratory effort Back/Spine Back/Spine Narrative: The margin of circumferential erythema on the patient's back abscesses proved. There is some epidural sloughing but overall the wound appears improved. He remains tender to palpation about the I&D cavity. Assessment & Plan Assessment/Plan (1) Abscess of back: PLAN: This is a 40-year-old gentleman with a history of poorly controlled type 2 diabetes who presents with a 2-day history of back pain and now a moderately large subcutaneous abscess. Is now postoperative day 4 from I&D under anesthesia. Cultures were obtained during that OR and are finalized as MRSA. Patient reporting further symptomatic improvement. Again, plan for packing removal, showering, and repacking today. Recommend: ?Follow-up final blood cultures and antibiotics per infectious disease ?Patient should have packing removed, shower, and then have wound repacked. I have encouraged him to seek additional familial help with this wound care on discharge. I have also reiterated the need to abstain from smoking and improve blood sugar control in order to improve his chances of healing the current wound and avoiding future issues. I would like to see him in follow-up in 1 week in my outpatient clinic should he discharged home today.
[2021-06-28] MEDS: Insulin Human 75/25 Kwickpen 35 UNIT SC ×2 (08:36→22:50)
[2021-06-28] MEDS: Lisinopril 10 MG Tablet PO (08:38)
[2021-06-28] MEDS: Famotidine 20 MG Tablet PO ×2 (08:38→22:44)
[2021-06-28] MEDS: Glucerna Shake 120 ML LIQUID PO ×3 (08:54→18:51)
[2021-06-28] MEDS: Insulin Lispro 100 UNIT/ML INSULN.PEN SC ×3 (11:26→22:36)
--- NOTE | 2021-06-28 11:34 | PCM.PN.HOSP ---
Subjective Subjective Doing well, still has some back pain whenever he lays on his wound. No new issues overnight Objective Data Objective Data Vital Signs: Vital Signs Temp Pulse Resp BP Pulse Ox 98.5 F 60 18 163/99 H 100 06/28/21 08:00 06/28/21 08:00 06/28/21 08:00 06/28/21 08:00 06/28/21 08:00 Oxygen Delivery Method Room Air Weight: 180 lb 1.883 oz Body Mass Index (BMI) 24.5 Intake & Output: Intake and Output for Last 24 Hours 06/27/21 06/28/21 06/29/21 03:59 03:59 03:59 Intake Total 1035 / 1035 825 / 825 275 / 275 Balance 1035 / 1035 825 / 825 275 / 275 Lab / Micro Data Result Diagrams: 06/27/21 05:50 06/27/21 05:50 Labs: Laboratory Results - last 24 hr 06/27/21 12:03: POC Glucose 117 H 06/27/21 17:02: POC Glucose 154 H 06/27/21 19:30: Vancomycin Trough 19.9 H 06/27/21 22:54: POC Glucose 144 H 06/28/21 06:39: POC Glucose 146 H Micro: Microbiology 06/24/21 13:51 Blood Culture (Wb) - Right Forearm Blood Culture - Preliminary Meth. resistant Staph. aureus 06/24/21 16:29 Urine, Clean Catch Urine Culture - Final Culture exhibits no growth. 06/24/21 Unknown Wound - Back Gram Stain - Final 06/24/21 Unknown Wound - Back Wound Culture - Final Meth. resistant Staph. aureus 06/24/21 Unknown Wound - Back Anaerobic Culture - Final 06/24/21 16:00 Blood Culture (Wb) - Right Forearm Blood Culture - Preliminary No growth in 48 hours. 06/24/21 19:55 Wound - Back Gram Stain - Final 06/24/21 19:55 Wound - Back Wound Culture - Final Meth. resistant Staph. aureus Radiography Diagnostic Testing: Radiology Impression Echocardiogram 06/27/21 09:11 Interpretation Summary Left ventricular systolic function is normal. The estimated ejection fraction is 65 %. Apical false tendon noted. Mild (1+) mitral valve insufficiency. Trivial tricuspid valve insufficiency. Right ventricular systolic pressure estimated to be 23 mmHg. Unable to assess diastolic dysfunction. Ordering Physician: Joseph Plasencia Referring Physician: ISABELLE ALBRECHT Performed By: Ginna Cartwright, EMPERATRIZCS, RVT Physical Exam Const alert, oriented x3, no apparent distress and healthy appearing General Appearance: cooperative Eyes PERRL, EOMs intact bilaterally and conjunctivae normal Neck supple and no JVD Resp normal respiratory effort, no retractions, no use of accessory muscles and clear to auscultation bilaterally Auscultation: Negative for crackles, rales, rhonchi or wheezes Cardio regular rate, regular rhythm, S1 normal heart sound, S2 normal heart sound and no murmurs GI soft to palpation, non-tender and non-distended; Negative for hepatosplenomegaly Extremity no clubbing, cyanosis or edema Skin Skin Narrative: Mid back wound dressing is intact Neuro no focal motor deficits and no sensory deficits noted Psych affect normal Appearance: appropriate Assessment & Plan Assessment/Plan (1) Abscess of back: PLAN: 1. MRSA abscess of the mid back -Continue with packing with just oral narcotics as he will not get IV narcotics at the long term -We will continue with IV Vanco, afebrile and leukocytosis has remained normal, PICC line in place -We will consult ID, he had MRSA growing in 1 out of 4 blood culture bottles repeat blood cultures are pending -He will need to follow-up with general surgery on discharge 2. Uncontrolled DM2 -We will have nutrition discuss his situation with him -A1c on admission is 11, will continue with his insulin but also add Metformin on discharge to provide a little more consistency and may be easier for him to take a pill then to do the insulin -Accu-Cheks AC at bedtime and will adjust his insulin as necessary DVT: SCDs Charges/Coding Visit Charges Inpatient E&M: 40840 Subs Hosp L2
[2021-06-28 13:30] LABS: Bedside Glucose 222 mg/dL (70-110)
[2021-06-28] MEDS: 0.9% Saline Lock 10 ML Syringe IV ×2 (17:03→19:51)
--- NOTE | 2021-06-28 17:29 | PN.ID_ITS ---
Physical Exam Narrative Feeling better, back less sore, no fever. He reports he was told may need further surgery and ECF with IV abx for 6 weeks. Const alert and no apparent distress General Appearance: cooperative Resp normal air movement and clear to auscultation bilaterally Cardio regular rate and regular rhythm GI normal to inspection, nondistended, normoactive bowel sounds Skin Skin Narrative: reviewed photos ID ID: Route of nutrition/ use of supplements: [] Nutritional Intake: [] IV Site: [] Murphy Catheter: [] Assessment & Plan Assessment/Plan (1) Bacteremia: PLAN: Wound cx with MRSA. Bcx with MRSA. Repeat bcx neg so far. TTE neg. Ok for 12 days of po linezolid 600mg bid at discharge now that he has had good source control and rapid clearance of bcx. Will follow, d/w registered nurse hh case manager
[2021-06-28 18:41] LABS: Bedside Glucose 244 mg/dL (70-110)
--- NOTE | 2021-06-28 20:48 | PCM.RX.CS ---
Consult Pharmacy has been consulted to manage selected antiobiotic: Vancomycin Type of Consult: Follow-up Suspected Infection: Bacteremia Labs: Sodium 142 mmol/L (136-145) 06/27/21 05:50 Potassium 4.2 mmol/L (3.5-5.1) 06/27/21 05:50 Chloride 109 mmol/L (98-107) H 06/27/21 05:50 Carbon Dioxide 28.0 mmol/L (21.0-32.0) 06/27/21 05:50 Anion Gap 5 (5-15) 06/27/21 05:50 BUN 18 mg/dL (7-18) 06/27/21 05:50 Creatinine 0.70 mg/dL (0.70-1.30) 06/27/21 05:50 Est GFR (MDRD) Af Amer 159 mL/min (>60) 06/27/21 05:50 Est GFR (MDRD) Non-Af 132 mL/min (>60) 06/27/21 05:50 BUN/Creatinine Ratio 25.6 RATIO (10-20) H 06/27/21 05:50 Glucose 141 mg/dL (74-106) H 06/27/21 05:50 Vancomycin Trough 22.0 ug/mL (5.0-15.0) H 06/28/21 19:33 Microbiology: Microbiology 06/24/21 13:51 Blood Culture (Wb) - Right Forearm Blood Culture - Preliminary Meth. resistant Staph. aureus 06/24/21 16:29 Urine, Clean Catch Urine Culture - Final Culture exhibits no growth. 06/24/21 Unknown Wound - Back Gram Stain - Final 06/24/21 Unknown Wound - Back Wound Culture - Final Meth. resistant Staph. aureus 06/24/21 Unknown Wound - Back Anaerobic Culture - Final 06/24/21 16:00 Blood Culture (Wb) - Right Forearm Blood Culture - Preliminary No growth in 48 hours. 06/24/21 19:55 Wound - Back Gram Stain - Final 06/24/21 19:55 Wound - Back Wound Culture - Final Meth. resistant Staph. aureus Goal Trough: 15-20 mcg/mL Pharmacy Plan for Drug Dosing: VANCOMYCIN LEVEL RECEIVED Current Vancomycin Dose: 1250MG IV Q8H Number of Doses Received: 7 Vancomycin Level: 22 Hours Since Last Dose: 6.5 Renal Function: 0.7 Renal Function Trend: STABLE Vancomycin Plan/Comments: Vancomycin trough elevated @22 (goal 15-20). Will hold next dose and get a trough tomorrow with AM labs. patient may need to be decreased to his previous dose of 1g IV Q8 when trough <20 Pending Level: 06/29/21 with AM labs Pharmacy Service will continue to monitor and adjust dosing as required.
[2021-06-28 22:50] LABS: Bedside Glucose 192 mg/dL (70-110)
[2021-06-29 02:04] VITALS: BP 131/89; PULSE 81; RESP 12; TEMP 36.8; O2SAT 99
[2021-06-29] MEDS: oxyCODONE 5 MG Tablet PO ×3 (02:10→14:03)
[2021-06-29] MEDS: Acetaminophen 325 MG Tablet 650 MG PO ×2 (06:57→14:03)
[2021-06-29 07:01] LABS: Bedside Glucose 91 mg/dL (70-110)
[2021-06-29 07:26] LABS: Absolute Lymphocyte Count 2.31 X10^3/uL (0.83-4.51); Absolute Neutrophil Count 4.9 X10^3/uL (2.0-7.7); Basophil# 0.06 X10^3/uL; Basophil% 0.7 % (0-1); Eosinophil# 0.14 X10^3/uL; Eosinophils% 1.6 % (0-5); Hematocrit 37.7 % (40-54); Hemoglobin 13.3 g/dL (13.0-16.5); Lymphocyte # 2.31 X10^3/ul (0.83-4.51); Mean Corp Hgb Conc 35.3 g/dL (32-36); Mean Corpuscular Hgb 33.1 pg (27.0-32.0); Mean Corpuscular Volume 93.8 fL (80-94); Mean Platelet Vol. 9.7 fl (6.2-12.0); Monocyte# 1.06 X10^3/uL; Monocyte% 12.4 % (0-10); NRBC Flagged by Analyzer 0 % (0-5); Neutrophil # 4.91 X10^3/uL (2.7-7.7); Neutrophil % 57.4 % (47-70); Platelet Count 289 K/mm3 (150-450); RBC Distribution Width CV 11.4 % (11.6-14.6); RBC Distribution Width SD 39.2 fl (35.1-43.9); Red Blood Count 4.02 M/mm3 (4.6-6.2); White Blood Count 8.6 K/mm3 (4.4-11.0)
[2021-06-29 07:43] VITALS: O2SAT 99
[2021-06-29 08:00] VITALS: BP 148/107; PULSE 79; RESP 18; TEMP 36.7; O2SAT 98
[2021-06-29 08:01] LABS: Anion Gap 7 (5-15); BUN 23 mg/dL (7-18); BUN/Creat Ratio 33.4 RATIO (10-20); Chloride 108 mmol/L (98-107); Creatinine, Serum 0.69 mg/dL (0.70-1.30); EST Glomerular Filtration Rate 135 mL/min (>60); Est Glom Filt Rate - Afr Amer 163 mL/min (>60); Estimated Creatinine Clearance 151.57 ml/min; Glucose 85 mg/dL (74-106); Potassium 4.2 mmol/L (3.5-5.1); Sodium Level 141 mmol/L (136-145)
[2021-06-29 08:02] LABS: Vancomycin, Random Level 16.4 ug/mL (0.0-15.0)
--- NOTE | 2021-06-29 08:28 | PN.SURG_ITS ---
Subjective Subjective Patient seen and examined during AM rounds. He reports a headache and some back soreness, but is otherwise reporting ongoing improvements in his back discomfort. We are currently awaiting result of blood cultures to assess what his antibiotic needs will be on discharge. Objective Data Objective Data Vital Signs: Vital Signs Temp Pulse Resp BP Pulse Ox 98.2 F 81 12 131/89 H 99 06/29/21 02:04 06/29/21 02:04 06/29/21 02:04 06/29/21 02:04 06/29/21 02:04 Oxygen Delivery Method Room Air Weight: 177 lb 4.026 oz Body Mass Index (BMI) 24.5 Intake & Output: Intake and Output for Last 24 Hours 06/27/21 06/28/21 06/29/21 23:59 23:59 23:59 Intake Total 825 / 825 825 / 825 Balance 825 / 825 825 / 825 Lab / Micro Data Result Diagrams: 06/29/21 06:25 06/29/21 06:25 Labs: Laboratory Results - last 24 hr 06/28/21 11:22: POC Glucose 222 H 06/28/21 18:25: POC Glucose 244 H 06/28/21 19:33: Vancomycin Trough 22.0 H 06/28/21 22:32: POC Glucose 192 H 06/29/21 06:25: WBC 8.6, RBC 4.02 L, Hgb 13.3, Hct 37.7 L, MCV 93.8, MCH 33.1 H, MCHC 35.3, RDW Std Deviation 39.2, RDW Coeff of Gentry 11.4 L, Plt Count 289, MPV 9.7, Immature Gran % (Auto) 0.900, Neut % (Auto) 57.4, Lymph % (Auto) 27.0, Sharkey % (Auto) 12.4 H, Eos % (Auto) 1.6, Baso % (Auto) 0.7, Absolute Neuts (auto) 4.9, Absolute Lymphs (auto) 2.31, Nucleated RBC % 0 06/29/21 06:25: Sodium 141, Potassium 4.2, Chloride 108 H, Carbon Dioxide 26.0, Anion Gap 7, BUN 23 H, Creatinine 0.69 L, Estim Creat Clear Calc 151.57, Est GFR (MDRD) Af Amer 163, Est GFR (MDRD) Non-Af 135, BUN/Creatinine Ratio 33.4 H, Glucose 85, Calcium 8.0 L 06/29/21 06:25: Random Vancomycin 16.4 H 06/29/21 06:52: POC Glucose 91 Micro: Microbiology 06/24/21 13:51 Blood Culture (Wb) - Right Forearm Blood Culture - Preliminary Meth. resistant Staph. aureus 06/24/21 16:29 Urine, Clean Catch Urine Culture - Final Culture exhibits no growth. 06/24/21 Unknown Wound - Back Gram Stain - Final 06/24/21 Unknown Wound - Back Wound Culture - Final Meth. resistant Staph. aureus 06/24/21 Unknown Wound - Back Anaerobic Culture - Final 06/24/21 16:00 Blood Culture (Wb) - Right Forearm Blood Culture - Preliminary No growth in 48 hours. 06/24/21 19:55 Wound - Back Gram Stain - Final 06/24/21 19:55 Wound - Back Wound Culture - Final Meth. resistant Staph. aureus Physical Exam Back/Spine Back/Spine Narrative: Patient surgical site with improved appearance of circum ferential margin of erythema. Tissues remain indurated but there is no fluctuance. The base of the wound is examined after removing the packing and there is still some fibrinous debris but there is no further drainable collection detected. Drainage is serosanguineous in character. Assessment & Plan Assessment/Plan (1) Abscess of back: PLAN: This is a 40-year-old gentleman with a history of poorly controlled type 2 diabetes who presents with a 2-day history of back pain and now a moderately large subcutaneous abscess. Is now postoperative day 5 from I&D under anesthesia. Cultures were obtained during that OR and are finalized as MRSA. Patient reporting further symptomatic improvement. Again, plan for packing removal, showering, and repacking today. Recommend: ?Follow-up final blood cultures and antibiotics per infectious disease ?Patient should have packing removed, shower, and then have wound repacked. I have encouraged him to seek additional familial help with this wound care on radha cortez. I have also reiterated the need to abstain from smoking and improve blood sugar control in order to improve his chances of healing the current wound and avoiding future issues. I would like to see him in follow-up in 1 week in my outpatient clinic should he discharged home today. Charges/Coding Visit Charges Inpatient E&M: 39957 Subs Hosp L2
--- NOTE | 2021-06-29 09:25 | PCM.RX.CS ---
Consult Pharmacy has been consulted to manage selected antiobiotic: Vancomycin Type of Consult: Follow-up Suspected Infection: Skin/Soft tissue Labs: Sodium 141 mmol/L (136-145) 06/29/21 06:25 Potassium 4.2 mmol/L (3.5-5.1) 06/29/21 06:25 Chloride 108 mmol/L (98-107) H 06/29/21 06:25 Carbon Dioxide 26.0 mmol/L (21.0-32.0) 06/29/21 06:25 Anion Gap 7 (5-15) 06/29/21 06:25 BUN 23 mg/dL (7-18) H 06/29/21 06:25 Creatinine 0.69 mg/dL (0.70-1.30) L 06/29/21 06:25 Est GFR (MDRD) Af Amer 163 mL/min (>60) 06/29/21 06:25 Est GFR (MDRD) Non-Af 135 mL/min (>60) 06/29/21 06:25 BUN/Creatinine Ratio 33.4 RATIO (10-20) H 06/29/21 06:25 Glucose 85 mg/dL (74-106) 06/29/21 06:25 Vancomycin Trough 22.0 ug/mL (5.0-15.0) H 06/28/21 19:33 Random Vancomycin 16.4 ug/mL (0.0-15.0) H 06/29/21 06:25 Microbiology: Microbiology 06/24/21 13:51 Blood Culture (Wb) - Right Forearm Blood Culture - Preliminary Meth. resistant Staph. aureus 06/24/21 16:29 Urine, Clean Catch Urine Culture - Final Culture exhibits no growth. 06/24/21 Unknown Wound - Back Gram Stain - Final 06/24/21 Unknown Wound - Back Wound Culture - Final Meth. resistant Staph. aureus 06/24/21 Unknown Wound - Back Anaerobic Culture - Final 06/24/21 16:00 Blood Culture (Wb) - Right Forearm Blood Culture - Preliminary No growth in 48 hours. 06/24/21 19:55 Wound - Back Gram Stain - Final 06/24/21 19:55 Wound - Back Wound Culture - Final Meth. resistant Staph. aureus Goal Trough: 15-20 mcg/mL Pharmacy Plan for Drug Dosing: VANCOMYCIN LEVEL RECEIVED Current Vancomycin Dose: last dose administered was 1250mg q8h. currently held due to elevated trough Number of Doses Received: 1250mg x7 doses Vancomycin Level: 10.5 hour random level resulted at 16.4 Hours Since Last Dose: 10.5 hours Renal Function: SrCr 0.69 Renal Function Trend: currently stable Lab/Micro: Vancomycin Plan/Comments: per trough >20 calculations, pt calculated to be on 3000mg daily dose for estimated trough of 17. recommend re-initiating Vancomycin at 1000mg q8h. trough before the 3rd dose. Pending Level: 06/30/21 at 0130 Pharmacy Service will continue to monitor and adjust dosing as required. Follow-Up Labs: Trough Vancomycin - 06/30/21 at 0130
--- NOTE | 2021-06-29 10:05 | PCM.DC ---
Discharge Instructions Diet Discharge Diet: Light diet - advance as tolerated and Carb Control Diet Activity Discharge Activity: Return to Normal Activity Dressing / Incision Call your doctor if you observe: Fever of 101 or Higher, Shortness of breath, Dizziness, Fainting spells, Swelling in the ankles, Chest pain and Increased palpitations (irregular heartbeat) Follow Up Care Test Results: Test results from this visit will be discussed in further detail at your follow-up appointment, if applicable. Discharge Plan Admission Admit Date/Time: 06/25/21 07:54 Attending Provider: Joseph Plasencia Primary Care Provider: Summer Padilla Consulting Providers: Saroj Evangelista ; Manohar Wise Discharge Orders/Prescriptions Prescriptions: New linezolid 600 mg tablet 600 mg PO Q12H 11 Days Qty: 22 RF: 0 oxycodone 5 mg Tablet 5 mg PO Q12H PRN PRN (Reason: pain) 5 Days Qty: 12 RF: 0 Continued melatonin 1 mg tablet 1 mg PO HS PRN (Reason: Sleep) RF: 0 omeprazole 20 mg capsule,delayed release(DR/EC) 20 mg PO BID RF: 0 (DME) blood-glucose meter Misc See Rx Instructions .ROUTE .MEDSUPPLY Qty: 1 RF: 0 (DME) Blood Glucose Test Strip See Rx Instructions .ROUTE .MEDSUPPLY Qty: 100 RF: 5 (DME) lancets 17 gauge misc See Rx Instructions .ROUTE .MEDSUPPLY Qty: 100 RF: 5 alcohol swabs [BD Alcohol Swabs] Pads, Medicated 1 pad TOPICAL 6XD Qty: 100 RF: 5 lisinopril 10 mg tablet 10 mg PO DAILY Qty: 30 RF: 5 insulin lispro 100 unit/mL insulin pen See Rx Instructions unit SC DAILY Qty: 15 RF: 1 insulin NPH and regular human 100 unit/mL (70-30) insulin pen 35 unit SC BID Qty: 15 RF: 5 (DME) pen needle, diabetic 30 gauge x 5/16 needle See Rx Instructions .ROUTE .MEDSUPPLY Qty: 100 RF: 5 Referrals / Follow Up: Summer Padilla MD [Primary Care Provider] - Within 1 Week Saroj Evangelista MD [STAFF PHYSICIAN] - Within 1 Week Disposition Disposition (needs filled in before D/C Order can be placed): Home, Self Care
[2021-06-29] MEDS: 0.9% Saline Lock 10 ML Syringe IV (10:31)
[2021-06-29] MEDS: Vancomycin IV 1,000 MG/200 ML BAG 200 MG IV (10:31)
[2021-06-29] MEDS: Lisinopril 10 MG Tablet PO (10:31)
[2021-06-29] MEDS: Famotidine 20 MG Tablet PO (10:31)
[2021-06-29] MEDS: Insulin Human 75/25 Kwickpen 35 UNIT SC (10:32)
--- NOTE | 2021-06-29 10:40 | PN.ID_ITS ---
Physical Exam Narrative Feeling ok, no fever, no n/v/d. Const no apparent distress General Appearance: cooperative Resp normal air movement and clear to auscultation bilaterally Cardio regular rhythm GI normal to inspection, nondistended, normoactive bowel sounds Skin Skin Narrative: no new rash ID ID: Route of nutrition/ use of supplements: [] Nutritional Intake: [] IV Site: [] Murphy Catheter: [] Assessment & Plan Assessment/Plan (1) Bacteremia: PLAN: Wound cx with MRSA. Bcx with MRSA. Repeat bcx neg so far. TTE neg. Ok for 11 days of po linezolid 600mg bid at discharge now that he has had good source control and rapid clearance of bcx. Wrote rx. Will follow, d/w case planner and primary team
--- NOTE | 2021-06-29 10:55 | DS.PCM_ITS ---
Providers Date of Admission: 06/25/21 Primary Care Physician: Dr. 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 Routine Comment: Reason for Consult:: back wound Reason For Visit: BACK ABCESS, HYPERGLYCEMIA Diagnosis Discharge Diagnosis (1) Bacteremia: Status: Acute Code(s): R78.81 - Bacteremia Medications at Discharge Home Medications alcohol swabs 1 pad TOPICAL 6XD #100 each 01/19/21 blood sugar diagnostic #100 each 01/19/21 blood-glucose meter #1 each 01/19/21 insulin lispro 100 unit/mL subcutaneous pen See Rx Instructions SC DAILY #15 ml 01/19/21 lancets 17 gauge #100 each 01/19/21 lisinopril 10 mg tablet 10 mg PO DAILY #30 tablet 01/19/21 melatonin 1 mg tablet 1 mg PO HS PRN 01/19/21 omeprazole 20 mg capsule,delayed release 20 mg PO BID 01/19/21 insulin NPH-regular 70-30 U-100 insulin 100 unit/mL subcutaneous pen 35 unit SC BID #15 ml 01/20/21 pen needle, diabetic 30 gauge x 5/16 #100 each 01/20/21 linezolid 600 mg PO Q12H 11 Days #22 tab 06/29/21 metformin 500 mg PO DAILY #30 tab 06/29/21 oxycodone 5 mg PO Q12H PRN PRN 5 Days #12 tab 06/29/21 Hospital Course Operations - (I&D of back abscess) Procedures 2-D Echocardiogram Summary of Care Provided Minutes Spent on Discharge: 44 Hospital Course: Per HPI: The patient is a 40 y/o M w/ PMHx: Tobacco use, Diabetes mellitus type II who presents to the [facility] ED on 06/24/21 with history of onset fatigue, malaise, fever and chills in addition to R lower back discomfort with erythema, fluctuant region over the last 4 days with significantly worsening hyperglycemia prompting ED evaluation. Patient reports right lower back discomfort at the site of abscess 10 out of 10 in pain especially with any manipulation. Work-up in the ED included T 99.3, heart rate 104, BP 175/109, respiratory rate 14, 98% on room air, CBC with WBC 19.1, hemoglobin 15.3, platelet 276 with left shift, unremarkable coags, CMP with sodium 131, BUN/creatinine 19/0.91, anion gap 6, glucose 561, serum osmolality 2 was 97, lactic acid 1.7, unremarkable [place] profile, urinalysis with specific rap[place] 1.015, urine protein 500, urine glucose 1000, urine ketones 15, urine occult blood 150, no evidence of acute UTI, chest x-ray with no acute cardiopulmonary findings with a dense nodule overlying the left lung base which is stable in appearance possibly granulomatous disease. In the ED requested wound culture and MRSA wound to be obtained. Discussed case with general surgeon, Dr. Evangelista who will plan on I&D in the OR on day of presentation. In the ED patient administered vancomycin, Zosyn, morphine, Zofran as well as insulin lispro 20 units x 1 with repeat blood sugar prior to OR transition 350. Hospital Course: 1. MRSA abscess of the back with MRSA [id number] male with a history of IV drug use presented to the hospital with MRSA back abscess. This was drained in the OR on admission and cultures demonstrated MRSA. He was started on Vanco and Zosyn and this was narrowed down to just vancomycin. He was also found to have MRSA in 1 out of 4 blood cultures repeat cultures were negative and echo was unremarkable. Infectious disease was consulted and recommended 2 more weeks of p.o. linezolid. He will be discharged home with wound care as well as has twice daily narcotics to be taken 45 minutes prior to his dressing changes. Hopefully family will come in to be taught how to do the dressing changes otherwise he may need home health care for dressing changes. I did discuss plan with plan to discharge presents expressed understanding of the risk and benefits of going home and would like to go home today. 2. Uncontrolled DM2-did have nutrition talk to him about his medications and how to appropriately take him as well as dietary modifications for his diabetes. He did have an A1c of 11 on admission so we did encourage him to continue taking his insulin at home but also added Metformin to his medications he is not at the on this and this might help us able I was his blood sugars at home. We recommend he follow-up with his PCP as an outpatient. Physical Exam Const alert, oriented x3, no apparent distress and healthy appearing General Appearance: cooperative HEENT normocephalic and moist oral mucous membranes Eyes PERRL, EOMs intact bilaterally and conjunctivae normal Neck supple and no JVD Resp normal respiratory effort, no retractions, no use of accessory muscles and clear to auscultation bilaterally Auscultation: Negative for crackles, rales, rhonchi or wheezes Cardio regular rate, regular rhythm, S1 normal heart sound, S2 normal heart sound and no murmurs GI soft to palpation, non-tender and non-distended; Negative for hepatosplenomegaly Extremity no clubbing, cyanosis or edema Skin Skin Narrative: Mid back wound dressing is intact Neuro no focal motor deficits and no sensory deficits noted Psych affect normal Appearance: appropriate Weight / BMI Weight Weight: 177 lb 4.026 oz Body Mass Index (BMI) 24.5 ABG / Lab / Microbiology Data Result Diagrams: 06/29/21 06:25 06/29/21 06:25 Laboratory: Laboratory Results - last 24 hr 06/28/21 11:22: POC Glucose 222 H 06/28/21 18:25: POC Glucose 244 H 06/28/21 19:33: Vancomycin Trough 22.0 H 06/28/21 22:32: POC Glucose 192 H 06/29/21 06:25: WBC 8.6, RBC 4.02 L, Hgb 13.3, Hct 37.7 L, MCV 93.8, MCH 33.1 H, MCHC 35.3, RDW Std Deviation 39.2, RDW Coeff of Gentry 11.4 L, Plt Count 289, MPV 9.7, Immature Gran % (Auto) 0.900, Neut % (Auto) 57.4, Lymph % (Auto) 27.0, [place] % (Auto) 12.4 H, Eos % (Auto) 1.6, Baso % (Auto) 0.7, Absolute Neuts (auto) 4.9, Absolute Lymphs (auto) 2.31, Nucleated RBC % 0 06/29/21 06:25: Sodium 141, Potassium 4.2, Chloride 108 H, Carbon Dioxide 26.0, Anion Gap 7, BUN 23 H, Creatinine 0.69 L, Estim Creat Clear Calc 151.57, Est GFR (MDRD) Af Amer 163, Est GFR (MDRD) Non-Af 135, BUN/Creatinine Ratio 33.4 H, Glucose 85, Calcium 8.0 L 06/29/21 06:25: Random Vancomycin 16.4 H 06/29/21 06:52: POC Glucose 91 Microbiology: Microbiology 06/24/21 13:51 Blood Culture (Wb) - Right Forearm Blood Culture - Preliminary Meth. resistant Staph. aureus 06/24/21 16:29 Urine, Clean Catch Urine Culture - Final Culture exhibits no growth. 06/24/21 Unknown Wound - Back Gram Stain - Final 06/24/21 Unknown Wound - Back Wound Culture - Final Meth. resistant Staph. aureus 06/24/21 Unknown Wound - Back Anaerobic Culture - Final 06/24/21 16:00 Blood Culture (Wb) - Right Forearm Blood Culture - Preliminary No growth in 48 hours. 06/24/21 19:55 Wound - Back Gram Stain - Final 06/24/21 19:55 Wound - Back Wound Culture - Final Meth. resistant Staph. aureus D/C Instructions Discharge Diet: Light diet - advance as tolerated and Carb Control Diet Call your doctor if you observe: Fever of 101 or Higher, Shortness of breath, Dizziness, Fainting spells, Swelling in the ankles, Chest pain and Increased palpitations (irregular heartbeat) Meaningful Use Info Meaningful Use Diagnoses (Choose all that apply): None applicable Discharge Plan Admission Admit Date/Time: 06/25/21 07:54 Attending Provider: Joseph Plasencia Primary Care Provider: Summer Padilla Consulting Providers: Saroj Evangelista ; Manohar Wise Discharge Orders/Prescriptions Prescriptions: New linezolid 600 mg tablet 600 mg PO Q12H 11 Days Qty: 22 RF: 0 oxycodone 5 mg Tablet 5 mg PO Q12H PRN PRN (Reason: pain) 5 Days Qty: 12 RF: 0 metformin 500 mg tablet extended release 24 hr 500 mg PO DAILY Qty: 30 RF: 0 Continued melatonin 1 mg tablet 1 mg PO HS PRN (Reason: Sleep) RF: 0 omeprazole 20 mg capsule,delayed release(DR/EC) 20 mg PO BID RF: 0 (DME) blood-glucose meter Misc See Rx Instructions .ROUTE .MEDSUPPLY Qty: 1 RF: 0 (DME) Blood Glucose Test Strip See Rx Instructions .ROUTE .MEDSUPPLY Qty: 100 RF: 5 (DME) lancets 17 gauge misc See Rx Instructions .ROUTE .MEDSUPPLY Qty: 100 RF: 5 alcohol swabs [BD Alcohol Swabs] Pads, Medicated 1 pad TOPICAL 6XD Qty: 100 RF: 5 lisinopril 10 mg tablet 10 mg PO DAILY Qty: 30 RF: 5 insulin lispro 100 unit/mL insulin pen See Rx Instructions unit SC DAILY Qty: 15 RF: 1 insulin NPH and regular human 100 unit/mL (70-30) insulin pen 35 unit SC BID Qty: 15 RF: 5 (DME) pen needle, diabetic 30 gauge x 5/16 needle See Rx Instructions .ROUTE .MEDSUPPLY Qty: 100 RF: 5 Referrals / Follow Up: Summer Padilla MD [Primary Care Provider] - Within 1 Week Saroj Evangelista MD [STAFF PHYSICIAN] - Within 1 Week Disposition Disposition (needs filled in before D/C Order can be placed): Home, Self Care Charges/Coding Visit Charges Inpatient E&M: 70834 Disch Hosp
--- NOTE | 2021-06-29 11:14 | PHA.DC.MC ---
Pharmacy Service has performed discharge medication reconciliation and counseling for this patient. Attempted to clinical counselor patient, however patient was not interested in discussing medications at this time. Informed patient that, time permitting, I would stop back and see if he wanted to talk at a later time. The patient had attempted counseling on the following discharge medications and changes in medications for homegoing were reviewed. 1. Zyvoxx 2. oxycodone 3. Metformin The Reason for Use, instructions for use, and potential side effects were reviewed for all new medications. The patient's questions regarding all of their medications were answered. The patient refused counseling at this time, will try to check back again later. Home Medications alcohol swabs 1 pad TOPICAL 6XD #100 each 01/19/21 blood sugar diagnostic #100 each 01/19/21 blood-glucose meter #1 each 01/19/21 insulin lispro 100 unit/mL subcutaneous pen See Rx Instructions SC DAILY #15 ml 01/19/21 lancets 17 gauge #100 each 01/19/21 lisinopril 10 mg tablet 10 mg PO DAILY #30 tablet 01/19/21 melatonin 1 mg tablet 1 mg PO HS PRN 01/19/21 omeprazole 20 mg capsule,delayed release 20 mg PO BID 01/19/21 insulin NPH-regular 70-30 U-100 insulin 100 unit/mL subcutaneous pen 35 unit SC BID #15 ml 01/20/21 pen needle, diabetic 30 gauge x 5/16 #100 each 01/20/21 linezolid 600 mg PO Q12H 11 Days #22 tab 06/29/21 metformin 500 mg PO DAILY #30 tab 06/29/21 oxycodone 5 mg PO Q12H PRN PRN 5 Days #12 tab 06/29/21 The patient's discharge medication list was reviewed for discrepancies and discrepancies were resolved.
--- NOTE | 2021-06-29 11:24 | CASEMGMT ---
Addendum entered by Priyanka Stubbs 06/29/21 15:28: No answer from pt sister. MARILEE SLAUGHTER in to pt room again to make pt aware he needs to be calling as he is able and needs to be a participant in his care. He is aware that he will receive [facility] from [facility] on his appts. Pt is also aware that this RN CM called to make an appt with and was told that he had an appt in April that he did not show for. They are scheduling into September. Pt is aware that he can schedule this appt. He was provided with the pamphlet for as well as hospital van information. Pt prior auth form faxed. Cortexted Dr. Wise to make aware that this will not be filled for 24 hours. Pt questions if he will get his pain meds today. Made him aware the med Linezolid needed a prior auth and he can call the pharmacy tomorrow to see if able to supervisor opening and picking. Pt denies further questions at this time. Original Note: MARILEE SLAUGHTER in to pt room to verify who his person will be to learn the dressing changes. Pt states he is not calling anyone until the doctors are on the same page. Made him aware that there is a dc order in and he will be going home on po atb. Spoke with who will notify pt again that he will be dc'd on po atb. Received tc from pharmacy for pre auth on pt atb. TC to [facility], spoke with Bruce Cabrera who states that this is not in their system yet and usually takes 3 days. Ref #[id number]. Trf'd to another dept as pt is to dc today, on hold and was disconnected. Will try again. MARILEE SLAUGHTER back into pt room. Pt gave his sister's phone number to this CM to call to have her learn dressing. Left message on her vm with call back info. Spoke with Lori nurse who is aware of the plan. Pt is aware he will follow up with 's office as well.
--- NOTE | 2021-06-29 11:32 | WOUNDNOTE ---
Pt is scheduled to be discharged home today. patient will continue with BID dressing changed to the back. patient had stated family would be able to assist with dressing changes, but no family has been able to come in to watch dressing change. supposedly the sister is supposed to come today to learn before patient is discharged.
[2021-06-29 11:50] LABS: Bedside Glucose 160 mg/dL (70-110)
[2021-06-29 17:00] LABS: Bedside Glucose 144 mg/dL (70-110)
[2021-06-29 17:44] VITALS: BP 156/110; PULSE 102; RESP 18; TEMP 36.7; O2SAT 98
== END 2021-06-29 19:00 | disposition home or self-care (01) | DRG 383 ==
LOC: ED 14:44 → MS3 20:13 → ED 20:19 → MS3 20:21 → ED 06-25 13:36 → SDC 06-25 13:36
PROVIDERS: Internal Medicine Infectious Disease; Surgery; Admitting Provider Internal Medicine; Emergency Provider Student in an Organized Health Care Education/Training Program; PCP Internal Medicine; Referring Provider Family Medicine; Visit Provider Family Medicine
PROC: 0W9L0ZZ Drainage of Lower Back, Open Approach (ICD-10-PCS; principal; 2021-06-24 20:00)
DX: L02.212 Cutaneous abscess of back [any part, except buttock and flank] (principal); Z23 Encounter for immunization; F17.210 Nicotine dependence, cigarettes, uncomplicated; L03.312 Cellulitis of back [any part except buttock and flank]; K21.9 Gastro-esophageal reflux disease without esophagitis; I10 Essential (primary) hypertension; J45.909 Unspecified asthma, uncomplicated; E11.65 Type 2 diabetes mellitus with hyperglycemia; E83.51 Hypocalcemia; B95.62 Methicillin resistant Staphylococcus aureus infection as the cause of diseases classified elsewhere; Z79.899 Other long term (current) drug therapy; Z79.4 Long term (current) use of insulin; Z91.19 Patient's noncompliance with other medical treatment and regimen
CPT/HCPCS: 0001A; 36415; 36569; 71045; 80048; 80053; 80076; 80202; 81001; 82962; 83036; 83605; 83735; 83930; 84100; 84484; 85025; 85610; 85730; 87040; 87070; 87075; 87077; 87086; 87186; 87205; 87640; 91300; 93005; 93306; 97802; 99251; 99285; 99406; J7030; J7040; J7050; A4216; G0463; J2405

== ENCOUNTER 2021-07-07 18:10 | Emergency (ER) | payer MEDICAID, SELFPAY ==
[2021-07-07 18:11] VITALS: BP 166/102; PULSE 89; RESP 16; TEMP 36.8; O2SAT 100; BMI 27.7
--- NOTE | 2021-07-07 18:50 | EX.ED.DYSGE1 ---
HPI History of Present Illness Chief Complaint: Nausea/Vomiting Informant: patient Narrative Narrative: 40-year-old male presents to the emergency department with nausea and vomiting. He tells me that he recently had a back abscess drained and was admitted into the hospital with bacteremia. He is currently on linezolid. The abscess grew MRSA. He also had a blood culture returned positive for MRSA. His last set of blood cultures from his hospital stay however were negative. He tells me he has been doing well until today when he is developed nausea and vomiting. He notes feeling that he is hot and chilled. He notes fatigue. He states the cough started a couple days ago. He denies diarrhea. [facility] Medical History Asthma Diabetes GERD (gastroesophageal reflux disease) Hypertension Smoker Tobacco use Type 2 diabetes mellitus without complications Home Medications alcohol swabs 1 pad TOPICAL 6XD #100 each 01/19/21 [Rx Last Taken Unknown] blood sugar diagnostic #100 each 01/19/21 [Rx Last Taken Unknown] blood-glucose meter #1 each 01/19/21 [Rx Last Taken Unknown] insulin lispro 100 unit/mL subcutaneous pen See Rx Instructions SC DAILY #15 ml 01/19/21 [Rx Last Taken Unknown] lancets 17 gauge #100 each 01/19/21 [Rx Last Taken Unknown] lisinopril 10 mg tablet 10 mg PO DAILY #30 tablet 01/19/21 [Rx Last Taken Unknown] melatonin 1 mg tablet 1 mg PO HS PRN 01/19/21 [History Last Taken Unknown] omeprazole 20 mg capsule,delayed release 20 mg PO BID 01/19/21 [History Last Taken Unknown] insulin NPH-regular 70-30 U-100 insulin 100 unit/mL subcutaneous pen 35 unit SC BID #15 ml 01/20/21 [Rx Last Taken Unknown] pen needle, diabetic 30 gauge x 5/16 #100 each 01/20/21 [Rx Last Taken Unknown] linezolid 600 mg PO Q12H 11 Days #22 tab 06/29/21 [Rx Last Taken Unknown] metformin 500 mg PO DAILY #30 tab 06/29/21 [Rx Last Taken Unknown] oxycodone 5 mg PO Q12H PRN PRN 5 Days #12 tab 06/29/21 [Rx Last Taken Unknown] ondansetron 4 mg PO Q6H PRN PRN #15 tab 07/07/21 [Rx Last Taken Unknown] Allergy/AdvReac Type Severity Reaction Status Date / Time No Known Allergies Allergy Verified 07/07/21 18:16 Family History Mother Diabetes Heart disease Myocardial infarction Hypertension Father Diabetes Heart disease Myocardial infarction Hypertension Other Asthma Surgical History No significant past surgical history Social History household members: family Smoking Status: Current every day smoker tobacco type: cigarettes how long ago did patient quit smoking: Patient started smoking when he was 11 years old. alcohol intake: never substance use type: does not use ROS ROS ED ROS Narrative Generalized fatigue Constitutional Constitutional ED: Reports chills and subjective; Denies weight loss Eyes Eyes: Denies change in vision or diplopia ENT ENT ED: Denies ear pain, rhinorrhea or sore throat Cardiovascular Cardiovascular: Denies chest pain, orthopnea, palpitations or racing heartbeat Respiratory/Chest Respiratory/Chest: Reports cough; Denies dyspnea or orthopnea Gastrointestinal Gastrointestinal: Reports nausea and vomiting; Denies abdominal pain or diarrhea Genitourinary Genitourinary ED: Denies dysuria, hematuria or urinary frequency Musculoskeletal Musculoskeletal: Reports myalgias; Denies arthralgias Integumentary Reports other Details: Surgical wound back ; Denies abscess or rash Neurologic Neurologic: Denies headache(s) or weakness Psychiatric Psychiatric: Denies anxiety, depression, suicidal ideation or suicidal thoughts Endocrine Endocrinology: Denies polydipsia, polyphagia or polyuria Allergic/Immunologic Allergic/Immunologic ED: Denies mouth swelling, tongue swelling or urticaria EXAM Physical Exam Const Vital Signs: 07/07/21 18:11 07/07/21 20:51 Temperature 98.2 F Temperature Source Oral Pulse Rate 89 93 Respiratory Rate 16 14 Blood Pressure 166/102 H 149/100 H Blood Pressure Mean 123 116 Pulse Ox 100 100 Oxygen Delivery Method Room Air Room Air Positive well nourished and well developed General Appearance ED: well developed HEENT Reports normocephalic, head/scalp atraumatic and moist mucous membranes Eyes PERRL and EOMs intact bilaterally Neck no lymphadenopathy, supple and no JVD Resp normal respiratory effort and clear to auscultation bilaterally Cardio regular rate, regular rhythm and no murmurs GI normal to inspection, nondistended, normoactive bowel sounds and non-tender Palpation: soft Back/Spine no CVA tenderness and normal ROM Extremity normal to inspection General Extremety ED: Negative for edema General Extremity: Negative for edema Neuro oriented x3 and CN's II-XII intact bilaterally Sensorium / Orientation: alert Motor Exam: strength 5/5 throughout Psych mental status grossly normal Mood & Affect: Negative for depressed or tearful Skin no rashes or lesions noted Skin Narrative: There is a postoperative wound on the right lower back. There is no significant surrounding erythema or swelling. There is scant drainage on the dressing. MDM MDM MDM Narrative Medical decision making narrative: Blood work showed a leukocytosis at 16.7. BMP showed a glucose of 266. CMP and lipase negative. Acetone level negative. Lactic acid is 1.3 and urinalysis shows no overt infection. The patient's Covid, RSV, and influenza test are negative. My interpretation of his chest x-ray is no acute process. Patient received Toradol for pain IV fluids and Zofran. He was able to tolerate p.o. fluids. At this point I think the patient can be discharged home. His surgical site looks good. He is on linezolid we did obtain blood cultures. Lab Data Attestation: I reviewed the patient's lab results. Labs: Laboratory Results - last 24 hr 07/07/21 07/07/21 07/07/21 19:09 19:09 19:09 WBC 16.7 H RBC 4.92 Hgb 16.7 H Hct 45.7 MCV 92.9 MCH 33.9 H MCHC 36.5 H RDW Std Deviation 39.8 RDW Coeff of Gentry 11.7 Plt Count 331 MPV 9.8 Immature Gran % (Auto) 0.300 Neut % (Auto) 82.1 H Lymph % (Auto) 12.3 L [place] % (Auto) 4.7 Eos % (Auto) 0.1 Baso % (Auto) 0.5 Absolute Neuts (auto) 13.7 H Absolute Lymphs (auto) 2.06 Nucleated RBC % 0 Sodium 139 Potassium 4.0 Chloride 102 Carbon Dioxide 29.0 Anion Gap 8 BUN 11 Creatinine 0.91 Estim Creat Clear Calc 111.42 Est GFR (MDRD) Af Amer 119 Est GFR (MDRD) Non-Af 98 BUN/Creatinine Ratio 12.1 Glucose 266 H Lactic Acid Calcium 8.7 Total Bilirubin 0.80 AST 36 ALT 56 Alkaline Phosphatase 76 Total Protein 8.0 Albumin 3.0 L Globulin 5.0 H Albumin/Globulin Ratio 0.6 L Lipase 103 Urine Color Urine Clarity Urine pH Ur Specific [place] Urine Protein Urine Glucose (UA) Urine Ketones Urine Occult Blood Urine Nitrite Urine Bilirubin Urine Urobilinogen Ur Leukocyte Esterase Urine RBC Urine WBC Ur Squamous Epith Cells Urine Bacteria Urine Mucus Acetone Level NEGATIVE 07/07/21 07/07/21 20:10 20:18 WBC RBC Hgb Hct MCV MCH MCHC RDW Std Deviation RDW Coeff of Gentry Plt Count MPV Immature Gran % (Auto) Neut % (Auto) Lymph % (Auto) [place] % (Auto) Eos % (Auto) Baso % (Auto) Absolute Neuts (auto) Absolute Lymphs (auto) Nucleated RBC % Sodium Potassium Chloride Carbon Dioxide Anion Gap BUN Creatinine Estim Creat Clear Calc Est GFR (MDRD) Af Amer Est GFR (MDRD) Non-Af BUN/Creatinine Ratio Glucose Lactic Acid 1.3 Calcium Total Bilirubin AST ALT Alkaline Phosphatase Total Protein Albumin Globulin Albumin/Globulin Ratio Lipase Urine Color Yellow Urine Clarity Clear Urine pH 7.0 Ur Specific [place] 1.015 Urine Protein 500 H Urine Glucose (UA) 100 H Urine Ketones 50 H Urine Occult Blood 150 H Urine Nitrite Negative Urine Bilirubin Negative Urine Urobilinogen Normal Ur Leukocyte Esterase 25 H Urine RBC 5-10 SEEN Urine WBC 0-5 SEEN Ur Squamous Epith Cells 0 SEEN Urine Bacteria 0 SEEN Urine Mucus 1+ Acetone Level Radiography Diagnostic Testing: Clinical Impression(s) from Imaging Studies Chest X-Ray 07/07/21 19:31 IMPRESSION: No acute cardiopulmonary disease. No major interval change. Electronically Signed: Shin Monson DO at 20:28 EDT Tel [phone], Service support , Discharge Plan Triage Chief Complaint: Nausea/Vomiting ED Provider: Hector Felix Dx/Rx/DC Orders Clinical Impression: Vomiting, Leukocytosis Instructions: ED Vomiting (Adult) Prescriptions: New ondansetron [ondansetron] 4 MG tablet 4 mg PO Q6H PRN PRN (Reason: Nausea) Qty: 15 RF: 0 No Action melatonin 1 mg tablet 1 mg PO HS PRN (Reason: Sleep) RF: 0 omeprazole 20 mg capsule,delayed release(DR/EC) 20 mg PO BID RF: 0 (DME) blood-glucose meter Misc See Rx Instructions .ROUTE .MEDSUPPLY Qty: 1 RF: 0 (DME) Blood Glucose Test Strip See Rx Instructions .ROUTE .MEDSUPPLY Qty: 100 RF: 5 (DME) lancets 17 gauge misc See Rx Instructions .ROUTE .MEDSUPPLY Qty: 100 RF: 5 alcohol swabs [BD Alcohol Swabs] Pads, Medicated 1 pad TOPICAL 6XD Qty: 100 RF: 5 lisinopril 10 mg tablet 10 mg PO DAILY Qty: 30 RF: 5 linezolid 600 mg tablet 600 mg PO Q12H 11 Days Qty: 22 RF: 0 oxycodone 5 mg Tablet 5 mg PO Q12H PRN PRN (Reason: pain) 5 Days Qty: 12 RF: 0 metformin 500 mg tablet extended release 24 hr 500 mg PO DAILY Qty: 30 RF: 0 insulin lispro 100 unit/mL insulin pen See Rx Instructions unit SC DAILY Qty: 15 RF: 1 insulin NPH and regular human 100 unit/mL (70-30) insulin pen 35 unit SC BID Qty: 15 RF: 5 (DME) pen needle, diabetic 30 gauge x 5/16 needle See Rx Instructions .ROUTE .MEDSUPPLY Qty: 100 RF: 5 Primary Care Provider: Summer Padilla Referrals: Summer Padilla MD [Primary Care Provider] - As Needed Activity Restrictions/Additional Instructions: Follow-up with your surgeon as scheduled Disposition Disposition: Home, Self Care
[2021-07-07] MEDS: Ketorolac 30 MG/ML Syringe IV (19:17)
[2021-07-07] MEDS: Ondansetron 4 MG/2 ML Vial IV (19:17)
[2021-07-07] MEDS: 0.9% Normal Saline 1,000 ML 1000 ML IV (19:17)
--- NOTE | 2021-07-07 19:31 | RAD_ITS ---
STUDY: X-RAY CHEST REASON FOR EXAM: Male, 40 years old. Cough, shortness of breath and chest pain. Fatigue and nausea. Symptoms began today. Had surgery on abscess of lower back last week. TECHNIQUE: Single AP portable view of the chest. COMPARISON: 06/24/2021. FINDINGS: The lungs are clear and expanded. There is no demonstrated pleural abnormality. Normal size heart. Normal mediastinum and pranav. Normal visualized pulmonary arteries. Normal visualized aortic arch and descending thoracic aorta. Normal visualized thoracic spine. Normal visualized ribs, clavicles, and shoulders. There is no demonstrated abnormality of the visualized soft tissue structures of the upper abdomen. RAD/Chest 1 View (Portable) IMPRESSION: No acute cardiopulmonary disease. No major interval change. Electronically Signed: Shin Monson DO at 20:28 EDT Tel [phone], Service support ,
[2021-07-07 19:42] LABS: Absolute Lymphocyte Count 2.06 X10^3/uL (0.83-4.51); Absolute Neutrophil Count 13.7 X10^3/uL (2.0-7.7); Basophil# 0.08 X10^3/uL; Basophil% 0.5 % (0-1); Eosinophil# 0.01 X10^3/uL; Eosinophils% 0.1 % (0-5); Hematocrit 45.7 % (40-54); Hemoglobin 16.7 g/dL (13.0-16.5); Lymphocyte # 2.06 X10^3/ul (0.83-4.51); Lymphocyte % 12.3 % (19-41); Mean Corp Hgb Conc 36.5 g/dL (32-36); Mean Corpuscular Hgb 33.9 pg (27.0-32.0); Mean Corpuscular Volume 92.9 fL (80-94); Mean Platelet Vol. 9.8 fl (6.2-12.0); Monocyte# 0.79 X10^3/uL; Monocyte% 4.7 % (0-10); NRBC Flagged by Analyzer 0 % (0-5); Neutrophil # 13.71 X10^3/uL (2.7-7.7); Neutrophil % 82.1 % (47-70); Platelet Count 331 K/mm3 (150-450); RBC Distribution Width CV 11.7 % (11.6-14.6); RBC Distribution Width SD 39.8 fl (35.1-43.9); Red Blood Count 4.92 M/mm3 (4.6-6.2); White Blood Count 16.7 K/mm3 (4.4-11.0)
[2021-07-07 20:00] LABS: ALB/GLOB Ratio 0.6 RATIO (0.9-2.4); AST(SGOT) 36 U/L (15-37); Alanine Aminotransfer ALT/SGPT 56 U/L (16-61); Alkaline Phosphatase 76 U/L (45-117); Anion Gap 8 (5-15); BUN 11 mg/dL (7-18); BUN/Creat Ratio 12.1 RATIO (10-20); Calcium,Total 8.7 mg/dL (8.5-10.1); Chloride 102 mmol/L (98-107); Creatinine, Serum 0.91 mg/dL (0.70-1.30); EST Glomerular Filtration Rate 98 mL/min (>60); Est Glom Filt Rate - Afr Amer 119 mL/min (>60); Estimated Creatinine Clearance 111.42 ml/min; Glucose 266 mg/dL (74-106); Lipase 103 U/L (73-393); Sodium Level 139 mmol/L (136-145)
[2021-07-07 20:22] LABS: Bacteria 0 SEEN /hpf (None Seen); Squamous Epithelial Cells - UA 0 SEEN /hpf (0-5)
[2021-07-07 20:38] LABS: Color, Urine Yellow (Yellow); Glucose, Dipstick 100 mg/dl (Normal); Ketone-Dipstick 50 mg/dl (Negative); Leukocyte Esterase-Dipstick 25 /ul (Negative); Nitrite-Dipstick Negative (Negative); Occult Blood-Urine 150 /ul (Negative); Protein-Dipstick 500 mg/dl (Negative); Specific Gravity, Urine 1.015 (1.002-1.030); Urine Bilirubin Dipstick Negative (Negative); Urine Clarity Clear (Clear); Urine Urobilinogen Normal (Normal)
[2021-07-07 20:51] VITALS: BP 149/100; PULSE 93; RESP 14; O2SAT 100
[2021-07-07 20:53] LABS: Lactic Acid 1.3 mmol/L (0.4-1.9)
[2021-07-07 20:58] LABS: Red Blood Cells-Urine 5-10 SEEN /hpf (0-5); White Blood Cells 0-5 SEEN /hpf (0-5)
[2021-07-07 20:59] LABS: Mucous, Urine 1+ /hpf (<or=2+)
== END 2021-07-07 21:44 | disposition home or self-care (01) ==
PROVIDERS: Emergency Provider Emergency Medicine; PCP Internal Medicine
DX: R11.2 Nausea with vomiting, unspecified (principal); D72.829 Elevated white blood cell count, unspecified; F17.210 Nicotine dependence, cigarettes, uncomplicated
CPT/HCPCS: 71045; 80053; 81001; 82009; 83605; 83690; 85025; 87040; 87426; 87804; 87807; 96361; 96374; 96375; 99285; J7030; A4216; J2405

== ENCOUNTER 2021-07-31 21:38 | Emergency (ER) | payer MEDICAID, SELFPAY ==
[2021-07-31 21:39] VITALS: BP 163/112; PULSE 107; RESP 14; TEMP 36.2; O2SAT 96; BMI 25.6
--- NOTE | 2021-07-31 22:59 | EX.ED.DYSGE1 ---
HPI History of Present Illness Chief Complaint: Abscess Informant: patient Narrative Narrative: 40-year-old male presents the emergency department the chief complaint of abscess on his back. Patient has a history of diabetes. He states he has had a prior abscess drained on his back. He states that he promised his daughter he would [facility] and [facility]. He states he has felt the discomfort over the past several days. [facility] Medical History Asthma Diabetes GERD (gastroesophageal reflux disease) Hypertension Smoker Tobacco use Type 2 diabetes mellitus without complications Home Medications alcohol swabs 1 pad TOPICAL 6XD #100 each 01/19/21 [Rx Last Taken Unknown] blood sugar diagnostic #100 each 01/19/21 [Rx Last Taken Unknown] blood-glucose meter #1 each 01/19/21 [Rx Last Taken Unknown] insulin lispro 100 unit/mL subcutaneous pen See Rx Instructions SC DAILY #15 ml 01/19/21 [Rx Last Taken Unknown] lancets 17 gauge #100 each 01/19/21 [Rx Last Taken Unknown] lisinopril 10 mg tablet 10 mg PO DAILY #30 tablet 01/19/21 [Rx Last Taken Unknown] omeprazole 20 mg capsule,delayed release 20 mg PO BID 01/19/21 [History Last Taken Unknown] insulin NPH-regular 70-30 U-100 insulin 100 unit/mL subcutaneous pen 35 unit SC BID #15 ml 01/20/21 [Rx Last Taken Unknown] pen needle, diabetic 30 gauge x 5/16 #100 each 01/20/21 [Rx Last Taken Unknown] linezolid 600 mg PO Q12H 11 Days #22 tab 06/29/21 [Rx Last Taken Unknown] cephalexin 500 mg PO Q6 #40 capsule 07/31/21 [Rx Last Taken Unknown] ibuprofen 600 mg PO Q6H PRN PRN #20 tablet 07/31/21 [Rx Last Taken Unknown] sulfamethoxazole-trimethoprim 1 tab PO BID #20 tablet 07/31/21 [Rx Last Taken Unknown] Allergy/AdvReac Type Severity Reaction Status Date / Time No Known Allergies Allergy Verified 07/31/21 21:39 Family History Mother Diabetes Heart disease Myocardial infarction Hypertension Father Diabetes Heart disease Myocardial infarction Hypertension Other Asthma Surgical History No significant past surgical history Social History household members: family Smoking Status: Current every day smoker tobacco type: cigarettes how long ago did patient quit smoking: Patient started smoking when he was 11 years old. alcohol intake: never substance use type: does not use ROS ROS ED Constitutional Constitutional ED: Denies chills or weight loss Eyes Eyes: Denies change in vision or diplopia ENT ENT ED: Denies ear pain, rhinorrhea or sore throat Cardiovascular Cardiovascular: Denies chest pain, orthopnea, palpitations or racing heartbeat Respiratory/Chest Respiratory/Chest: Denies cough, dyspnea or orthopnea Gastrointestinal Gastrointestinal: Denies abdominal pain, diarrhea, nausea or vomiting Genitourinary Genitourinary ED: Denies dysuria, hematuria or urinary frequency Musculoskeletal Musculoskeletal: Reports back pain; Denies arthralgias or myalgias Integumentary Reports abscess; Denies rash Neurologic Neurologic: Denies headache(s) or weakness Psychiatric Psychiatric: Denies anxiety, depression, suicidal ideation or suicidal thoughts Endocrine Endocrinology: Denies polydipsia, polyphagia or polyuria Allergic/Immunologic Allergic/Immunologic ED: Denies mouth swelling, tongue swelling or urticaria EXAM Physical Exam Const Vital Signs: 07/31/21 21:39 Temperature 97.1 F L Temperature Source Temporal Pulse Rate 107 H Respiratory Rate 14 Blood Pressure 163/112 H Blood Pressure Mean 129 Pulse Ox 96 Positive well nourished and well developed; Negative for obese General Appearance ED: well developed Nutritional Appearance: Negative for obese HEENT Reports normocephalic, head/scalp atraumatic, TM's clear and moist mucous membranes Negative for trauma Tympanic Membrane ED: Yes TM's clear Eyes PERRL and EOMs intact bilaterally Neck no lymphadenopathy, supple and no JVD Resp normal respiratory effort and clear to auscultation bilaterally Cardio regular rate, regular rhythm and no murmurs GI normal to inspection, nondistended, normoactive bowel sounds and non-tender Palpation: soft Back/Spine no CVA tenderness and normal ROM Extremity normal to inspection General Extremety ED: Negative for edema General Extremity: Negative for edema Neuro oriented x3 and CN's II-XII intact bilaterally Sensorium / Orientation: alert Motor Exam: strength 5/5 throughout Psych mental status grossly normal Mood & Affect: Negative for depressed or tearful Skin no wounds Skin Narrative: Located in the left lower lumbar paraspinal region is a dime sized area of erythema. There is some mild swelling around this. This is the area the patient is concerned about. There is no drainage from this area. There is a healing wound on the right lumbar paraspinal tissue. MDM MDM MDM Narrative Medical decision making narrative: Bedside ultrasound does not show a focal fluid collection that would be amenable to incision and drainage. Therefore the patient will use warm compresses and I will prescribe Bactrim and Keflex. Patient was advised it may progress to where it does need to be drained but at this time I do not feel that I&D would be of benefit. Discharge Plan Triage Chief Complaint: Abscess ED Provider: Hector Felix Dx/Rx/DC Orders Clinical Impression: Cutaneous abscess of back [any part, except buttock] Instructions: ED Abscess Antibiotic Treatment Only Prescriptions: New sulfamethoxazole-trimethoprim [sulfamethoxazole-trimethoprim] 1 TABLET tablet 1 tab PO BID Qty: 20 RF: 0 cephalexin [cephalexin] 500 MG capsule 500 mg PO Q6 Qty: 40 RF: 0 ibuprofen 600 MG tablet 600 mg PO Q6H PRN PRN (Reason: pain) Qty: 20 RF: 0 No Action omeprazole 20 mg capsule,delayed release(DR/EC) 20 mg PO BID RF: 0 (DME) blood-glucose meter Misc See Rx Instructions .ROUTE .MEDSUPPLY Qty: 1 RF: 0 (DME) Blood Glucose Test Strip See Rx Instructions .ROUTE .MEDSUPPLY Qty: 100 RF: 5 (DME) lancets 17 gauge misc See Rx Instructions .ROUTE .MEDSUPPLY Qty: 100 RF: 5 alcohol swabs [BD Alcohol Swabs] Pads, Medicated 1 pad TOPICAL 6XD Qty: 100 RF: 5 lisinopril 10 mg tablet 10 mg PO DAILY Qty: 30 RF: 5 linezolid 600 mg tablet 600 mg PO Q12H 11 Days Qty: 22 RF: 0 insulin lispro 100 unit/mL insulin pen See Rx Instructions unit SC DAILY Qty: 15 RF: 1 insulin NPH and regular human 100 unit/mL (70-30) insulin pen 35 unit SC BID Qty: 15 RF: 5 (DME) pen needle, diabetic 30 gauge x 5/16 needle See Rx Instructions .ROUTE .MEDSUPPLY Qty: 100 RF: 5 Primary Care Provider: Summer Padilla Referrals: Summer Padilla MD [Primary Care Provider] - 1 Week if not improving Disposition Disposition: Home, Self Care
[2021-07-31] MEDS: Cephalexin 250 MG Capsule 500 MG PO (23:09)
[2021-07-31] MEDS: Smz/Tmp Ds Tablet 1 TABLET PO (23:09)
[2021-07-31 23:39] VITALS: BP 155/88; PULSE 104; RESP 18; O2SAT 95
== END 2021-07-31 23:43 | disposition home or self-care (01) ==
PROVIDERS: Emergency Provider Emergency Medicine; PCP Internal Medicine
DX: L02.212 Cutaneous abscess of back [any part, except buttock and flank] (principal); F17.210 Nicotine dependence, cigarettes, uncomplicated; K21.9 Gastro-esophageal reflux disease without esophagitis; E11.9 Type 2 diabetes mellitus without complications; I10 Essential (primary) hypertension; Z79.4 Long term (current) use of insulin; Z79.899 Other long term (current) drug therapy
CPT/HCPCS: 99283

== ENCOUNTER 2023-02-06 23:07 | Emergency (ER) | payer MEDICAID, SELFPAY ==
[2023-02-06 23:07] VITALS: BP 170/105; PULSE 111; RESP 15; TEMP 36.6; O2SAT 98
--- NOTE | 2023-02-06 23:23 | EDS_ITS ---
HPI History of Present Illness Chief Complaint: Nausea/Vomiting Detail of Chief Complaint: Nausea, vomiting and diarrhea Informant: patient Onset/Context/Timing Onset: Today (Nausea and vomiting started this morning diarrhea started several hours ago) Context: Sudden Onset Timing: Intermittent Quality: Nausea, vomiting diarrhea Location: GI Current Severity: Moderate Maximum Severity: Severe Worsened by: Attempt to eat or drink anything Relieved by: Nothing Associated Symptoms Associated Symptoms: Thirst, dry mouth and lightheadedness with standing Narrative Narrative: Patient is a 42-year-old type II diabetic on insulin and has history of hypertension and GERD who presents with nausea and vomiting started this morning. He reports has vomited 9 times. Emesis without coffee ground appearance or paulina blood. Patient's had 2 loose watery stools. There is no blood or mucus noted in the diarrhea. He has not been on antibiotics recently. He has had no ill contacts. Others ate what he ate and have no symptoms. He denies fever, chills night sweats. He denies headache, visual, ocular auditory symptoms. He does report periorbital swelling that started several hours ago. He denies history of thyroid disease. He denies cold intolerance or weight gain. He reports weight loss recently. He denies known kidney disease. He does endorse decreased urine output, thirst and orthostatic symptoms. He denies dysuria, frequency, urgency or hematuria. Prior similar symptoms: Yes Recent Illness/Hospitalization: No PFSH [facility] Medical History Asthma Diabetes Esophagitis GERD (gastroesophageal reflux disease) Hypertension Smoker Tobacco use Type 2 diabetes mellitus without complications Home Medications alcohol swabs (BD Alcohol Swabs) 1 pad topical 6XD #100 ea 01/19/21 [Rx Last Taken Unknown] blood sugar diagnostic (Blood Glucose Test strips) #100 ea 01/19/21 [Rx Last Taken Unknown] blood-glucose meter #1 ea 01/19/21 [Rx Last Taken Unknown] insulin lispro 100 unit/mL subcutaneous pen See Rx Instructions subcut DAILY #15 mL 01/19/21 [Rx Last Taken Unknown] lancets 17 gauge #100 ea 01/19/21 [Rx Last Taken Unknown] lisinopril 10 mg tablet 10 mg PO DAILY #30 tabs 01/19/21 [Rx Last Taken Unknown] omeprazole 20 mg capsule,delayed release 20 mg PO BID stomach 01/19/21 [History Last Taken Unknown] insulin NPH-regular 70-30 U-100 insulin 100 unit/mL subcutaneous pen 35 unit (0.35 mL) subcut BID #15 mL 01/20/21 [Rx Last Taken Unknown] pen needle, diabetic 30 gauge x 5/16 #100 ea 01/20/21 [Rx Last Taken Unknown] linezolid 600 mg tablet 600 mg PO Q12H 11 days #22 tabs 06/29/21 [Rx Last Taken Unknown] cephalexin 500 mg capsule 500 mg PO Q6 #40 CAPSULES 07/31/21 [Rx Last Taken Unknown] ibuprofen 600 mg tablet 600 mg PO Q6H PRN PRN pain #20 TABLETS 07/31/21 [Rx Last Taken Unknown] sulfamethoxazole 800 mg-trimethoprim 160 mg tablet 1 tab PO BID #20 TABLETS 07/31/21 [Rx Last Taken Unknown] Allergy/AdvReac Type Severity Reaction Status Date / Time No Known Allergies Allergy Verified 02/06/23 23:12 Family History Mother Diabetes Heart disease Myocardial infarction Hypertension Father Diabetes Heart disease Myocardial infarction Hypertension Other Asthma Surgical History No significant past surgical history Social History household members: family Smoking Status: Current every day smoker tobacco type: cigarettes how long ago did patient quit smoking: Patient started smoking when he was 11 years old. alcohol intake: never substance use type: does not use ROS ROS ED Constitutional Constitutional ED: Reports weight loss; Denies chills, fever(s), subjective or sweats Eyes Eyes: Denies blurry vision, change in vision or diplopia ENT ENT ED: Denies ear pain, rhinorrhea or sore throat Cardiovascular Cardiovascular: Denies chest pain or palpitations Respiratory/Chest Respiratory/Chest: Denies cough, dyspnea or dyspnea on exertion Gastrointestinal Gastrointestinal: Reports abdominal pain, diarrhea, nausea and vomiting; Denies constipation or melena Genitourinary Genitourinary ED: Denies dysuria, hematuria or urinary frequency Musculoskeletal Musculoskeletal: Denies arthralgias, back pain, myalgias or neck pain Integumentary Denies Abrasions or rash Neurologic Neurologic: Reports weakness; Denies headache(s) or paresthesias Endocrine Endocrinology: Denies cold intolerance, heat intolerance, polydipsia or polyuria Hematologic/Lymphatic Hematologic/Lymphatic: Reports systems reviewed and no addt'l complaints, except as documented EXAM Physical Exam Const Vital Signs: 02/06/23 23:07 02/07/23 04:26 Temperature 97.9 F Temperature Source Temporal Pulse Rate 111 H 103 H Respiratory Rate 15 15 Blood Pressure 170/105 H 133/79 H Blood Pressure Mean 126 97 Pulse Ox 98 97 Oxygen Delivery Method Room Air Room Air Positive well nourished and well developed Constitutional Narrative: Patient not appear well. He appears slightly pale. General Appearance ED: well developed, NAD and pallor; Negative for cyanotic or diaphoretic HEENT Reports dry mucous membranes HEENT Narrative: There is bilateral periorbital edema noted. Conjunctive is pink and normal. Ears normal. Nares patent. Uvula is midline. There is no deviation with protrusion. Mouth ED: Yes dry mucous membranes Mouth: dry mucous membranes Eyes PERRL and EOMs intact bilaterally General Eye ED: Negative for pale conjunctiva or scleral icterus Neck no lymphadenopathy, supple and no JVD Chest Wall inspection of chest normal and palpation of chest normal Resp normal respiratory effort and clear to auscultation bilaterally Cardio regular rhythm, S1 normal heart sound, S2 normal heart sound and no murmurs Rate: tachycardic GI normal to inspection, nondistended, normoactive bowel sounds, non-tender, non- distended and no masses; Negative for hepatosplenomegaly Auscultation: hypoactive bowel sounds Palpation: soft Back/Spine no CVA tenderness Extremity normal to inspection General Extremety ED: Negative for edema or tenderness General Extremity: Negative for edema Neuro oriented x3, CN's II-XII intact bilaterally and no sensory deficits noted Sensorium / Orientation: alert Skin no rashes or lesions noted, no wounds and No skin turgor normal General Skin Exam: pallor; Negative for jaundice MDM MDM MDM Narrative Medical decision making narrative: Patient with nausea, vomiting diarrhea. Since she is diabetic we will obtain BMP to assess glucose, CO2 anion gap as well as electrolytes. IV fluids were ordered since clinically he appears dehydrated. Uncertain cause of his acute periorbital edema. There is no evidence of angioedema involving the lips, tongue or posterior pharynx. History & Record Review Additional record(s) reviewed:: Prior ED visit (Patient was seen several times in 2020 for abscess located in different locations. Also records from outside facility regarding abscess.) and Prior labs Lab Data Attestation: I reviewed the patient's lab results. Lab results narrative: Basic metabolic panel reveals a glucose of 233 with a normal CO2 anion gap. BUN and creatinine are elevated at 28 and 1.34. Baseline is less than 1. This would be consistent with previous edema and renal insufficiency due to his nausea, vomit diarrhea. Labs: Laboratory Results - last 24 hr 02/07/23 00:05 Sodium 142 Potassium 4.2 Chloride 104 Carbon Dioxide 25.0 Anion Gap 13 BUN 28 H Creatinine 1.34 H Estim Creat Clear Calc 74.15 Est GFR (MDRD) Af Amer 75 Est GFR (MDRD) Non-Af 62 BUN/Creatinine Ratio 20.9 H Glucose 233 H Calcium 8.2 L Treatment and Re-Evaluation :: Challenge was ordered and patient was informed of results. Patient vomited prior to p.o. challenge. P.o. challenge has been held. He received 10 mg of Reglan since he is diabetic to control his nausea and vomiting. If this does not control his nausea and vomiting in light of the fact that he is diabetic with increased BUN and creatinine will contact hospitalist for observation status versus full admission. I was informed at 0134 the patient is having pain. 4 mg of morphine was ordered. He did receive his Reglan. We will have nurse perform p.o. challenge after he received his morphine. I was informed at 0154 that patient is vomiting again. Since he has not responded to Zofran or Reglan will have nurse administer 2 mg of Haldol. Was reassessed at 0305. He is now complaining of a burning sensation. He is vomiting has ceased. We will treat with GI cocktail and IV Pepcid. Patient was reassessed at 0437. He was asleep and had to be awakened. He feels markedly better. He passes p.o. challenge. Will discharge to home. 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 Prescriptions: No Action omeprazole 20 mg capsule,delayed release(DR/EC) 20 mg PO BID (DME) blood-glucose meter Misc See Rx Instructions .ROUTE .MEDSUPPLY Qty: 1 0RF Rx Instructions: As directed (DME) Blood Glucose Test Strip See Rx Instructions .ROUTE .MEDSUPPLY Qty: 100 5RF Rx Instructions: test 6 times daily as needed (DME) lancets 17 gauge misc See Rx Instructions .ROUTE .MEDSUPPLY Qty: 100 5RF Rx Instructions: As directed alcohol swabs [BD Alcohol Swabs] Pads, Medicated 1 pad TOPICAL 6XD Qty: 100 5RF lisinopril 10 mg tablet 10 mg PO DAILY Qty: 30 5RF Rx Instructions: BP linezolid 600 mg tablet 600 mg PO Q12H 11 Days Qty: 22 0RF sulfamethoxazole-trimethoprim [sulfamethoxazole-trimethoprim] 1 TABLET tablet 1 tab PO BID Qty: 20 0RF cephalexin [cephalexin] 500 MG capsule 500 mg PO Q6 Qty: 40 0RF ibuprofen 600 MG tablet 600 mg PO Q6H PRN PRN (Reason: pain) Qty: 20 0RF insulin lispro 100 unit/mL insulin pen See Rx Instructions SC DAILY Qty: 15 1RF Protocol: 5. Sliding Scale Insulin High Dosing Condition: 150-209 mg/dl = 3 units Condition: 210-259 mg/dl = 6 units Condition: 260-324 mg/dl = 9 units Condition: 325-374 mg/dl = 12 units Condition: 375-409 mg/dl = 14 units Condition: 410-449 mg/dl = 16 units Condition: Greater than 449 call physician Protocol Text: - Use for Total Daily Dose of Insulin 81-120 units - Very insulin resistant or septic patients HIGH DOSING ALGORITHM Rx Instructions: subcut daily per sliding scale. insulin NPH and regular human 100 unit/mL (70-30) insulin pen 35 unit SC BID Qty: 15 5RF (DME) pen needle, diabetic 30 gauge x 5/16 needle See Rx Instructions .ROUTE .MEDSUPPLY Qty: 100 5RF Rx Instructions: 5 times daily as directed Primary Care Provider: Care Physician,No Primary Referrals: Care Physician,No Primary [Primary Care Provider] - Doctor,Your [Non-Staff] - 3-5 Days Activity Restrictions/Additional Instructions: You are dehydrated from the nausea vomiting diarrhea. Your kidney function is slightly impaired. You will need to contact your doctor for appointment to be seen in 3 to 5 days for repeat blood work. You can find the name of your doctor and phone number on the insurance card your issued by [employer]. Contact your healthcare provider today for follow-up. You should not take any anti-inflammatory medication i.e. ibuprofen, Naprosyn etc. Disposition Disposition: Home, Self Care
[2023-02-07 00:05] VITALS: BMI 26.2
[2023-02-07] MEDS: Ondansetron 4 MG/2 ML Vial IV (00:06)
[2023-02-07] MEDS: 0.9% Normal Saline 1,000 ML 1000 ML IV (00:06)
[2023-02-07 00:25] LABS: Anion Gap 13 (5-15); BUN 28 mg/dL (7-18); BUN/Creat Ratio 20.9 RATIO (10-20); Calcium,Total 8.2 mg/dL (8.5-10.1); Chloride 104 mmol/L (98-107); Creatinine, Serum 1.34 mg/dL (0.70-1.30); EST Glomerular Filtration Rate 62 mL/min (>60); Est Glom Filt Rate - Afr Amer 75 mL/min (>60); Estimated Creatinine Clearance 74.15 ml/min; Glucose 233 mg/dL (74-106); Potassium 4.2 mmol/L (3.5-5.1); Sodium Level 142 mmol/L (136-145)
[2023-02-07] MEDS: Metoclopramide 10 MG/2 ML Vial 5 MG IV (00:48)
[2023-02-07] MEDS: Morphine 4 MG/ML Syringe IV (01:45)
[2023-02-07] MEDS: Haloperidol Lactate 5 MG/ML Vial 2 MG IV (02:19)
[2023-02-07] MEDS: Mag Hydrox/Al Hydrox/Simeth 30 ML UDC PO (03:22)
[2023-02-07] MEDS: Famotidine 200 MG/20 ML MDV 20 MG in 0.9% Normal Saline (Pres. free 8 ML 300 MG IV (03:22)
[2023-02-07 04:26] VITALS: BP 133/79; PULSE 103; RESP 15; O2SAT 97
[2023-02-07 05:16] VITALS: BP 133/79; PULSE 103; RESP 15; O2SAT 97
== END 2023-02-07 05:16 | disposition home or self-care (01) ==
PROVIDERS: Emergency Provider Emergency Medicine; Visit Provider Emergency Medicine
DX: R10.9 Unspecified abdominal pain (principal); E11.65 Type 2 diabetes mellitus with hyperglycemia; Z79.4 Long term (current) use of insulin; R11.2 Nausea with vomiting, unspecified; R19.7 Diarrhea, unspecified; R00.0 Tachycardia, unspecified; N28.9 Disorder of kidney and ureter, unspecified; R79.89 Other specified abnormal findings of blood chemistry; F17.210 Nicotine dependence, cigarettes, uncomplicated
CPT/HCPCS: 80048; 96361; 96374; 96375; 99283; J7030; A4216; J2405; J3490

== ENCOUNTER 2023-02-09 04:24 | Emergency (ER) | payer MEDICAID, SELFPAY ==
[2023-02-09 04:25] VITALS: BP 183/128; PULSE 89; RESP 18; TEMP 36.7; O2SAT 99; BMI 26.2
--- NOTE | 2023-02-09 04:59 | ED.VIS.GI ---
HPI HPI - GI History of Present Illness Chief Complaint: Abd Pain Informant: patient Abdominal Pain/Flank Pain Onset: Today Context: Sudden Onset Timing: Continuous Quality: Burning and Sharp Location: Epigastric, RUQ and LUQ Worsened by: Nothing Relieved by: - (Laying prone) Nausea/Vomiting/Emesis GI Symptom: Positive for Nausea and Vomiting Onset: Today Quality: Positive for Nonbilious; Negative for Blood streaks, Coffee ground or Hematemesis Diarrhea/Melena/Hematochezia GI Symptom: Positive for Diarrhea; Negative for Melena or Hematochezia Onset: Today Stool Quality: Positive for Watery Associated Symptoms Associated Symptoms: Negative for Dysuria, Frequency or Hematuria Narrative Narrative: Patient presents with abdominal pain, nausea, vomiting, and diarrhea that began today. Patient states it began rather suddenly. Patient states his pain is mainly over the upper abdomen and into his chest. Patient describes it as burning and aching. Patient states he has a history of esophagitis and the pain in his chest feels similar to that. Patient states his pain is better when he lays prone. Patient denies any hematemesis or coffee-ground emesis. Patient states his vomiting is just stomach contents. Patient admits to watery diarrhea but denies any melena or hematochezia. Patient denies any dysuria frequency or hematuria. [facility] Medical History Asthma Diabetes Esophagitis GERD (gastroesophageal reflux disease) Hypertension Smoker Tobacco use Type 2 diabetes mellitus without complications Home Medications alcohol swabs (BD Alcohol Swabs) 1 pad topical 6XD #100 ea 01/19/21 [Rx Last Taken Unknown] blood sugar diagnostic (Blood Glucose Test strips) #100 ea 01/19/21 [Rx Last Taken Unknown] blood-glucose meter #1 ea 01/19/21 [Rx Last Taken Unknown] lancets 17 gauge #100 ea 01/19/21 [Rx Last Taken Unknown] lisinopril 10 mg tablet 10 mg PO DAILY #30 tabs 01/19/21 [Rx Last Taken Unknown] pen needle, diabetic 30 gauge x 5/16 #100 ea 01/20/21 [Rx Last Taken Unknown] dulaglutide 1.5 mg/0.5 mL subcutaneous pen injector ([employer] 42cm) 1.5 mg subcut QWEEK 02/09/23 [History Last Taken Unknown] insulin lispro 100 unit/mL subcutaneous half-unit pen (Humalog Conrad Chris (U-100)) unit subcut 02/09/23 [History Last Taken Unknown] omeprazole 20 mg capsule,delayed release 20 mg PO DAILY #30 CAPSULES 02/09/23 [Rx Last Taken Unknown] Allergy/AdvReac Type Severity Reaction Status Date / Time No Known Allergies Allergy Verified 02/09/23 04:29 Family History Mother Diabetes Heart disease Myocardial infarction Hypertension Father Diabetes Heart disease Myocardial infarction Hypertension Other Asthma Surgical History No significant past surgical history Social History household members: family Smoking Status: Current every day smoker tobacco type: cigarettes how long ago did patient quit smoking: Patient started smoking when he was 11 years old. alcohol intake: never substance use type: does not use ROS ROS ED Constitutional Constitutional ED: Denies chills or fever(s) Eyes Eyes: Denies blurry vision or change in vision ENT ENT ED: Denies rhinorrhea or sore throat Cardiovascular Cardiovascular: Reports chest pain; Denies palpitations Respiratory/Chest Respiratory/Chest: Reports cough; Denies dyspnea Gastrointestinal Gastrointestinal: Reports abdominal pain, diarrhea, nausea and vomiting Genitourinary Genitourinary ED: Denies dysuria or hematuria Musculoskeletal Musculoskeletal: Denies back pain or neck pain Integumentary Denies abscess or rash Neurologic Neurologic: Denies headache(s) or weakness Allergic/Immunologic Allergic/Immunologic ED: Denies mouth swelling or urticaria EXAM Physical Exam Const Vital Signs: 02/09/23 04:25 02/09/23 06:20 Temperature 98.0 F Temperature Source Temporal Pulse Rate 89 Respiratory Rate 18 18 Blood Pressure 183/128 H Blood Pressure Mean 146 Pulse Ox 99 Oxygen Delivery Method Room Air Positive well nourished and well developed General Appearance ED: well developed HEENT Reports moist mucous membranes Neck supple and no JVD Resp normal respiratory effort and clear to auscultation bilaterally Cardio regular rate, regular rhythm and no murmurs GI normal to inspection, nondistended, normoactive bowel sounds Palpation: soft and tender epigastric, LUQ and RUQ; Negative for guarding or rebound tenderness present Extremity normal to inspection General Extremety ED: Negative for edema or tenderness General Extremity: Negative for edema Neuro oriented x3, CN's II-XII intact bilaterally and no sensory deficits noted Sensorium / Orientation: alert Motor Exam: strength 5/5 throughout Psych mental status grossly normal Skin no rashes or lesions noted MDM MDM MDM Narrative Medical decision making narrative: Differential diagnosis includes gastritis, esophagitis, esophageal reflux, gastroenteritis, pancreatitis, diabetic ketoacidosis, dehydration, electrolyte abnormality, urinary tract infection, and acute kidney injury. CBC will be obtained to assess for anemia and leukocytosis. Comprehensive metabolic profile will be obtained to assess for electrolyte abnormality, hepatic function, and renal function. Lipase will be obtained to assess for pancreatitis. Serum acetone will be obtained to assess for ketoacidosis. Urinalysis will be obtained to assess for urinary tract infection. History & Record Review Additional record(s) reviewed:: Prior ED visit and Prior labs Lab Data Attestation: I reviewed the patient's lab results. Lab results narrative: CBC was reviewed and was within normal limits. Urinalysis was reviewed and shows occult blood of 250 with 10-25 red blood cells. There is no evidence of urinary tract infection. Comprehensive metabolic profile was reviewed. Glucose was slightly elevated at 207. BUN was elevated at 44. Creatinine was normal at 1.12. AST was slightly elevated at 89. ALT was normal. Alkaline phosphatase was normal. Lipase was reviewed and was slightly elevated at 144. Labs: Laboratory Results - last 24 hr 02/09/23 02/09/23 02/09/23 05:10 05:25 05:25 WBC 10.4 RBC 4.43 L Hgb 14.8 Hct 41.5 MCV 93.7 MCH 33.4 H MCHC 35.7 RDW Std Deviation 42.5 RDW Coeff of Gentry 12.2 Plt Count 299 MPV 10.2 Immature Gran % (Auto) 0.300 Neut % (Auto) 75.3 H Lymph % (Auto) 14.9 L Hale % (Auto) 7.7 Eos % (Auto) 1.3 Baso % (Auto) 0.5 Absolute Neuts (auto) 7.9 H Absolute Lymphs (auto) 1.55 Nucleated RBC % 0 Sodium Cancelled Potassium Cancelled Chloride Cancelled Carbon Dioxide Cancelled Anion Gap Cancelled BUN Cancelled Creatinine Cancelled Estim Creat Clear Calc Cancelled Est GFR (MDRD) Af Amer Cancelled Est GFR (MDRD) Non-Af Cancelled BUN/Creatinine Ratio Cancelled Glucose Cancelled Calcium Cancelled Total Bilirubin Cancelled AST Cancelled ALT Cancelled Alkaline Phosphatase Cancelled Total Protein Cancelled Albumin Cancelled Globulin Cancelled Albumin/Globulin Ratio Cancelled Lipase Cancelled Urine Color Yellow Urine Clarity Clear Urine pH 8.0 Ur Specific [place] 1.015 Urine Protein 500 H Urine Glucose (UA) 50 H Urine Ketones 15 H Urine Occult Blood 250 H Urine Nitrite Negative Urine Bilirubin Negative Urine Urobilinogen Normal Ur Leukocyte Esterase Negative Urine RBC 10-25 SEEN Urine WBC 0-5 SEEN Ur Squamous Epith Cells 0 SEEN Urine Bacteria 1+ Hyaline Casts 0-5 SEEN Urine Mucus 0 SEEN 02/09/23 06:15 WBC RBC Hgb Hct MCV MCH MCHC RDW Std Deviation RDW Coeff of Gentry Plt Count MPV Immature Gran % (Auto) Neut % (Auto) Lymph % (Auto) Hale % (Auto) Eos % (Auto) Baso % (Auto) Absolute Neuts (auto) Absolute Lymphs (auto) Nucleated RBC % Sodium 138 Potassium 4.2 Chloride 106 Carbon Dioxide 24.0 Anion Gap 8 BUN 44 H Creatinine 1.12 Estim Creat Clear Calc 88.72 Est GFR (MDRD) Af Amer 92 Est GFR (MDRD) Non-Af 76 BUN/Creatinine Ratio 39.3 H Glucose 207 H Calcium 8.3 L Total Bilirubin 0.30 AST 89 H ALT 58 Alkaline Phosphatase 66 Total Protein 5.6 L Albumin 1.9 L Globulin 3.7 Albumin/Globulin Ratio 0.5 L Lipase 144 H Urine Color Urine Clarity Urine pH Ur Specific [place] Urine Protein Urine Glucose (UA) Urine Ketones Urine Occult Blood Urine Nitrite Urine Bilirubin Urine Urobilinogen Ur Leukocyte Esterase Urine RBC Urine WBC Ur Squamous Epith Cells Urine Bacteria Hyaline Casts Urine Mucus Radiography Diagnostic Testing: Clinical Impression(s) from Imaging Studies Abdomen/Pelvis CT 02/09/23 06:27 IMPRESSION: 1. There is a 1.5 cm nodule in the lingula. A follow-up chest CT is recommended. 2. No acute abnormalities identified in the abdomen/pelvis. Electronically Signed: Nigel Damon MD at 7:13 EDT , Due to the hematuria, CT scan of the abdomen pelvis was obtained. There is no evidence of ureteral calculus. There is no acute intra-abdominal process noted. There is a 1.5 cm nodule in the lingula and a follow-up chest CT is recommended. This was interpreted by the radiologist and was also independently reviewed by myself. Treatment and Re-Evaluation :: Patient was given IV fluids, Bentyl, and Zofran here. Patient was given a GI cocktail. Upon returning from CT scan, patient complains of worsening pain. Patient was given a dose of Toradol and Zofran. Patient was also given a second liter of saline. Patient requested a repeat GI cocktail. This was ordered. Patient was given a prescription for omeprazole. Patient was advised of his findings. Patient was instructed to drink plenty of fluids. Patient was instructed to take Tylenol or ibuprofen as needed for pain. Patient was instructed to follow-up with his primary care physician in 5 to 7 days. Patient understood and was agreeable with plan. All questions were answered. Discharge Plan Triage Chief Complaint: Abd Pain ED Provider: Tank Puga Dx/Rx/DC Orders Clinical Impression: Acute generalized abdominal pain, Dehydration Instructions: ED Dehydration (Adult), ED Abdominal Pain Unkn Cause Male... Prescriptions: New omeprazole [omeprazole] 20 mg capsule,delayed release(DR/EC) 20 mg PO DAILY Qty: 30 0RF No Action (DME) blood-glucose meter Misc See Rx Instructions .ROUTE .MEDSUPPLY Qty: 1 0RF Rx Instructions: As directed (DME) Blood Glucose Test Strip See Rx Instructions .ROUTE .MEDSUPPLY Qty: 100 5RF Rx Instructions: test 6 times daily as needed (DME) lancets 17 gauge misc See Rx Instructions .ROUTE .MEDSUPPLY Qty: 100 5RF Rx Instructions: As directed alcohol swabs [BD Alcohol Swabs] Pads, Medicated 1 pad TOPICAL 6XD Qty: 100 5RF lisinopril 10 mg tablet 10 mg PO DAILY Qty: 30 5RF Rx Instructions: BP Trulicity 1.5 mg/0.5 mL Pen Injector 1.5 mg SUBCUT QWEEK insulin lispro [Humalog Conrad KwSudha U-100] 100 unit/mL Insulin Pen, Half-Unit SUBCUT Rx Instructions: SSI NEEDED (DME) pen needle, diabetic 30 gauge x 5/16 needle See Rx Instructions .ROUTE .MEDSUPPLY Qty: 100 5RF Rx Instructions: 5 times daily as directed Primary Care Provider: Care Physician,No Primary Referrals: Summer Padilla MD [Med Staff - [employer]] - 5-7 Days Care Physician,No Primary [Primary Care Provider] - Disposition Disposition: Home, Self Care
[2023-02-09] MEDS: Dicyclomine 20 MG/2 ML Vial IM (05:19)
[2023-02-09] MEDS: Ondansetron 4 MG/2 ML Vial IV ×2 (05:20→07:07)
[2023-02-09] MEDS: 0.9% Normal Saline 1,000 ML 1000 ML IV ×2 (05:23→09:00)
[2023-02-09] MEDS: Mag Hydrox/Al Hydrox/Simeth 30 ML UDC PO ×2 (05:28→07:32)
[2023-02-09 05:32] LABS: Mucous, Urine 0 SEEN /hpf (<or=2+); Squamous Epithelial Cells - UA 0 SEEN /hpf (0-5)
[2023-02-09 05:32] LABS: Absolute Lymphocyte Count 1.55 X10^3/uL (0.83-4.51); Absolute Neutrophil Count 7.9 X10^3/uL (2.0-7.7); Basophil# 0.05 X10^3/uL; Basophil% 0.5 % (0-1); Eosinophil# 0.14 X10^3/uL; Eosinophils% 1.3 % (0-5); Hematocrit 41.5 % (40-54); Hemoglobin 14.8 g/dL (13.0-16.5); Lymphocyte # 1.55 X10^3/ul (0.83-4.51); Lymphocyte % 14.9 % (19-41); Mean Corp Hgb Conc 35.7 g/dL (32-36); Mean Corpuscular Hgb 33.4 pg (27.0-32.0); Mean Corpuscular Volume 93.7 fL (80-94); Mean Platelet Vol. 10.2 fl (6.2-12.0); Monocyte% 7.7 % (0-10); NRBC Flagged by Analyzer 0 % (0-5); Neutrophil # 7.86 X10^3/uL (2.7-7.7); Neutrophil % 75.3 % (47-70); Platelet Count 299 K/mm3 (150-450); RBC Distribution Width CV 12.2 % (11.6-14.6); RBC Distribution Width SD 42.5 fl (35.1-43.9); Red Blood Count 4.43 M/mm3 (4.6-6.2); White Blood Count 10.4 K/mm3 (4.4-11.0)
[2023-02-09 05:41] LABS: Color, Urine Yellow (Yellow); Glucose, Dipstick 50 mg/dl (Normal); Ketone-Dipstick 15 mg/dl (Negative); Leukocyte Esterase-Dipstick Negative /ul (Negative); Nitrite-Dipstick Negative (Negative); Occult Blood-Urine 250 /ul (Negative); Protein-Dipstick 500 mg/dl (Negative); Specific Gravity, Urine 1.015 (1.002-1.030); Urine Bilirubin Dipstick Negative (Negative); Urine Clarity Clear (Clear); Urine Urobilinogen Normal (Normal)
[2023-02-09 06:20] VITALS: RESP 18
[2023-02-09 06:20] LABS: Bacteria 1+ /hpf (None Seen); Hyaline Cast 0-5 SEEN /lpf (0-5); Red Blood Cells-Urine 10-25 SEEN /hpf (0-5); White Blood Cells 0-5 SEEN /hpf (0-5)
--- NOTE | 2023-02-09 06:27 | CT_ITS ---
EXAM: CT ABDOMEN AND PELVIS WITHOUT INTRAVENOUS CONTRAST CLINICAL INDICATION: Hematuria TECHNIQUE: Helically acquired images were obtained of the abdomen and pelvis without intravenous contrast. This CT exam was performed using one or more of the following dose reduction techniques: automated exposure control, adjustment of the mA and/or kV according to patient size, and/or use of iterative reconstruction technique. COMPARISON: No relevant prior studies available. FINDINGS: LOWER THORAX: There is a 1.5 cm nodule in the lingula. No cardiomegaly. No significant pericardial effusion. ABDOMEN: LIVER: Unremarkable. Homogeneous. GALLBLADDER AND BILE DUCTS: Unremarkable. No calcified gallstones. No gallbladder distention or wall edema. No intra- or extrahepatic biliary ductal dilation. PANCREAS: Unremarkable. No focal cystic mass. SPLEEN: Unremarkable. Normal size without focal cystic or solid mass. ADRENALS: Unremarkable. No nodules. KIDNEYS AND URETERS: Unremarkable. Normal renal size and position. No urinary stone or renal obstruction. STOMACH AND BOWEL: Unremarkable. No stomach or bowel distention. No focal inflammatory change. PELVIS: APPENDIX: The appendix is normal. BLADDER: Unremarkable. REPRODUCTIVE: Unremarkable as visualized. No mass. ABDOMEN and PELVIS: INTRAPERITONEAL SPACE: Unremarkable. No ascites or other fluid collection. No free air. BONES/JOINTS: Unremarkable. No suspicious lytic or blastic abnormality. SOFT TISSUES: Unremarkable. No discrete abdominal or pelvic wall hernia. VASCULATURE: Unremarkable. Abdominal aorta is non-dilated. LYMPH NODES: Unremarkable. No enlarged lymph nodes. CT/Abdomen/Pelvis without Cont IMPRESSION: 1. There is a 1.5 cm nodule in the lingula. A follow-up chest CT is recommended. 2. No acute abnormalities identified in the abdomen/pelvis. Electronically Signed: Nigel Damon MD at 7:13 EDT ,
[2023-02-09 07:03] LABS: ALB/GLOB Ratio 0.5 RATIO (0.9-2.4); AST(SGOT) 89 U/L (15-37); Alanine Aminotransfer ALT/SGPT 58 U/L (16-61); Albumin, Serum 1.9 g/dL (3.2-5.0); Alkaline Phosphatase 66 U/L (45-117); Anion Gap 8 (5-15); BUN 44 mg/dL (7-18); BUN/Creat Ratio 39.3 RATIO (10-20); Calcium,Total 8.3 mg/dL (8.5-10.1); Chloride 106 mmol/L (98-107); Creatinine, Serum 1.12 mg/dL (0.70-1.30); EST Glomerular Filtration Rate 76 mL/min (>60); Est Glom Filt Rate - Afr Amer 92 mL/min (>60); Estimated Creatinine Clearance 88.72 ml/min; Globulin 3.7 g/dL (2.2-4.2); Glucose 207 mg/dL (74-106); Lipase 144 U/L (13-75); Potassium 4.2 mmol/L (3.5-5.1); Protein, Total 5.6 g/dL (6.4-8.2); Sodium Level 138 mmol/L (136-145)
[2023-02-09] MEDS: Ketorolac 30 MG/ML Syringe IV (07:08)
--- NOTE | 2023-02-09 09:08 | EKG12_ITS ---
Test Reason : abd pain Blood Pressure : / mmHG Vent. Rate : 085 BPM Atrial Rate : 085 BPM P-R Int : 138 ms QRS Dur : 078 ms QT Int : 374 ms P-R-T Axes : 071 062 058 degrees QTc Int : 445 ms Normal sinus rhythm Normal ECG Confirmed by MELISSA PACHECO, BAKARI ([id number]), sound editor RADU ELLSWORTH ([id number]) on 02/11/2023 11:24:40 A M Referred By: Mine Confirmed By:BIJU TORRES MD
[2023-02-09 09:17] VITALS: BP 154/99; PULSE 85; RESP 16; O2SAT 99
[2023-02-09 09:48] LABS: Troponin-I HS 20 pg/mL (3.0-78.0)
[2023-02-09 11:06] VITALS: RESP 18; O2SAT 98
[2023-02-09] MEDS: Sucralfate 1 GM Tablet PO (11:32)
== END 2023-02-09 11:33 | disposition home or self-care (01) ==
PROVIDERS: Emergency Medicine; Emergency Provider Emergency Medicine; Visit Provider Emergency Medicine
DX: R10.84 Generalized abdominal pain (principal); E11.9 Type 2 diabetes mellitus without complications; Z79.4 Long term (current) use of insulin; E86.0 Dehydration; I10 Essential (primary) hypertension; F17.210 Nicotine dependence, cigarettes, uncomplicated; Z79.899 Other long term (current) drug therapy
CPT/HCPCS: 36415; 74176; 80053; 81001; 83690; 84484; 85025; 93005; 96361; 96365; 96372; 96375; 96376; 99284; J7030; A4216; J2405

== ENCOUNTER 2023-04-23 07:50 | Inpatient (IN) | payer MEDICAID, SELFPAY ==
[2023-04-23] VITALS (7 sets, daily range): BP systolic 147–217; BP diastolic 80–128; PULSE 83–94; RESP 14–20; TEMP 36.1–37.1; O2SAT 93–99; BMI 24.6
--- NOTE | 2023-04-23 08:02 | EKG12_ITS ---
Test Reason : NAUSEA Blood Pressure : / mmHG Vent. Rate : 083 BPM Atrial Rate : 083 BPM P-R Int : 144 ms QRS Dur : 076 ms QT Int : 400 ms P-R-T Axes : 075 075 075 degrees QTc Int : 470 ms Normal sinus rhythm Normal ECG Confirmed by MARIANO PACHECO, RIGO ([id number]), technical writer and editor [employer]U ELLSWORTH ([id number]) on 04/25/2023 1:34:57 PM Referred By: TERRY Confirmed By:RIGO QUINTANA MD
--- NOTE | 2023-04-23 08:08 | EDS_ITS ---
HPI History of Present Illness Chief Complaint: Nausea/Vomiting Informant: patient Narrative Narrative: Presents sudden onset nausea vomiting since this morning. Last emesis slight amount of blood. No gross amount. States he had 1 alcoholic drink yesterday. He denies daily drinking or chronic alcohol use. Denies history of pancreatitis. Is diabetic on Trulicity weekly, blood glucose 230 by EMS. Yesterday states felt lightheaded slight shortness of breath. There is no cough. Denies recent travel or surgeries. No history of PE or DVT. Normal bowel movement yesterday. Typically has daily bowel movements. Abdominal cramping due to vomiting. Denies chest pains or headache. He denies any recreational drug use. [facility] Medical History Asthma Diabetes Esophagitis GERD (gastroesophageal reflux disease) Hypertension Smoker Tobacco use Type 2 diabetes mellitus without complications Home Medications alcohol swabs (BD Alcohol Swabs) 1 pad topical 6XD #100 ea 01/19/21 [Rx Last Taken Unknown] blood sugar diagnostic (Blood Glucose Test strips) #100 ea 01/19/21 [Rx Last Taken Unknown] blood-glucose meter #1 ea 01/19/21 [Rx Last Taken Unknown] lancets 17 gauge #100 ea 01/19/21 [Rx Last Taken Unknown] lisinopril 10 mg tablet 10 mg PO DAILY #30 tabs 01/19/21 [Rx Last Taken Unknown] pen needle, diabetic 30 gauge x 5/16 #100 ea 01/20/21 [Rx Last Taken Unknown] dulaglutide 1.5 mg/0.5 mL subcutaneous pen injector (Trulicity) 1.5 mg subcut QWEEK 02/09/23 [History Last Taken Unknown] insulin lispro 100 unit/mL subcutaneous half-unit pen (Humalog Conrad KwikPen (U-100)) unit subcut 02/09/23 [History Last Taken Unknown] omeprazole 20 mg capsule,delayed release 20 mg PO DAILY #30 CAPSULES 02/09/23 [Rx Last Taken Unknown] Allergy/AdvReac Type Severity Reaction Status Date / Time No Known Allergies Allergy Verified 02/09/23 04:29 Family History Mother Diabetes Heart disease Myocardial infarction Hypertension Father Diabetes Heart disease Myocardial infarction Hypertension Other Asthma Surgical History No significant past surgical history Social History household members: family Smoking Status: Current every day smoker tobacco type: cigarettes how long ago did patient quit smoking: Patient started smoking when he was 11 years old. alcohol intake: never substance use type: does not use ROS ROS ED Constitutional Constitutional ED: Denies chills, fever(s) or sweats Eyes Eyes: Denies change in vision ENT ENT ED: Denies dysphagia or sore throat Cardiovascular Cardiovascular: Denies chest pain, leg edema, palpitations or racing heartbeat Respiratory/Chest Respiratory/Chest: Denies cough, dyspnea or dyspnea on exertion Gastrointestinal Gastrointestinal: Reports abdominal pain, nausea and vomiting; Denies diarrhea Genitourinary Genitourinary ED: Denies dysuria, hematuria or urinary frequency Musculoskeletal Musculoskeletal: Denies back pain, extremity pain or neck pain Integumentary Denies rash or wounds Neurologic Neurologic: Denies headache(s), paresthesias or weakness EXAM Physical Exam Const Vital Signs: 04/23/23 07:51 Temperature 97 F L Temperature Source Temporal Pulse Rate 94 Respiratory Rate 20 H Blood Pressure 208/128 H Blood Pressure Mean 154 Pulse Ox 99 Oxygen Delivery Method Room Air Positive well nourished and well developed General Appearance ED: well developed and NAD HEENT Reports moist mucous membranes normocephalic and atraumatic Eyes PERRL, EOMs intact bilaterally and conjunctivae normal General Eye ED: Yes normal appearance of both eyes Neck no lymphadenopathy and supple General: Negative for tenderness Chest Wall Chest: Negative for tenderness Resp normal respiratory effort and normal air movement Effort and Inspection: symmetric chest movement; Negative for respiratory distress Cardio regular rate, regular rhythm and no murmurs Peripheral Pulses: pulses 2+ throughout GI normal to inspection, nondistended, normoactive bowel sounds and non-tender Palpation: Negative for guarding or rebound tenderness present Back/Spine no CVA tenderness and no thoracic nor lumbar tenderness Extremity normal to inspection General Extremety ED: Negative for edema or tenderness General Extremity: Negative for edema Neuro oriented x3 and no sensory deficits noted Sensorium / Orientation: awake and alert Skin no rashes or lesions noted and no wounds MDM MDM MDM Narrative Medical decision making narrative: Interventions / MDM: Differential diagnosis: Diagnosis considered but do not suspect: N/A My EKG interpretation: N/A Imaging independently reviewed and interpreted by myself: N/A External documents reviewed: N/A Test considered but not ordered:N/A ED course: Re-evaluation: stable Disposition discussed with patient/family/significant other: Case discussed with consulting clinician: N/A This note was generated with [employer] dictation software. It may contain incorrect words, spelling, and punctuation that were not noted in checking the note before signing. Discharge Plan Triage Chief Complaint: Nausea/Vomiting ED Provider: Felice Mandujano Dx/Rx/DC Orders Prescriptions: No Action (DME) blood-glucose meter Misc See Rx Instructions .ROUTE .MEDSUPPLY Qty: 1 0RF Rx Instructions: As directed (DME) Blood Glucose Test Strip See Rx Instructions .ROUTE .MEDSUPPLY Qty: 100 5RF Rx Instructions: test 6 times daily as needed (DME) lancets 17 gauge misc See Rx Instructions .ROUTE .MEDSUPPLY Qty: 100 5RF Rx Instructions: As directed alcohol swabs [BD Alcohol Swabs] Pads, Medicated 1 pad TOPICAL 6XD Qty: 100 5RF lisinopril 10 mg tablet 10 mg PO DAILY Qty: 30 5RF Rx Instructions: BP Trulicity 1.5 mg/0.5 mL Pen Injector 1.5 mg SUBCUT QWEEK insulin lispro [Humalog Conrad KwikPen U-100] 100 unit/mL Insulin Pen, Half- Unit SUBCUT Rx Instructions: SSI NEEDED omeprazole [omeprazole] 20 mg capsule,delayed release(DR/EC) 20 mg PO DAILY Qty: 30 0RF (DME) pen needle, diabetic 30 gauge x 5/16 needle See Rx Instructions .ROUTE .MEDSUPPLY Qty: 100 5RF Rx Instructions: 5 times daily as directed Primary Care Provider: Care Physician,No Primary Referrals: Care Physician,No Primary [Primary Care Provider] -
--- NOTE | 2023-04-23 08:08 | EX.ED.DYSGE1 ---
HPI History of Present Illness Chief Complaint: Nausea/Vomiting Informant: patient Narrative Narrative: Presents sudden onset nausea vomiting since this morning. Last emesis slight amount of blood. No gross amount. States he had 1 alcoholic drink yesterday. He denies daily drinking or chronic alcohol use. Denies history of pancreatitis. Is diabetic on Trulicity weekly, blood glucose 230 by EMS. Yesterday states felt lightheaded slight shortness of breath. There is no cough. Denies recent travel or surgeries. No history of PE or DVT. Normal bowel movement yesterday. Typically has daily bowel movements. Abdominal cramping due to vomiting. Denies chest pains or headache. He denies any recreational drug use. [facility] Medical History Asthma Diabetes Esophagitis GERD (gastroesophageal reflux disease) Hypertension Smoker Tobacco use Type 2 diabetes mellitus without complications Home Medications alcohol swabs (BD Alcohol Swabs) 1 pad topical 6XD #100 ea 01/19/21 [Rx Last Taken Unknown] blood sugar diagnostic (Blood Glucose Test strips) #100 ea 01/19/21 [Rx Last Taken Unknown] blood-glucose meter #1 ea 01/19/21 [Rx Last Taken Unknown] lancets 17 gauge #100 ea 01/19/21 [Rx Last Taken Unknown] pen needle, diabetic 30 gauge x 5/16 #100 ea 01/20/21 [Rx Last Taken Unknown] dulaglutide 1.5 mg/0.5 mL subcutaneous pen injector (Agendize) 1.5 mg subcut TU 02/09/23 [History Last Taken 04/16/23] amlodipine 5 mg tablet 5 mg PO DAILY 04/23/23 [History Last Taken 04/23/23] insulin lispro 100 unit/mL subcutaneous pen 10 unit subcut TID diabetes 04/23/23 [History Last Taken 04/21/23] pantoprazole 40 mg tablet,delayed release 40 mg PO DAILY acid reflux 04/23/23 [History Last Taken 04/23/23] Allergy/AdvReac Type Severity Reaction Status Date / Time No Known Allergies Allergy Verified 04/23/23 11:51 Family History Mother Diabetes Heart disease Myocardial infarction Hypertension Father Diabetes Heart disease Myocardial infarction Hypertension Other Asthma Surgical History No significant past surgical history Social History household members: family Smoking Status: Current every day smoker tobacco type: cigarettes how long ago did patient quit smoking: Patient started smoking when he was 11 years old. alcohol intake: never substance use type: does not use ROS ROS ED Constitutional Constitutional ED: Denies chills, fever(s) or sweats Eyes Eyes: Denies change in vision ENT ENT ED: Denies dysphagia or sore throat Cardiovascular Cardiovascular: Denies chest pain, leg edema, palpitations or racing heartbeat Respiratory/Chest Respiratory/Chest: Denies cough, dyspnea or dyspnea on exertion Gastrointestinal Gastrointestinal: Reports abdominal pain, nausea and vomiting; Denies diarrhea Genitourinary Genitourinary ED: Denies dysuria, hematuria or urinary frequency Musculoskeletal Musculoskeletal: Denies back pain, extremity pain or neck pain Integumentary Denies rash or wounds Neurologic Neurologic: Denies headache(s), paresthesias or weakness EXAM Physical Exam Const Vital Signs: 04/23/23 07:51 04/23/23 11:23 Temperature 97 F L Temperature Source Temporal Pulse Rate 94 84 Respiratory Rate 20 H 20 H Blood Pressure 208/128 H 217/113 H Blood Pressure Mean 154 147 Pulse Ox 99 98 Oxygen Delivery Method Room Air Room Air Positive well nourished and well developed General Appearance ED: well developed and NAD HEENT Reports moist mucous membranes normocephalic and atraumatic Eyes PERRL, EOMs intact bilaterally and conjunctivae normal General Eye ED: Yes normal appearance of both eyes Neck no lymphadenopathy and supple General: Negative for tenderness Chest Wall Chest: Negative for tenderness Resp normal respiratory effort and normal air movement Effort and Inspection: symmetric chest movement; Negative for respiratory distress Cardio regular rate, regular rhythm and no murmurs Peripheral Pulses: pulses 2+ throughout GI normal to inspection, nondistended, normoactive bowel sounds and non-tender Palpation: Negative for guarding or rebound tenderness present Back/Spine no CVA tenderness and no thoracic nor lumbar tenderness Extremity normal to inspection General Extremety ED: Negative for edema or tenderness General Extremity: Negative for edema Neuro oriented x3 and no sensory deficits noted Sensorium / Orientation: awake and alert Skin no rashes or lesions noted and no wounds MDM MDM MDM Narrative Medical decision making narrative: Interventions / MDM: Differential diagnosis: Electrolyte abnormalities, nausea and vomiting, kidney injury Diagnosis considered but do not suspect: DKA however normal anion gap. Bowel obstruction however CT negative. My EKG interpretation: Sinus rate of 83, no ST or T wave changes. Imaging independently reviewed and interpreted by myself: N/A External documents reviewed: N/A Test considered but not ordered:N/A ED course: Patient vomiting diabetes history blood glucose 230. Admission order for IV Zofran Protonix fluids labs to rule out DKA. Patient with difficulty of IV access. Nursing multiple attempts. I attempted myself with ultrasound, needle did get blood return, second attempt left arm brighter blood, however no pulsatile in, blood was drawn from this and sent to the lab. However unable to flush the IV therefore this was removed. At that time discussed with patient for continued attempt even in the legs, he had small EJ vessels however ultrasound noted large IJ vessels. Discussed central line placement for which she agreed. He was changed to IM Zofran x2 morphine IM x1, Ativan 1 mg IM given before procedure help with antiemetics and his restlessness. Procedure note: Central line placement. Written consent with the patient risks and benefits discussed. Timeout performed. Full sterile conditions performed ultrasound-guided. Patient prepped in usual sterile fashion, placed in Trendelenburg, ChloraPrep cleanse of the skin, ultrasound use initial analgesia skin and needlestick, however initial advancing of Seldinger needle, noted needed to be more lateral, therefore this was repositioned more midline of the vessel, first stick with dark blood return. Guidewire advanced, skin incision dilation, triple-lumen cath was placed 15 cm. Guidewire was really moved. Skin was secured with Biopatch placed. Dressing placed by myself. All 3 flushed well. Post chest x-ray line placement ordered. Patient awake throughout procedure. 1110: In the interim labs are returning to 80 he had a acute kidney injury 1.93 his Was normal at 5 he had small acetones. 1235: Patient currently resting comfortably and there is no retching. Blood pressure was elevated with no headache symptoms no chest pains. Down to 179 /[address] scan abdomen pelvis negative. Toxicology and did note ecstasy denies taking this, CBC normal. With acute kidney injury dehydration vomiting I discussed with hospitalist Dr. Poe for admission. Re-evaluation: stable Disposition discussed with patient/family/significant other: patient Case discussed with consulting clinician: Hospitalist This note was generated with [employer] dictation software. It may contain incorrect words, spelling, and punctuation that were not noted in checking the note before signing. Lab Data Attestation: I reviewed the patient's lab results. Labs: Laboratory Results - last 24 hr 04/23/23 04/23/23 04/23/23 10:05 11:17 12:00 WBC Cancelled 7.5 Corrected WBC Cancelled RBC Cancelled 3.72 L Hgb Cancelled 12.3 L Hct Cancelled 35.9 L MCV Cancelled 96.5 H MCH Cancelled 33.1 H MCHC Cancelled 34.3 RDW Std Deviation Cancelled 44.3 H RDW Coeff of Gentry Cancelled 12.7 Plt Count Cancelled 214 MPV Cancelled 9.6 Immature Gran % (Auto) 0.500 Neut % (Auto) 83.5 H Lymph % (Auto) 12.3 L [place] % (Auto) 3.3 Eos % (Auto) 0.0 Baso % (Auto) 0.4 Absolute Neuts (auto) 6.3 Absolute Lymphs (auto) 0.93 Nucleated RBC % 0 Diff Path Review Cancelled Sodium 134 L Potassium 4.9 Chloride 103 Carbon Dioxide 26.0 Anion Gap 5 BUN 26 H Creatinine 1.93 H Estim Creat Clear Calc 51.48 Est GFR (MDRD) Af Amer 49 L Est GFR (MDRD) Non-Af 41 L BUN/Creatinine Ratio 13.5 Glucose 281 H Calcium 8.2 L Total Bilirubin 0.40 AST 64 H ALT 39 Alkaline Phosphatase 67 Total Protein 5.6 L Albumin 1.7 L Globulin 3.9 Albumin/Globulin Ratio 0.4 L Lipase 33 Urine Opiates Screen NEGATIVE Urine Methadone Screen NEGATIVE Ur Barbiturates Screen NEGATIVE Ur Phencyclidine Scrn NEGATIVE Ur Amphetamines Screen NEGATIVE MDMA (Ecstasy) Screen POSITIVE H U Benzodiazepines Scrn NEGATIVE Urine Cocaine Screen NEGATIVE U Cannabinoids Screen NEGATIVE Ur Drug Screen Comment Acetone Level SMALL H Radiography Diagnostic Testing: Clinical Impression(s) from Imaging Studies Chest X-Ray 04/23/23 11:10 IMPRESSION: A central line is seen within the superior vena cava with the tip in the proximal portion. 1.5 Darío nodule at the left lung base. Electronically Signed: Artem Hernandez MD at 12:15 EDT , Abdomen/Pelvis CT 04/23/23 11:14 IMPRESSION: Stable 1.5 cm well-defined nodule in the posterior aspect of the lingular segment of the left upper lobe. Stable examination. Electronically Signed: Artem Hernandez MD at 12:14 EDT , Discharge Plan Dx/Rx/DC Orders Clinical Impression: FROYLAN (acute kidney injury), Hyperglycemia, Elevated blood-pressure reading, without diagnosis of hypertension, Vomiting, Dehydration Disposition Disposition: Acute Care Hospital [facility]
[2023-04-23] MEDS: Ondansetron 4 MG/2 ML Vial IM ×2 (09:01→09:39)
[2023-04-23] MEDS: Morphine 4 MG/ML Syringe IM (09:39)
[2023-04-23 10:47] LABS: ALB/GLOB Ratio 0.4 RATIO (0.9-2.4); AST(SGOT) 64 U/L (15-37); Alanine Aminotransfer ALT/SGPT 39 U/L (16-61); Albumin, Serum 1.7 g/dL (3.2-5.0); Alkaline Phosphatase 67 U/L (45-117); Anion Gap 5 (5-15); BUN 26 mg/dL (7-18); BUN/Creat Ratio 13.5 RATIO (10-20); Calcium,Total 8.2 mg/dL (8.5-10.1); Chloride 103 mmol/L (98-107); Creatinine, Serum 1.93 mg/dL (0.70-1.30); EST Glomerular Filtration Rate 41 mL/min (>60); Est Glom Filt Rate - Afr Amer 49 mL/min (>60); Estimated Creatinine Clearance 51.48 ml/min; Globulin 3.9 g/dL (2.2-4.2); Glucose 281 mg/dL (74-106); Lipase 33 U/L (13-75); Potassium 4.9 mmol/L (3.5-5.1); Protein, Total 5.6 g/dL (6.4-8.2); Sodium Level 134 mmol/L (136-145)
[2023-04-23] MEDS: LORazepam 2 MG/ML Syringe 1 MG IM (10:48)
--- NOTE | 2023-04-23 11:10 | RAD_ITS ---
STUDY: X-RAY CHEST REASON FOR EXAM: Male, 42 years old. Central line placement TECHNIQUE: Single AP portable view of the chest. COMPARISON: Comparison is made with prior study dated July 07, 2021. FINDINGS: A right-sided central line has been placed. The tip is in the proximal portion of the superior vena cava. EKG electrode are seen. ''S 1.5 Darío nodule in the left lung base. There is no demonstrated pleural abnormality. Normal size heart. Normal mediastinum and pranav. Normal visualized pulmonary arteries. Normal visualized aortic arch and descending thoracic aorta. Normal visualized thoracic spine. Normal visualized ribs, clavicles, and shoulders. There is no demonstrated abnormality of the visualized soft tissue structures of the upper abdomen. RAD/Chest 1 View (Portable) IMPRESSION: A central line is seen within the superior vena cava with the tip in the proximal portion. 1.5 Darío nodule at the left lung base. Electronically Signed: Artem Hernandez MD at 12:15 EDT ,
[2023-04-23] MEDS: 0.9% Normal Saline 1,000 ML 1000 ML IV (11:11)
--- NOTE | 2023-04-23 11:14 | CT_ITS ---
STUDY: CT ABDOMEN AND PELVIS WITHOUT CONTRAST REASON FOR EXAM: Male, 42 years old. Frequent vomiting. RADIATION DOSAGE (If Supplied By Facility): CTDIvol = ( 7.41 ) mGy, DLP = ( 405.69 ) mGycm TECHNIQUE: Transaxial images were obtained from the dome of the diaphragm to the symphysis pubis without oral contrast, and without intravenous contrast. Sagittal and coronal images were reconstructed. Individualized dose optimization techniques were used for this CT. COMPARISON: Comparison is made with prior study dated February 09, 2023. FINDINGS: Stable 1.5 cm well-defined nodule in the posterior aspect of the lingular segment of the left upper lobe abutting the fissure. Minimal anterior pericardial thickening. Normal liver. Normal gallbladder and extrahepatic biliary system. Normal spleen. Normal pancreas. Normal bilateral adrenal glands. Normal right kidney. Normal left kidney. Normal visualized stomach. Normal small intestine. Moderate amount of fecal material seen in the left hemicolon. The appendix is visualized and appears normal. There is scattered atherosclerotic calcification of the abdominal aorta, without a demonstrated aneurysm. Normal inferior vena cava. There is borderline retroperitoneal lymphadenopathy with enlarged nodes no greater than 10mm in the short axis diameter. Normal urinary bladder. Stable calcified phlebolith in the right hemipelvis. There is a left-sided inguinal hernia containing adipose tissue. Normal osseous structures. CT/Abdomen/Pelvis without Cont IMPRESSION: Stable 1.5 cm well-defined nodule in the posterior aspect of the lingular segment of the left upper lobe. Stable examination. Electronically Signed: Artem Hernandez MD at 12:14 EDT ,
[2023-04-23 11:38] LABS: Amphetamine Urine VISTA NEGATIVE (<1000 ng/mL); Barbiturate Urine VISTA NEGATIVE (< 200 ng/mL); Benzodiazepine Urine VISTA NEGATIVE (< 200 ng/mL); Cocaine Urine VISTA NEGATIVE (< 300 ng/mL); Ecstacy Urine VISTA POSITIVE (< 500 ng/mL); Methadone Urine VISTA NEGATIVE (< 300 ng/mL); PCP Urine VISTA NEGATIVE (< 25 ng/mL); THC Urine VISTA NEGATIVE (< 50 ng/mL); Vista UDS pH Range 6
[2023-04-23 12:07] LABS: Absolute Lymphocyte Count 0.93 X10^3/uL (0.83-4.51); Absolute Neutrophil Count 6.3 X10^3/uL (2.0-7.7); Basophil# 0.03 X10^3/uL; Basophil% 0.4 % (0-1); Hematocrit 35.9 % (40-54); Hemoglobin 12.3 g/dL (13.0-16.5); Lymphocyte # 0.93 X10^3/ul (0.83-4.51); Lymphocyte % 12.3 % (19-41); Mean Corp Hgb Conc 34.3 g/dL (32-36); Mean Corpuscular Hgb 33.1 pg (27.0-32.0); Mean Corpuscular Volume 96.5 fL (80-94); Mean Platelet Vol. 9.6 fl (6.2-12.0); Monocyte# 0.25 X10^3/uL; Monocyte% 3.3 % (0-10); NRBC Flagged by Analyzer 0 % (0-5); Neutrophil # 6.29 X10^3/uL (2.7-7.7); Neutrophil % 83.5 % (47-70); Platelet Count 214 K/mm3 (150-450); RBC Distribution Width CV 12.7 % (11.6-14.6); RBC Distribution Width SD 44.3 fl (35.1-43.9); Red Blood Count 3.72 M/mm3 (4.6-6.2); White Blood Count 7.5 K/mm3 (4.4-11.0)
--- NOTE | 2023-04-23 12:35 | HP.PCM_ITS ---
HPI - General General Date of Admission: 04/23/23 Date of Service: 04/23/23 Chief Complaint: nausea and vomiting HPI Narrative LORI PETER, is a 42 M with a PMH as outlined who [facility] ED on 04/23/2023 with a complaint of nausea and vomiting. HE has a history of diabetes, on Trulicity. He started having excessive nausea and vomiting at home 1 days prior to admission. He had one alcoholic drink yesterday but denies frequent drinking and doesnt have a history of pancreatitis. He admitted to lightheadednes or dizziness and denies any fever or chills,. He had a normal regular bowel movement yesterday. Revivew of systems is otherwise negative. Vitals in the ED at time of review were BP of 217/113, [place] of 84, RR of 20 and she was saturating at 98% on room air. CBC showed hb of 12.3, wbc of 7.5 and platelets of 214. Chemistry showed sodium of 134 with potassium of 4.9, Cr of 1.93 and bicarb of 26. Urine tox was postiive for MDMA, though he denied any drug use. Abdomino-pelvic CT showed a stable 1.5cm well defined nodule in the posterior aspect of the lingular segment of the left upper lobe. He is being admitted to be manged for intractable nausea and vomiting in the setting of diabetes mellitus, with concern for possible gastroparesis. [facility] Medical History (Updated 04/23/23 @ 14:54 by Charline Epstein) Asthma COPD (chronic obstructive pulmonary disease) Diabetes Esophagitis GERD (gastroesophageal reflux disease) Hypertension Kidney disease Smoker Tobacco use Type 2 diabetes mellitus without complications Home Medications alcohol swabs (BD Alcohol Swabs) 1 pad topical 6XD #100 ea 01/19/21 [Rx Last Taken Unknown] blood sugar diagnostic (Blood Glucose Test strips) #100 ea 01/19/21 [Rx Last Taken Unknown] blood-glucose meter #1 ea 01/19/21 [Rx Last Taken Unknown] lancets 17 gauge #100 ea 01/19/21 [Rx Last Taken Unknown] pen needle, diabetic 30 gauge x 16 #100 ea 01/20/21 [Rx Last Taken Unknown] dulaglutide 1.5 mg/0.5 mL subcutaneous pen injector (Trulicity) 1.5 mg subcut TU 02/09/23 [History Last Taken 04/16/23] albuterol sulfate 90 mcg/actuation aerosol inhaler (Ventolin HFA) 2 puff inhalation Q6H PRN SOB 04/23/23 [History Last Taken 04/09/23] insulin lispro 100 unit/mL subcutaneous pen 10 unit subcut TID diabetes 04/23/23 [History Last Taken 04/21/23] pantoprazole 40 mg tablet,delayed release 40 mg PO DAILY acid reflux 04/23/23 [History Last Taken 04/23/23] Allergy/AdvReac Type Severity Reaction Status Date / Time No Known Allergies Allergy Verified 04/23/23 11:51 Family History Mother Diabetes Heart disease Myocardial infarction Hypertension Father Diabetes Heart disease Myocardial infarction Hypertension Other Asthma Surgical History No significant past surgical history Social History household members: family Smoking Status: Current every day smoker tobacco type: cigarettes how long ago did patient quit smoking: Patient started smoking when he was 11 years old. alcohol intake: never substance use type: does not use ROS Constitutional Constitutional: Reports anorexia, fatigue, malaise and weakness; Denies change in weight, chills, fever(s) or night sweats Eyes Eyes: Denies change in vision ENT HEENT: Denies dysphagia, headache(s) or sinus pressure Cardiovascular Cardiovascular: Denies chest pain, edema, orthopnea, palpitations, paroxysmal nocturnal dyspnea or syncope Respiratory/Chest Respiratory/Chest: Denies cough, shortness of breath at rest, shortness of breath with exertion or wheezing Gastrointestinal Gastrointestinal: Reports abdominal pain, nausea and vomiting; Denies constipati on or diarrhea Genitourinary Genitourinary: Denies dysuria or urinary frequency Musculoskeletal Musculoskeletal: Denies back pain Integumentary Integumentary: Denies dry skin or jaundice Neurologic Neurologic: Denies confusion, dizziness, focal weakness, tremor(s) or weakness Psychiatric Psychiatric: Denies anxiety Endocrine Endocrinology: Denies change in body appearance Hematologic/Lymphatic Hematologic/Lymphatic: Denies anemia Vital Signs Vital Signs Vital Signs: 04/23/23 07:51 04/23/23 11:23 Temperature 97 F L Temperature Source Temporal Pulse Rate 94 84 Respiratory Rate 20 H 20 H Blood Pressure 208/128 H 217/113 H Blood Pressure Mean 154 147 Pulse Ox 99 98 Oxygen Delivery Method Room Air Room Air Weight Weight: 171 lb 15.369 oz Body Mass Index (BMI) 24.6 Physical Exam Const alert and oriented x3 Constitutional Narrative: looks uncomfortable due to vomiting and nausea General Appearance: cooperative and well developed HEENT normocephalic and head/scalp atraumatic Mouth: dry mucous membranes Eyes PERRL and EOMs intact bilaterally Neck no lymphadenopathy and supple Lymph Lymphatic: no lymphadenopathy noted and no lymphedema noted Resp normal respiratory effort, normal air movement and clear to auscultation bilaterally Cardio regular rate, regular rhythm, S1 normal heart sound, S2 normal heart sound and no murmurs GI normal to inspection, nondistended, normoactive bowel sounds and soft to palpation Extremity normal capillary refill, no clubbing, cyanosis or edema and no calf tenderness Skin General Skin Exam: no breakdown and turgor normal Neuro CN's II-XII intact bilaterally, no focal motor deficits, no sensory deficits noted and deep tendon reflexes 2+ bilaterally Psych thought process normal and cooperative Appearance: appropriate Results Lab / Micro Data 04/23/23 12:00 04/23/23 10:05 Labs: Laboratory Results - last 24 hr 04/23/23 10:05: WBC Cancelled, Corrected WBC Cancelled, RBC Cancelled, Hgb Cancelled, Hct Cancelled, MCV Cancelled, MCH Cancelled, MCHC Cancelled, RDW Std Deviation Cancelled, RDW Coeff of Gentry Cancelled, Plt Count Cancelled, MPV Cancelled, Diff Path Review Cancelled, Sodium 134 L, Potassium 4.9, Chloride 103, Carbon Dioxide 26.0, Anion Gap 5, BUN 26 H, Creatinine 1.93 H, Estim Creat Clear Calc 51.48, Est GFR (MDRD) Af Amer 49 L, Est GFR (MDRD) Non-Af 41 L, BUN/Creatinine Ratio 13.5, Glucose 281 H, Calcium 8.2 L, Total Bilirubin 0.40, AST 64 H, ALT 39, Alkaline Phosphatase 67, Total Protein 5.6 L, Albumin 1.7 L, Globulin 3.9, Albumin/Globulin Ratio 0.4 L, Lipase 33, Acetone Level SMALL H 04/23/23 11:17: Urine Opiates Screen NEGATIVE, Urine Methadone Screen NEGATIVE, Ur Barbiturates Screen NEGATIVE, Ur Phencyclidine Scrn NEGATIVE, Ur Amphetamines Screen NEGATIVE, MDMA (Ecstasy) Screen POSITIVE H, U Benzodiazepines Scrn NEGATIVE, Urine Cocaine Screen NEGATIVE, U Cannabinoids Screen NEGATIVE, Ur Drug Screen Comment 04/23/23 12:00: WBC 7.5, RBC 3.72 L, Hgb 12.3 L, Hct 35.9 L, MCV 96.5 H, MCH 33.1 H, MCHC 34.3, RDW Std Deviation 44.3 H, RDW Coeff of Gentry 12.7, Plt Count 214, MPV 9.6, Immature Gran % (Auto) 0.500, Neut % (Auto) 83.5 H, Lymph % (Auto) 12.3 L, [place] % (Auto) 3.3, Eos % (Auto) 0.0, Baso % (Auto) 0.4, Absolute Neuts (auto) 6.3, Absolute Lymphs (auto) 0.93, Nucleated RBC % 0 Radiology Impression Chest X-Ray 04/23/23 11:10 IMPRESSION: A central line is seen within the superior vena cava with the tip in the proximal portion. 1.5 Darío nodule at the left lung base. Electronically Signed: Artem Hernandez MD at 12:15 EDT , Abdomen/Pelvis CT 04/23/23 11:14 IMPRESSION: Stable 1.5 cm well-defined nodule in the posterior aspect of the lingular segment of the left upper lobe. Stable examination. Electronically Signed: Artem Hernandez MD at 12:14 EDT , Assessment & Plan Assessment/Plan (1) Dehydration: (2) Intractable vomiting with nausea: PLAN: Plan #Intractable nausea and vomiting * In the setting of poorly controlled type 2 diabetes mellitus, this is conc erning for gastroparesis. Last A1c in the records from May 2021 was 11. * Admitted under observation to [facility]. * Hydrate with IV fluids. IV Zofran as tolerated * clear liquids for now and advance as tolerated * check A1C * consult GI if nausea and vomiting persists * #TYpe 2 diabetes mellitus * poorly controlled. * will check A1C * hold dulaglutide * ISS. Accuchecks ACHS * #FROYLAN * Creatinine is 1.93 with a baseline of around 0.91. Likely due to dehydration from incessant nausea and vomiting. * Hydrate with IV fluids and trend. * Urine tox showed only small ketones which is likely due to dehydration and starvation ketosis. Bicarb is 26. * #Hypertension: Poorly controlled. Blood pressure elevated in the 200s systolic. On amlodipine and lisinopril. Hold lisinopril in light of FROYLAN. IV hydralazine as needed. #GERD: On PPI DVT prophylaxis: Lovenox Charges/Coding Visit Charges Inpatient E&M: 27566 Init Hosp L3
[2023-04-23] MEDS: Labetalol (Prefilled) 20 MG/4 ML 10 MG IV (13:10)
[2023-04-23 13:33] LABS: Bedside Glucose 248 mg/dL (74-106)
[2023-04-23 14:55] LABS: Hemoglobin A1c 6.3 % (3.8-5.6)
[2023-04-23] MEDS: 0.9% Normal Saline 1,000 ML 150 ML IV ×2 (15:11→21:02)
[2023-04-23] MEDS: hydrALAZINE 20 MG/ML Vial 10 MG IV (15:11)
[2023-04-23] MEDS: proCHLORPERazine 10 MG/2 ML Vial 5 MG IV ×2 (15:13→21:02)
[2023-04-23 15:40] LABS: Bedside Glucose 224 mg/dL (74-106)
[2023-04-23] MEDS: Acetaminophen 325 MG Tablet 650 MG PO (21:02)
[2023-04-23] MEDS: Insulin Lispro 100 UNIT/ML INSULN.PEN SC (21:16)
[2023-04-23 22:07] LABS: Bedside Glucose 201 mg/dL (74-106)
[2023-04-24] MEDS: 0.9% Normal Saline 1,000 ML 150 ML IV (02:47)
[2023-04-24 03:20] VITALS: BP 134/85; PULSE 83; RESP 15; TEMP 36.6; O2SAT 99
[2023-04-24] MEDS: Ondansetron 4 MG/2 ML Vial IV (05:29)
[2023-04-24 06:14] LABS: Absolute Lymphocyte Count 2.23 X10^3/uL (0.83-4.51); Absolute Neutrophil Count 5.8 X10^3/uL (2.0-7.7); Basophil# 0.05 X10^3/uL; Basophil% 0.5 % (0-1); Eosinophil# 0.06 X10^3/uL; Eosinophils% 0.7 % (0-5); Hematocrit 35.2 % (40-54); Hemoglobin 12.2 g/dL (13.0-16.5); Lymphocyte # 2.23 X10^3/ul (0.83-4.51); Lymphocyte % 24.5 % (19-41); Mean Corp Hgb Conc 34.7 g/dL (32-36); Mean Corpuscular Hgb 33.6 pg (27.0-32.0); Mean Platelet Vol. 10.1 fl (6.2-12.0); Monocyte% 9.9 % (0-10); NRBC Flagged by Analyzer 0 % (0-5); Neutrophil # 5.81 X10^3/uL (2.7-7.7); Neutrophil % 63.9 % (47-70); Platelet Count 235 K/mm3 (150-450); RBC Distribution Width CV 12.7 % (11.6-14.6); RBC Distribution Width SD 45.1 fl (35.1-43.9); Red Blood Count 3.63 M/mm3 (4.6-6.2); White Blood Count 9.1 K/mm3 (4.4-11.0)
[2023-04-24 07:08] LABS: Bedside Glucose 155 mg/dL (74-106)
[2023-04-24 07:17] LABS: ALB/GLOB Ratio 0.5 RATIO (0.9-2.4); AST(SGOT) 31 U/L (15-37); Alanine Aminotransfer ALT/SGPT 26 U/L (16-61); Albumin, Serum 1.4 g/dL (3.2-5.0); Alkaline Phosphatase 46 U/L (45-117); Anion Gap 4 (5-15); BUN 23 mg/dL (7-18); BUN/Creat Ratio 14.9 RATIO (10-20); Calcium,Total 7.2 mg/dL (8.5-10.1); Chloride 112 mmol/L (98-107); Creatinine, Serum 1.54 mg/dL (0.70-1.30); EST Glomerular Filtration Rate 53 mL/min (>60); Est Glom Filt Rate - Afr Amer 64 mL/min (>60); Estimated Creatinine Clearance 68.55 ml/min; Globulin 2.8 g/dL (2.2-4.2); Glucose 150 mg/dL (74-106); Potassium 3.7 mmol/L (3.5-5.1); Protein, Total 4.2 g/dL (6.4-8.2); Sodium Level 141 mmol/L (136-145)
[2023-04-24 09:20] VITALS: BP 157/96; PULSE 75; RESP 16; TEMP 36.7; O2SAT 98
[2023-04-24] MEDS: Enoxaparin 30 MG/0.3 ML Syringe SC (09:23)
[2023-04-24] MEDS: proCHLORPERazine 10 MG/2 ML Vial 5 MG IV (09:28)
--- NOTE | 2023-04-24 09:30 | PN_ITS ---
Subjective Subjective Patient seen and examined. He states he still having nausea and vomiting but it is getting a bit better. He had an uneventful night. He was able to keep down the clear liquids. Review of systems otherwise negative. He has remained hemodynamically stable. Objective Data Objective Data Vital Signs: Vital Signs Temp Pulse Resp BP Pulse Ox O2 Del Method 97.8 F 83 15 134/85 H 99 Room Air 04/24/23 03:20 04/24/23 03:20 04/24/23 03:20 04/24/23 03:20 04/24/23 03:20 04/24/23 03:20 Oxygen Delivery Method Room Air Weight: 171 lb Body Mass Index (BMI) 0.0 Intake & Output: Intake and Output for Last 24 Hours 04/22/23 04/23/23 04/24/23 23:59 23:59 23:59 Intake Total 1986. / 862.5 / 862.5 Output Total 0 / 0 Balance / 862.5 / 862.5 Lab / Micro Data 04/24/23 05:23 04/24/23 05:23 Labs: Laboratory Results - last 24 hr 04/23/23 10:05: WBC Cancelled, Corrected WBC Cancelled, RBC Cancelled, Hgb Cancelled, Hct Cancelled, MCV Cancelled, MCH Cancelled, MCHC Cancelled, RDW Std Deviation Cancelled, RDW Coeff of Gentry Cancelled, Plt Count Cancelled, MPV Cancelled, Diff Path Review Cancelled, Sodium 134 L, Potassium 4.9, Chloride 103, Carbon Dioxide 26.0, Anion Gap 5, BUN 26 H, Creatinine 1.93 H, Estim Creat Clear Calc 51.48, Est GFR (MDRD) Af Amer 49 L, Est GFR (MDRD) Non-Af 41 L, BUN/Creatinine Ratio 13.5, Glucose 281 H, Calcium 8.2 L, Total Bilirubin 0.40, AST 64 H, ALT 39, Alkaline Phosphatase 67, Total Protein 5.6 L, Albumin 1.7 L, Globulin 3.9, Albumin/Globulin Ratio 0.4 L, Lipase 33, Acetone Level SMALL H 04/23/23 11:17: Urine Opiates Screen NEGATIVE, Urine Methadone Screen NEGATIVE, Ur Barbiturates Screen NEGATIVE, Ur Phencyclidine Scrn NEGATIVE, Ur Amphetamines Screen NEGATIVE, MDMA (Ecstasy) Screen POSITIVE H, U Benzodiazepines Scrn NEGATIVE, Urine Cocaine Screen NEGATIVE, U Cannabinoids Screen NEGATIVE, Ur Drug Screen Comment 04/23/23 12:00: WBC 7.5, RBC 3.72 L, Hgb 12.3 L, Hct 35.9 L, MCV 96.5 H, MCH 33.1 H, MCHC 34.3, RDW Std Deviation 44.3 H, RDW Coeff of Gentry 12.7, Plt Count 214, MPV 9.6, Immature Gran % (Auto) 0.500, Neut % (Auto) 83.5 H, Lymph % (Auto) 12.3 L, [place] % (Auto) 3.3, Eos % (Auto) 0.0, Baso % (Auto) 0.4, Absolute Neuts (auto) 6.3, Absolute Lymphs (auto) 0.93, Nucleated RBC % 0, Hemoglobin A1c 6.3 H 04/23/23 13:16: POC Glucose 248 H 04/23/23 15:22: POC Glucose 224 H 04/23/23 21:11: POC Glucose 201 H 04/24/23 05:23: WBC 9.1, RBC 3.63 L, Hgb 12.2 L, Hct 35.2 L, MCV 97.0 H, MCH 33.6 H, MCHC 34.7, RDW Std Deviation 45.1 H, RDW Coeff of Gentry 12.7, Plt Count 235, MPV 10.1, Immature Gran % (Auto) 0.500, Neut % (Auto) 63.9, Lymph % (Auto) 24.5, [place] % (Auto) 9.9, Eos % (Auto) 0.7, Baso % (Auto) 0.5, Absolute Neuts (a uto) 5.8, Absolute Lymphs (auto) 2.23, Nucleated RBC % 0, Sodium 141, Potassium 3.7, Chloride 112 H, Carbon Dioxide 25.0, Anion Gap 4 L, BUN 23 H, Creatinine 1.54 H, Estim Creat Clear Calc 68.55, Est GFR (MDRD) Af Amer 64, Est GFR (MDRD) Non-Af 53 L, BUN/Creatinine Ratio 14.9, Glucose 150 H, Calcium 7.2 L, Total Bilirubin 0.20, AST 31, ALT 26, Alkaline Phosphatase 46, Total Protein 4.2 L, Albumin 1.4 L, Globulin 2.8, Albumin/Globulin Ratio 0.5 L 04/24/23 06:34: POC Glucose 155 H Radiography Diagnostic Testing: Radiology Impression Chest X-Ray 04/23/23 11:10 IMPRESSION: A central line is seen within the superior vena cava with the tip in the proximal portion. 1.5 Darío nodule at the left lung base. Electronically Signed: Artem Hernandez MD at 12:15 EDT , Abdomen/Pelvis CT 04/23/23 11:14 IMPRESSION: Stable 1.5 cm well-defined nodule in the posterior aspect of the lingular segment of the left upper lobe. Stable examination. Electronically Signed: Artem Hernandez MD at 12:14 EDT , Physical Exam Const alert, oriented x3, no apparent distress and well nourished General Appearance: cooperative and well developed HEENT normocephalic and head/scalp atraumatic Eyes PERRL and EOMs intact bilaterally Neck no lymphadenopathy and supple Lymph Lymphatic: no lymphadenopathy noted and no lymphedema noted Resp normal respiratory effort, normal air movement and clear to auscultation bilaterally Cardio regular rate, regular rhythm, S1 normal heart sound, S2 normal heart sound and no murmurs GI normal to inspection, nondistended, normoactive bowel sounds, soft to palpation, non-tender and non-distended Extremity normal capillary refill, no clubbing, cyanosis or edema and no calf tenderness Skin General Skin Exam: no breakdown and turgor normal Neuro CN's II-XII intact bilaterally, no focal motor deficits, no sensory deficits noted and deep tendon reflexes 2+ bilaterally Psych thought process normal and cooperative Appearance: appropriate Assessment & Plan Assessment/Plan (1) Dehydration: (2) Intractable vomiting with nausea: PLAN: Plan #Intractable nausea and vomiting * In the setting of poorly controlled type 2 diabetes mellitus, this is concerning for gastroparesis. Last A1c in the records from May 2021 was 11. * nausea and vomiting is improving slowly. * on IV zofran. * advance diet to soft diet today * * #TYpe 2 diabetes mellitus * last A1C was 11 in 2020; A1C checked during this admission is 6.3 * on dulaglutide weekly * ISS. Accuchecks ACHS * #FROYLAN * improving. Likely prerenal due to nausea and vomiting. * Cr is down from 1.93 to 1.54 with hydration * encourage oral hydration * #Hypertension: Poorly controlled. BP down to 157/96 today. On amlodipine and lisinopril. was not taking his meds at home. #GERD: On PPI DVT prophylaxis: Lovenox Charges/Coding Visit Charges Inpatient E&M: 02752 Subs Hosp L2
--- NOTE | 2023-04-24 10:35 | CASEMGMT ---
Addendum entered by Kiki Lane 04/24/23 11:43: Per Dr Poe, she will advance pt's diet today. Appt scheduled w/[facility] transportation for tomorrow @ 2 PM to take pt home, if pt is ready for discharge by tomorrow. Original Note: RN?CM?BUTT SAWYER?CM?to room to meet with patient for initial transition planning/care coordination?assessment.?RN?CM?introduced self and role at [facility].? Pt voices understanding and consents to?assessment?at this time.? Pt resting in bed in no distress at this time.? Pt is A/O at this time and answers all questions but very vague in responses. Care providers, pharmacy, and demographics verified/updated at this time. PCP: Dr Jarred Murrell, Internal Med in [place]. [facility] updated to reflect this. Pt states he was just in to see him a couple months ago. Pt interested in local PCP list. Provided general PCP directory and also a list specific to pt's insurance. Specialists: none. Pt was provided w/Dr Rob's contact info @ last admission in 2020. 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 Preferred Pharmacy: [facility] retail Insurance: [employer] Prescription Benefit:?yes Living Will/HPOA:?Pt does not currently have LW/HCPOA and declines info at this time.? LNOK: Father, Dutch Holman Living Arrangements: Lives w/w/fiance in one-story home w/many steps to enter. Denies difficulty w/stairs. States he is independent and manages his own medications. Transportation:?Pt states neither he nor his fiance drive and they walk everywhere--to appts, grocery store, etc. He states he does take the bus to appt w/Dr Murrell in [place]. Pt states he is not sure if his insurance provides transportation services to medical appts. MARILEE SLAUGHTER informed him they may provide this service. He states he has their contact info and may look into this in the future. Pt was provided /[facility] transp info last admission and states he does not need this info again. He does not have a ride home @ discharge. He was made aware [facility] van may be able to take him home @ d/c, if they have availability. DME: ?States he has a functioning glucometer w/supplies. ?Pt states no need for further DME at this time.? HHC/SNF: Hx of [facility]. No hx of HHC. Declines needs for HHC or any other supportive services/assistance. Pt wishes to return home and states has no concerns with going home at time of discharge.? CM?to follow for any further discharge planning/needs.? Pt voices no further concerns/needs at this time.? Advised pt to ask for?CM?if any further questions/concerns/needs arise.? Voices understanding. PLAN: Home ?? Humberto BSN?RN?CM
[2023-04-24] MEDS: Insulin Lispro 100 UNIT/ML INSULN.PEN SC (11:08)
--- NOTE | 2023-04-24 11:22 | CASEMGMT ---
Discharge Planning PCP provider list created and given to RN CM. Christel Vázquez, Discharge Planning Asst.
[2023-04-24 11:23] LABS: Bedside Glucose 164 mg/dL (74-106)
[2023-04-24 15:30] VITALS: BP 160/95; PULSE 65; RESP 16; TEMP 36.8; O2SAT 100
[2023-04-24 16:00] LABS: Bedside Glucose 111 mg/dL (74-106)
[2023-04-24 22:13] VITALS: BP 154/94; PULSE 77; RESP 16; TEMP 37.2; O2SAT 99
[2023-04-24] MEDS: 0.9% Saline Lock 10 ML Syringe IV (22:14)
[2023-04-24 22:43] LABS: Bedside Glucose 147 mg/dL (74-106)
[2023-04-25] VITALS (7 sets, daily range): BP systolic 153–197; BP diastolic 96–123; PULSE 73–89; RESP 15–18; TEMP 36.2–36.5; O2SAT 97–100
[2023-04-25 05:53] LABS: Absolute Lymphocyte Count 1.96 X10^3/uL (0.83-4.51); Absolute Neutrophil Count 3.8 X10^3/uL (2.0-7.7); Basophil# 0.05 X10^3/uL; Basophil% 0.8 % (0-1); Eosinophils% 1.5 % (0-5); Hematocrit 35.8 % (40-54); Hemoglobin 12.7 g/dL (13.0-16.5); Lymphocyte # 1.96 X10^3/ul (0.83-4.51); Lymphocyte % 29.5 % (19-41); Mean Corp Hgb Conc 35.5 g/dL (32-36); Mean Platelet Vol. 9.6 fl (6.2-12.0); Monocyte# 0.75 X10^3/uL; Monocyte% 11.3 % (0-10); NRBC Flagged by Analyzer 0 % (0-5); Neutrophil # 3.76 X10^3/uL (2.7-7.7); Neutrophil % 56.6 % (47-70); Platelet Count 216 K/mm3 (150-450); RBC Distribution Width CV 12.6 % (11.6-14.6); RBC Distribution Width SD 44.3 fl (35.1-43.9); Red Blood Count 3.73 M/mm3 (4.6-6.2); White Blood Count 6.6 K/mm3 (4.4-11.0)
[2023-04-25] MEDS: Insulin Lispro 100 UNIT/ML INSULN.PEN SC ×2 (06:32→11:46)
[2023-04-25 06:36] LABS: ALB/GLOB Ratio 0.4 RATIO (0.9-2.4); AST(SGOT) 32 U/L (15-37); Alanine Aminotransfer ALT/SGPT 27 U/L (16-61); Albumin, Serum 1.3 g/dL (3.2-5.0); Alkaline Phosphatase 55 U/L (45-117); Anion Gap 4 (5-15); BUN 17 mg/dL (7-18); BUN/Creat Ratio 12.3 RATIO (10-20); Calcium,Total 7.3 mg/dL (8.5-10.1); Chloride 112 mmol/L (98-107); Creatinine, Serum 1.38 mg/dL (0.70-1.30); EST Glomerular Filtration Rate 60 mL/min (>60); Est Glom Filt Rate - Afr Amer 72 mL/min (>60); Glucose 153 mg/dL (74-106); Potassium 3.7 mmol/L (3.5-5.1); Protein, Total 4.3 g/dL (6.4-8.2); Sodium Level 141 mmol/L (136-145)
[2023-04-25 07:22] LABS: Bedside Glucose 172 mg/dL (74-106)
[2023-04-25] MEDS: Enoxaparin 30 MG/0.3 ML Syringe SC (09:48)
--- NOTE | 2023-04-25 12:04 | PN_ITS ---
Subjective Subjective Patient seen and examined. His nausea adn vomiting have improved. He however started having diarrhea. He has been able to tolerate a diet. Review of systems is otherwise negative. Objective Data Objective Data Vital Signs: Vital Signs Temp Pulse Resp BP Pulse Ox O2 Del Method 97.6 F L 76 18 160/97 H 99 Room Air 04/25/23 09:45 04/25/23 09:45 04/25/23 09:45 04/25/23 09:45 04/25/23 09:45 04/25/23 09:45 Oxygen Delivery Method Room Air Weight: 170 lb 15.989 oz Body Mass Index (BMI) 0.0 Intake & Output: Intake and Output for Last 24 Hours 04/23/23 04/24/23 04/25/23 23:59 23:59 23:59 Intake Total 2221. / 2221. 240 / 240 Output Total 0 / 0 Balance 2221. / 240 / 240 Medical Nutrition Assessment Dietitian: Malnutrition Criteria Met Start: 04/24/23 11:53 Freq: Status: Active Protocol: Document 04/24/23 11:53 RMA (Rec: 04/24/23 11:53 RMA [id number]) Nutrition Malnutrition Evidence of Malnutrition Exists Yes Malnutrition (severe): Acute Illness/Injury Evidenced By Suboptimal Energy Intake ( Severe),Weight Loss (Severe) Intake Problem Inadequate Oral Intake Etiology related to altered GI function ; N/V Signs/Symptoms as evidenced by clear liquid diet x day 2 today Status Active Problem Clinical Problem Acute Disease or Injury Related Malnutrition Etiology Severe protein-calorie malnutrition in the context of acute illness related to altered GI function; intractable N/V Signs/Symptoms as evidenced by ~5% weight loss x 1 month, currently on clear liquid diet and PO meeting less than than 50% estimated nutrition needs x past 2 weeks Status Active Problem Recommendation Dietitian Recommendations/Changes Recommend diet as tolerated to 2000 calorie/consistent carbohydrate as able to advance from clear liquids. ONS as needed when diet advanced. Lab / Micro Data 04/25/23 05:39 04/25/23 05:39 Labs: Laboratory Results - last 24 hr 04/24/23 15:39: POC Glucose 111 H 04/24/23 22:06: POC Glucose 147 H 04/25/23 05:39: WBC 6.6, RBC 3.73 L, Hgb 12.7 L, Hct 35.8 L, MCV 96.0 H, MCH 34.0 H, MCHC 35.5, RDW Std Deviation 44.3 H, RDW Coeff of Gentry 12.6, Plt Count 216, MPV 9.6, Immature Gran % (Auto) 0.300, Neut % (Auto) 56.6, Lymph % (Auto) 29.5, [place] % (Auto) 11.3 H, Eos % (Auto) 1.5, Baso % (Auto) 0.8, Absolute Neuts (auto) 3.8, Absolute Lymphs (auto) 1.96, Nucleated RBC % 0, Sodium 141, Po tassium 3.7, Chloride 112 H, Carbon Dioxide 25.0, Anion Gap 4 L, BUN 17, Creatinine 1.38 H, Estim Creat Clear Calc 72.00, Est GFR (MDRD) Af Amer 72, Est GFR (MDRD) Non-Af 60, BUN/Creatinine Ratio 12.3, Glucose 153 H, Calcium 7.3 L, Total Bilirubin 0.20, AST 32, ALT 27, Alkaline Phosphatase 55, Total Protein 4.3 L, Albumin 1.3 L, Globulin 3.0, Albumin/Globulin Ratio 0.4 L 04/25/23 06:29: POC Glucose 172 H Micro: Microbiology 04/24/23 23:18 Stool Enteric Bacteriology - Final 04/24/23 23:18 Stool C. difficile DNA Amplification - Final Physical Exam Const alert, oriented x3, no apparent distress and well nourished General Appearance: cooperative and well developed HEENT normocephalic and head/scalp atraumatic Eyes PERRL and EOMs intact bilaterally Neck no lymphadenopathy and supple Lymph Lymphatic: no lymphadenopathy noted and no lymphedema noted Resp normal respiratory effort, normal air movement and clear to auscultation bilaterally Cardio regular rate, regular rhythm, S1 normal heart sound, S2 normal heart sound and no murmurs GI normal to inspection, nondistended, normoactive bowel sounds, soft to palpation, non-tender and non-distended Extremity normal capillary refill, no clubbing, cyanosis or edema and no calf tenderness Skin General Skin Exam: no breakdown and turgor normal Neuro CN's II-XII intact bilaterally, no focal motor deficits, no sensory deficits noted and deep tendon reflexes 2+ bilaterally Psych thought process normal and cooperative Appearance: appropriate Assessment & Plan Assessment/Plan (1) Dehydration: (2) Intractable vomiting with nausea: PLAN: Plan #Intractable nausea and vomiting * resolved. Now having diarrhea. Stool sent for C diff and enteric pathogen screen. * on IV zofran. * advance to regular diet. * * #TYpe 2 diabetes mellitus * last A1C was 11 in 2020; A1C checked during this admission is 6.3 * on dulaglutide weekly * ISS. Accuchecks ACHS * #FROYLAN * improving. Likely prerenal due to nausea and vomiting. * Cr is down to 1.38. :Largely resolved. * encourage oral hydration * #Hypertension: Poorly controlled. BP is now in the 160s systolic. On amlodipine nad lisinopril. will resume lisinopril since FROYLAN has largely resolved #GERD: On PPI DVT prophylaxis: Lovenox Charges/Coding Visit Charges Inpatient E&M: 87744 Subs Hosp L2
[2023-04-25 12:11] LABS: Bedside Glucose 155 mg/dL (74-106)
[2023-04-25 17:10] LABS: Bedside Glucose 139 mg/dL (74-106)
[2023-04-25] MEDS: hydrALAZINE 20 MG/ML Vial 10 MG IV (21:56)
[2023-04-25] MEDS: 0.9% Saline Lock 10 ML Syringe IV (21:59)
--- NOTE | 2023-04-25 23:32 | PN.HOSP_ITS ---
Hospitalist Note BP have remained elevated even with hydralazine PRN. Discussed with nursing staff development coordinator and noted patient outpatient on norvasc and lisinopril. Renal function appears improved with baseline prior nearing current. Will add back norvasc and lisinopril with dose now. Requested nursing staff development coordinator update medication list and may need to further adjust regimen pending update.
--- NOTE | 2023-04-25 23:32 | PCM.HOSP.N ---
Hospitalist Note BP have remained elevated even with hydralazine PRN. Discussed with full time staff interpreter and noted patient outpatient on norvasc and lisinopril. Renal function appears improved with baseline prior nearing current. Will add back norvasc and lisinopril with dose now. Requested full time staff interpreter update medication list and may need to further adjust regimen pending update.
[2023-04-25] MEDS: Lisinopril 20 MG Tablet PO (23:47)
[2023-04-25] MEDS: amLODIPine 5 MG Tablet PO (23:47)
[2023-04-25 23:48] LABS: Bedside Glucose 148 mg/dL (74-106)
[2023-04-26 03:47] VITALS: BP 168/102; PULSE 80; RESP 18; TEMP 36.6; O2SAT 100
[2023-04-26] MEDS: Insulin Lispro 100 UNIT/ML INSULN.PEN SC (06:16)
[2023-04-26 06:26] LABS: Absolute Neutrophil Count 5.1 X10^3/uL (2.0-7.7); Basophil# 0.04 X10^3/uL; Basophil% 0.5 % (0-1); Eosinophil# 0.14 X10^3/uL; Eosinophils% 1.7 % (0-5); Hematocrit 36.3 % (40-54); Hemoglobin 12.9 g/dL (13.0-16.5); Lymphocyte % 24.8 % (19-41); Mean Corp Hgb Conc 35.5 g/dL (32-36); Mean Corpuscular Hgb 33.7 pg (27.0-32.0); Mean Corpuscular Volume 94.8 fL (80-94); Mean Platelet Vol. 10.1 fl (6.2-12.0); Monocyte# 1.01 X10^3/uL; Monocyte% 11.9 % (0-10); NRBC Flagged by Analyzer 0 % (0-5); Neutrophil # 5.14 X10^3/uL (2.7-7.7); Neutrophil % 60.7 % (47-70); Platelet Count 219 K/mm3 (150-450); RBC Distribution Width CV 12.5 % (11.6-14.6); RBC Distribution Width SD 43.2 fl (35.1-43.9); Red Blood Count 3.83 M/mm3 (4.6-6.2); White Blood Count 8.5 K/mm3 (4.4-11.0)
[2023-04-26 06:37] LABS: Bedside Glucose 178 mg/dL (74-106)
[2023-04-26 07:04] LABS: ALB/GLOB Ratio 0.4 RATIO (0.9-2.4); AST(SGOT) 29 U/L (15-37); Alanine Aminotransfer ALT/SGPT 26 U/L (16-61); Albumin, Serum 1.3 g/dL (3.2-5.0); Alkaline Phosphatase 81 U/L (45-117); Anion Gap 6 (5-15); BUN 17 mg/dL (7-18); BUN/Creat Ratio 12.4 RATIO (10-20); Calcium,Total 7.1 mg/dL (8.5-10.1); Chloride 110 mmol/L (98-107); Creatinine, Serum 1.37 mg/dL (0.70-1.30); EST Glomerular Filtration Rate 60 mL/min (>60); Est Glom Filt Rate - Afr Amer 73 mL/min (>60); Estimated Creatinine Clearance 72.53 ml/min; Globulin 3.2 g/dL (2.2-4.2); Glucose 183 mg/dL (74-106); Potassium 3.4 mmol/L (3.5-5.1); Protein, Total 4.5 g/dL (6.4-8.2); Sodium Level 139 mmol/L (136-145)
[2023-04-26 08:50] VITALS: BP 171/109; PULSE 87; RESP 18; TEMP 36.4; O2SAT 99
[2023-04-26] MEDS: amLODIPine 5 MG Tablet PO (08:55)
[2023-04-26] MEDS: Lisinopril 20 MG Tablet PO (08:55)
[2023-04-26] MEDS: Potassium Chloride Oral Tablet 20 MEQ 40 MEQ PO (08:55)
[2023-04-26] MEDS: Enoxaparin 30 MG/0.3 ML Syringe SC (08:55)
[2023-04-26 10:20] VITALS: BP 151/90; PULSE 81; RESP 18; TEMP 36.5; O2SAT 100
[2023-04-26] MEDS: Clonidine HCl 0.1 MG, Clonidine HCl 0.2 MG 0.3 MG PO (10:31)
[2023-04-26 12:28] LABS: Bedside Glucose 140 mg/dL (74-106)
--- NOTE | 2023-04-26 14:13 | DS.PCM_ITS ---
Providers Date of Admission: 04/23/23 Date of Discharge: 04/26/23 Primary Care Physician: atif vuong Reason For Visit: INTRACTABLE NAUSEA AND VOMITING Diagnosis Discharge Diagnosis (1) Dehydration: Status: Acute Code(s): E86.0 - Dehydration (2) Intractable vomiting with nausea: Status: Acute Code(s): R11.2 - Nausea with vomiting, unspecified Plan #Intractable nausea and vomiting * resolved. Now having diarrhea. Stool sent for C diff and enteric pathogen screen. * on IV zofran. * advance to regular diet. * * #TYpe 2 diabetes mellitus * last A1C was 11 in 2020; A1C checked during this admission is 6.3 * on dulaglutide weekly * ISS. Accuchecks ACHS * #FROYLAN * improving. Likely prerenal due to nausea and vomiting. * Cr is down to 1.38. :Largely resolved. * encourage oral hydration * #Hypertension: Poorly controlled. BP is now in the 160s systolic. On amlodipine nad lisinopril. will resume lisinopril since FROYLAN has largely resolved #GERD: On PPI DVT prophylaxis: Lovenox Medications at Discharge Home Medications alcohol swabs (BD Alcohol Swabs) 1 pad topical 6XD #100 ea 01/19/21 blood sugar diagnostic (Blood Glucose Test strips) #100 ea 01/19/21 blood-glucose meter #1 ea 01/19/21 lancets 17 gauge #100 ea 01/19/21 pen needle, diabetic 30 gauge x 5/16 #100 ea 01/20/21 dulaglutide 1.5 mg/0.5 mL subcutaneous pen injector (Trulicity) 1.5 mg subcut TU 02/09/23 albuterol sulfate 90 mcg/actuation aerosol inhaler (Ventolin HFA) 2 puff inhalation Q6H PRN SOB 04/23/23 insulin lispro 100 unit/mL subcutaneous pen 10 unit subcut TID diabetes 04/23/23 pantoprazole 40 mg tablet,delayed release 40 mg PO DAILY acid reflux 04/23/23 amlodipine 10 mg tablet 10 mg PO DAILY #30 tabs 04/26/23 lisinopril 20 mg tablet 20 mg PO DAILY #30 tabs 04/26/23 Hospital Course Operations None Procedures None Summary of Care Provided Minutes Spent on Discharge: 45 Hospital Course: LORI ROME, is a 42 M with a PMH as outlined who presents via hte ED on 04/23/2023 with a complaint of nausea and vomiting. HE has a history of diabetes, on Trulicity. He started having excessive nausea and vomiting at home 1 days prior to admission. He had one alcoholic drink yesterday but denies frequent drinking and doesnt have a history of pancreatitis. He admitted to lightheadednes or dizziness and denies any fever or chills,. He had a normal regular bowel movement one day prior to admission. Review of systems is otherwise negative. Vitals in the ED at time of review were BP of 217/113, FL of 84, RR of 20 and she was saturating at 98% on room air. CBC showed hb of 12.3, wbc of 7.5 and platelets of 214. Chemistry showed sodium of 134 with potassium of 4.9, Cr of 1.93 and bicarb of 26. Urine tox was postiive for MDMA, though he denied any drug use. Abdomino-pelvic CT showed a stable 1.5cm well defined nodule in the posterior aspect of the lingular segment of the left upper lobe. He was admit arron to be managed for intractable nausea and vomiting in the setting of diabetes mellitus, with concern for possible gastroparesis. He was initially kept n.p.o. and hydrated with fluids. A1c checked was just around 6.3 indicating much better control of his diabetes. His nausea and vomiting gradually improved and resolved. Hospital stay was complicated by loose stools and diarrhea. Enteric panel and C. difficile were negative. He remained stable. His blood pressure was elevated and patient admitted to not being compliant with his blood pressure medications. His blood pressure medications were resumed after his kidney function improved. He was discharged on 04/26/2023. His amlodipine was increased to 10 mg daily and lisinopril increased to 20 mg daily he was given prescription for both. He is to follow-up with his primary care doctor within 1 to 2 weeks. Of note the cats scan of the abdomen and pelvis showed a stable 1.5 cm well-defined nodule in the posterior aspect of the left upper lobe of the lung. He is to follow-up with his primary care doctor for further screening as deemed appropriate and for referral to medical clinic manager. Patient seen and examined prior to discharge. He had no complaints and felt well. He had an uneventful night immunostains otherwise negative. Labs and vitals reviewed. Medication reviewed and reconciled. Physical Exam Const alert, oriented x3, no apparent distress and well nourished General Appearance: cooperative, comfortable, well kempt and well developed HEENT normocephalic, head/scalp atraumatic and hearing grossly normal bilaterally Eyes PERRL, EOMs intact bilaterally and conjunctivae normal Neck no lymphadenopathy and supple Lymph Lymphatic: no lymphadenopathy noted and no lymphedema noted Resp normal respiratory effort, normal air movement and clear to auscultation bilaterally Cardio regular rate, regular rhythm, S1 normal heart sound, S2 normal heart sound and no murmurs GI normal to inspection, nondistended, normoactive bowel sounds, soft to palpation, non-tender and non-distended Extremity normal to inspection, full ROM, normal capillary refill, no clubbing, cyanosis or edema and no calf tenderness Skin no rashes or lesions noted General Skin Exam: no breakdown and turgor normal Neuro oriented x3, CN's II-XII intact bilaterally, moves all extremities, no focal motor deficits, no sensory deficits noted and deep tendon reflexes 2+ bilaterally Sensorium / Orientation: awake and alert Psych thought process normal and cooperative Appearance: appropriate Medical Records Data Medical Nutrition Assessment Dietitian: Malnutrition Criteria Met Start: 04/24/23 11:53 Freq: Status: Active Protocol: Document 04/24/23 11:53 RMA (Rec: 04/24/23 11:53 RMA [id number]) Nutrition Malnutrition Evidence of Malnutrition Exists Yes Malnutrition (severe): Acute Illness/Injury Evidenced By Suboptimal Energy Intake ( Severe),Weight Loss (Severe) Intake Problem Inadequate Oral Intake Etiology related to altered GI function ; N/V Signs/Symptoms as evidenced by clear liquid diet x day 2 today Status Active Problem Clinical Problem Acute Disease or Injury Related Malnutrition Etiology Severe protein-calorie malnutrition in the context of acute illness related to altered GI function; intractable N/V Signs/Symptoms as evidenced by ~5% weight loss x 1 month, currently on clear liquid diet and PO meeting less than than 50% estimated nutrition needs x past 2 weeks Status Active Problem Recommendation Dietitian Recommendations/Changes Recommend diet as tolerated to 2000 calorie/consistent carbohydrate as able to advance from clear liquids. ONS as needed when diet advanced. Weight / BMI Weight Weight: 170 lb 15.989 oz Body Mass Index (BMI) 0.0 ABG / Lab / Microbiology Data 04/26/23 05:45 04/26/23 05:45 Laboratory: Laboratory Results - last 24 hr 04/25/23 16:25: POC Glucose 139 H 04/25/23 21:50: POC Glucose 148 H 04/26/23 05:45: WBC 8.5, RBC 3.83 L, Hgb 12.9 L, Hct 36.3 L, MCV 94.8 H, MCH 33.7 H, MCHC 35.5, RDW Std Deviation 43.2, RDW Coeff of Gentry 12.5, Plt Count 219, MPV 10.1, Immature Gran % (Auto) 0.400, Neut % (Auto) 60.7, Lymph % (Auto) 24.8, [place] % (Auto) 11.9 H, Eos % (Auto) 1.7, Baso % (Auto) 0.5, Absolute Neuts (auto) 5.1, Absolute Lymphs (auto) 2.10, Nucleated RBC % 0, Sodium 139, Potassium 3.4 L , Chloride 110 H, Carbon Dioxide 23.0, Anion Gap 6, BUN 17, Creatinine 1.37 H, Estim Creat Clear Calc 72.53, Est GFR (MDRD) Af Amer 73, Est GFR (MDRD) Non-Af 60, BUN/Creatinine Ratio 12.4, Glucose 183 H, Calcium 7.1 L, Total Bilirubin 0.10 L, AST 29, ALT 26, Alkaline Phosphatase 81, Total Protein 4.5 L, Albumin 1.3 L, Globulin 3.2, Albumin/Globulin Ratio 0.4 L 04/26/23 06:14: POC Glucose 178 H 04/26/23 11:41: POC Glucose 140 H Microbiology: Microbiology 04/24/23 23:18 Stool Enteric Bacteriology - Final 04/24/23 23:18 Stool C. difficile DNA Amplification - Final D/C Instructions Discharge Diet: Low fat / Low cholesterol Weight Bearing Status: Weight bearing as tolerated Call your doctor if you observe: Fever of 101 or Higher, Shortness of breath, Dizziness, Swelling in the ankles, Chest pain and Increased palpitations (irregular heartbeat) Meaningful Use Info Meaningful Use Diagnoses (Choose all that apply): None applicable Discharge Plan Admission Admit Date/Time: 04/23/23 16:09 Primary Reason for Your Visit: abdominal pain, nausea and vomiting. Attending Provider: Koram,Hawa Eli Primary Care Provider: atif vuong Instructions Patient Instructions: Understanding Gastritis Discharge Orders/Prescriptions Prescriptions: New amlodipine 10 mg tablet 10 mg PO DAILY Qty: 30 2RF lisinopril 20 mg tablet 20 mg PO DAILY Qty: 30 2RF Continued (DME) blood-glucose meter Misc See Rx Instructions .ROUTE .MEDSUPPLY Qty: 1 0RF Rx Instructions: As directed (DME) Blood Glucose Test Strip See Rx Instructions .ROUTE .MEDSUPPLY Qty: 100 5RF Rx Instructions: test 6 times daily as needed (DME) lancets 17 gauge misc See Rx Instructions .ROUTE .MEDSUPPLY Qty: 100 5RF Rx Instructions: As directed alcohol swabs [BD Alcohol Swabs] Pads, Medicated 1 pad TOPICAL 6XD Qty: 100 5RF Trulicity 1.5 mg/0.5 mL Pen Injector 1.5 mg SUBCUT TU pantoprazole 40 mg tablet,delayed release (DR/EC) 40 mg PO DAILY insulin lispro 100 unit/mL insulin pen 10 unit SUBCUT TID albuterol sulfate [Ventolin HFA] 90 mcg/actuation HFA aerosol inhaler 2 puff INHALATION Q6H PRN (Reason: SOB) Patient Comments: TAKE 2 PUFFS BY MOUTH EVERY 6 HOURS NEEDED FOR WHEEZE (DME) pen needle, diabetic 30 gauge x 5/16 needle See Rx Instructions .ROUTE .MEDSUPPLY Qty: 100 5RF Rx Instructions: 5 times daily as directed Discontinued amlodipine 5 mg tablet 5 mg PO DAILY Patient Comments: TAKE 1 TABLET BY MOUTH EVERY DAY lisinopril 10 mg tablet 10 mg PO DAILY Patient Comments: TAKE ONE TABLET BY MOUTH ONCE A DAY Referrals / Follow Up: atif vuong [Other] - Within 2 Weeks Care Physician,No Primary [Non-Staff] - Florian Cohen DO [Med Staff - Active Staff] - Within 1 Month (see to establish care for left lung nodule and further workup as needed) Disposition Disposition (needs filled in before D/C Order can be placed): Home, Self Care Charges/Coding Visit Charges Inpatient E&M: 76794 Disch Hosp >30min
[2023-04-26 15:05] VITALS: BP 154/92; PULSE 80; RESP 18; TEMP 36.4; O2SAT 92
[2023-04-26 15:08] VITALS: BP 154/92; PULSE 80; RESP 18; TEMP 36.4; O2SAT 96
[2023-04-26] MEDS: Acetaminophen 325 MG Tablet 650 MG PO (15:43)
== END 2023-04-26 17:09 | disposition home or self-care (01) | DRG 48 ==
LOC: ED 08:39 → MS3 12:44 → PCU 13:22
PROVIDERS: Admitting Provider Student in an Organized Health Care Education/Training Program; Emergency Provider Emergency Medicine; Visit Provider Student in an Organized Health Care Education/Training Program
DX: E11.43 Type 2 diabetes mellitus with diabetic autonomic (poly)neuropathy (principal); E46 Unspecified protein-calorie malnutrition; N17.9 Acute kidney failure, unspecified; E11.65 Type 2 diabetes mellitus with hyperglycemia; Z79.4 Long term (current) use of insulin; J44.9 Chronic obstructive pulmonary disease, unspecified; K31.84 Gastroparesis; E86.0 Dehydration; K21.00 Gastro-esophageal reflux disease with esophagitis, without bleeding; I10 Essential (primary) hypertension; F17.210 Nicotine dependence, cigarettes, uncomplicated; R91.1 Solitary pulmonary nodule; Z91.148 Patient's other noncompliance with medication regimen for other reason; T46.1X6A Underdosing of calcium-channel blockers, initial encounter; T46.4X6A Underdosing of angiotensin-converting-enzyme inhibitors, initial encounter; Z68.24 Body mass index [BMI] 24.0-24.9, adult; Z79.85 Long-term (current) use of injectable non-insulin antidiabetic drugs; Z79.899 Other long term (current) drug therapy
CPT/HCPCS: 36415; 71045; 74176; 80053; 80307; 82009; 82962; 83036; 83690; 85025; 87493; 87506; 93005; 97802; 99285; 99406; J7030; A4216; C1751; J2405

== ENCOUNTER 2023-05-01 04:15 | Emergency (ER) | payer MEDICAID, SELFPAY ==
[2023-05-01 04:15] VITALS: BP 225/128; PULSE 108; RESP 16; TEMP 36.2; O2SAT 99; BMI 24.9
--- NOTE | 2023-05-01 04:19 | EX.ED.GENINJ ---
HPI History of Present Illness Chief Complaint: Nausea/Vomiting [facility] Medical History (Updated 05/01/23 @ 07:[address] Zac Tijerina DO) Asthma COPD (chronic obstructive pulmonary disease) Diabetes Esophagitis GERD (gastroesophageal reflux disease) Hypertension Kidney disease Smoker Tobacco use Type 2 diabetes mellitus without complications Home Medications alcohol swabs (BD Alcohol Swabs) 1 pad topical 6XD #100 ea 01/19/21 [Rx Last Taken Unknown] blood sugar diagnostic (Blood Glucose Test strips) #100 ea 01/19/21 [Rx Last Taken Unknown] blood-glucose meter #1 ea 01/19/21 [Rx Last Taken Unknown] lancets 17 gauge #100 ea 01/19/21 [Rx Last Taken Unknown] pen needle, diabetic 30 gauge x 5/16 #100 ea 01/20/21 [Rx Last Taken Unknown] dulaglutide 1.5 mg/0.5 mL subcutaneous pen injector (Trulicity) 1.5 mg subcut TU 02/09/23 [History Last Taken 04/16/23] albuterol sulfate 90 mcg/actuation aerosol inhaler (Ventolin HFA) 2 puff inhalation Q6H PRN SOB 04/23/23 [History Last Taken 04/09/23] insulin lispro 100 unit/mL subcutaneous pen 10 unit subcut TID diabetes 04/23/23 [History Last Taken 04/21/23] pantoprazole 40 mg tablet,delayed release 40 mg PO DAILY acid reflux 04/23/23 [History Last Taken 04/23/23] amlodipine 10 mg tablet 10 mg PO DAILY #30 tabs 04/26/23 [Rx Last Taken Unknown] lisinopril 20 mg tablet 20 mg PO DAILY #30 tabs 04/26/23 [Rx Last Taken Unknown] metoclopramide HCl 5 mg tablet (Reglan) 5 mg PO Q8H PRN PRN nausea and vomiting 7 days #20 tabs 05/01/23 [Rx Last Taken Unknown] Allergy/AdvReac Type Severity Reaction Status Date / Time No Known Allergies Allergy Verified 05/01/23 04:21 Family History Mother Diabetes Heart disease Myocardial infarction Hypertension Father Diabetes Heart disease Myocardial infarction Hypertension Other Asthma Surgical History No significant past surgical history Social History household members: family Smoking Status: Current every day smoker tobacco type: cigarettes how long ago did patient quit smoking: Patient started smoking when he was 11 years old. alcohol intake: never substance use type: does not use EXAM Physical Exam Const Vital Signs: 05/01/23 04:15 Temperature 97.2 F L Temperature Source Temporal Pulse Rate 108 H Respiratory Rate 16 Blood Pressure 225/128 H Blood Pressure Mean 160 Pulse Ox 99 Oxygen Delivery Method Room Air MDM [facility] Narrative Medical decision making narrative: HISTORY OF PRESENT ILLNESS: 42-year-old male here for nausea vomiting. Patient states he started burping yesterday then developed copious nonbloody nonbilious vomitus. States he is vomiting so much that his mouth weiss. Denies history of abdominal surgeries notes history of DKA. Denies recent fever. Denies any recent travel, antibiotics or new foods. REVIEW OF SYSTEMS: Pertinent positives: Nausea vomiting Pertinent negatives: Fever PHYSICAL EXAM: Nursing triage notes reviewed, Vital signs reviewed Constitutional: please see mdm HENT: MMM Eyes: Pupils equal round and reactive to light, Extraocular muscles intact Neck: No stridor, no JVD, full neck ROM Lungs: Clear to auscultation, No wheezing or rales. No increased work of breathing, no conversational dyspnea, no accessory muscle use, no nasal flaring. No respiratory distress noted Heart: Regular rate and rhythm, No murmurs, No rubs and No gallops, 2+ distal pulses (radial, femoral, posterior tibial) in all extremities Abdomen: Soft, there is no tenderness, rigidity, rebound or guarding, no obvious peritoneal signs, no palpable pulsatile abdominal masses, no auscultated abdominal bruit : No CVAT Extremities: No edema Neuro: No focal neurological deficits, cranial nerves II through XII intact, 5/5 strength in all extremities. Intact sensation to light touch in all extremities, 2+ reflexes bilateral patella tendons. Normal gait. No ataxia. Skin: No rash or lesions noted MEDICAL DECISION MAKING: Chief Complaint: Nausea vomiting External records reviewed: Recent hospitalization at the end of March 2023 for dehydration, nausea and vomiting as unspecified. Was given IV Zofran. Was noted to have FROYLAN this time. CT scan on 04/23/2023 shows no acute abnormality Factors affecting care: Type 2 diabetes, hypertension, GERD Social determinants of health: Smoker History obtained from others: EMS Consults: none ALL IMAGES (IF OBTAINED) HAVE BEEN PERSONALLY REVIEWED AND INTERPRETED BY MYSELF. EKG with sinus tachycardia, normal axis, no intervals, no STEMI. MDM Narrative: Patient was initially hypertensive, tachycardic, afebrile. Abdominal exam is benign. I considered the following differential diagnosis: Dehydration, pancreatitis, DKA I obtained a broad lab and imaging work-up to further elucidate etiology patient complaints. Patient normal saline and Zofran for symptomatically for rehydration. Labs images remarkable for no evidence of DKA, pancreatitis. There is evidence of dehydration with a mild FROYLAN. He is given 2 L normal saline. Patient was given Zofran initially and then followed by Reglan and morphine. After Reglan and morphine patient complete resolution of symptoms. I gave Reglan for home-going. My suspicion is the patient suffered from gastroparesis secondary to poorly controlled diabetes and hyperglycemia. Patient's abdominal exam upon reassessment was benign and not consistent with acute surgical process. Vital signs specifically systolic blood pressure improved. Patient was offered further ED evaluation for fluids, possible admission however he refused. He is alert and orient x3 and stated he like to go home take Reglan and follow-up his primary care physician. He was discharged stable condition with strict return precautions and follow-up instructions. I see nothing that would suggest an acute abdomen at this time. Based on history physical exam, risk factors, I have a low for bowel obstruction, incarcerated hernia, acute pancreatitis, intra-abdominal abscess, perforated viscus, diverticulitis, cholecystitis, appendicitis, PID, ovarian torsion, ectopic and tubo-ovarian abscess is very low. There is no evidence of peritonitis sepsis or toxicity at this time. I feel the patient can be managed as an outpatient with follow-up with her primary physician in the next 24 to 48 hours or soon as possible. Instructions have been given for the patient to return to the ED for worsening pain, anorexia, high fevers, intractable vomiting or bleeding. The patient and/or family, caregivers express understanding. The patient and/or family, caregivers agrees with the plan. Shared decision making: I will have a discussion with the patient and or visitors regarding risk/benefits of further testing or admission. They will be made aware of of the risk/benefits inherent in this decision they will be given the opportunity to voice understanding. Total critical care time today provided was at least 0 minutes. This excludes separately billable procedures. Critical care time (if documented) is secondary to the patient having high probability of clinically significant/life threatening deterioration in the patient's condition which required my urgent intervention. Lab Data Attestation: I reviewed the patient's lab results. Lab results narrative: CBC with leukocytosis to suggest persistent inflammation, no anemia or thrombocytopenia noted VBG without significant acidosis, CO2 retention Acetone level low Lipase is wnl indicating no pancreatic inflammation. CBC with leukocytosis subjective systemic summation, no severe anemia, no thrombocytopenia BMP without significant electrolyte abnormalities, there is no anion gap to suggest endorgan hypoperfusion or DKA there is a mild acute kidney injury compared to prior study there is also hyperglycemia LFTs show no evidence of hepatobiliary pathology. Labs: Laboratory Results - last 24 hr 05/01/23 05:10 WBC 12.4 H RBC 4.16 L Hgb 13.9 Hct 38.7 L MCV 93.0 MCH 33.4 H MCHC 35.9 RDW Std Deviation 42.3 RDW Coeff of [place] 12.3 Plt Count 308 MPV 9.7 Immature Gran % (Auto) 0.600 Neut % (Auto) 78.4 H Lymph % (Auto) 12.9 L [place] % (Auto) 7.6 Eos % (Auto) 0.0 Baso % (Auto) 0.5 Absolute Neuts (auto) 9.7 H Absolute Lymphs (auto) 1.60 Nucleated RBC % 0 Sodium 136 Potassium 4.5 Chloride 103 Carbon Dioxide 26.0 Anion Gap 7 BUN 37 H Creatinine 1.78 H Estim Creat Clear Calc 55.82 Est GFR (MDRD) Af Amer 54 L Est GFR (MDRD) Non-Af 45 L BUN/Creatinine Ratio 20.8 H Glucose 287 H Calcium 8.3 L Total Bilirubin 0.30 Direct Bilirubin 0.07 AST 46 H ALT 36 Alkaline Phosphatase 58 Total Protein 5.7 L Albumin 1.8 L Globulin 3.9 Lipase 25 Acetone Level SMALL H ABG Data ABG results: ABG 05/01/23 05:26 Specimen Type JENNIFER VBG pH 7.42 VBG pO2 55 H VBG HCO3 25 VBG Total CO2 26 VBG O2 Sat (Calc) 89 H VBG Base Excess 1 POC Mix VBG pCO2 Pt Tmp 38.5 L Discharge Plan Triage Chief Complaint: Nausea/Vomiting ED Provider: Zac Tijerina Dx/Rx/DC Orders Clinical Impression: Acute kidney injury, Acute hyperglycemia, Diabetic gastroparesis Instructions: Delayed Gastric Emptying, ED Vomiting (Adult) Prescriptions: New metoclopramide HCl [Reglan] 5 mg tablet 5 mg PO Q8H PRN PRN (Reason: nausea and vomiting) 7 Days Qty: 20 0RF No Action (DME) blood-glucose meter Misc See Rx Instructions .ROUTE .MEDSUPPLY Qty: 1 0RF Rx Instructions: As directed (DME) Blood Glucose Test Strip See Rx Instructions .ROUTE .MEDSUPPLY Qty: 100 5RF Rx Instructions: test 6 times daily as needed (DME) lancets 17 gauge misc See Rx Instructions .ROUTE .MEDSUPPLY Qty: 100 5RF Rx Instructions: As directed alcohol swabs [BD Alcohol Swabs] Pads, Medicated 1 pad TOPICAL 6XD Qty: 100 5RF Trulicity 1.5 mg/0.5 mL Pen Injector 1.5 mg SUBCUT TU pantoprazole 40 mg tablet,delayed release (DR/EC) 40 mg PO DAILY insulin lispro 100 unit/mL insulin pen 10 unit SUBCUT TID albuterol sulfate [Ventolin HFA] 90 mcg/actuation HFA aerosol inhaler 2 puff INHALATION Q6H PRN (Reason: SOB) Patient Comments: TAKE 2 PUFFS BY MOUTH EVERY 6 HOURS NEEDED FOR WHEEZE amlodipine 10 mg tablet 10 mg PO DAILY Qty: 30 2RF lisinopril 20 mg tablet 20 mg PO DAILY Qty: 30 2RF (DME) pen needle, diabetic 30 gauge x 5/16 needle See Rx Instructions .ROUTE .MEDSUPPLY Qty: 100 5RF Rx Instructions: 5 times daily as directed Primary Care Provider: LILLIAN VUONG Referrals: lillian vuong [Other] Activity Restrictions/Additional Instructions: Thank you for trusting us with your care today! Please take Tylenol (2 pills, 650 mg), ibuprofen (2 pills, 400 mg) every 6 hours as needed for pain and fever control. Please take Reglan as needed for nausea vomiting. Please return to the emergency department if your symptoms change or worsen. Specifically cannot tolerate food or medicine by mouth. Please follow with your primary care physician for further outpatient evaluation and management. Disposition Disposition: Home, Self Care
--- NOTE | 2023-05-01 04:22 | EKG12_ITS ---
Test Reason : NAUSEA/VOMITING Blood Pressure : / mmHG Vent. Rate : 101 BPM Atrial Rate : 101 BPM P-R Int : 138 ms QRS Dur : 068 ms QT Int : 362 ms P-R-T Axes : 064 062 050 degrees QTc Int : 469 ms Sinus tachycardia Otherwise normal ECG Confirmed by MELISSA PACHECO, BAKARI ([id number]), desk editor RADU ELLSWORTH ([id number]) on 05/03/2023 1:06:47 PM Referred By: TYRELL Confirmed By:BIJU TORRES MD
[2023-05-01] MEDS: Ondansetron 4 MG/2 ML Vial IV (05:08)
[2023-05-01 05:15] VITALS: BP 193/123
[2023-05-01 05:19] LABS: Absolute Neutrophil Count 9.7 X10^3/uL (2.0-7.7); Basophil# 0.06 X10^3/uL; Basophil% 0.5 % (0-1); Hematocrit 38.7 % (40-54); Hemoglobin 13.9 g/dL (13.0-16.5); Lymphocyte % 12.9 % (19-41); Mean Corp Hgb Conc 35.9 g/dL (32-36); Mean Corpuscular Hgb 33.4 pg (27.0-32.0); Mean Platelet Vol. 9.7 fl (6.2-12.0); Monocyte# 0.94 X10^3/uL; Monocyte% 7.6 % (0-10); NRBC Flagged by Analyzer 0 % (0-5); Neutrophil # 9.73 X10^3/uL (2.7-7.7); Neutrophil % 78.4 % (47-70); Platelet Count 308 K/mm3 (150-450); RBC Distribution Width CV 12.3 % (11.6-14.6); RBC Distribution Width SD 42.3 fl (35.1-43.9); Red Blood Count 4.16 M/mm3 (4.6-6.2); White Blood Count 12.4 K/mm3 (4.4-11.0)
[2023-05-01 05:30] LABS: Blood Gas Specimen Type VEN; VBG BASE EXCESS 1 mmol/L (-1.0-3.5); VBG Bicarbonate 25 mmol/L (22-26); VBG PO2 55 mmHg (25-40); VBG SO2 89 % (50-70); VBG TCO2 26 mmol/L (23-33); VBG pCO2 38.5 mmHg (41-51); VBG pH 7.42 (7.32-7.42)
[2023-05-01 05:37] LABS: AST(SGOT) 46 U/L (15-37); Alanine Aminotransfer ALT/SGPT 36 U/L (16-61); Albumin, Serum 1.8 g/dL (3.2-5.0); Alkaline Phosphatase 58 U/L (45-117); Anion Gap 7 (5-15); BUN 37 mg/dL (7-18); BUN/Creat Ratio 20.8 RATIO (10-20); Bilirubin, Direct 0.07 mg/dL (0.00-0.30); Calcium,Total 8.3 mg/dL (8.5-10.1); Chloride 103 mmol/L (98-107); Creatinine, Serum 1.78 mg/dL (0.70-1.30); EST Glomerular Filtration Rate 45 mL/min (>60); Est Glom Filt Rate - Afr Amer 54 mL/min (>60); Estimated Creatinine Clearance 55.82 ml/min; Globulin 3.9 g/dL (2.2-4.2); Glucose 287 mg/dL (74-106); Lipase 25 U/L (13-75); Potassium 4.5 mmol/L (3.5-5.1); Protein, Total 5.7 g/dL (6.4-8.2); Sodium Level 136 mmol/L (136-145)
[2023-05-01] MEDS: Metoclopramide 10 MG/2 ML Vial 5 MG IV ×2 (06:25→07:20)
[2023-05-01] MEDS: Morphine 4 MG/ML Syringe IV (06:29)
[2023-05-01] MEDS: Famotidine 200 MG/20 ML MDV 20 MG in 0.9% Normal Saline (Pres. free 8 ML 300 MG IV (06:32)
[2023-05-01] MEDS: 0.9% Normal Saline 1,000 ML 999 ML IV (06:32)
[2023-05-01 07:18] VITALS: BP 193/123
== END 2023-05-01 07:24 | disposition home or self-care (01) ==
PROVIDERS: Emergency Provider Emergency Medicine; Visit Provider Emergency Medicine
DX: N17.9 Acute kidney failure, unspecified (principal); J44.9 Chronic obstructive pulmonary disease, unspecified; E11.43 Type 2 diabetes mellitus with diabetic autonomic (poly)neuropathy; E11.65 Type 2 diabetes mellitus with hyperglycemia; Z79.4 Long term (current) use of insulin; K31.84 Gastroparesis; I10 Essential (primary) hypertension; F17.210 Nicotine dependence, cigarettes, uncomplicated; Z79.899 Other long term (current) drug therapy
CPT/HCPCS: 80048; 80076; 82009; 82803; 83690; 85025; 93005; 96365; 96375; 96376; 99285; J7030; A4216; J2405; J3490